=== PATIENT | female | born 1940 | race Caucasian/White ===

== ENCOUNTER 2017-02-16 14:47 | Emergency (ER) | payer MEDICARE, BC ==
[2017-02-16] MEDS ORDERED: Sodium Chloride 0.9% 1,000 ML IV ONE (15:10)
--- NOTE | 2017-02-16 15:15 | EDM.PDOC ---
ED HPI GENERAL MEDICAL PROBLEM - General Chief Complaint: Respiratory Problem Stated Complaint: cough Time Seen by Provider: 02/16/17 15:13 Source of Information: Reports: Patient History Limitations: Reports: No Limitations - History of Present Illness INITIAL COMMENTS - FREE TEXT/NARRATIVE: History of present illness: [76-year-old female comes in with complaints of cough and shortness of breath. Patient acute she has a history of pneumonia and she is an active smoker.] Review of systems: As per history of present illness and below otherwise all systems reviewed and negative. Past medical history: As per history of present illness and as reviewed below otherwise noncontributory. Surgical history: As per history of present illness and as reviewed below otherwise noncontributory. Social history: No reported history of drug or alcohol abuse. Family history: As per history of present illness and as reviewed below otherwise noncontributory. Physical exam: HEENT: Atraumatic, normocephalic, pupils reactive, negative for conjunctival pallor or scleral icterus, mucous membranes moist, throat clear, neck supple, nontender, trachea midline. Lungs: Clear to auscultation, breath sounds diminished throughout, chest nontender. Heart: S1S2, regular, negative for clicks, rubs, or JVD. Abdomen: Soft, nondistended, nontender. Negative for masses or hepatosplenomegaly. Negative for costovertebral tenderness. Pelvis: Stable nontender. Genitourinary: Deferred. Rectal: Deferred. Extremities: Atraumatic, negative for cords or calf pain. Neurovascular unremarkable. Neuro: Awake, alert, oriented. Cranial nerves II through XII unremarkable. Cerebellum unremarkable. Motor and sensory unremarkable throughout. Exam nonfocal. Diagnostics: [CBC, CMP, chest x-ray] Therapeutics: [IV fluid] Impression: [#1 URI, #2 cough, #3 shortness of breath] Plan: [Antibiotics, inhaler, steroids] Definitive disposition and diagnosis as appropriate pending reevaluation and review of above. Left Upper Back Pain Score (Numeric/FACES): 8 - Related Data Allergies Allergy/AdvReac Type Severity Reaction Status Date / Time Penicillins Allergy Anaphylactic Verified 02/16/17 15:11 Shock phenylbutazone Allergy Other Verified 02/16/17 15:11 [From Butazolidin] Home Meds: Home Meds Albuterol Sulfate [Proair Hfa] 2 puff IH Q6HR #1 hfa.aer.ad 02/16/17 [Rx] Amoxicillin [IMW: Amoxicillin] 500 mg PO .THREE TIMES DAILY #30 cap 02/16/17 [Rx ] Inhaler, Assist Devices [Space Chamber Plus] 1 each ASDIRECTED #1 spacer 02/24 [Rx] methylPREDNISolone [Medrol] 4 mg PO DAILY #21 tab.ds.pk 02/16/17 [Rx] ED ROS GENERAL - Review of Systems Review Of Systems: See Below (See history of present illness) ED EXAM, GENERAL - Physical Exam Exam: See Below (See history of present illness) Course - Vital Signs Last Recorded V/S: Last Vital Signs Temp 36.6 C 02/16/17 15:05 Pulse 88 02/16/17 15:05 Resp 20 02/16/17 15:05 BP 128/58 L 02/16/17 15:05 Pulse Ox 95 02/16/17 15:05 - Orders/Labs/Meds Orders: Active Orders 24 hr Category Date Time Status Chest 2V [CR] Stat Exams 02/16/17 15:10 Ordered Labs: Laboratory Tests 02/16/17 02/16/17 Range/Units 15:21 15:21 WBC 10.52 (4.0-11.0) K/uL RBC 4.60 (4.30-5.90) M/uL Hgb 14.5 (12.0-16.0) g/dL Hct 41.8 (36.0-46.0) % MCV 90.9 (80.0-98.0) fL MCH 31.5 (27.0-32.0) pg MCHC 34.7 (31.0-37.0) g/dL RDW Std Deviation 42.0 (28.0-62.0) fl RDW Coeff of Nam 13 (11.0-15.0) % Plt Count 207 (150-400) K/uL MPV 10.00 (7.40-12.00) fL Neut % (Auto) 73.3 (48.0-80.0) % Lymph % (Auto) 15.5 L (16.0-40.0) % [place] % (Auto) 8.3 (0.0-15.0) % Eos % (Auto) 2.6 (0.0-7.0) % Baso % (Auto) 0.3 (0.0-1.5) % Neut # (Auto) 7.7 H (1.4-5.7) K/uL Lymph # (Auto) 1.6 (0.6-2.4) K/uL [place] # (Auto) 0.9 H (0.0-0.8) K/uL Eos # (Auto) 0.3 (0.0-0.7) K/uL Baso # (Auto) 0.0 (0.0-0.1) K/uL Nucleated RBC % 0.0 /100WBC Nucleated RBCs # 0 K/uL Sodium 139 (136-146) mmol/L Potassium 3.5 (3.5-5.1) mmol/L Chloride 104 (98-110) mmol/L Carbon Dioxide 25 (21-31) mmol/L BUN 4 L (6.0-23.0) mg/dL Creatinine 0.7 (0.6-1.5) mg/dL Est Cr Clr Drug Dosing 63.45 mL/min Estimated GFR (MDRD) > 60.0 ml/min Glucose 109 (60-110) mg/dL Calcium 9.5 (8.8-10.8) mg/dL Total Bilirubin 0.7 (0.1-1.5) mg/dL AST 14 (5-40) IU/L ALT 9 (8-54) IU/L Alkaline Phosphatase 88 (40-150) Total Protein 7.1 (6.0-8.0) g/dL Albumin 4.1 (3.4-4.8) g/dL Globulin 3.0 (2.0-3.5) g/dL Albumin/Globulin Ratio 1.4 (1.3-2.8) Meds: Medications Discontinued Medications Generic Name Dose Route Start Last Admin Trade Name Freq PRN Reason Stop Dose Admin Sodium Chloride 1,000 mls @ 999 mls/hr 02/16/17 15:10 02/16/17 15:52 Normal Saline IV 02/16/17 16:10 999 mls/hr STAT ONE Administration Departure - Departure Time of Disposition: 16:39 Disposition: Home, Self-Care 01 Condition: Good Clinical Impression: URI (upper respiratory infection), Cough - Discharge Information Prescriptions: Albuterol Sulfate [Proair Hfa] 2 puff IH Q6HR #1 hfa.aer.ad Amoxicillin [IMW: Amoxicillin] 500 mg PO .THREE TIMES DAILY #30 cap Inhaler, Assist Devices [Space Chamber Plus] 1 each MC ASDIRECTED #1 spacer methylPREDNISolone [Medrol] 4 mg PO DAILY #21 tab.ds.pk Instructions: Smoking Cessation, Tips for Success, [id number], Chronic Obstructive Pulmonary Disease Exacerbation, [id number] Referrals: PCP,None [Primary Care Provider] - Forms: ED Department Discharge Additional Instructions: The following information is given to patients seen in the emergency department who are being discharged to home. This information is to outline your options for follow-up care. We provide all patients seen in our emergency department with a follow-up referral. The need for follow-up, as well as the timing and circumstances, are variable depending upon the specifics of your emergency department visit. If you don't have a primary care physician on staff, we will provide you with a referral. We always advise you to contact your personal physician following an emergency department visit to inform them of the circumstance of the visit and for follow-up with them and/or the need for any referrals to a consulting specialist. The emergency department will also refer you to a specialist when appropriate. This referral assures that you have the opportunity for follow-up care with a specialist. All of these measure are taken in an effort to provide you with optimal care, which includes your follow-up. Under all circumstances we always encourage you to contact your private physician who remains a resource for coordinating your care. When calling for follow-up care, please make the office aware that this follow-up is from your recent emergency room visit. If for any reason you are refused follow-up, please contact the [facility] Emergency Department at and asked to speak to the emergency department charge nurse. Take medication as directed Follow-up with PCP in 1-2 days Return to ED as needed as discussed - My Orders Last 24 Hours: My Active Orders 02/16/17 15:10 Chest 2V [CR] Stat - Assessment/Plan Last 24 Hours: My Active Orders 02/16/17 15:10 Chest 2V [CR] Stat
[2017-02-16 15:49] LABS: CHLORIDE,CL 104 mmol/L (98-110); SODIUM,NA 139 mmol/L (136-146)
[2017-02-16 17:05] VITALS: BP 118/56
--- NOTE | 2017-02-18 14:54 | CR ---
EXAM DATE: 02/16/17 PATIENT'S AGE: 76 Patient: FRIDA SHEETS Facility: [place], [place] Site . Site : [id number] Study: XRay Chest [id number] 4:08:22 PM Ordering Physician: Doctor Olea Final Report: HISTORY: Cough. Findings: Two views of the chest or provided. There is pleural-based increased soft tissue density seen at in the lower left hemithorax. In addition there is apparent pleural thickening/scarring and calcification at the left apex with lesser involvement of the right apex. No focal airspace consolidation is noted but there appear to be several small nodules present in the upper portions of both lungs as well as probably the right lower lung. No pneumothorax is seen. Cardiac silhouette size is within normal limits. Impression: 1. Likely chronic pleural scarring or thickening involving both lung apices and the left lower hemithorax. 2. Apparent small bilateral pulmonary nodules which appear relatively dense and could represent calcified granulomata. Comparison with any older outside studies would be helpful for further evaluation. If none exist, consider CT scan of the chest for further evaluation and confirmation. No focal airspace consolidation is noted. Dictated by Charles Lynn MD @ Feb 16 2017 4:25PM (Electronic Signature) Report Signed by Proxy. THAI
== END 2017-02-16 17:19 | disposition home or self-care (01) ==
LOC: MW.ED 14:47
DX: J06.9 Acute upper respiratory infection, unspecified (principal); Z88.0 Allergy status to penicillin; Z88.8 Allergy status to other drugs, medicaments and biological substances; Z79.899 Other long term (current) drug therapy
CPT/HCPCS: 36415; 71020; 80053; 85025; 96360; 99284; J7040; 99282

== ENCOUNTER 2017-09-27 14:43 | Observation (INO) | payer MEDICARE, BC ==
[2017-09-27] MEDS ORDERED: Aspirin 81 MG Tab.Chew PO ONE (14:53)
[2017-09-27] MEDS ORDERED: Nitroglycerin 0.4 MG Tab.SL SL PRN (14:53)
[2017-09-27] MEDS ORDERED: Pantoprazole 40 MG Vial IVPUSH ONE (14:57)
[2017-09-27] MEDS ORDERED: Sodium Chloride 0.9% 1,000 ML IV SCH (15:00)
[2017-09-27 15:33] LABS: CHLORIDE,CL 105 mmol/L (98-107); SODIUM,NA 141 mmol/L (136-145)
--- NOTE | 2017-09-27 15:35 | CR ---
EXAMINATION: Portable chest radiograph. HISTORY: Shortness of breath. Comparison: 02/16/2017. FINDINGS: The trachea is midline. The cardiomediastinal silhouette is within normal limits. No pulmonary infilt rates, effusions or pneumothorax. Bilateral apical scarring and postsurgical changes within the left apex. Mild hyperinflation and chronic interstitial prominence. Osseous structures appear unremarkable. IMPRESSION: No acute cardiopulmonary process.
--- NOTE | 2017-09-27 15:57 | EDM.PDOC ---
ED HPI GENERAL MEDICAL PROBLEM - General Chief Complaint: Chest Pain Stated Complaint: CHEST PAIN Time Seen by Provider: 09/27/17 15:55 Source of Information: Reports: Patient - History of Present Illness INITIAL COMMENTS - FREE TEXT/NARRATIVE: HISTORY AND PHYSICAL: History of present illness: [Patient presents with chest pain acutely she rates 10 out of 10 lasting for 45 minutes no radiation arm neck or jaw she did associate some shortness of breath however symptoms have resolved by time of arrival currently no fever nausea vomiting diarrhea constipation chest pain shortness breath headache dizziness palpitation no bowel or urine symptoms ] Review of systems: As per history of present illness and below otherwise all systems reviewed and negative. Past medical history: As per history of present illness and as reviewed below otherwise noncontributory. Surgical history: As per history of present illness and as reviewed below otherwise noncontributory. Social history: No reported history of drug or alcohol abuse. Family history: As per history of present illness and as reviewed below otherwise noncontributory. Physical exam: HEENT: Atraumatic, normocephalic, pupils reactive, negative for conjunctival pallor or scleral icterus, mucous membranes moist, throat clear, neck supple, nontender, trachea midline. Lungs: Clear to auscultation, breath sounds equal bilaterally, chest nontender. Heart: S1S2, regular, negative for clicks, rubs, or JVD. Abdomen: Soft, nondistended, nontender. Negative for masses or hepatosplenomegaly. Negative for costovertebral tenderness. Pelvis: Stable nontender. Genitourinary: Deferred. Rectal: Deferred. Extremities: Atraumatic, negative for cords or calf pain. Neurovascular unremarkable. Neuro: Awake, alert, oriented. Cranial nerves II through XII unremarkable. Cerebellum unremarkable. Motor and sensory unremarkable throughout. Exam nonfocal. Diagnostics: [EDC CMP cardiac enzymes ] Therapeutics: [Aspirin 324 mg chewable Proton X 80 mg IV ] Impression: [ atypical chest pain ] Definitive disposition and diagnosis as appropriate pending reevaluation and review of above. left chest Pain Score (Numeric/FACES): 10 - Related Data Allergies Allergy/AdvReac Type Severity Reaction Status Date / Time Penicillins Allergy Anaphylactic Verified 09/27/17 15:34 Shock phenylbutazone Allergy Other Verified 09/27/17 15:34 [From Butazolidin] Home Meds: Home Meds Albuterol Sulfate [Proair Hfa] 2 puff IH Q6HR #1 hfa.aer.ad 02/16/17 [Rx] Inhaler, Assist Devices [Space Chamber Plus] 1 each ASDIRECTED #1 spacer 02/24 [Rx] Albuterol [Ventolin HFA] 1 puff INH Q6HR 09/27/17 [History] Past Medical History Cardiovascular History: Reports: Other (See Below) Other Cardiovascular History: Long QT Syndrome Other OB/BYN History: Vaginal hysterectomy, still has ovaries Musculoskeletal History: Reports: Osteoarthritis - Infectious Disease History Infectious Disease History: Reports: Chicken Pox, Measles, Mumps, Shingles - Past Surgical History HEENT Surgical History: Reports: Cataract Surgery, Other (See Below) Other HEENT Surgeries/Procedures: lymph nodes from neck, cyst remocval face Respiratory Surgical History: Reports: Other (See Below) Other Respiratory Surgeries/Procedures: Chest tube when , lung surgery GI Surgical History: Reports: Appendectomy Female Surgical History: Reports: Breast Biopsy, Other (See Below) Other Female Surgeries/Procedures: Bladder surgery for growth Social & Family History - Family History Family Medical History: Noncontributory - Tobacco Use Smoking Status *Q: Former Smoker Years of Tobacco use: 50 Packs/Tins Daily: 0.5 Used Tobacco, but Quit: Yes Month/Year Tobacco Last Used: 07/2017 - Caffeine Use Caffeine Use: Reports: None - Recreational Drug Use Recreational Drug Use: No ED ROS GENERAL - Review of Systems Review Of Systems: ROS reveals no pertinent complaints other than HPI. ED EXAM, GI/ABD - Physical Exam Exam: See Below Course - Vital Signs Last Recorded V/S: Last Vital Signs Temp 98.4 F 09/27/17 15:14 Pulse 67 09/27/17 15:53 Resp 18 09/27/17 15:53 BP 126/77 09/27/17 15:53 Pulse Ox 92 L 09/27/17 15:53 - Orders/Labs/Meds Orders: Active Orders 24 hr Category Date Time Status EKG 12 Lead [EKG Documentation Completion] [RC] STAT Care 09/27/17 14:55 Active UA W/MICROSCOPIC [URIN] Stat Lab 09/27/17 14:54 Ordered Sodium Chloride 0.9% [Normal Saline] 1,000 ml Med 09/27/17 15:00 Active IV STAT Medication Orders Sodium Chloride (Normal Saline) 1,000 mls @ 125 mls/hr IV STAT GUS Last Admin: 09/27/17 15:02 Dose: 125 mls/hr Labs: Laboratory Tests 09/27/17 09/27/17 Range/Units 14:50 14:50 WBC 7.78 (4.0-11.0) K/uL RBC 4.94 (4.30-5.90) M/uL Hgb 15.4 (12.0-16.0) g/dL Hct 44.5 (36.0-46.0) % MCV 90.1 (80.0-98.0) fL MCH 31.2 (27.0-32.0) pg MCHC 34.6 (31.0-37.0) g/dL RDW Std Deviation 42.5 (28.0-62.0) fl RDW Coeff of Nam 13 (11.0-15.0) % Plt Count 212 (150-400) K/uL MPV 10.20 (7.40-12.00) fL Neut % (Auto) 59.6 (48.0-80.0) % Lymph % (Auto) 23.9 (16.0-40.0) % [place] % (Auto) 6.4 (0.0-15.0) % Eos % (Auto) 9.3 H (0.0-7.0) % Baso % (Auto) 0.8 (0.0-1.5) % Neut # (Auto) 4.6 (1.4-5.7) K/uL Lymph # (Auto) 1.9 (0.6-2.4) K/uL [place] # (Auto) 0.5 (0.0-0.8) K/uL Eos # (Auto) 0.7 (0.0-0.7) K/uL Baso # (Auto) 0.1 (0.0-0.1) K/uL Nucleated RBC % 0.0 /100WBC Nucleated RBCs # 0 K/uL Sodium 141 (136-145) mmol/L Potassium 3.9 (3.5-5.1) mmol/L Chloride 105 (98-107) mmol/L Carbon Dioxide 29.9 (21.0-32.0) mmol/L BUN 7 (7.0-18.0) mg/dL Creatinine 0.7 (0.6-1.0) mg/dL Est Cr Clr Drug Dosing TNP Estimated GFR (MDRD) > 60.0 ml/min Glucose 119 H (74-106) mg/dL Calcium 9.3 (8.5-10.1) mg/dL Total Bilirubin 0.6 (0.2-1.0) mg/dL AST 18 (15-37) IU/L ALT 17 (14-63) IU/L Alkaline Phosphatase 65 (46-116) U/L Creatine Kinase 60 (26-308) U/L CK-MB (CK-2) 2.5 (0-3.6) ng/mL Troponin I < 0.050 (0.000-0.056) ng/mL Total Protein 7.1 (6.4-8.2) g/dL Albumin 3.9 (3.4-5.0) g/dL Globulin 3.2 (2.0-3.5) g/dL Albumin/Globulin Ratio 1.2 L (1.3-2.8) Lipase 75 (73-393) U/L Meds: Medications Generic Name Dose Route Start Last Admin Trade Name Freq PRN Reason Stop Dose Admin Sodium Chloride 1,000 mls @ 125 mls/hr 09/27/17 15:00 09/27/17 15:02 Normal Saline IV 125 mls/hr STAT GUS Administration Discontinued Medications Generic Name Dose Route Start Last Admin Trade Name Freq PRN Reason Stop Dose Admin Aspirin 324 mg 09/27/17 14:53 09/27/17 15:02 Aspirin PO 09/27/17 14:54 324 mg ONETIME ONE Administration Nitroglycerin 0.4 mg 09/27/17 14:53 Nitrostat SL Q5M PRN Chest Pain Pantoprazole Sodium 80 mg 09/27/17 14:57 09/27/17 15:11 Protonix Iv IVPUSH 09/27/17 14:58 80 mg .BOLUS ONE Administration Departure - Departure Time of Disposition: 15:56 Disposition: Refer to Observation Condition: Fair Clinical Impression: Atypical chest pain - Discharge Information - My Orders Last 24 Hours: My Active Orders 09/27/17 14:54 UA W/MICROSCOPIC [URIN] Stat 09/27/17 14:55 EKG 12 Lead [EKG Documentation Completion] [RC] STAT 09/27/17 15:00 Sodium Chloride 0.9% [Normal Saline] 1,000 ml IV STAT - Assessment/Plan Last 24 Hours: My Active Orders 09/27/17 14:54 UA W/MICROSCOPIC [URIN] Stat 09/27/17 14:55 EKG 12 Lead [EKG Documentation Completion] [RC] STAT 09/27/17 15:00 Sodium Chloride 0.9% [Normal Saline] 1,000 ml IV STAT
[2017-09-27] MEDS ORDERED: Acetaminophen 325 MG Tab PO PRN (17:40)
[2017-09-27] MEDS ORDERED: Enoxaparin 40 MG/0.4 ML Syringe SUBCUT SCH (17:45)
--- NOTE | 2017-09-27 17:49 | PCM.HP ---
H&P History of Present Illness - General Date of Service: 09/27/17 Admit Problem/Dx: Admission Diagnosis/Problem Admission Diagnosis/Problem chest pain Source of Information: Patient History Limitations: Reports: No Limitations - History of Present Illness Initial Comments - Free Text/Narative: Patient 76 y old female presented to hospital due to chest pain that was localized in the middle of the chest and was severe , non irradiating and lasted for about 2 h . No change with position or with breathing . Patient has long history of smoking pain resolved when she arrived in ER. She also c/o cough productive of green phlegm and wheezing , sob. Onset of Symptoms: Reports: Today Duration of Symptoms: Reports: Hour(s): left chest Pain Score (Numeric/FACES): 10 - Related Data Allergies/Adverse Reactions: Allergies Allergy/AdvReac Type Severity Reaction Status Date / Time Penicillins Allergy Anaphylactic Verified 09/27/17 15:34 Shock phenylbutazone Allergy Other Verified 09/27/17 15:34 [From Butazolidin] Home Medications: Home Meds Albuterol Sulfate [Proair Hfa] 2 puff IH Q6HR #1 hfa.aer.ad 02/16/17 [Rx] Inhaler, Assist Devices [Space Chamber Plus] 1 each MC ASDIRECTED #1 spacer 02/24 [Rx] Albuterol [Ventolin HFA] 1 puff INH Q6HR 09/27/17 [History] Acetaminophen [Tylenol] 650 mg PO Q4H PRN tablet 09/28/17 [Rx] Albuterol/Ipratropium [DuoNeb 3.0-0.5 MG/3 ML] 3 ml NEB Q4HRRT PRN neb [Rx] Enoxaparin [Lovenox] 60 mg SUBCUT Q12H syringe 09/28/17 [Rx] Fluticasone/Salmeterol [Advair 250-50] 0 puff INH BID diskus 09/28/17 [Rx] atorvaSTATin [Lipitor] 80 mg PO BEDTIME tablet 09/28/17 [Rx] methylPREDNISolone Sod Succ [Solu-MEDROL] 60 mg IVPUSH Q6H sdv 09/28/17 [Rx] Past Medical History Cardiovascular History: Reports: Other (See Below) Other Cardiovascular History: Long QT Syndrome Respiratory History: Reports: COPD Other OB/BYN History: Vaginal hysterectomy, still has ovaries Musculoskeletal History: Reports: Osteoarthritis - Infectious Disease History Infectious Disease History: Reports: Chicken Pox, Measles, Mumps, Shingles - Past Surgical History HEENT Surgical History: Reports: Cataract Surgery, Other (See Below) Other HEENT Surgeries/Procedures: lymph nodes from neck, cyst remocval face Respiratory Surgical History: Reports: Other (See Below) Other Respiratory Surgeries/Procedures: Chest tube, lung surgery to remove ' blebs' (1971) GI Surgical History: Reports: Appendectomy Female Surgical History: Reports: Breast Biopsy, Other (See Below) Other Female Surgeries/Procedures: Bladder surgery for growth Social & Family History - Family History Family Medical History: Noncontributory - Tobacco Use Smoking Status *Q: Former Smoker Years of Tobacco use: 40 Packs/Tins Daily: 0.5 Used Tobacco, but Quit: Yes Month/Year Tobacco Last Used: 2-3 months ago - Caffeine Use Caffeine Use: Reports: Coffee, Soda - Recreational Drug Use Recreational Drug Use: No H&P Review of Systems - Review of Systems: Review Of Systems: See Below General: Reports: No Symptoms HEENT: Reports: No Symptoms Pulmonary: Reports: Shortness of Breath, Wheezing, Cough, Sputum Cardiovascular: Reports: Chest Pain Gastrointestinal: Reports: No Symptoms Genitourinary: Reports: No Symptoms Musculoskeletal: Reports: No Symptoms Skin: Reports: No Symptoms Psychiatric: Reports: No Symptoms Neurological: Reports: No Symptoms Hematologic/Lymphatic: Reports: No Symptoms Immunologic: Reports: No Symptoms Exam - Exam Exam: See Below - Vital Signs Vital Signs: Last Vital Signs Temp 97.1 F 09/27/17 16:38 Pulse 78 09/27/17 16:38 Resp 22 H 09/27/17 16:38 BP 140/67 09/27/17 16:38 Pulse Ox 89 L 09/27/17 16:38 Weight: 129 lb 12.8 oz - Exam Quality Assessment: No: Supplemental Oxygen General: Alert, Oriented HEENT: Conjunctiva Clear Neck: Supple, Trachea Midline Lungs: Decreased Breath Sounds, Wheezing Cardiovascular: Regular Rate, Regular Rhythm, Normal S1, Normal S2 GI/Abdominal Exam: Normal Bowel Sounds, Soft, Non-Tender, No Organomegaly, No Distention Back Exam: Normal Inspection Extremities: Normal Inspection Skin: Warm, Dry Neurological: Cranial Nerves Intact Neuro Extensive - Mental Status: Alert, Oriented x3 Neuro Extensive - Motor, Sensory, Reflexes: CN II-XII Intact Psychiatric: Alert, Normal Affect - Patient Data Lab Results Last 24 hrs: Laboratory Results - last 24 hr 09/27/17 09/27/17 09/27/17 Range/Units 14:50 14:50 16:59 WBC 7.78 (4.0-11.0) K/uL RBC 4.94 (4.30-5.90) M/uL Hgb 15.4 (12.0-16.0) g/dL Hct 44.5 (36.0-46.0) % MCV 90.1 (80.0-98.0) fL MCH 31.2 (27.0-32.0) pg MCHC 34.6 (31.0-37.0) g/dL RDW Std Deviation 42.5 (28.0-62.0) fl RDW Coeff of Nam 13 (11.0-15.0) % Plt Count 212 (150-400) K/uL MPV 10.20 (7.40-12.00) fL Neut % (Auto) 59.6 (48.0-80.0) % Lymph % (Auto) 23.9 (16.0-40.0) % [place] % (Auto) 6.4 (0.0-15.0) % Eos % (Auto) 9.3 H (0.0-7.0) % Baso % (Auto) 0.8 (0.0-1.5) % Neut # (Auto) 4.6 (1.4-5.7) K/uL Lymph # (Auto) 1.9 (0.6-2.4) K/uL [place] # (Auto) 0.5 (0.0-0.8) K/uL Eos # (Auto) 0.7 (0.0-0.7) K/uL Baso # (Auto) 0.1 (0.0-0.1) K/uL Nucleated RBC % 0.0 /100WBC Nucleated RBCs # 0 K/uL Sodium 141 (136-145) mmol/L Potassium 3.9 (3.5-5.1) mmol/L Chloride 105 (98-107) mmol/L Carbon Dioxide 29.9 (21.0-32.0) mmol/L BUN 7 (7.0-18.0) mg/dL Creatinine 0.7 (0.6-1.0) mg/dL Est Cr Clr Drug Dosing TNP Estimated GFR (MDRD) > 60.0 ml/min Glucose 119 H (74-106) mg/dL Calcium 9.3 (8.5-10.1) mg/dL Total Bilirubin 0.6 (0.2-1.0) mg/dL AST 18 (15-37) IU/L ALT 17 (14-63) IU/L Alkaline Phosphatase 65 (46-116) U/L Creatine Kinase 60 (26-308) U/L CK-MB (CK-2) 2.5 (0-3.6) ng/mL Troponin I < 0.050 (0.000-0.056) ng/mL Total Protein 7.1 (6.4-8.2) g/dL Albumin 3.9 (3.4-5.0) g/dL Globulin 3.2 (2.0-3.5) g/dL Albumin/Globulin Ratio 1.2 L (1.3-2.8) Lipase 75 (73-393) U/L Urine Color YELLOW Urine Appearance CLEAR Urine pH 7.0 (5.0-8.0) Ur Specific [place] 1.015 (1.001-1.035) Urine Protein NEGATIVE (NEGATIVE) mg/dL Urine Glucose (UA) NEGATIVE (NEGATIVE) mg/dL Urine Ketones TRACE H (NEGATIVE) mg/dL Urine Occult Blood SMALL H (NEGATIVE) Urine Nitrite NEGATIVE (NEGATIVE) Urine Bilirubin NEGATIVE (NEGATIVE) Urine Urobilinogen 0.2 (<2.0) EU/dL Ur Leukocyte Esterase NEGATIVE (NEGATIVE) Urine RBC 1-2 (0-2/HPF) Urine WBC 0-1 (0-5/HPF) Ur Epithelial Cells RARE (NONE-FEW) Urine Bacteria RARE (NEGATIVE) Result Diagrams: 09/28/17 07:13 09/28/17 07:13 EKG INTERPRETATION EKG Date: 09/27/17 Rhythm: NSR P-Wave: Present QRS: RBBB ST-T: Normal QT: Normal - Problem List (1) Chest pain, rule out acute myocardial infarction SNOMED Code(s): 46502980 ICD Code: R07.9 - CHEST PAIN, UNSPECIFIED Status: Acute Current Visit: Yes (2) COPD exacerbation SNOMED Code(s): 769979725 ICD Code: J44.1 - CHRONIC OBSTRUCTIVE PULMONARY DISEASE W (ACUTE) EXACERBATION Status: Acute Current Visit: Yes Problem List Initiated/Reviewed/Updated: Yes Orders Last 24hrs: Active Orders 24 hr Category Date Time Status Admission Status [Patient Status] [ADT] Stat ADT 09/27/17 15:57 Active Oxygen Therapy [RC] PRN Care 09/27/17 17:41 Active Pulse Oximetry [RC] PRN Care 09/27/17 17:44 Active Telemetry Monitoring [Cardiac Monitoring] [RC] . Care 09/27/17 17:46 Active DIRECTED VTE/DVT Education [RC] PER UNIT ROUTINE Care 09/27/17 17:41 Active Vital Signs [RC] Q4H Care 09/27/17 17:41 Active Heart Healthy Diet [DIET] Diet 09/27/17 Dinner Active CBC WITH AUTO DIFF [HEME] AM Lab 09/28/17 05:11 Ordered CBC WITH AUTO DIFF [HEME] AM Lab 09/29/17 05:11 Ordered CBC WITH AUTO DIFF [HEME] AM Lab 09/30/17 05:11 Ordered COMPREHENSIVE METABOLIC PN,CMP [CHEM] AM Lab 09/28/17 05:11 Ordered COMPREHENSIVE METABOLIC PN,CMP [CHEM] AM Lab 09/29/17 05:11 Ordered COMPREHENSIVE METABOLIC PN,CMP [CHEM] AM Lab 09/30/17 05:11 Ordered GLYCOSYLATED HEMOGLOBIN,HGBA1C [CHEM] Routine Lab 09/28/17 05:10 Ordered LIPID PANEL [CHEM] Routine Lab 09/28/17 05:10 Ordered UA W/MICROSCOPIC [URIN] Stat Lab 09/27/17 16:59 Ordered Acetaminophen [Tylenol] Med 09/27/17 17:40 Ordered 650 mg PO Q4H PRN Albuterol [Ventolin HFA] Med 09/27/17 18:00 Ordered DOSE gm INH Q6HR Enoxaparin [Lovenox] Med 09/27/17 17:45 Ordered 40 mg SUBCUT Q24H Sodium Chloride 0.9% [Normal Saline] 1,000 ml Med 09/27/17 15:00 Active IV STAT Sequential Compression Device [OM.PC] Per Unit Routine Oth 09/27/17 17:44 Ordered Resuscitation Status Routine Resus Stat 09/27/17 17:40 Ordered Medication Orders Acetaminophen (Tylenol) 650 mg PO Q4H PRN PRN Reason: Pain (Mild 1-3)/fever Albuterol (Ventolin Hfa) gm INH Q6HR GUS Enoxaparin Sodium (Lovenox) 40 mg SUBCUT Q24H GUS Sodium Chloride (Normal Saline) 1,000 mls @ 125 mls/hr IV STAT GUS Last Admin: 09/27/17 15:02 Dose: 125 mls/hr Assessment/Plan Comment:: Assessment and plan chest pain r/o acs - will admit patient to telemetry , fill follow up cardiac enzymes , three sets , aspirin 325 mg po daily , lipid profile , hemoglobin A1c 2)Copd exacerbation : levaquin 750 mg po daily , solumedrol 60 mg iv q 6 h , duoneb nebulizer treatment , advair 250 /50 , 2 puffs q 12h , robitussin 10 cc po tid 3)dvt prof : giovanna sq
[2017-09-27] MEDS ORDERED: Levofloxacin/Dextrose 5%-Water 750 MG in Premix Bag 1 BAG IV SCH (18:00)
[2017-09-27] MEDS: Albuterol 8 GM Inhaler INH SCH (18:35)
[2017-09-27] MEDS: Albuterol/Ipratropium 3.0-0.5 MG/3 ML Neb Soln NEB PRN ×2 (18:37→23:21)
[2017-09-27] MEDS: methylPREDNISolone Sodium Succinate 40 MG/1 ML SDV IVPUSH SCH ×2 (18:38→23:15)
[2017-09-27] MEDS: Fluticasone/Salmeterol 250-50 MCG Inhalation Powder 14/Diskus INH SCH ×2 (18:51→21:12)
[2017-09-27] MEDS: Lactated Ringers 1,000 ML IV SCH (23:16)
[2017-09-28] MEDS: Albuterol 8 GM Inhaler INH SCH ×2 (00:02→06:01)
[2017-09-28] MEDS ORDERED: atorvaSTATin 40 MG Tab PO SCH (03:10)
[2017-09-28] MEDS ORDERED: Nitroglycerin 2% Oint 1 GM UD Packet TOP ONE (03:11)
[2017-09-28] MEDS ORDERED: Enoxaparin 60 MG/0.6 ML Syringe SUBCUT SCH (03:15)
[2017-09-28] MEDS: Lactated Ringers 1,000 ML IV SCH (05:40)
[2017-09-28] MEDS: methylPREDNISolone Sodium Succinate 40 MG/1 ML SDV IVPUSH SCH (05:40)
[2017-09-28 07:39] LABS: CHLORIDE,CL 106 mmol/L (98-107); SODIUM,NA 139 mmol/L (136-145)
[2017-09-28] MEDS: Albuterol/Ipratropium 3.0-0.5 MG/3 ML Neb Soln NEB PRN (08:17)
[2017-09-28] MEDS: Fluticasone/Salmeterol 250-50 MCG Inhalation Powder 14/Diskus INH SCH (08:29)
[2017-09-28] MEDS ORDERED: Aspirin 325 MG Tab.EC PO SCH (10:30)
[2017-09-28] MEDS ORDERED: guaiFENesin 100 MG/5 ML Soln 10 ML UD Cup PO PRN (10:30)
--- NOTE | 2017-09-28 10:35 | PCM.DCSUM1 ---
Discharge Summary - Hospital Course Free Text/Narrative:: Patient 76 y old female presented to hospital with chest pain for 2 h , not pleuritic , not positional. She was given aspirin 325 mg po daily and troponins were trended and the third set was positive. Patient was started on full dose anticoagulation and was given atorvastatin 80 mg po daily and nitropaste. The fourth set of cardiac enzymes were negative. Patient did not have CP before prior to coming to hospital and also did not have chest pain afterwards. She was assessed as having NSTEMI and was transferred to [facility] , accepting physician , Dr. Adams. Also at admission she was found to have copd exac and was treated with levaquin iv , solumedrol inv and nebulizer treatment. - Discharge Data Discharge Date: 09/28/17 Discharge Disposition: DC/Tfer to Acute Hospital 02 Condition: Good - Discharge Diagnosis/Problem(s) (1) Chest pain, rule out acute myocardial infarction SNOMED Code(s): 28807252 ICD Code: R07.9 - CHEST PAIN, UNSPECIFIED Status: Acute (2) COPD exacerbation SNOMED Code(s): 435528027 ICD Code: J44.1 - CHRONIC OBSTRUCTIVE PULMONARY DISEASE W (ACUTE) EXACERBATION Status: Acute - Patient Instructions Diet: Heart Healthy Diet Activity: As Tolerated Driving: Do Not Drive Showering/Bathing: October Shower Notify Provider of: Increased Pain - Discharge Plan Home Medications: Home Meds Albuterol Sulfate [Proair Hfa] 2 puff IH Q6HR #1 hfa.aer.ad 02/16/17 [Rx] Inhaler, Assist Devices [Space Chamber Plus] 1 each ASDIRECTED #1 spacer 02/24 [Rx] Albuterol [Ventolin HFA] 1 puff INH Q6HR 09/27/17 [History] Acetaminophen [Tylenol] 650 mg PO Q4H PRN tablet 09/28/17 [Rx] Albuterol/Ipratropium [DuoNeb 3.0-0.5 MG/3 ML] 3 ml NEB Q4HRRT PRN neb [Rx] Enoxaparin [Lovenox] 60 mg SUBCUT Q12H syringe 09/28/17 [Rx] Fluticasone/Salmeterol [Advair 250-50] 0 puff INH BID diskus 09/28/17 [Rx] atorvaSTATin [Lipitor] 80 mg PO BEDTIME tablet 09/28/17 [Rx] methylPREDNISolone Sod Succ [Solu-MEDROL] 60 mg IVPUSH Q6H sdv 09/28/17 [Rx] Referrals: Jennie Luu MD [Physician] - Tamanna Sanchez NP [Ordering Only Provider] - - General Info Date of Service: 09/28/17 - Review of Systems General: Reports: No Symptoms HEENT: Reports: No Symptoms Pulmonary: Reports: Cough Cardiovascular: Reports: No Symptoms Gastrointestinal: Reports: No Symptoms Genitourinary: Reports: No Symptoms Musculoskeletal: Reports: No Symptoms Skin: Reports: No Symptoms Neurological: Reports: No Symptoms Psychiatric: Reports: No Symptoms - Patient Data Vitals - Most Recent: Last Vital Signs Temp 98.5 F 09/28/17 07:38 Pulse 80 09/28/17 07:38 Resp 18 09/28/17 07:38 BP 124/73 09/28/17 07:38 Pulse Ox 90 L 09/28/17 07:38 Weight - Most Recent: 129 lb 12.8 oz I&O - Last 24 hours: Intake & Output 09/27/17 09/28/17 09/28/17 22:59 06:59 14:59 Intake Total 150 2528 Output Total 1750 Balance 150 778 Lab Results - Last 24 hrs: Laboratory Results - last 24 hr 09/27/17 09/27/17 09/27/17 Range/Units 14:50 14:50 16:59 WBC 7.78 (4.0-11.0) K/uL RBC 4.94 (4.30-5.90) M/uL Hgb 15.4 (12.0-16.0) g/dL Hct 44.5 (36.0-46.0) % MCV 90.1 (80.0-98.0) fL MCH 31.2 (27.0-32.0) pg MCHC 34.6 (31.0-37.0) g/dL RDW Std Deviation 42.5 (28.0-62.0) fl RDW Coeff of Nam 13 (11.0-15.0) % Plt Count 212 (150-400) K/uL MPV 10.20 (7.40-12.00) fL Neut % (Auto) 59.6 (48.0-80.0) % Lymph % (Auto) 23.9 (16.0-40.0) % [place] % (Auto) 6.4 (0.0-15.0) % Eos % (Auto) 9.3 H (0.0-7.0) % Baso % (Auto) 0.8 (0.0-1.5) % Neut # (Auto) 4.6 (1.4-5.7) K/uL Lymph # (Auto) 1.9 (0.6-2.4) K/uL [place] # (Auto) 0.5 (0.0-0.8) K/uL Eos # (Auto) 0.7 (0.0-0.7) K/uL Baso # (Auto) 0.1 (0.0-0.1) K/uL Nucleated RBC % 0.0 /100WBC Nucleated RBCs # 0 K/uL Sodium 141 (136-145) mmol/L Potassium 3.9 (3.5-5.1) mmol/L Chloride 105 (98-107) mmol/L Carbon Dioxide 29.9 (21.0-32.0) mmol/L BUN 7 (7.0-18.0) mg/dL Creatinine 0.7 (0.6-1.0) mg/dL Est Cr Clr Drug Dosing TNP Estimated GFR (MDRD) > 60.0 ml/min Glucose 119 H (74-106) mg/dL Hemoglobin A1c (4.5-6.2) % Calcium 9.3 (8.5-10.1) mg/dL Total Bilirubin 0.6 (0.2-1.0) mg/dL AST 18 (15-37) IU/L ALT 17 (14-63) IU/L Alkaline Phosphatase 65 (46-116) U/L Creatine Kinase 60 (26-308) U/L CK-MB (CK-2) 2.5 (0-3.6) ng/mL Troponin I < 0.050 (0.000-0.056) ng/mL Total Protein 7.1 (6.4-8.2) g/dL Albumin 3.9 (3.4-5.0) g/dL Globulin 3.2 (2.0-3.5) g/dL Albumin/Globulin Ratio 1.2 L (1.3-2.8) Triglycerides (0-200) mg/dL Cholesterol (50-200) mg/dL LDL Cholesterol, Calc (60-180) mg/dL VLDL Cholesterol (5-55) mg/dL HDL Cholesterol (40-60) mg/dL Cholesterol/HDL Ratio (3.3-6.0) Lipase 75 (73-393) U/L Urine Color YELLOW Urine Appearance CLEAR Urine pH 7.0 (5.0-8.0) Ur Specific [place] 1.015 (1.001-1.035) Urine Protein NEGATIVE (NEGATIVE) mg/dL Urine Glucose (UA) NEGATIVE (NEGATIVE) mg/dL Urine Ketones TRACE H (NEGATIVE) mg/dL Urine Occult Blood SMALL H (NEGATIVE) Urine Nitrite NEGATIVE (NEGATIVE) Urine Bilirubin NEGATIVE (NEGATIVE) Urine Urobilinogen 0.2 (<2.0) EU/dL Ur Leukocyte Esterase NEGATIVE (NEGATIVE) Urine RBC 1-2 (0-2/HPF) Urine WBC 0-1 (0-5/HPF) Ur Epithelial Cells RARE (NONE-FEW) Urine Bacteria RARE (NEGATIVE) 09/27/17 09/28/17 09/28/17 Range/Units 19:16 01:09 07:13 WBC 5.38 (4.0-11.0) K/uL RBC 4.57 (4.30-5.90) M/uL Hgb 14.1 (12.0-16.0) g/dL Hct 40.9 (36.0-46.0) % MCV 89.5 (80.0-98.0) fL MCH 30.9 (27.0-32.0) pg MCHC 34.5 (31.0-37.0) g/dL RDW Std Deviation 41.4 (28.0-62.0) fl RDW Coeff of Nam 13 (11.0-15.0) % Plt Count 183 (150-400) K/uL MPV 10.10 (7.40-12.00) fL Neut % (Auto) 89.9 H (48.0-80.0) % Lymph % (Auto) 9.9 L (16.0-40.0) % [place] % (Auto) 0.2 (0.0-15.0) % Eos % (Auto) 0.0 (0.0-7.0) % Baso % (Auto) 0.0 (0.0-1.5) % Neut # (Auto) 4.8 (1.4-5.7) K/uL Lymph # (Auto) 0.5 L (0.6-2.4) K/uL [place] # (Auto) 0.0 (0.0-0.8) K/uL Eos # (Auto) 0.0 (0.0-0.7) K/uL Baso # (Auto) 0.0 (0.0-0.1) K/uL Nucleated RBC % 0.0 /100WBC Nucleated RBCs # 0 K/uL Sodium (136-145) mmol/L Potassium (3.5-5.1) mmol/L Chloride (98-107) mmol/L Carbon Dioxide (21.0-32.0) mmol/L BUN (7.0-18.0) mg/dL Creatinine (0.6-1.0) mg/dL Est Cr Clr Drug Dosing Estimated GFR (MDRD) ml/min Glucose (74-106) mg/dL Hemoglobin A1c (4.5-6.2) % Calcium (8.5-10.1) mg/dL Total Bilirubin (0.2-1.0) mg/dL AST (15-37) IU/L ALT (14-63) IU/L Alkaline Phosphatase (46-116) U/L Creatine Kinase (26-308) U/L CK-MB (CK-2) (0-3.6) ng/mL Troponin I < 0.050 0.071 H* (0.000-0.056) ng/mL Total Protein (6.4-8.2) g/dL Albumin (3.4-5.0) g/dL Globulin (2.0-3.5) g/dL Albumin/Globulin Ratio (1.3-2.8) Triglycerides (0-200) mg/dL Cholesterol (50-200) mg/dL LDL Cholesterol, Calc (60-180) mg/dL VLDL Cholesterol (5-55) mg/dL HDL Cholesterol (40-60) mg/dL Cholesterol/HDL Ratio (3.3-6.0) Lipase (73-393) U/L Urine Color Urine Appearance Urine pH (5.0-8.0) Ur Specific [place] (1.001-1.035) Urine Protein (NEGATIVE) mg/dL Urine Glucose (UA) (NEGATIVE) mg/dL Urine Ketones (NEGATIVE) mg/dL Urine Occult Blood (NEGATIVE) Urine Nitrite (NEGATIVE) Urine Bilirubin (NEGATIVE) Urine Urobilinogen (<2.0) EU/dL Ur Leukocyte Esterase (NEGATIVE) Urine RBC (0-2/HPF) Urine WBC (0-5/HPF) Ur Epithelial Cells (NONE-FEW) Urine Bacteria (NEGATIVE) 09/28/17 09/28/17 09/28/17 Range/Units 07:13 07:13 07:13 WBC (4.0-11.0) K/uL RBC (4.30-5.90) M/uL Hgb (12.0-16.0) g/dL Hct (36.0-46.0) % MCV (80.0-98.0) fL MCH (27.0-32.0) pg MCHC (31.0-37.0) g/dL RDW Std Deviation (28.0-62.0) fl RDW Coeff of [place] (11.0-15.0) % Plt Count (150-400) K/uL MPV (7.40-12.00) fL Neut % (Auto) (48.0-80.0) % Lymph % (Auto) (16.0-40.0) % [place] % (Auto) (0.0-15.0) % Eos % (Auto) (0.0-7.0) % Baso % (Auto) (0.0-1.5) % Neut # (Auto) (1.4-5.7) K/uL Lymph # (Auto) (0.6-2.4) K/uL [place] # (Auto) (0.0-0.8) K/uL Eos # (Auto) (0.0-0.7) K/uL Baso # (Auto) (0.0-0.1) K/uL Nucleated RBC % /100WBC Nucleated RBCs # K/uL Sodium 139 (136-145) mmol/L Potassium 4.1 (3.5-5.1) mmol/L Chloride 106 (98-107) mmol/L Carbon Dioxide 25.5 (21.0-32.0) mmol/L BUN 7 (7.0-18.0) mg/dL Creatinine 0.7 (0.6-1.0) mg/dL Est Cr Clr Drug Dosing 63.34 Estimated GFR (MDRD) > 60.0 ml/min Glucose 144 H (74-106) mg/dL Hemoglobin A1c 5.8 (4.5-6.2) % Calcium 9.2 (8.5-10.1) mg/dL Total Bilirubin 0.4 (0.2-1.0) mg/dL AST 16 (15-37) IU/L ALT 15 (14-63) IU/L Alkaline Phosphatase 57 (46-116) U/L Creatine Kinase (26-308) U/L CK-MB (CK-2) (0-3.6) ng/mL Troponin I < 0.050 (0.000-0.056) ng/mL Total Protein 6.3 L (6.4-8.2) g/dL Albumin 3.3 L (3.4-5.0) g/dL Globulin 3.0 (2.0-3.5) g/dL Albumin/Globulin Ratio 1.1 L (1.3-2.8) Triglycerides 55 (0-200) mg/dL Cholesterol 167 (50-200) mg/dL LDL Cholesterol, Calc 84 (60-180) mg/dL VLDL Cholesterol 11 (5-55) mg/dL HDL Cholesterol 72 H (40-60) mg/dL Cholesterol/HDL Ratio 2.3 L (3.3-6.0) Lipase (73-393) U/L Urine Color Urine Appearance Urine pH (5.0-8.0) Ur Specific [place] (1.001-1.035) Urine Protein (NEGATIVE) mg/dL Urine Glucose (UA) (NEGATIVE) mg/dL Urine Ketones (NEGATIVE) mg/dL Urine Occult Blood (NEGATIVE) Urine Nitrite (NEGATIVE) Urine Bilirubin (NEGATIVE) Urine Urobilinogen (<2.0) EU/dL Ur Leukocyte Esterase (NEGATIVE) Urine RBC (0-2/HPF) Urine WBC (0-5/HPF) Ur Epithelial Cells (NONE-FEW) Urine Bacteria (NEGATIVE) Med Orders - Current: Current Medications Acetaminophen (Tylenol) 650 mg PO Q4H PRN PRN Reason: Pain (Mild 1-3)/fever Albuterol (Ventolin Hfa) 0 gm INH Q6HR [facility] Last Admin: 09/28/17 06:01 Dose: 2 canister Albuterol/Ipratropium (Duoneb 3.0-0.5 Mg/3 Ml) 3 ml NEB Q4HRRT PRN PRN Reason: Wheezing Last Admin: 09/28/17 08:17 Dose: 3 ml Aspirin (Ecotrin) 325 mg PO DAILY [facility] Atorvastatin Calcium (Lipitor) 80 mg PO BEDTIME [facility] Last Admin: 09/28/17 03:59 Dose: 80 mg Enoxaparin Sodium (Lovenox) 60 mg SUBCUT Q12H [facility] Last Admin: 09/28/17 03:58 Dose: 60 mg Guaifenesin (Robitussin) 200 mg PO Q6H PRN PRN Reason: Cough Levofloxacin/Dextrose 750 mg/ (Premix) 150 mls @ 100 mls/hr IV Q24H [facility] Last Admin: 09/27/17 18:38 Dose: 100 mls/hr Ceftriaxone Sodium 1,000 mg/ (Sodium Chloride) 50 mls @ 200 mls/hr IV Q24H [facility] Methylprednisolone Sodium Succinate (Solu-Medrol) 60 mg IVPUSH Q6H [facility] Last Admin: 09/28/17 05:40 Dose: 60 mg Fluticasone/Salmeterol (Advair Diskus 250-50) 0 puff INH BID [facility] Last Admin: 09/28/17 08:29 Dose: 1 puff Discontinued Medications Aspirin (Aspirin) 324 mg PO ONETIME ONE Stop: 09/27/17 14:54 Last Admin: 09/27/17 15:02 Dose: 324 mg Enoxaparin Sodium (Lovenox) 40 mg SUBCUT Q24H [facility] Last Admin: 09/27/17 18:08 Dose: 40 mg Sodium Chloride (Normal Saline) 1,000 mls @ 125 mls/hr IV STAT [facility] Last Admin: 09/27/17 15:02 Dose: 125 mls/hr Lactated Ringer's (Ringers, Lactated) 1,000 mls @ 150 mls/hr IV ASDIRECTED [facility] Last Admin: 09/28/17 05:40 Dose: 150 mls/hr Nitroglycerin (Nitrostat) 0.4 mg SL Q5M PRN PRN Reason: Chest Pain Nitroglycerin (Nitro-Bid 2%) 1 gm TOP ONETIME ONE Stop: 09/28/17 03:12 Last Admin: 09/28/17 03:59 Dose: 1 gm Pantoprazole Sodium (Protonix Iv) 80 mg IVPUSH .BOLUS ONE Stop: 09/27/17 14:58 Last Admin: 09/27/17 15:11 Dose: 80 mg - Exam General: Reports: Alert, Oriented HEENT: Reports: Pupils Equal Neck: Reports: Supple, Trachea Midline Lungs: Reports: Decreased Breath Sounds Cardiovascular: Reports: Regular Rate, Regular Rhythm, No Murmurs GI/Abdominal Exam: Normal Bowel Sounds, Soft, Non-Tender, No Organomegaly, No Distention, No Abnormal Bruit Back Exam: Reports: Normal Inspection Extremities: Normal Inspection Skin: Reports: Warm, Dry, Intact
[2017-09-28] MEDS ORDERED: cefTRIAXone 1,000 MG in Sodium Chloride 0.9% 50 ML IV SCH (10:45)
[2017-09-28 11:54] VITALS: BP 148/67
== END 2017-09-28 11:30 ==
LOC: MW.ED 14:43 → MW.MS 15:57
PROVIDERS: ADMIT Internal Medicine; ATTEND Internal Medicine
DX: R07.9 Chest pain, unspecified (principal); J44.1 Chronic obstructive pulmonary disease with (acute) exacerbation; M19.90 Unspecified osteoarthritis, unspecified site; Z79.899 Other long term (current) drug therapy; Z87.891 Personal history of nicotine dependence; Z88.0 Allergy status to penicillin; Z88.8 Allergy status to other drugs, medicaments and biological substances; Z90.710 Acquired absence of both cervix and uterus
CPT/HCPCS: 36415; 71045; 80053; 80061; 81001; 82550; 82553; 83036; 83690; 84484; 85025; 93005; 94640; 94664; 96361; 96374; 99285; A9270; C9113; J0696; J1650; J1956; J2920; J7040; J7050; J7120; 96365; 96366; 96372; 96375; 96376; G0378

== ENCOUNTER 2017-10-20 22:14 | Observation (INO) | payer MEDICARE, BC ==
[2017-10-20] MEDS ORDERED: Albuterol/Ipratropium 3.0-0.5 MG/3 ML Neb Soln NEB ONE (22:26)
[2017-10-20] MEDS ORDERED: Sodium Chloride 0.9% 2.5 ML Syringe FLUSH PRN (22:27)
[2017-10-20] MEDS ORDERED: methylPREDNISolone Sodium Succinate 125 MG/2 ML SDV IVPUSH ONE (22:27)
[2017-10-20] MEDS ORDERED: Sodium Chloride 0.9% 10 ML Syringe FLUSH PRN (22:27)
--- NOTE | 2017-10-20 22:30 | EDM.PDOC ---
ED HPI GENERAL MEDICAL PROBLEM - General Chief Complaint: Respiratory Problem Stated Complaint: SHORTNESS OF BREATH Time Seen by Provider: 10/20/17 22:20 - History of Present Illness INITIAL COMMENTS - FREE TEXT/NARRATIVE: HISTORY AND PHYSICAL: History of present illness: The patient is a 76-year-old female with a history of COPD and a non-STEMI FL who follows at [facility] with the nurse practitioner and also sees Dr. Vidales for cardiology and in fact saw him a few weeks ago and had a negative chemical stress test and presents with a one to one and a half week progressive increase in shortness of breath cough more productive of some phlegm without fevers or chills. The patient has a history of tobacco use in the past but currently does not smoke and is not oxygen dependent at home. She uses nebulizer treatments and took her last treatment about 3-1/2 hours ago. She said that she is becoming progressively more short of breath and has a history of pneumonias. She's been eating and drinking normally and has no peripheral swelling. She says she has chest tightness but it is bilateral and is more associated with the breathing. She says that she has had the cough since she started the nebulizer treatments and she does not feel that necessarily different but it seems more loose and it is associated with the shortness of breath. Review of systems: As per history of present illness and below otherwise all systems reviewed and negative. Past medical history: As per history of present illness and as reviewed below otherwise noncontributory. Surgical history: As per history of present illness and as reviewed below otherwise noncontributory. Social history: No reported history of drug or alcohol abuse. Family history: As per history of present illness and as reviewed below otherwise noncontributory. Physical exam: General: Well-developed thin female who is nontoxic and slightly breathless on my evaluation at rest. Has a harsh cough. The patient has an O2 sat on room air on arrival of 85% HEENT: Atraumatic, normocephalic, pupils reactive, negative for conjunctival pallor or scleral icterus, mucous membranes moist, throat clear, neck supple, nontender, trachea midline. Lungs: Wheezing and rhonchi throughout all lung huggins and some mild increased work of breathing without stridor, breath sounds equal bilaterally, chest nontender. Heart: S1S2, regular, negative for clicks, rubs, or JVD. Abdomen: Soft, nondistended, nontender. Negative for masses or hepatosplenomegaly. Negative for costovertebral tenderness. Pelvis: Stable nontender. Genitourinary: Deferred. Rectal: Deferred. Extremities: Atraumatic, negative for cords or calf pain. Neurovascular unremarkable. No pedal edema Neuro: Awake, alert, oriented. Cranial nerves II through XII unremarkable. Cerebellum unremarkable. Motor and sensory unremarkable throughout. Exam nonfocal. Diagnostics: EKG CBC CMP BNP INR troponin chest x-ray lactic acid blood cultures Therapeutics: The O2 monitor DuoNeb Solu-Medrol EKG from today was compared to one performed on September 27 of this year and there are no significant changes seen 2340: Case was discussed with Dr. Busch who agrees with observation admission. Patient is also aware and agrees Impression: Dyspnea COPD exacerbation Definitive disposition and diagnosis as appropriate pending reevaluation and review of above. - Related Data Allergies Allergy/AdvReac Type Severity Reaction Status Date / Time Penicillins Allergy Anaphylactic Verified 10/20/17 22:26 Shock phenylbutazone Allergy Other Verified 10/20/17 22:26 [From Butazolidin] Home Meds: Home Meds Albuterol [Ventolin HFA] 1 puff INH Q6HR 09/27/17 [History] Albuterol/Ipratropium [DuoNeb 3.0-0.5 MG/3 ML] 3 ml NEB Q4HRRT PRN neb [Rx] Aspirin 1 tab PO DAILY 10/20/17 [History] Past Medical History Cardiovascular History: Reports: Other (See Below) Other Cardiovascular History: Long QT Syndrome Respiratory History: Reports: COPD Other OB/BYN History: Vaginal hysterectomy, still has ovaries Musculoskeletal History: Reports: Osteoarthritis - Infectious Disease History Infectious Disease History: Reports: Chicken Pox, Measles, Mumps, Shingles - Past Surgical History HEENT Surgical History: Reports: Cataract Surgery, Other (See Below) Other HEENT Surgeries/Procedures: lymph nodes from neck, cyst remocval face Respiratory Surgical History: Reports: Other (See Below) Other Respiratory Surgeries/Procedures: Chest tube, lung surgery to remove ' blebs' (1971) GI Surgical History: Reports: Appendectomy Female Surgical History: Reports: Breast Biopsy, Other (See Below) Other Female Surgeries/Procedures: Bladder surgery for growth Social & Family History - Family History Family Medical History: Noncontributory - Caffeine Use Caffeine Use: Reports: Coffee, Soda ED ROS GENERAL - Review of Systems Review Of Systems: ROS reveals no pertinent complaints other than HPI. ED EXAM, GENERAL - Physical Exam Exam: See Below (see Dictation) Course - Vital Signs Last Recorded V/S: Last Vital Signs Temp 36.4 C 10/20/17 22:14 Pulse 78 10/20/17 22:14 Resp 24 H 10/20/17 22:14 BP 150/74 H 10/20/17 22:14 Pulse Ox 85 L 10/20/17 22:14 - Orders/Labs/Meds Orders: Active Orders 24 hr Category Date Time Status Patient Status [ADT] Stat ADT 10/20/17 23:57 Ordered Cardiac Monitoring [RC] . DIRECTED Care 10/20/17 22:26 Active EKG Documentation Completion [RC] STAT Care 10/20/17 22:26 Active Oxygen Therapy, ED [RC] ASDIRECTED Care 10/20/17 22:26 Active Pulse Oximetry [RC] ASDIRECTED Care 10/20/17 22:26 Active RT Aerosol Therapy [RC] ASDIRECTED Care 10/20/17 22:27 Active Chest 1V Frontal [CR] Stat Exams 10/20/17 22:26 Taken CULTURE BLOOD [BC] Stat Lab 10/20/17 22:36 Results CULTURE BLOOD [BC] Stat Lab 10/20/17 22:50 Results Sodium Chloride 0.9% [Saline Flush] Med 10/20/17 22:27 Active 10 ml FLUSH ASDIRECTED PRN Sodium Chloride 0.9% [Saline Flush] Med 10/20/17 22:27 Active 2.5 ml FLUSH ASDIRECTED PRN Blood Culture x2 Reflex Set [OM.PC] Stat Oth 10/20/17 22:26 Ordered Saline Lock Insert [OM.PC] Stat Oth 10/20/17 22:26 Ordered Medication Orders Sodium Chloride (Saline Flush) 10 ml FLUSH ASDIRECTED PRN PRN Reason: Keep Vein Open Last Admin: 10/20/17 22:43 Dose: 10 ml Sodium Chloride (Saline Flush) 2.5 ml FLUSH ASDIRECTED PRN PRN Reason: Keep Vein Open Last Admin: 10/20/17 22:42 Dose: 2.5 ml Labs: Laboratory Tests 10/20/17 10/20/17 10/20/17 Range/Units 22:36 22:36 22:36 WBC 9.25 (4.0-11.0) K/uL RBC 4.80 (4.30-5.90) M/uL Hgb 14.9 (12.0-16.0) g/dL Hct 43.3 (36.0-46.0) % MCV 90.2 (80.0-98.0) fL MCH 31.0 (27.0-32.0) pg MCHC 34.4 (31.0-37.0) g/dL RDW Std Deviation 43.4 (28.0-62.0) fl RDW Coeff of Nam 13 (11.0-15.0) % Plt Count 197 (150-400) K/uL MPV 10.30 (7.40-12.00) fL Neut % (Auto) 60.3 (48.0-80.0) % Lymph % (Auto) 21.1 (16.0-40.0) % [place] % (Auto) 7.8 (0.0-15.0) % Eos % (Auto) 10.2 H (0.0-7.0) % Baso % (Auto) 0.6 (0.0-1.5) % Neut # (Auto) 5.6 (1.4-5.7) K/uL Lymph # (Auto) 2.0 (0.6-2.4) K/uL [place] # (Auto) 0.7 (0.0-0.8) K/uL Eos # (Auto) 0.9 H (0.0-0.7) K/uL Baso # (Auto) 0.1 (0.0-0.1) K/uL Nucleated RBC % 0.0 /100WBC Nucleated RBCs # 0 K/uL INR 0.98 Lactate 1.1 (0.20-2.00) mmol/L Sodium (136-145) mmol/L Potassium (3.5-5.1) mmol/L Chloride (98-107) mmol/L Carbon Dioxide (21.0-32.0) mmol/L BUN (7.0-18.0) mg/dL Creatinine (0.6-1.0) mg/dL Est Cr Clr Drug Dosing mL/min Estimated GFR (MDRD) ml/min Glucose (74-106) mg/dL Calcium (8.5-10.1) mg/dL Total Bilirubin (0.2-1.0) mg/dL AST (15-37) IU/L ALT (14-63) IU/L Alkaline Phosphatase (46-116) U/L Troponin I (0.000-0.056) ng/mL B-Natriuretic Peptide (<100) PG/ML Total Protein (6.4-8.2) g/dL Albumin (3.4-5.0) g/dL Globulin (2.0-3.5) g/dL Albumin/Globulin Ratio (1.3-2.8) 10/20/17 10/20/17 Range/Units 22:36 22:36 WBC (4.0-11.0) K/uL RBC (4.30-5.90) M/uL Hgb (12.0-16.0) g/dL Hct (36.0-46.0) % MCV (80.0-98.0) fL MCH (27.0-32.0) pg MCHC (31.0-37.0) g/dL RDW Std Deviation (28.0-62.0) fl RDW Coeff of Nam (11.0-15.0) % Plt Count (150-400) K/uL MPV (7.40-12.00) fL Neut % (Auto) (48.0-80.0) % Lymph % (Auto) (16.0-40.0) % [place] % (Auto) (0.0-15.0) % Eos % (Auto) (0.0-7.0) % Baso % (Auto) (0.0-1.5) % Neut # (Auto) (1.4-5.7) K/uL Lymph # (Auto) (0.6-2.4) K/uL [place] # (Auto) (0.0-0.8) K/uL Eos # (Auto) (0.0-0.7) K/uL Baso # (Auto) (0.0-0.1) K/uL Nucleated RBC % /100WBC Nucleated RBCs # K/uL INR Lactate (0.20-2.00) mmol/L Sodium 142 (136-145) mmol/L Potassium 3.6 (3.5-5.1) mmol/L Chloride 105 (98-107) mmol/L Carbon Dioxide 30.0 (21.0-32.0) mmol/L BUN 9 (7.0-18.0) mg/dL Creatinine 0.9 (0.6-1.0) mg/dL Est Cr Clr Drug Dosing 49.35 mL/min Estimated GFR (MDRD) > 60.0 ml/min Glucose 121 H (74-106) mg/dL Calcium 9.4 (8.5-10.1) mg/dL Total Bilirubin 0.3 (0.2-1.0) mg/dL AST 13 L (15-37) IU/L ALT 15 (14-63) IU/L Alkaline Phosphatase 65 (46-116) U/L Troponin I < 0.050 (0.000-0.056) ng/mL B-Natriuretic Peptide 40 (<100) PG/ML Total Protein 6.7 (6.4-8.2) g/dL Albumin 3.8 (3.4-5.0) g/dL Globulin 2.9 (2.0-3.5) g/dL Albumin/Globulin Ratio 1.3 (1.3-2.8) Meds: Medications Generic Name Dose Route Start Last Admin Trade Name Daphne PRN Reason Stop Dose Admin Sodium Chloride 10 ml 10/20/17 22:27 10/20/17 22:43 Saline Flush FLUSH 10 ml ASDIRECTED PRN Administration Keep Vein Open Sodium Chloride 2.5 ml 10/20/17 22:27 10/20/17 22:42 Saline Flush FLUSH 2.5 ml ASDIRECTED PRN Administration Keep Vein Open Discontinued Medications Generic Name Dose Route Start Last Admin Trade Name Freq PRN Reason Stop Dose Admin Albuterol/Ipratropium 3 ml 10/20/17 22:26 10/20/17 22:32 Duoneb 3.0-0.5 Mg/3 Ml NEB 10/20/17 22:27 3 ml ONETIME ONE Administration Methylprednisolone Sodium Succinate 125 mg 10/20/17 22:27 10/20/17 22:41 Solu-Medrol IVPUSH 10/20/17 22:28 125 mg ONETIME ONE Administration Departure - Departure Time of Disposition: 23:59 Disposition: Refer to Observation Condition: Good Clinical Impression: COPD with exacerbation, Hypoxia - Discharge Information Referrals: PCP,None [Primary Care Provider] - Forms: ED Department Discharge - My Orders Last 24 Hours: My Active Orders 10/20/17 22:26 Cardiac Monitoring [RC] . DIRECTED EKG Documentation Completion [RC] STAT Oxygen Therapy, ED [RC] ASDIRECTED Pulse Oximetry [RC] ASDIRECTED Chest 1V Frontal [CR] Stat Blood Culture x2 Reflex Set [OM.PC] Stat Saline Lock Insert [OM.PC] Stat 10/20/17 22:27 RT Aerosol Therapy [RC] ASDIRECTED Sodium Chloride 0.9% [Saline Flush] 10 ml FLUSH ASDIRECTED PRN Sodium Chloride 0.9% [Saline Flush] 2.5 ml FLUSH ASDIRECTED PRN 10/20/17 22:36 CULTURE BLOOD [BC] Stat 10/20/17 22:50 CULTURE BLOOD [BC] Stat 10/20/17 23:57 Patient Status [ADT] Stat - Assessment/Plan Last 24 Hours: My Active Orders 10/20/17 22:26 Cardiac Monitoring [RC] . DIRECTED EKG Documentation Completion [RC] STAT Oxygen Therapy, ED [RC] ASDIRECTED Pulse Oximetry [RC] ASDIRECTED Chest 1V Frontal [CR] Stat Blood Culture x2 Reflex Set [OM.PC] Stat Saline Lock Insert [OM.PC] Stat 10/20/17 22:27 RT Aerosol Therapy [RC] ASDIRECTED Sodium Chloride 0.9% [Saline Flush] 10 ml FLUSH ASDIRECTED PRN Sodium Chloride 0.9% [Saline Flush] 2.5 ml FLUSH ASDIRECTED PRN 10/20/17 22:36 CULTURE BLOOD [BC] Stat 10/20/17 22:50 CULTURE BLOOD [BC] Stat 10/20/17 23:57 Patient Status [ADT] Stat
[2017-10-20 23:28] LABS: CHLORIDE,CL 105 mmol/L (98-107); SODIUM,NA 142 mmol/L (136-145)
[2017-10-21] MEDS ORDERED: methylPREDNISolone Sodium Succinate 125 MG/2 ML SDV IVPUSH SCH (02:00)
[2017-10-21] MEDS: methylPREDNISolone Sodium Succinate 125 MG/2 ML SDV IVPUSH SCH ×3 (05:57→17:02)
[2017-10-21 06:38] LABS: CHLORIDE,CL 106 mmol/L (98-107); SODIUM,NA 140 mmol/L (136-145)
[2017-10-21] MEDS: Albuterol/Ipratropium 3.0-0.5 MG/3 ML Neb Soln NEB SCH ×3 (07:54→17:41)
[2017-10-21] MEDS: Aspirin 81 MG Tab.Chew PO SCH (08:00)
--- NOTE | 2017-10-21 08:01 | PCM.HP ---
H&P History of Present Illness - General Date of Service: 10/21/17 Admit Problem/Dx: Admission Diagnosis/Problem Admission Diagnosis/Problem COPD, Mild chronic obstructive pulmonary disease Source of Information: Patient History Limitations: Reports: No Limitations - History of Present Illness Initial Comments - Free Text/Narative: This 76 year old female with pmh of COPD, Hx QT prolongation syndrome and was recently worked up for elevated troponin presented to the ED with concerns of worsening shortness of breath over the last week to week and a half. She reports she always has a cough and green to white phlegm, but this has increased slightly. Increased wheezing noted at home as well. She denies fevers or chills at home. No recent URI symptoms. No abdominal pain, black of bloody BMs or urinary symptoms. The dyspnea is worse with ambulation, but she started getting more short of breath at rest and Duonebs at home would only work for a short period of time. No chest pain. She had chemical stress test in [place] after being transferred from our hospital to [place] for suspected NSTEMI, chemical stress was negative. She reports stopping smoking 3 months ago. No alcohol or recreational drug use. In the ED labwork WNL. She was noted to be hypoxic on RA at 85%. CXR negative for acute cardiopilmonary process. She was given Solumedrol, albuterol nebulizer and ASA. She was admitted observation for COPD excaerbation. PCP, Gretchen Sanchez, [employer] - Related Data Allergies/Adverse Reactions: Allergies Allergy/AdvReac Type Severity Reaction Status Date / Time Penicillins Allergy Anaphylactic Verified 10/20/17 22:26 Shock phenylbutazone Allergy Other Verified 10/20/17 22:26 [From Butazolidin] Home Medications: Home Meds Albuterol [Ventolin HFA] 1 puff INH Q6HR 09/27/17 [History] Albuterol/Ipratropium [DuoNeb 3.0-0.5 MG/3 ML] 3 ml NEB Q4HRRT PRN neb [Rx] Aspirin 1 tab PO DAILY 10/20/17 [History] Past Medical History HEENT History: Reports: Cataract Cardiovascular History: Reports: Other (See Below). Denies: Blood Clots/VTE/DVT , CAD, High Cholesterol, Hypertension Other Cardiovascular History: Long QT Syndrome Respiratory History: Reports: COPD Gastrointestinal History: Reports: None Other OB/BYN History: Vaginal hysterectomy, still has ovaries Musculoskeletal History: Reports: Osteoarthritis Neurological History: Reports: None. 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 - Infectious Disease History Infectious Disease History: Reports: Chicken Pox, Measles, Mumps, Shingles - Past Surgical History HEENT Surgical History: Reports: Cataract Surgery, Other (See Below) Other HEENT Surgeries/Procedures: lymph nodes from neck, cyst removal face Respiratory Surgical History: Reports: Other (See Below) Other Respiratory Surgeries/Procedures: Chest tube, lung surgery to remove ' blebs' (1971) GI Surgical History: Reports: Appendectomy Female Surgical History: Reports: Breast Biopsy, Other (See Below) Other Female Surgeries/Procedures: Bladder surgery for growth Social & Family History - Family History Family Medical History: Noncontributory HEENT: Reports: None Cardiac: Reports: Hypertension, Other (See Below) Other Cardiac Family History: long QT syndrome Respiratory: Reports: COPD Other Respiratory Family Hisory: brother OBGYN: Reports: Endocrine/Metabolic: Reports: Diabetes, Type I Other Endocrine/Metabolic Family History: Grandmother Oncologic: Reports: Skin Other Oncologic Family History: brother - Tobacco Use Smoking Status *Q: Former Smoker Used Tobacco, but Quit: Yes Month/Year Tobacco Last Used: 3 Second Hand Smoke Exposure: No - Caffeine Use Caffeine Use: Reports: Coffee - Alcohol Use Alcohol Use History: No - Recreational Drug Use Recreational Drug Use: No - Living Situation & Occupation Living situation: Reports: Occupation: Employed H&P Review of Systems - Review of Systems: Review Of Systems: See Below General: Reports: No Symptoms. Denies: Fever, Chills, Malaise, Weakness HEENT: Reports: No Symptoms. Denies: Headaches, Sinus Congestion, Sore Throat, Vertigo Pulmonary: Reports: Shortness of Breath, Wheezing, Cough, Sputum (clear to green ) Cardiovascular: Reports: No Symptoms. Denies: Chest Pain, Palpitations, Edema, Lightheadedness Gastrointestinal: Reports: No Symptoms. Denies: Abdominal Pain, Black Stool, Bloody Stool, Decreased Appetite, Nausea, Vomiting Genitourinary: Reports: No Symptoms. Denies: Dysuria, Frequency, Burning, Pain Musculoskeletal: Reports: No Symptoms Skin: Reports: No Symptoms Psychiatric: Reports: No Symptoms Neurological: Reports: No Symptoms Hematologic/Lymphatic: Reports: No Symptoms Immunologic: Reports: No Symptoms Exam - Exam Exam: See Below - Vital Signs Vital Signs: Last Vital Signs Temp 97.3 F 10/21/17 04:00 Pulse 80 10/21/17 04:00 Resp 20 10/21/17 04:00 BP 146/84 H 10/21/17 04:00 Pulse Ox 94 L 10/21/17 04:00 Weight: 56.699 kg - Exam General: Alert, Oriented, Cooperative HEENT: Conjunctiva Clear, Hearing Intact, Mucosa Moist & [place], Nares Patent, Normal Nasal Septum, Posterior Pharynx Clear Neck: Supple, Trachea Midline, 2 Lungs: Normal Respiratory Effort, Decreased Breath Sounds (bibasilar), Wheezing Cardiovascular: Regular Rate, Regular Rhythm, Normal S1, Normal S2 GI/Abdominal Exam: Normal Bowel Sounds, Soft, Non-Tender, No Organomegaly Back Exam: Normal Inspection, Full Range of Motion, NT Extremities: Normal Inspection, Normal Range of Motion, Non-Tender, No Pedal Edema, Normal Capillary Refill Neurological: Cranial Nerves Intact Neuro Extensive - Mental Status: Alert, Oriented x3, Normal Mood/Affect, Normal Cognition Psychiatric: Alert, Normal Affect, Normal Mood - Patient Data Lab Results Last 24 hrs: Laboratory Results - last 24 hr 10/20/17 10/20/17 10/20/17 Range/Units 22:36 22:36 22:36 WBC 9.25 (4.0-11.0) K/uL RBC 4.80 (4.30-5.90) M/uL Hgb 14.9 (12.0-16.0) g/dL Hct 43.3 (36.0-46.0) % MCV 90.2 (80.0-98.0) fL MCH 31.0 (27.0-32.0) pg MCHC 34.4 (31.0-37.0) g/dL RDW Std Deviation 43.4 (28.0-62.0) fl RDW Coeff of Nam 13 (11.0-15.0) % Plt Count 197 (150-400) K/uL MPV 10.30 (7.40-12.00) fL Neut % (Auto) 60.3 (48.0-80.0) % Lymph % (Auto) 21.1 (16.0-40.0) % [place] % (Auto) 7.8 (0.0-15.0) % Eos % (Auto) 10.2 H (0.0-7.0) % Baso % (Auto) 0.6 (0.0-1.5) % Neut # (Auto) 5.6 (1.4-5.7) K/uL Lymph # (Auto) 2.0 (0.6-2.4) K/uL [place] # (Auto) 0.7 (0.0-0.8) K/uL Eos # (Auto) 0.9 H (0.0-0.7) K/uL Baso # (Auto) 0.1 (0.0-0.1) K/uL Nucleated RBC % 0.0 /100WBC Nucleated RBCs # 0 K/uL INR 0.98 Lactate 1.1 (0.20-2.00) mmol/L Sodium (136-145) mmol/L Potassium (3.5-5.1) mmol/L Chloride (98-107) mmol/L Carbon Dioxide (21.0-32.0) mmol/L BUN (7.0-18.0) mg/dL Creatinine (0.6-1.0) mg/dL Est Cr Clr Drug Dosing mL/min Estimated GFR (MDRD) ml/min Glucose (74-106) mg/dL Calcium (8.5-10.1) mg/dL Total Bilirubin (0.2-1.0) mg/dL AST (15-37) IU/L ALT (14-63) IU/L Alkaline Phosphatase (46-116) U/L Troponin I (0.000-0.056) ng/mL B-Natriuretic Peptide (<100) PG/ML Total Protein (6.4-8.2) g/dL Albumin (3.4-5.0) g/dL Globulin (2.0-3.5) g/dL Albumin/Globulin Ratio (1.3-2.8) 10/20/17 10/20/17 10/21/17 Range/Units 22:36 22:36 05:30 WBC 6.67 (4.0-11.0) K/uL RBC 4.70 (4.30-5.90) M/uL Hgb 14.8 (12.0-16.0) g/dL Hct 42.4 (36.0-46.0) % MCV 90.2 (80.0-98.0) fL MCH 31.5 (27.0-32.0) pg MCHC 34.9 (31.0-37.0) g/dL RDW Std Deviation 42.7 (28.0-62.0) fl RDW Coeff of Nam 13 (11.0-15.0) % Plt Count 179 (150-400) K/uL MPV 10.50 (7.40-12.00) fL Neut % (Auto) 94.3 H (48.0-80.0) % Lymph % (Auto) 5.2 L (16.0-40.0) % [place] % (Auto) 0.3 (0.0-15.0) % Eos % (Auto) 0.1 (0.0-7.0) % Baso % (Auto) 0.1 (0.0-1.5) % Neut # (Auto) 6.3 H (1.4-5.7) K/uL Lymph # (Auto) 0.4 L (0.6-2.4) K/uL [place] # (Auto) 0.0 (0.0-0.8) K/uL Eos # (Auto) 0.0 (0.0-0.7) K/uL Baso # (Auto) 0.0 (0.0-0.1) K/uL Nucleated RBC % 0.0 /100WBC Nucleated RBCs # 0 K/uL INR Lactate (0.20-2.00) mmol/L Sodium 142 (136-145) mmol/L Potassium 3.6 (3.5-5.1) mmol/L Chloride 105 (98-107) mmol/L Carbon Dioxide 30.0 (21.0-32.0) mmol/L BUN 9 (7.0-18.0) mg/dL Creatinine 0.9 (0.6-1.0) mg/dL Est Cr Clr Drug Dosing 49.35 mL/min Estimated GFR (MDRD) > 60.0 ml/min Glucose 121 H (74-106) mg/dL Calcium 9.4 (8.5-10.1) mg/dL Total Bilirubin 0.3 (0.2-1.0) mg/dL AST 13 L (15-37) IU/L ALT 15 (14-63) IU/L Alkaline Phosphatase 65 (46-116) U/L Troponin I < 0.050 (0.000-0.056) ng/mL B-Natriuretic Peptide 40 (<100) PG/ML Total Protein 6.7 (6.4-8.2) g/dL Albumin 3.8 (3.4-5.0) g/dL Globulin 2.9 (2.0-3.5) g/dL Albumin/Globulin Ratio 1.3 (1.3-2.8) / Range/Units 05:30 WBC (4.0-11.0) K/uL RBC (4.30-5.90) M/uL Hgb (12.0-16.0) g/dL Hct (36.0-46.0) % MCV (80.0-98.0) fL MCH (27.0-32.0) pg MCHC (31.0-37.0) g/dL RDW Std Deviation (28.0-62.0) fl RDW Coeff of Nam (11.0-15.0) % Plt Count (150-400) K/uL MPV (7.40-12.00) fL Neut % (Auto) (48.0-80.0) % Lymph % (Auto) (16.0-40.0) % [place] % (Auto) (0.0-15.0) % Eos % (Auto) (0.0-7.0) % Baso % (Auto) (0.0-1.5) % Neut # (Auto) (1.4-5.7) K/uL Lymph # (Auto) (0.6-2.4) K/uL [place] # (Auto) (0.0-0.8) K/uL Eos # (Auto) (0.0-0.7) K/uL Baso # (Auto) (0.0-0.1) K/uL Nucleated RBC % /100WBC Nucleated RBCs # K/uL INR Lactate (0.20-2.00) mmol/L Sodium 140 (136-145) mmol/L Potassium 4.1 (3.5-5.1) mmol/L Chloride 106 (98-107) mmol/L Carbon Dioxide 27.3 (21.0-32.0) mmol/L BUN 9 (7.0-18.0) mg/dL Creatinine 0.7 (0.6-1.0) mg/dL Est Cr Clr Drug Dosing 63.11 mL/min Estimated GFR (MDRD) > 60.0 ml/min Glucose 151 H (74-106) mg/dL Calcium 8.9 (8.5-10.1) mg/dL Total Bilirubin (0.2-1.0) mg/dL AST (15-37) IU/L ALT (14-63) IU/L Alkaline Phosphatase (46-116) U/L Troponin I (0.000-0.056) ng/mL B-Natriuretic Peptide (<100) PG/ML Total Protein (6.4-8.2) g/dL Albumin (3.4-5.0) g/dL Globulin (2.0-3.5) g/dL Albumin/Globulin Ratio (1.3-2.8) Result Diagrams: 10/21/17 05:30 10/21/17 05:30 Dashawn Results Last 24 hrs: Microbiology 10/20/17 22:50 Anaerobic Blood Culture - Final Blood - Venous - Lab Draw 10/20/17 22:36 Anaerobic Blood Culture - Final Blood - Venous EKG INTERPRETATION Rhythm: NSR P-Wave: Present QRS: RBBB ST-T: Normal QT: Normal Comparison: No Change *Q Meaningful Use (ADM) - VTE Risk Assess *Q Each Risk Factor Represents 1 Point: Abnormal Pulmonary Function (COPD) Total Score 1 Point Risk Factors: 1 Each Risk Factor Represents 2 Points: Age 60 - 74 Years Total Score 2 Point Risk Factors: 2 Each Risk Factor Represents 3 Points: None Total Score 3 Point Risk Factors: 0 Each Risk Factor Represents 5 Points: None Total Score 5 Point Risk Factors: 0 Venous Thromboembolism Risk Factor Score *Q: 3 - Problem List (1) COPD with exacerbation SNOMED Code(s): 174022698 ICD Code: J44.1 - CHRONIC OBSTRUCTIVE PULMONARY DISEASE W (ACUTE) EXACERBATION Status: Acute Current Visit: Yes (2) Hypoxia SNOMED Code(s): 130262957 ICD Code: R09.02 - HYPOXEMIA Status: Acute Current Visit: Yes Problem List Initiated/Reviewed/Updated: Yes Orders Last 24hrs: Active Orders 24 hr Category Date Time Status Patient Status [ADT] Stat ADT 10/20/17 23:57 Active Cardiac Monitoring [RC] . DIRECTED Care 10/20/17 22:26 Active Pulse Oximetry [RC] ASDIRECTED Care 10/20/17 22:26 Active RT Aerosol Therapy [RC] ASDIRECTED Care 10/20/17 22:27 Active Regular Diet [DIET] Diet 10/21/17 Breakfast Active Chest 1V Frontal [CR] Stat Exams 10/20/17 22:26 Taken CULTURE BLOOD [BC] Stat Lab 10/20/17 22:36 Results CULTURE BLOOD [BC] Stat Lab 10/20/17 22:50 Results Albuterol/Ipratropium [DuoNeb 3.0-0.5 MG/3 ML] Med 10/21/17 06:00 Active 3 ml NEB Q6HRRT Aspirin Med 10/21/17 09:00 Active 81 mg PO DAILY Sodium Chloride 0.9% [Saline Flush] Med 10/20/17 22:27 Active 10 ml FLUSH ASDIRECTED PRN Sodium Chloride 0.9% [Saline Flush] Med 10/20/17 22:27 Active 2.5 ml FLUSH ASDIRECTED PRN methylPREDNISolone Sod Succ [Solu-MEDROL] Med 10/21/17 05:00 Active 125 mg IVPUSH Q6H Blood Culture x2 Reflex Set [OM.PC] Stat Oth 10/20/17 22:26 Ordered Saline Lock Insert [OM.PC] Stat Oth 10/20/17 22:26 Ordered Medication Orders Albuterol/Ipratropium (Duoneb 3.0-0.5 Mg/3 Ml) 3 ml NEB Q6HRRT [facility] Last Admin: 10/21/17 07:54 Dose: 3 ml Aspirin (Aspirin) 81 mg PO DAILY [facility] Last Admin: 10/21/17 08:00 Dose: 81 mg Methylprednisolone Sodium Succinate (Solu-Medrol) 125 mg IVPUSH Q6H [facility] Last Admin: 10/21/17 05:57 Dose: 125 mg Sodium Chloride (Saline Flush) 10 ml FLUSH ASDIRECTED PRN PRN Reason: Keep Vein Open Last Admin: 10/20/17 22:43 Dose: 10 ml Sodium Chloride (Saline Flush) 2.5 ml FLUSH ASDIRECTED PRN PRN Reason: Keep Vein Open Last Admin: 10/20/17 22:42 Dose: 2.5 ml Assessment/Plan Comment:: This 76 year old female admitted with COPD exacerbation 1. COPD exacerbation: Continues to require oxygen. Continue Solumderol 125 mg Q6 hr IV now now. Duonebs scheduled and Albuterol neb PRN. Will need to have outpatient evaluation of PFTs and follow up with pulmonology. Will start Flovent for now. Would need close monitoring with long acting bronchodilator with QTc prolongation syndrome. VTE prophylaxis: VTE prophylaxis Dispo: 1-2 days
[2017-10-21] MEDS: Albuterol 8 GM Inhaler INH SCH (18:40)
[2017-10-22] MEDS: Albuterol/Ipratropium 3.0-0.5 MG/3 ML Neb Soln NEB SCH ×3 (00:43→12:11)
[2017-10-22] MEDS: Albuterol 8 GM Inhaler INH SCH ×3 (00:44→11:08)
[2017-10-22] MEDS: methylPREDNISolone Sodium Succinate 125 MG/2 ML SDV IVPUSH SCH ×2 (00:44→08:46)
[2017-10-22 08:41] VITALS: BP 127/64
[2017-10-22] MEDS: Aspirin 81 MG Tab.Chew PO SCH (08:46)
[2017-10-22] MEDS ORDERED: Fluticasone Propionate 220 MCG/Puff 12 GM Inhaler INH SCH (09:00)
--- NOTE | 2017-10-22 09:51 | PCM.DCSUM1 ---
Discharge Summary - Hospital Course Brief History: This 76 year old female with pmh of COPD, Hx QT prolongation syndrome and was recently worked up for elevated troponin presented to the ED with concerns of worsening shortness of breath over the last week to week and a half. She reports she always has a cough and green to white phlegm, but this has increased slightly. Increased wheezing noted at home as well. She denies fevers or chills at home. No recent URI symptoms. No abdominal pain, black of bloody BMs or urinary symptoms. The dyspnea is worse with ambulation, but she started getting more short of breath at rest and Duonebs at home would only work for a short period of time. No chest pain. She had chemical stress test in [place] after being transferred from our hospital to [place] for suspected NSTEMI, chemical stress was negative. She reports stopping smoking 3 months ago. No alcohol or recreational drug use. In the ED labwork WNL. She was noted to be hypoxic on RA at 85%. CXR negative for acute cardiopilmonary process. She was given Solumedrol, albuterol nebulizer and ASA. She was admitted observation for COPD excaerbation. PCP, Tamanna Sanchez NP - Discharge Data Discharge Date: 10/22/17 Discharge Disposition: Home, Self-Care 01 Condition: Good - Discharge Diagnosis/Problem(s) (1) COPD with exacerbation SNOMED Code(s): 846447223 ICD Code: J44.1 - CHRONIC OBSTRUCTIVE PULMONARY DISEASE W (ACUTE) EXACERBATION Status: Acute Current Visit: Yes (2) Hypoxia SNOMED Code(s): 941559303 ICD Code: R09.02 - HYPOXEMIA Status: Acute Current Visit: Yes - Patient Instructions Diet: Regular Diet as Tolerated Activity: As Tolerated, No Strenuous Activities, Rest and Relax Today Showering/Bathing: May Shower Notify Provider of: Fever, Increased Pain, Swelling and Redness, Drainage, Nausea and/or Vomiting - Discharge Plan Prescriptions/Med Rec: Fluticasone Propionate [Flovent HFA 220 MCG] 1 gm INH BID #1 inhaler predniSONE [Prednisone] 10 - 40 mg PO DAILY #30 tablet Home Medications: Home Meds Albuterol [Ventolin HFA] 1 puff INH Q6HR 09/27/17 [History] Albuterol/Ipratropium [DuoNeb 3.0-0.5 MG/3 ML] 3 ml NEB Q4HRRT PRN neb [Rx] Aspirin 1 tab PO DAILY 10/20/17 [History] Fluticasone Propionate [Flovent HFA 220 MCG] 1 gm INH BID #1 inhaler 10/22/17 [ Rx] predniSONE [Prednisone] 10 - 40 mg PO DAILY #30 tablet 10/22/17 [Rx] Patient Handouts: Chronic Obstructive Pulmonary Disease Exacerbation, Easy-to- Read, Chronic Obstructive Pulmonary Disease, [id number] Referrals: Tamanna Sanchez NP [Ordering Only Provider] - 10/29/17 9:45 am Clayton Michaels MD [Consulting Physician] - - Discharge Summary/Plan Comment DC Time >30 min.: No Discharge Summary/Plan Comment: Discharge Diagnoses: COPD exacerbation Hx Congential QT syndrome Veronika was admitted with dyspnea and hypoxia. She was treated for COPD exacerbation with Solumedrol and Duonebs. She improved after 1 day of stay. Today she is feeling much better. She was challenged on RA at rest and activity , which she remained above 90% and no significant dyspnea. She is eager to be discharged home. She reports a history of COPD, but denies ever having a PFT. I would recommend PFT as outpatient when this current exacerbation has subsided. I will also set up her up to be evaluated by Pulmonology as an outpatient. There are risks of starting maintenance inhalers on her due to history of QT syndrome which runs in her family and has caused sudden in relatives. I started Flovent 220 mcg here in the hospital and would recommend further evaluation and close monitoring in long acting bronchodilator is to be started. I will continue with Prednisone taper. She will have follow up with PCP, Tamanna Sanchez and with Pulmonology when possible. She is to return to the ED or clinic if concerns should arise. - General Info Date of Service: 10/22/17 Admission Dx/Problem (Free Text: Admission Diagnosis/Problem Admission Diagnosis/Problem COPD, Mild chronic obstructive pulmonary disease Subjective Update: Feeling much better today. Tolerating RA well with no significant dyspnea. No chest pain or palpitations. No other concerns today. Eager to go home. Functional Status: Reports: Pain Controlled, Tolerating Diet, Ambulating, Urinating - Review of Systems General: Reports: No Symptoms. Denies: Fever, Weakness, Fatigue, Malaise HEENT: Reports: No Symptoms Pulmonary: Reports: Cough, Sputum (white). Denies: Shortness of Breath Cardiovascular: Reports: No Symptoms. Denies: Chest Pain Gastrointestinal: Reports: No Symptoms. Denies: Abdominal Pain, Nausea, Vomiting Genitourinary: Reports: No Symptoms. Denies: Dysuria, Frequency, Burning Neurological: Reports: No Symptoms Psychiatric: Reports: No Symptoms - Patient Data Vitals - Most Recent: Last Vital Signs Temp 97.8 F 10/22/17 08:39 Pulse 95 10/22/17 08:39 Resp 16 10/22/17 08:39 BP 127/64 10/22/17 08:39 Pulse Ox 91 L 10/22/17 08:39 Weight - Most Recent: 56.699 kg I&O - Last 24 hours: Intake & Output 10/21/17 10/22/17 10/22/17 22:59 06:59 14:59 Intake Total 400 400 Output Total 450 450 Balance -50 -50 Lab Results - Last 24 hrs: Laboratory Results - last 24 hr 10/22/17 10/22/17 Range/Units 04:55 04:55 WBC 12.04 H (4.0-11.0) K/uL RBC 4.48 (4.30-5.90) M/uL Hgb 13.6 (12.0-16.0) g/dL Hct 40.9 (36.0-46.0) % MCV 91.3 (80.0-98.0) fL MCH 30.4 (27.0-32.0) pg MCHC 33.3 (31.0-37.0) g/dL RDW Std Deviation 43.7 (28.0-62.0) fl RDW Coeff of Nam 13 (11.0-15.0) % Plt Count 211 (150-400) K/uL MPV 10.40 (7.40-12.00) fL Neut % (Auto) 93.2 H (48.0-80.0) % Lymph % (Auto) 5.1 L (16.0-40.0) % [place] % (Auto) 1.7 (0.0-15.0) % Eos % (Auto) 0.0 (0.0-7.0) % Baso % (Auto) 0.0 (0.0-1.5) % Neut # (Auto) 11.2 H (1.4-5.7) K/uL Lymph # (Auto) 0.6 (0.6-2.4) K/uL [place] # (Auto) 0.2 (0.0-0.8) K/uL Eos # (Auto) 0.0 (0.0-0.7) K/uL Baso # (Auto) 0.0 (0.0-0.1) K/uL Nucleated RBC % 0.0 /100WBC Nucleated RBCs # 0 K/uL Sodium 141 (136-145) mmol/L Potassium 4.3 (3.5-5.1) mmol/L Chloride 104 (98-107) mmol/L Carbon Dioxide 30.0 (21.0-32.0) mmol/L BUN 10 (7.0-18.0) mg/dL Creatinine 1.0 (0.6-1.0) mg/dL Est Cr Clr Drug Dosing 44.18 mL/min Estimated GFR (MDRD) 54.2 ml/min Glucose 189 H (74-106) mg/dL Calcium 9.2 (8.5-10.1) mg/dL VICKI Results - Last 24 hrs: Microbiology 10/20/17 22:36 Aerobic Blood Culture - Preliminary Blood - Venous NO GROWTH AFTER 1 DAY Anaerobic Blood Culture - Final 10/20/17 22:50 Aerobic Blood Culture - Preliminary Blood - Venous - Lab Draw NO GROWTH AFTER 1 DAY Anaerobic Blood Culture - Final Med Orders - Current: Current Medications Albuterol (Ventolin Hfa) 0 gm INH Q6H [facility] Last Admin: 10/22/17 07:46 Dose: 2 inhalation Albuterol/Ipratropium (Duoneb 3.0-0.5 Mg/3 Ml) 3 ml NEB Q6HRRT [facility] Last Admin: 10/22/17 06:27 Dose: 3 ml Aspirin (Aspirin) 81 mg PO DAILY [facility] Last Admin: 10/22/17 08:46 Dose: 81 mg Fluticasone Propionate (Flovent Hfa 220 Mcg) 0 gm INH BID [facility] Last Admin: 10/22/17 08:14 Dose: 1 puff Methylprednisolone Sodium Succinate (Solu-Medrol) 125 mg IVPUSH Q8H [facility] Last Admin: 10/22/17 08:46 Dose: 125 mg Sodium Chloride (Saline Flush) 10 ml FLUSH ASDIRECTED PRN PRN Reason: Keep Vein Open Last Admin: 10/20/17 22:43 Dose: 10 ml Sodium Chloride (Saline Flush) 2.5 ml FLUSH ASDIRECTED PRN PRN Reason: Keep Vein Open Last Admin: 10/20/17 22:42 Dose: 2.5 ml Discontinued Medications Albuterol/Ipratropium (Duoneb 3.0-0.5 Mg/3 Ml) 3 ml NEB ONETIME ONE Stop: 10/20/17 22:27 Last Admin: 10/20/17 22:32 Dose: 3 ml Methylprednisolone Sodium Succinate (Solu-Medrol) 125 mg IVPUSH ONETIME ONE Stop: 10/20/17 22:28 Last Admin: 10/20/17 22:41 Dose: 125 mg Methylprednisolone Sodium Succinate (Solu-Medrol) 125 mg IVPUSH Q6H [facility] Methylprednisolone Sodium Succinate (Solu-Medrol) 125 mg IVPUSH Q6H [facility] Last Admin: 10/21/17 17:02 Dose: 125 mg - Exam Quality Assessment: Denies: Supplemental Oxygen General: Reports: Alert, Oriented, Cooperative, No Acute Distress Lungs: Reports: Clear to Auscultation, Normal Respiratory Effort. Denies: Wheezing Cardiovascular: Reports: Regular Rate, Regular Rhythm GI/Abdominal Exam: Normal Bowel Sounds, Soft, Non-Tender, No Organomegaly, No Distention, No Abnormal Bruit, No Mass, Pelvis Stable Skin: Reports: Warm, Dry, Intact Neurological: Reports: No New Focal Deficit Psy/Mental Status: Reports: Alert, Normal Affect, Normal Mood
--- NOTE | 2017-10-22 12:49 | CR ---
EXAM DATE: 10/20/17 PATIENT'S AGE: 76 Patient: FRIDA SHEETS Facility: [place], [place] Site . Site : 1940 Study: XRay Chest [id number] 11:30:44 PM Ordering Physician: Kourtney Jimenez Final Report: INDICATION: pain/sob TECHNIQUE: Chest 1 view COMPARISON: None FINDINGS: Cardiovascular and mediastinum: Heart size and vasculature are normal in caliber and appearance. Mediastinum is within normal limits. Lungs and pleural space: Scarring with pleural reactive change along the left lower lobe. Postsurgical changes along the left lung apex. Scattered calcified granulomata. No sign of pleural effusion. No pneumothorax. Bones and soft tissues: Degenerative changes. Nonspecific benign-appearing sclerotic bone lesion along the base of the right glenoid. IMPRESSION: No acute cardiopulmonary disease Dictated by Florentin Ku MD @ 10/20/2017 11:33:50 PM Dictated by: Florentin Ku MD @ 10/20/2017 23:33:57 (Electronic Signature) Report Signed by Proxy. [facility]
== END 2017-10-22 11:15 | disposition home or self-care (01) ==
LOC: MW.ED 22:14 → MW.MS 23:57
PROVIDERS: ADMIT Internal Medicine; ATTEND Internal Medicine
DX: J44.1 Chronic obstructive pulmonary disease with (acute) exacerbation (principal); R09.02 Hypoxemia; M19.90 Unspecified osteoarthritis, unspecified site; Z87.891 Personal history of nicotine dependence; Z79.82 Long term (current) use of aspirin; Z79.51 Long term (current) use of inhaled steroids; Z88.0 Allergy status to penicillin; Z88.8 Allergy status to other drugs, medicaments and biological substances; Z90.710 Acquired absence of both cervix and uterus; Z85.828 Personal history of other malignant neoplasm of skin; Z90.49 Acquired absence of other specified parts of digestive tract
CPT/HCPCS: 36415; 71045; 71045-26; 80048; 80053; 83605; 83880; 84484; 85025; 85610; 87040; 93005; 94640; 96374; 96376; 99284; 99285-25; A9270-GY; G0378; J2930

== ENCOUNTER 2017-11-22 18:11 | Observation (INO) | payer MEDICARE, BC ==
[2017-11-22] MEDS ORDERED: Albuterol/Ipratropium 3.0-0.5 MG/3 ML Neb Soln NEB ONE (18:20)
--- NOTE | 2017-11-22 18:52 | EDM.PDOC ---
ED HPI GENERAL MEDICAL PROBLEM - General Chief Complaint: Respiratory Problem Stated Complaint: SOB Time Seen by Provider: 11/22/17 18:17 Source of Information: Reports: Patient History Limitations: Reports: No Limitations - History of Present Illness INITIAL COMMENTS - FREE TEXT/NARRATIVE: HISTORY AND PHYSICAL: History of present illness: Patient is a 76-year-old female who presents to the emergency room with complaints of dyspnea, which started today. She has a history of COPD and does use inhalers and rescue with DuoNeb as needed. She denies any fever, chills, chest pain, cough. Denies any abdominal pain, nausea, vomiting, diarrhea or constipation. Review of systems: As per history of present illness and below otherwise all systems reviewed and negative. Past medical history: As per history of present illness and as reviewed below otherwise noncontributory. Surgical history: As per history of present illness and as reviewed below otherwise noncontributory. Social history: No reported history of drug or alcohol abuse. Family history: As per history of present illness and as reviewed below otherwise noncontributory. Physical exam: General: Well developed and well-nourished 76-year-old female. Alert and oriented. Nontoxic appearing and in no acute distress. HEENT: Atraumatic, normocephalic, pupils equal and reactive bilaterally, negative for conjunctival pallor or scleral icterus, mucous membranes moist, throat clear, neck supple, nontender, trachea midline. No drooling or trismus noted. No meningeal signs Lungs: Clear to auscultation, breath sounds equal bilaterally, chest nontender. Heart: S1S2, regular rate and rhythm without overt murmur Abdomen: Soft, nondistended, nontender. Negative for masses or hepatosplenomegaly. Negative for costovertebral tenderness. Pelvis: Stable nontender. Genitourinary: Deferred. Rectal: Deferred. Skin: Pale, intact, warm, dry. No lesions or rashes noted. Extremities: Atraumatic, moves all extremities per self, +1 pitting edema to bilateral ankles. She is negative for cords or calf pain. Neurovascular unremarkable. Neuro: Awake, alert, oriented. Cranial nerves II through XII unremarkable. Cerebellum unremarkable. Motor and sensory unremarkable throughout. Exam nonfocal. Notes: Oxygen saturation upon arrival is 85% on room air, she normally does not use home O2. Applying 2 L per nasal cannula does increase her O2 to 98%. Does state she feels improved since having a duo neb. Labs are unremarkable; chest x-ray shows no evidence of pneumonia or infiltrate. Patient did get up to use the bathroom and stated she felt increased shortness of breath with ambulation. Her oxygen was removed and she does sat 90-92% on room air. Sats decrease to 88% when ambulating or talking. She states she would like to be admitted for evaluation/monitoring. 1930: Dr Busch was consulted on this case. He is agreeable to keeping this patient with telemetry. Diagnostics: CBC, CMP, Troponin, Ekg, CXR, BNP Therapeutics: Duo Neb, Solumedrol Impression: Hypoxia History of CHF Plan: Observation with telemetry Definitive disposition and diagnosis as appropriate pending reevaluation and review of above. Generalized Pain Score (Numeric/FACES): 0 - Related Data Allergies Allergy/AdvReac Type Severity Reaction Status Date / Time Penicillins Allergy Anaphylactic Verified 10/20/17 22:26 Shock phenylbutazone Allergy Other Verified 10/20/17 22:26 [From Butazolidin] Home Meds: Home Meds Albuterol [Ventolin HFA] 1 puff INH Q6HR 09/27/17 [History] Albuterol/Ipratropium [DuoNeb 3.0-0.5 MG/3 ML] 3 ml NEB Q4HRRT PRN neb [Rx] Aspirin 1 tab PO DAILY 10/20/17 [History] Fluticasone Propionate [Flovent HFA 220 MCG] 1 gm INH BID #1 inhaler 10/22/17 [ Rx] predniSONE [Prednisone] 10 - 40 mg PO DAILY #30 tablet 10/22/17 [Rx] Past Medical History - Past Health History Medical/Surgical History: Denies Medical/Surgical History HEENT History: Reports: Cataract Cardiovascular History: Reports: Other (See Below) Other Cardiovascular History: Long QT Syndrome Respiratory History: Reports: COPD Gastrointestinal History: Reports: None Other OB/BYN History: Vaginal hysterectomy, still has ovaries Musculoskeletal History: Reports: Osteoarthritis Neurological History: Reports: None Oncologic (Cancer) History: Reports: Basal Cell Carcinoma Dermatologic History: Reports: Other (See Below) Other Dermatologic History: basal cell ca removed from face and scalp. - Infectious Disease History Infectious Disease History: Reports: Chicken Pox, Measles, Mumps, Shingles - Past Surgical History HEENT Surgical History: Reports: Cataract Surgery, Other (See Below) Other HEENT Surgeries/Procedures: lymph nodes from neck, cyst removal face Respiratory Surgical History: Reports: Other (See Below) Other Respiratory Surgeries/Procedures: Chest tube, lung surgery to remove ' blebs' (1971) GI Surgical History: Reports: Appendectomy Female Surgical History: Reports: Breast Biopsy, Other (See Below) Other Female Surgeries/Procedures: Bladder surgery for growth Social & Family History - Family History Family Medical History: Noncontributory HEENT: Reports: None Cardiac: Reports: Hypertension, Other (See Below) Other Cardiac Family History: long QT syndrome Respiratory: Reports: COPD Other Respiratory Family Hisory: brother OBGYN: Reports: Endocrine/Metabolic: Reports: Diabetes, Type I Other Endocrine/Metabolic Family History: Grandmother Oncologic: Reports: Skin Other Oncologic Family History: brother - Tobacco Use Smoking Status *Q: Former Smoker Used Tobacco, but Quit: Yes Month/Year Tobacco Last Used: 06/27 - Caffeine Use Caffeine Use: Reports: Coffee - Living Situation & Occupation Living situation: Reports: Occupation: Employed ED ROS GENERAL - Review of Systems Review Of Systems: ROS reveals no pertinent complaints other than HPI. ED EXAM, GENERAL - Physical Exam Exam: See Below (See dictation) Course - Vital Signs Last Recorded V/S: Last Vital Signs Temp Pulse 73 11/22/17 19:15 Resp 18 11/22/17 19:15 BP 145/84 H 11/22/17 19:15 Pulse Ox 95 11/22/17 19:15 - Orders/Labs/Meds Orders: Active Orders 24 hr Category Date Time Status EKG Documentation Completion [RC] STAT Care 11/22/17 18:21 Active RT Aerosol Therapy [RC] ASDIRECTED Care 11/22/17 18:20 Active Chest 2V [CR] Stat Exams 11/22/17 18:20 Taken Labs: Laboratory Tests 11/22/17 11/22/17 11/22/17 Range/Units 18:30 18:30 18:30 WBC 6.71 (4.0-11.0) K/uL RBC 4.77 (4.30-5.90) M/uL Hgb 14.7 (12.0-16.0) g/dL Hct 43.1 (36.0-46.0) % MCV 90.4 (80.0-98.0) fL MCH 30.8 (27.0-32.0) pg MCHC 34.1 (31.0-37.0) g/dL RDW Std Deviation 43.9 (28.0-62.0) fl RDW Coeff of Nam 13 (11.0-15.0) % Plt Count 256 (150-400) K/uL MPV 9.70 (7.40-12.00) fL Neut % (Auto) 55.2 (48.0-80.0) % Lymph % (Auto) 25.9 (16.0-40.0) % [place] % (Auto) 6.3 (0.0-15.0) % Eos % (Auto) 11.9 H (0.0-7.0) % Baso % (Auto) 0.7 (0.0-1.5) % Neut # (Auto) 3.7 (1.4-5.7) K/uL Lymph # (Auto) 1.7 (0.6-2.4) K/uL [place] # (Auto) 0.4 (0.0-0.8) K/uL Eos # (Auto) 0.8 H (0.0-0.7) K/uL Baso # (Auto) 0.1 (0.0-0.1) K/uL Nucleated RBC % 0.0 /100WBC Nucleated RBCs # 0 K/uL Sodium 140 (136-145) mmol/L Potassium 3.7 (3.5-5.1) mmol/L Chloride 103 (98-107) mmol/L Carbon Dioxide 27.7 (21.0-32.0) mmol/L BUN 8 (7.0-18.0) mg/dL Creatinine 0.9 (0.6-1.0) mg/dL Est Cr Clr Drug Dosing 49.35 mL/min Estimated GFR (MDRD) > 60.0 ml/min Glucose 106 (74-106) mg/dL Calcium 9.6 (8.5-10.1) mg/dL Total Bilirubin 0.3 (0.2-1.0) mg/dL AST 16 (15-37) IU/L ALT 20 (14-63) IU/L Alkaline Phosphatase 89 (46-116) U/L Troponin I < 0.050 (0.000-0.056) ng/mL B-Natriuretic Peptide 143 H (<100) PG/ML Total Protein 7.4 (6.4-8.2) g/dL Albumin 4.0 (3.4-5.0) g/dL Globulin 3.4 (2.0-3.5) g/dL Albumin/Globulin Ratio 1.2 L (1.3-2.8) Meds: Medications Discontinued Medications Generic Name Dose Route Start Last Admin Trade Name Freq PRN Reason Stop Dose Admin Albuterol/Ipratropium 3 ml 11/22/17 18:20 11/22/17 18:29 Duoneb 3.0-0.5 Mg/3 Ml NEB 11/22/17 18:21 3 ml ONETIME ONE Administration Methylprednisolone Sodium Succinate 125 mg 11/22/17 19:19 Solu-Medrol IVPUSH 11/22/17 19:20 ONETIME ONE Departure - Departure Time of Disposition: 19:38 Disposition: Refer to Observation Clinical Impression: Hypoxia, History of CHF (congestive heart failure) - Discharge Information Referrals: PCP,Unknown [Primary Care Provider] - Forms: ED Department Discharge - My Orders Last 24 Hours: My Active Orders 11/22/17 18:20 RT Aerosol Therapy [RC] ASDIRECTED Chest 2V [CR] Stat 11/22/17 18:21 EKG Documentation Completion [RC] STAT - Assessment/Plan Last 24 Hours: My Active Orders 11/22/17 18:20 RT Aerosol Therapy [RC] ASDIRECTED Chest 2V [CR] Stat 11/22/17 18:21 EKG Documentation Completion [RC] STAT
[2017-11-22 19:02] LABS: CHLORIDE,CL 103 mmol/L (98-107); SODIUM,NA 140 mmol/L (136-145)
[2017-11-22] MEDS ORDERED: methylPREDNISolone Sodium Succinate 125 MG/2 ML SDV IVPUSH ONE (19:19)
--- NOTE | 2017-11-22 23:22 | PCM.HP ---
H&P History of Present Illness - General Date of Service: 11/22/17 Admit Problem/Dx: Admission Diagnosis/Problem Admission Diagnosis/Problem Hypoxia - History of Present Illness Initial Comments - Free Text/Narative: 76 yo female with pmh of COPD who presents with one day history of shortness of breath and chest tightness. She denies any fevers, productive cough, or chest pain. Patient was admitted last month for COPD exacebation. She states she has been taking inhalers as prescribed. Generalized Pain Score (Numeric/FACES): 0 - Related Data Allergies/Adverse Reactions: Allergies Allergy/AdvReac Type Severity Reaction Status Date / Time Penicillins Allergy Anaphylactic Verified 10/20/17 22:26 Shock phenylbutazone Allergy Other Verified 10/20/17 22:26 [From Butazolidin] Home Medications: Home Meds Albuterol [Ventolin HFA] 1 puff INH Q6HR 09/27/17 [History] Albuterol/Ipratropium [DuoNeb 3.0-0.5 MG/3 ML] 3 ml NEB Q4HRRT PRN neb [Rx] Aspirin 1 tab PO DAILY 10/20/17 [History] Fluticasone Propionate [Flovent HFA 220 MCG] 1 gm INH BID #1 inhaler 10/22/17 [ Rx] predniSONE [Prednisone] 10 - 40 mg PO DAILY #30 tablet 10/22/17 [Rx] Past Medical History - Past Health History Medical/Surgical History: Denies Medical/Surgical History HEENT History: Reports: Cataract Cardiovascular History: Reports: Other (See Below) Other Cardiovascular History: Long QT Syndrome Respiratory History: Reports: COPD Gastrointestinal History: Reports: None Other OB/BYN History: Vaginal hysterectomy, still has ovaries Musculoskeletal History: Reports: Osteoarthritis Neurological History: Reports: None Oncologic (Cancer) History: Reports: Basal Cell Carcinoma Dermatologic History: Reports: Other (See Below) Other Dermatologic History: basal cell ca removed from face and scalp. - Infectious Disease History Infectious Disease History: Reports: Chicken Pox, Measles, Mumps, Shingles - Past Surgical History HEENT Surgical History: Reports: Cataract Surgery, Other (See Below) Other HEENT Surgeries/Procedures: lymph nodes from neck, cyst removal face Respiratory Surgical History: Reports: Other (See Below) Other Respiratory Surgeries/Procedures: Chest tube, lung surgery to remove ' blebs' (1971) GI Surgical History: Reports: Appendectomy Female Surgical History: Reports: Breast Biopsy, Other (See Below) Other Female Surgeries/Procedures: Bladder surgery for growth Social & Family History - Family History Family Medical History: Noncontributory HEENT: Reports: None Cardiac: Reports: Hypertension, Other (See Below) Other Cardiac Family History: long QT syndrome Respiratory: Reports: COPD Other Respiratory Family Hisory: brother OBGYN: Reports: Endocrine/Metabolic: Reports: Diabetes, Type I Other Endocrine/Metabolic Family History: Grandmother Oncologic: Reports: Skin Other Oncologic Family History: brother - Tobacco Use Smoking Status *Q: Former Smoker Years of Tobacco use: 40 Used Tobacco, but Quit: Yes Month/Year Tobacco Last Used: 07/2017 Second Hand Smoke Exposure: No - Caffeine Use Caffeine Use: Reports: Coffee, Soda - Recreational Drug Use Recreational Drug Use: No - Living Situation & Occupation Living situation: Reports: Occupation: Employed H&P Review of Systems - Review of Systems: Review Of Systems: ROS reveals no pertinent complaints other than HPI. Exam - Exam Exam: See Below - Vital Signs Vital Signs: Last Vital Signs Temp Pulse 72 11/22/17 20:02 Resp 18 11/22/17 20:02 BP 133/74 11/22/17 20:02 Pulse Ox 97 11/22/17 20:02 Weight: 57.017 kg - Exam General: Alert, Oriented HEENT: Mucosa Moist & [place] Lungs: Normal Respiratory Effort, Decreased Breath Sounds Cardiovascular: Regular Rate, Regular Rhythm GI/Abdominal Exam: Soft, Non-Tender Extremities: Non-Tender, No Pedal Edema Skin: Warm, Dry, Intact Neurological: No: Focal Deficit - Patient Data Lab Results Last 24 hrs: Laboratory Results - last 24 hr 11/22/17 11/22/17 11/22/17 Range/Units 18:30 18:30 18:30 WBC 6.71 (4.0-11.0) K/uL RBC 4.77 (4.30-5.90) M/uL Hgb 14.7 (12.0-16.0) g/dL Hct 43.1 (36.0-46.0) % MCV 90.4 (80.0-98.0) fL MCH 30.8 (27.0-32.0) pg MCHC 34.1 (31.0-37.0) g/dL RDW Std Deviation 43.9 (28.0-62.0) fl RDW Coeff of Nam 13 (11.0-15.0) % Plt Count 256 (150-400) K/uL MPV 9.70 (7.40-12.00) fL Neut % (Auto) 55.2 (48.0-80.0) % Lymph % (Auto) 25.9 (16.0-40.0) % [place] % (Auto) 6.3 (0.0-15.0) % Eos % (Auto) 11.9 H (0.0-7.0) % Baso % (Auto) 0.7 (0.0-1.5) % Neut # (Auto) 3.7 (1.4-5.7) K/uL Lymph # (Auto) 1.7 (0.6-2.4) K/uL [place] # (Auto) 0.4 (0.0-0.8) K/uL Eos # (Auto) 0.8 H (0.0-0.7) K/uL Baso # (Auto) 0.1 (0.0-0.1) K/uL Nucleated RBC % 0.0 /100WBC Nucleated RBCs # 0 K/uL Sodium 140 (136-145) mmol/L Potassium 3.7 (3.5-5.1) mmol/L Chloride 103 (98-107) mmol/L Carbon Dioxide 27.7 (21.0-32.0) mmol/L BUN 8 (7.0-18.0) mg/dL Creatinine 0.9 (0.6-1.0) mg/dL Est Cr Clr Drug Dosing 49.35 mL/min Estimated GFR (MDRD) > 60.0 ml/min Glucose 106 (74-106) mg/dL Calcium 9.6 (8.5-10.1) mg/dL Total Bilirubin 0.3 (0.2-1.0) mg/dL AST 16 (15-37) IU/L ALT 20 (14-63) IU/L Alkaline Phosphatase 89 (46-116) U/L Troponin I < 0.050 (0.000-0.056) ng/mL B-Natriuretic Peptide 143 H (<100) PG/ML Total Protein 7.4 (6.4-8.2) g/dL Albumin 4.0 (3.4-5.0) g/dL Globulin 3.4 (2.0-3.5) g/dL Albumin/Globulin Ratio 1.2 L (1.3-2.8) Result Diagrams: 11/23/17 05:24 11/23/17 05:24 Problem List Initiated/Reviewed/Updated: Yes Orders Last 24hrs: Active Orders 24 hr Category Date Time Status Admission Status [Patient Status] [ADT] Routine ADT 11/22/17 20:33 Active Patient Status [ADT] Stat ADT 11/22/17 19:38 Active Cardiac Monitoring [RC] . DIRECTED Care 11/22/17 19:38 Active Cardiac Monitoring [RC] . DIRECTED Care 11/22/17 20:33 Active EKG Documentation Completion [RC] STAT Care 11/22/17 18:21 Active Oxygen Therapy Adult [Oxygen Therapy, ED] [RC] Care 11/22/17 19:38 Active ASDIRECTED Oxygen Therapy [RC] PRN Care 11/22/17 23:19 Ordered RT Aerosol Therapy [RC] ASDIRECTED Care 11/22/17 18:20 Active RT Aerosol Therapy [RC] ASDIRECTED Care 11/22/17 22:57 Active Up ad Mara [RC] ASDIRECTED Care 11/22/17 23:19 Ordered VTE/DVT Education [RC] PER UNIT ROUTINE Care 11/22/17 23:19 Ordered Vital Signs [RC] Q4H Care 11/22/17 23:19 Ordered Regular Diet [DIET] Diet 11/23/17 Breakfast Active Chest 2V [CR] Stat Exams 11/22/17 18:20 Taken BMP [BASIC METABOLIC PANEL,BMP] [CHEM] Routine Lab 11/23/17 05:00 Ordered CBC WITH AUTO DIFF [HEME] Routine Lab 11/23/17 05:00 Ordered Albuterol/Ipratropium [DuoNeb 3.0-0.5 MG/3 ML] Med 11/23/17 02:00 Active 3 ml NEB Q4HRRT Heparin Sodium Med 11/22/17 23:30 Ordered 5,000 units SUBCUT Q8H methylPREDNISolone Sod Succ [Solu-MEDROL] Med 11/23/17 03:30 Active 125 mg IVPUSH Q6H Sequential Compression Device [OM.PC] Per Unit Routine Oth 11/22/17 23:19 Ordered Resuscitation Status Routine Resus Stat 11/22/17 23:19 Ordered Medication Orders Albuterol/Ipratropium (Duoneb 3.0-0.5 Mg/3 Ml) 3 ml NEB Q4HRRT GUS Methylprednisolone Sodium Succinate (Solu-Medrol) 125 mg IVPUSH Q6H GUS Assessment/Plan Comment:: 76 yo female admitted for COPD exacerbation. Treating with solumedrol and duonebs.
[2017-11-23] MEDS: Heparin Sodium 5,000 Units/ML Vial SUBCUT SCH ×3 (00:50→14:58)
[2017-11-23] MEDS: methylPREDNISolone Sodium Succinate 125 MG/2 ML SDV IVPUSH SCH ×3 (02:38→20:51)
[2017-11-23] MEDS: Albuterol/Ipratropium 3.0-0.5 MG/3 ML Neb Soln NEB SCH ×6 (02:38→21:36)
[2017-11-23 05:53] LABS: CHLORIDE,CL 104 mmol/L (98-107); SODIUM,NA 142 mmol/L (136-145)
--- NOTE | 2017-11-23 14:07 | PCM.PN ---
- General Info Date of Service: 11/23/17 - Review of Systems Systems Review Comment:: feeling better, reports some chest tightness, - Patient Data Vitals - Most Recent: Last Vital Signs Temp 36.3 C 11/23/17 12:00 Pulse 83 11/23/17 12:00 Resp 14 11/23/17 12:00 BP 120/60 11/23/17 12:00 Pulse Ox 93 L 11/23/17 12:00 Weight - Most Recent: 57.017 kg I&O - Last 24 Hours: Intake & Output 11/22/17 11/23/17 11/23/17 22:59 06:59 14:59 Intake Total 250 Balance 250 Lab Results Last 24 Hours: Laboratory Results - last 24 hr 11/22/17 11/22/17 11/22/17 Range/Units 18:30 18:30 18:30 WBC 6.71 (4.0-11.0) K/uL RBC 4.77 (4.30-5.90) M/uL Hgb 14.7 (12.0-16.0) g/dL Hct 43.1 (36.0-46.0) % MCV 90.4 (80.0-98.0) fL MCH 30.8 (27.0-32.0) pg MCHC 34.1 (31.0-37.0) g/dL RDW Std Deviation 43.9 (28.0-62.0) fl RDW Coeff of Nam 13 (11.0-15.0) % Plt Count 256 (150-400) K/uL MPV 9.70 (7.40-12.00) fL Neut % (Auto) 55.2 (48.0-80.0) % Lymph % (Auto) 25.9 (16.0-40.0) % [place] % (Auto) 6.3 (0.0-15.0) % Eos % (Auto) 11.9 H (0.0-7.0) % Baso % (Auto) 0.7 (0.0-1.5) % Neut # (Auto) 3.7 (1.4-5.7) K/uL Lymph # (Auto) 1.7 (0.6-2.4) K/uL [place] # (Auto) 0.4 (0.0-0.8) K/uL Eos # (Auto) 0.8 H (0.0-0.7) K/uL Baso # (Auto) 0.1 (0.0-0.1) K/uL Nucleated RBC % 0.0 /100WBC Nucleated RBCs # 0 K/uL Sodium 140 (136-145) mmol/L Potassium 3.7 (3.5-5.1) mmol/L Chloride 103 (98-107) mmol/L Carbon Dioxide 27.7 (21.0-32.0) mmol/L BUN 8 (7.0-18.0) mg/dL Creatinine 0.9 (0.6-1.0) mg/dL Est Cr Clr Drug Dosing 49.35 mL/min Estimated GFR (MDRD) > 60.0 ml/min Glucose 106 (74-106) mg/dL Calcium 9.6 (8.5-10.1) mg/dL Total Bilirubin 0.3 (0.2-1.0) mg/dL AST 16 (15-37) IU/L ALT 20 (14-63) IU/L Alkaline Phosphatase 89 (46-116) U/L Troponin I < 0.050 (0.000-0.056) ng/mL B-Natriuretic Peptide 143 H (<100) PG/ML Total Protein 7.4 (6.4-8.2) g/dL Albumin 4.0 (3.4-5.0) g/dL Globulin 3.4 (2.0-3.5) g/dL Albumin/Globulin Ratio 1.2 L (1.3-2.8) 11/23/17 11/23/17 Range/Units 05:24 05:24 WBC 4.99 (4.0-11.0) K/uL RBC 4.68 (4.30-5.90) M/uL Hgb 14.2 (12.0-16.0) g/dL Hct 42.0 (36.0-46.0) % MCV 89.7 (80.0-98.0) fL MCH 30.3 (27.0-32.0) pg MCHC 33.8 (31.0-37.0) g/dL RDW Std Deviation 43.2 (28.0-62.0) fl RDW Coeff of Nam 13 (11.0-15.0) % Plt Count 263 (150-400) K/uL MPV 9.80 (7.40-12.00) fL Neut % (Auto) 87.6 H (48.0-80.0) % Lymph % (Auto) 10.8 L (16.0-40.0) % [place] % (Auto) 0.6 (0.0-15.0) % Eos % (Auto) 0.6 (0.0-7.0) % Baso % (Auto) 0.4 (0.0-1.5) % Neut # (Auto) 4.4 (1.4-5.7) K/uL Lymph # (Auto) 0.5 L (0.6-2.4) K/uL [place] # (Auto) 0.0 (0.0-0.8) K/uL Eos # (Auto) 0.0 (0.0-0.7) K/uL Baso # (Auto) 0.0 (0.0-0.1) K/uL Nucleated RBC % 0.0 /100WBC Nucleated RBCs # 0 K/uL Sodium 142 (136-145) mmol/L Potassium 4.2 (3.5-5.1) mmol/L Chloride 104 (98-107) mmol/L Carbon Dioxide 31.1 (21.0-32.0) mmol/L BUN 10 (7.0-18.0) mg/dL Creatinine 0.9 (0.6-1.0) mg/dL Est Cr Clr Drug Dosing 49.35 mL/min Estimated GFR (MDRD) > 60.0 ml/min Glucose 174 H (74-106) mg/dL Calcium 9.3 (8.5-10.1) mg/dL Total Bilirubin (0.2-1.0) mg/dL AST (15-37) IU/L ALT (14-63) IU/L Alkaline Phosphatase (46-116) U/L Troponin I (0.000-0.056) ng/mL B-Natriuretic Peptide (<100) PG/ML Total Protein (6.4-8.2) g/dL Albumin (3.4-5.0) g/dL Globulin (2.0-3.5) g/dL Albumin/Globulin Ratio (1.3-2.8) Med Orders - Current: Current Medications Albuterol/Ipratropium (Duoneb 3.0-0.5 Mg/3 Ml) 3 ml NEB Q4HRRT [facility] Last Admin: 11/23/17 11:30 Dose: 3 ml Heparin Sodium (Porcine) (Heparin Sodium) 5,000 units SUBCUT Q8H [facility] Last Admin: 11/23/17 08:36 Dose: 5,000 units Methylprednisolone Sodium Succinate (Solu-Medrol) 125 mg IVPUSH Q6H [facility] Last Admin: 11/23/17 08:36 Dose: 125 mg Discontinued Medications Albuterol/Ipratropium (Duoneb 3.0-0.5 Mg/3 Ml) 3 ml NEB ONETIME ONE Stop: 11/22/17 18:21 Last Admin: 11/22/17 18:29 Dose: 3 ml Methylprednisolone Sodium Succinate (Solu-Medrol) 125 mg IVPUSH ONETIME ONE Stop: 11/22/17 19:20 Last Admin: 11/22/17 20:52 Dose: 125 mg - Exam General: Alert, Oriented Neck: Supple Lungs: Normal Respiratory Effort, Decreased Breath Sounds Cardiovascular: Regular Rate, Regular Rhythm Extremities: Non-Tender, No Pedal Edema Skin: Warm, Dry, Intact Neurological: No New Focal Deficit - Problem List Review Problem List Initiated/Reviewed/Updated: Yes - My Orders Last 24 Hours: My Active Orders 11/22/17 21:18 Telemetry Monitoring [Cardiac Monitoring] [RC] . DIRECTED 11/22/17 22:57 RT Aerosol Therapy [RC] ASDIRECTED 11/22/17 23:19 Oxygen Therapy [RC] PRN Up ad Mara [RC] ASDIRECTED VTE/DVT Education [RC] PER UNIT ROUTINE Vital Signs [RC] Q4H Sequential Compression Device [OM.PC] Per Unit Routine Resuscitation Status Routine 11/22/17 23:30 Heparin Sodium 5,000 units SUBCUT Q8H 11/23/17 02:00 Albuterol/Ipratropium [DuoNeb 3.0-0.5 MG/3 ML] 3 ml NEB Q4HRRT 11/23/17 03:30 methylPREDNISolone Sod Succ [Solu-MEDROL] 125 mg IVPUSH Q6H 11/23/17 Breakfast Regular Diet [DIET] - Plan Plan:: 76 yo female admitted for COPD exacerbation. continue solumedrol, and duonebs, Patient does not feel ready for discharge today but anticipate discharge home tomorrow.
[2017-11-24] MEDS: Heparin Sodium 5,000 Units/ML Vial SUBCUT SCH ×2 (00:18→08:00)
[2017-11-24] MEDS: Albuterol/Ipratropium 3.0-0.5 MG/3 ML Neb Soln NEB SCH ×3 (02:11→10:05)
--- NOTE | 2017-11-24 09:39 | PCM.DCSUM1 ---
Discharge Summary - Discharge Data Discharge Date: 11/24/17 Discharge Disposition: Home, Self-Care 01 Condition: Stable - Patient Summary/Data Hospital Course: 76 yo female wiht pmh of COPD who was admitted for COPD exacerbation. She was treated with dounebs and solumedrol with improvement in her wheezing and shortness of breath. Today patient is agreeable to discharge. She was discharged on four more days of prednisone 40mg daily and albuterol inhaler. - Patient Instructions Diet: Usual Diet as Tolerated - Discharge Plan Prescriptions/Med Rec: Albuterol [Ventolin HFA] 1 puff INH Q6HR PRN #1 inhaler PRN Reason: wheezing predniSONE [Prednisone] 40 mg PO DAILY #8 tablet Home Medications: Home Meds Albuterol/Ipratropium [DuoNeb 3.0-0.5 MG/3 ML] 3 ml NEB Q4HRRT PRN neb [Rx] Aspirin 1 tab PO DAILY 10/20/17 [History] Fluticasone Propionate [Flovent HFA 220 MCG] 1 gm INH BID #1 inhaler 10/22/17 [ Rx] Albuterol [Ventolin HFA] 1 puff INH Q6HR PRN #1 inhaler 11/24/17 [Rx] predniSONE [Prednisone] 40 mg PO DAILY #8 tablet 11/24/17 [Rx] Forms: ED Department Discharge Referrals: PCP,Unknown [Primary Care Provider] - - Patient Data Vitals - Most Recent: Last Vital Signs Temp 36.4 C 11/24/17 04:00 Pulse 66 11/24/17 04:00 Resp 18 11/24/17 04:00 BP 116/52 L 11/24/17 04:00 Pulse Ox 93 L 11/24/17 04:00 Weight - Most Recent: 57.017 kg I&O - Last 24 hours: Intake & Output 11/23/17 11/24/17 11/24/17 22:59 06:59 14:59 Intake Total 750 320 Output Total 900 450 Balance -150 -130 Lab Results - Last 24 hrs: Laboratory Results - last 24 hr 11/24/17 11/24/17 Range/Units 05:55 05:55 WBC 13.82 H (4.0-11.0) K/uL RBC 4.37 (4.30-5.90) M/uL Hgb 13.1 (12.0-16.0) g/dL Hct 39.6 (36.0-46.0) % MCV 90.6 (80.0-98.0) fL MCH 30.0 (27.0-32.0) pg MCHC 33.1 (31.0-37.0) g/dL RDW Std Deviation 44.7 (28.0-62.0) fl RDW Coeff of Nam 14 (11.0-15.0) % Plt Count 269 (150-400) K/uL MPV 9.90 (7.40-12.00) fL Neut % (Auto) 92.3 H (48.0-80.0) % Lymph % (Auto) 5.9 L (16.0-40.0) % [place] % (Auto) 1.7 (0.0-15.0) % Eos % (Auto) 0.0 (0.0-7.0) % Baso % (Auto) 0.1 (0.0-1.5) % Neut # (Auto) 12.8 H (1.4-5.7) K/uL Lymph # (Auto) 0.8 (0.6-2.4) K/uL [place] # (Auto) 0.2 (0.0-0.8) K/uL Eos # (Auto) 0.0 (0.0-0.7) K/uL Baso # (Auto) 0.0 (0.0-0.1) K/uL Nucleated RBC % 0.0 /100WBC Nucleated RBCs # 0 K/uL Sodium 140 (136-145) mmol/L Potassium 4.4 (3.5-5.1) mmol/L Chloride 103 (98-107) mmol/L Carbon Dioxide 27.6 (21.0-32.0) mmol/L BUN 14 (7.0-18.0) mg/dL Creatinine 1.1 H (0.6-1.0) mg/dL Est Cr Clr Drug Dosing 40.38 mL/min Estimated GFR (MDRD) 48.6 ml/min Glucose 176 H (74-106) mg/dL Calcium 9.4 (8.5-10.1) mg/dL Med Orders - Current: Current Medications Albuterol/Ipratropium (Duoneb 3.0-0.5 Mg/3 Ml) 3 ml NEB Q4HRRT [facility] Last Admin: 11/24/17 07:31 Dose: 3 ml Heparin Sodium (Porcine) (Heparin Sodium) 5,000 units SUBCUT Q8H [facility] Last Admin: 11/24/17 08:00 Dose: 5,000 units Methylprednisolone Sodium Succinate (Solu-Medrol) 125 mg IVPUSH Q12HR [facility] Last Admin: 11/23/17 20:51 Dose: 125 mg Discontinued Medications Albuterol/Ipratropium (Duoneb 3.0-0.5 Mg/3 Ml) 3 ml NEB ONETIME ONE Stop: 11/22/17 18:21 Last Admin: 11/22/17 18:29 Dose: 3 ml Methylprednisolone Sodium Succinate (Solu-Medrol) 125 mg IVPUSH ONETIME ONE Stop: 11/22/17 19:20 Last Admin: 11/22/17 20:52 Dose: 125 mg Methylprednisolone Sodium Succinate (Solu-Medrol) 125 mg IVPUSH Q6H [facility] Last Admin: 11/23/17 08:36 Dose: 125 mg
[2017-11-24] MEDS: methylPREDNISolone Sodium Succinate 125 MG/2 ML SDV IVPUSH SCH (11:02)
[2017-11-24 13:07] VITALS: BP 127/66
--- NOTE | 2017-11-25 10:12 | CR ---
EXAM DATE: 11/22/17 PATIENT'S AGE: 76 Patient: FRIDA SHEETS Facility: [place], [place] Site . Site : 1940 Study: XRay Chest [id number]/15/2018 7:00:26 PM Ordering Physician: Doctor Olea Final Report: INDICATION: dyspnea TECHNIQUE: Chest 2 views COMPARISON: October 20, 2017 FINDINGS: Cardiovascular and mediastinum: Stable cardiac silhouette. Mediastinum is within normal limits. Lungs and pleural spaces: Stable pleural reactive change along the left lung base. Stable postsurgical changes along the left lung apex. Stable scattered calcified granulomata. No sign of pleural effusion. No pneumothorax. Bones: Degenerative changes with kyphotic deformity. Stable nonspecific sclerotic bone lesion along the base of the right glenoid. IMPRESSION: No acute cardiopulmonary disease. Dictated by Florentin Ku MD @ 11/22/2017 7:09:45 PM Dictated by: Florentin Ku MD @ 11/22/2017 19:09:54 (Electronic Signature) Report Signed by Proxy. [facility]
== END 2017-11-24 12:16 | disposition home or self-care (01) ==
LOC: MW.ED 18:11 → MW.MS 19:42
PROVIDERS: ADMIT Internal Medicine; ATTEND Internal Medicine
DX: J44.1 Chronic obstructive pulmonary disease with (acute) exacerbation (principal); M19.90 Unspecified osteoarthritis, unspecified site; I45.81 Long QT syndrome; Z87.891 Personal history of nicotine dependence; Z79.82 Long term (current) use of aspirin; Z88.0 Allergy status to penicillin; Z88.8 Allergy status to other drugs, medicaments and biological substances
CPT/HCPCS: 36415; 71046; 80048; 80053; 83880; 84484; 85025; 93005; 94640; 96374; 99285; J1644; J2930; 99283

== ENCOUNTER 2017-12-08 02:29 | Emergency (ER) | payer MEDICARE, BC ==
[2017-12-08] MEDS ORDERED: Sodium Chloride 0.9% 10 ML Syringe FLUSH PRN (02:35)
[2017-12-08] MEDS ORDERED: Sodium Chloride 0.9% 2.5 ML Syringe FLUSH PRN (02:35)
--- NOTE | 2017-12-08 02:45 | EDM.PDOC ---
ED HPI GENERAL MEDICAL PROBLEM - General Chief Complaint: Respiratory Problem Stated Complaint: DIFFICULTY BREATHING Time Seen by Provider: 12/08/17 02:30 - History of Present Illness INITIAL COMMENTS - FREE TEXT/NARRATIVE: HISTORY AND PHYSICAL: History of present illness: The patient is a 77-year-old female with a history of COPD who has had 2 recent admissions here, October 20 to October 22 and more recently November 22 to November 24 for COPD exacerbation. Each time she presented with O2 sats of 85% and improved with nebulizer treatment and steroids. With this last admission she was discharged home with prednisone which she should've finished on November 28. She follows at [facility] with one of the nurse practitioners and also sees Dr. Vidales at [facility] in [place] for cardiac issues. The patient also had an admission here in September for chest pain and shortness of breath and after the admission it was determined that she had a non-STEMI and was transferred to [facility] and [place]. She had a negative chemical stress test and was cleared by Dr. Vidales. The patient tonight comes to the ED via EMS with complaints of shortness of breath and COPD exacerbation. According to the patient she followed up in the clinic with the nurse practitioner and has a scheduled appointment with a area intelligence technician in [place] at [facility] on Saturday. She has a nebulizer machine that she uses up to 4 times a day and she says that she's quit smoking just 6 months ago. She says that this morning when she got up she gave herself an extra treatment and she was at her baseline and then took a day trip and was outdoors all day and is not sure if the weather triggered this. When she returned home and later in the evening she felt like she was getting more short of breath and gave herself morning labs but was concerned and called EMS. They documented her O2 sat at 93% on room air which is similar to what we got. The patient says that after the nebulizer treatment per EMS she is feeling better she has a cough occasionally productive of some clear mucus. She has no chest pain no abdominal pain no fever chills nausea vomiting or diarrhea. Review of systems: As per history of present illness and below otherwise all systems reviewed and negative. Past medical history: As per history of present illness and as reviewed below otherwise noncontributory. Surgical history: As per history of present illness and as reviewed below otherwise noncontributory. Social history: No reported history of drug or alcohol abuse. Family history: As per history of present illness and as reviewed below otherwise noncontributory. Physical exam: General: Well-developed well-nourished female who is nontoxic and not breathless with conversation at rest in the ED. Her O2 sat on room air on arrival was 93%. Vital signs are noted by me HEENT: Atraumatic, normocephalic, negative for conjunctival pallor or scleral icterus, mucous membranes moist, throat clear, neck supple, nontender, trachea midline. Lungs: Clear to auscultation with some scattered coarse breath sounds but no wheezing or stridor and slightly diminished breath sounds at the bases,, breath sounds equal bilaterally, chest nontender. Heart: S1S2, regular rate and rhythm no overt murmur Abdomen: Soft, nondistended, nontender. Negative for masses or hepatosplenomegaly. Slightly hypoactive bowel sounds Pelvis: Deferred Genitourinary: Deferred. Rectal: Deferred. Extremities: Atraumatic, negative for cords or calf pain. Neurovascular unremarkable. No pedal edema or noticed leg asymmetry Neuro: Awake, alert, oriented. Cranial nerves II through XII unremarkable. Cerebellum unremarkable. Motor and sensory unremarkable throughout. Exam nonfocal. Skin: Normal turgor no diaphoresis Diagnostics: EKG chest x-ray CBC CMP EKG today was compared to one performed on November 22 and they are similar and there are no acute changes today Therapeutics: IV O2 monitor, she received 1 DuoNeb in route along with Solu-Medrol 125 IV push per EMS. Patient received 1 DuoNeb prior to departure 0310: Patient continues to not have any wheezing and states she's feeling significantly improved and when she called the paramedics. Her respiratory rate is 16 and her O2 sat is 96-97% on 2 L. The patient would like to decline a duo neb at this time. I'm currently awaiting her lab test results and once those are seen I will remove the oxygen have the patient get up and move around and reevaluate her disposition. 0345: Patient is continuing to feel good and we have taken her off the oxygen that neuropathy and walked around and her O2 sat is 90% with a respiratory rate of 18 and she feels completely resolved and wants to go home. I have offered her an admission but she agrees that she feels much improved and would like to try to go home and see the area intelligence technician as scheduled on Saturday in [place]. I will give her DuoNeb nebulizer vials to try and her machine instead of her albuterol that she has. I will also give her 3 days of prednisone until she sees the area intelligence technician. I will also ask her to avoid extremes of heat humidity and environmental exposures Impression: COPD exacerbation with history of same, rule out environmental trigger Definitive disposition and diagnosis as appropriate pending reevaluation and review of above. - Related Data Allergies Allergy/AdvReac Type Severity Reaction Status Date / Time adhesive tape Allergy Blisters Verified 12/08/17 02:41 Penicillins Allergy Anaphylactic Verified 10/20/17 22:26 Shock phenylbutazone Allergy Other Verified 10/20/17 22:26 [From Butazolidin] Home Meds: Home Meds Albuterol/Ipratropium [DuoNeb 3.0-0.5 MG/3 ML] 3 ml NEB Q4HRRT PRN neb [Rx] Aspirin 1 tab PO DAILY 10/20/17 [History] Fluticasone Propionate [Flovent HFA 220 MCG] 1 gm INH BID #1 inhaler 10/22/17 [ Rx] Albuterol [Ventolin HFA] 1 puff INH Q6HR PRN #1 inhaler 11/24/17 [Rx] predniSONE [Prednisone] 40 mg PO DAILY #8 tablet 11/24/17 [Rx] Past Medical History - Past Health History Medical/Surgical History: Denies Medical/Surgical History HEENT History: Reports: Cataract Cardiovascular History: Reports: Other (See Below) Other Cardiovascular History: Long QT Syndrome Respiratory History: Reports: COPD Gastrointestinal History: Reports: None 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 - Infectious Disease History Infectious Disease History: Reports: Chicken Pox, Measles, Mumps, Shingles - Past Surgical History HEENT Surgical History: Reports: Cataract Surgery, Other (See Below) Other HEENT Surgeries/Procedures: lymph nodes from neck, cyst removal face Respiratory Surgical History: Reports: Other (See Below) Other Respiratory Surgeries/Procedures: Chest tube, lung surgery to remove ' blebs' (1971) GI Surgical History: Reports: Appendectomy Female Surgical History: Reports: Breast Biopsy, Other (See Below) Other Female Surgeries/Procedures: Bladder surgery for growth Social & Family History - Family History Family Medical History: Noncontributory HEENT: Reports: None Cardiac: Reports: Hypertension, Other (See Below) Other Cardiac Family History: long QT syndrome Respiratory: Reports: COPD Other Respiratory Family Hisory: brother OBGYN: Reports: Endocrine/Metabolic: Reports: Diabetes, Type I Other Endocrine/Metabolic Family History: Grandmother Oncologic: Reports: Skin Other Oncologic Family History: brother - Caffeine Use Caffeine Use: Reports: Coffee, Soda - Living Situation & Occupation Living situation: Reports: Occupation: Employed ED ROS GENERAL - Review of Systems Review Of Systems: ROS reveals no pertinent complaints other than HPI. ED EXAM, GENERAL - Physical Exam Exam: See Below (See dictation) Course - Vital Signs Last Recorded V/S: Last Vital Signs Temp 36.7 C 12/08/17 02:33 Pulse 70 12/08/17 03:42 Resp 12 12/08/17 03:42 BP 132/70 12/08/17 03:42 Pulse Ox 96 12/08/17 03:42 - Orders/Labs/Meds Orders: Active Orders 24 hr Category Date Time Status Cardiac Monitoring [RC] . DIRECTED Care 12/08/17 02:35 Active EKG Documentation Completion [RC] STAT Care 12/08/17 02:35 Active Oxygen Therapy, ED [RC] ASDIRECTED Care 12/08/17 02:35 Active Pulse Oximetry [RC] ASDIRECTED Care 12/08/17 02:35 Active Chest 1V Frontal [CR] Stat Exams 12/08/17 02:46 Taken Sodium Chloride 0.9% [Saline Flush] Med 12/08/17 02:35 Active 10 ml FLUSH ASDIRECTED PRN Sodium Chloride 0.9% [Saline Flush] Med 12/08/17 02:35 Active 2.5 ml FLUSH ASDIRECTED PRN Saline Lock Insert [OM.PC] Stat Oth 12/08/17 02:35 Ordered Medication Orders Sodium Chloride (Saline Flush) 10 ml FLUSH ASDIRECTED PRN PRN Reason: Keep Vein Open Sodium Chloride (Saline Flush) 2.5 ml FLUSH ASDIRECTED PRN PRN Reason: Keep Vein Open Labs: Laboratory Tests 12/08/17 12/08/17 Range/Units 03:08 03:08 WBC 10.64 (4.0-11.0) K/uL RBC 4.64 (4.30-5.90) M/uL Hgb 14.0 (12.0-16.0) g/dL Hct 42.5 (36.0-46.0) % MCV 91.6 (80.0-98.0) fL MCH 30.2 (27.0-32.0) pg MCHC 32.9 (31.0-37.0) g/dL RDW Std Deviation 45.5 (28.0-62.0) fl RDW Coeff of Nam 14 (11.0-15.0) % Plt Count 147 L (150-400) K/uL MPV 9.90 (7.40-12.00) fL Add Manual Diff YES Neutrophils % (Manual) 65 (48.0-80.0) % Band Neutrophils % 2 % Lymphocytes % (Manual) 25 (16.0-40.0) % Monocytes % (Manual) 4 (0.0-15.0) % Eosinophils % (Manual) 4 (0.0-7.0) % Nucleated RBC % 0.0 /100WBC Absolute Seg Neuts 6.9 H (1.4-5.7) Band Neutrophils # 0.2 Lymphocytes # (Manual) 2.7 H (0.6-2.4) Monocytes # (Manual) 0.4 (0.0-0.8) Eosinophils # (Manual) 0.4 (0.0-0.7) Nucleated RBCs # 0 K/uL Sodium 142 (136-145) mmol/L Potassium 4.6 (3.5-5.1) mmol/L Chloride 104 (98-107) mmol/L Carbon Dioxide 30.4 (21.0-32.0) mmol/L BUN 10 (7.0-18.0) mg/dL Creatinine 1.0 (0.6-1.0) mg/dL Est Cr Clr Drug Dosing 43.74 mL/min Estimated GFR (MDRD) 54.1 ml/min Glucose 113 H (74-106) mg/dL Calcium 8.5 (8.5-10.1) mg/dL Total Bilirubin 0.3 (0.2-1.0) mg/dL AST 11 L (15-37) IU/L ALT 19 (14-63) IU/L Alkaline Phosphatase 79 (46-116) U/L Total Protein 6.2 L (6.4-8.2) g/dL Albumin 3.4 (3.4-5.0) g/dL Globulin 2.8 (2.0-3.5) g/dL Albumin/Globulin Ratio 1.2 L (1.3-2.8) Meds: Medications Generic Name Dose Route Start Last Admin Trade Name Freq PRN Reason Stop Dose Admin Sodium Chloride 10 ml 12/08/17 02:35 Saline Flush FLUSH ASDIRECTED PRN Keep Vein Open Sodium Chloride 2.5 ml 12/08/17 02:35 Saline Flush FLUSH ASDIRECTED PRN Keep Vein Open Departure - Departure Time of Disposition: 03:54 Disposition: Home, Self-Care 01 Condition: Good Clinical Impression: COPD with exacerbation - Discharge Information Referrals: PCP,None [Primary Care Provider] - Forms: ED Department Discharge Additional Instructions: The following information is given to patients seen in the emergency department who are being discharged to home. This information is to outline your options for follow-up care. We provide all patients seen in our emergency department with a follow-up referral. The need for follow-up, as well as the timing and circumstances, are variable depending upon the specifics of your emergency department visit. If you don't have a primary care physician on staff, we will provide you with a referral. We always advise you to contact your personal physician following an emergency department visit to inform them of the circumstance of the visit and for follow-up with them and/or the need for any referrals to a consulting specialist. The emergency department will also refer you to a specialist when appropriate. This referral assures that you have the opportunity for followup care with a specialist. All of these measure are taken in an effort to provide you with optimal care, which includes your followup. Under all circumstances we always encourage you to contact your private physician who remains a resource for coordinating your care. When calling for followup care, please make the office aware that this follow-up is from your recent emergency room visit. If for any reason you are refused follow-up, please contact the [facility] emergency department at and ask to speak to the emergency department charge nurse. [address] [place] [address] Please continue your home medications and try the new duoneb nebulizer instead of your albuterol 4 times a day. Please take the prednisone as prescribed starting later today. Push hydration and try to avoid being outdoors. Please keep your appointment on Saturday with the area intelligence technician in [place] and return to ER as needed as discussed - My Orders Last 24 Hours: My Active Orders 12/08/17 02:35 Cardiac Monitoring [RC] . DIRECTED EKG Documentation Completion [RC] STAT Oxygen Therapy, ED [RC] ASDIRECTED Pulse Oximetry [RC] ASDIRECTED Sodium Chloride 0.9% [Saline Flush] 10 ml FLUSH ASDIRECTED PRN Sodium Chloride 0.9% [Saline Flush] 2.5 ml FLUSH ASDIRECTED PRN Saline Lock Insert [OM.PC] Stat 12/08/17 02:46 Chest 1V Frontal [CR] Stat - Assessment/Plan Last 24 Hours: My Active Orders 12/08/17 02:35 Cardiac Monitoring [RC] . DIRECTED EKG Documentation Completion [RC] STAT Oxygen Therapy, ED [RC] ASDIRECTED Pulse Oximetry [RC] ASDIRECTED Sodium Chloride 0.9% [Saline Flush] 10 ml FLUSH ASDIRECTED PRN Sodium Chloride 0.9% [Saline Flush] 2.5 ml FLUSH ASDIRECTED PRN Saline Lock Insert [OM.PC] Stat 12/08/17 02:46 Chest 1V Frontal [CR] Stat
[2017-12-08] MEDS ORDERED: Albuterol/Ipratropium 3.0-0.5 MG/3 ML Neb Soln NEB ONE (03:56)
[2017-12-08 04:41] VITALS: BP 133/66
--- NOTE | 2017-12-09 18:29 | CR ---
EXAM DATE: 12/08/17 PATIENT'S AGE: 77 Patient: FRIDA SHEETS Facility: [place], [place] Site . Site : 1940 Study: XRay Chest [id number]/1/2018 3:09:47 AM Ordering Physician: Kourtney Jimenez Final Report: INDICATION: Shortness of Breath TECHNIQUE: Chest 1 view. COMPARISON: 11/22/17 FINDINGS: Cardiovascular and mediastinum: Heart size and vasculature are normal in caliber and appearance. Mediastinum is within normal limits. Lungs and pleural space: Lungs are clear. No sign of infiltrate or mass. No sign of pleural effusion. No pneumothorax. Bones and soft tissues: No significant findings. IMPRESSION: Unremarkable chest. Dictated by: Oj Rodriguez MD @ 12/08/2017 03:14:57 (Electronic Signature) Report Signed by Proxy. THAI
== END 2017-12-08 04:31 | disposition home or self-care (01) ==
LOC: MW.ED 02:29
DX: J44.1 Chronic obstructive pulmonary disease with (acute) exacerbation (principal); Z88.0 Allergy status to penicillin; Z88.8 Allergy status to other drugs, medicaments and biological substances; Z91.048 Other nonmedicinal substance allergy status; Z79.82 Long term (current) use of aspirin; Z79.899 Other long term (current) drug therapy
CPT/HCPCS: 36415; 71045; 71045-26; 80053; 85025; 93005; 99284-25

== ENCOUNTER 2017-12-13 00:02 | Emergency (ER) | payer MEDICARE, BC ==
[2017-12-13] MEDS ORDERED: Sodium Chloride 0.9% 2.5 ML Syringe FLUSH PRN (00:06)
[2017-12-13] MEDS ORDERED: Sodium Chloride 0.9% 1,000 ML IV ONE (00:06)
[2017-12-13] MEDS ORDERED: Sodium Chloride 0.9% 10 ML Syringe FLUSH PRN (00:06)
[2017-12-13] MEDS ORDERED: Albuterol/Ipratropium 3.0-0.5 MG/3 ML Neb Soln ONE (00:07)
[2017-12-13] MEDS ORDERED: Albuterol/Ipratropium 3.0-0.5 MG/3 ML Neb Soln NEB ONE (00:08)
[2017-12-13] MEDS ORDERED: methylPREDNISolone Sodium Succinate 125 MG/2 ML SDV IVPUSH ONE (00:08)
[2017-12-13 01:23] LABS: CHLORIDE,CL 103 mmol/L (98-107); SODIUM,NA 140 mmol/L (136-145)
--- NOTE | 2017-12-13 02:05 | EDM.PDOC ---
ED HPI GENERAL MEDICAL PROBLEM - General Chief Complaint: Respiratory Problem Stated Complaint: SHORT OF BREATH Time Seen by Provider: 12/13/17 00:08 Source of Information: Reports: Patient History Limitations: Reports: No Limitations - History of Present Illness INITIAL COMMENTS - FREE TEXT/NARRATIVE: HISTORY AND PHYSICAL: History of present illness: 77-year-old female presenting to emergency department with chief complaint of shortness of breath 1 day with past medical history of COPD. Patient has a long history of COPD and has had recent hospitalizations for this including one from October 20 through October 22 and another in November from November 22 to November 24 for exacerbations. She was also seen in emergency department here on December [address] Oconnell. Patient states that she follows with the [facility] and sees a nurse practitioner Gretchen Adan. She also sees Dr. Vidales in [place] for cardiac issues. Patient tonight states that she began to have some shortness of breath so called EMS for further evaluation. She was given recently Spiriva but states she did not take it today because she did not know if it was okay to take with her DuoNeb's that she uses. She currently denies any chest pain, palpitations, nausea, diaphoresis or other associated symptoms with her shortness of breath. Patient states that she recently finished her prednisone approximately 5 days ago from her last steroid burst. She also reports that she has been trying to take her nebulized duo nebs 4 times a day but was out of town and was unable to take them. On initial exam patient has generalized wheezing in all lung huggins. She was satting 88% on room air. We did give her 1 DuoNeb as well as 125 mg Solu-Medrol which significantly improved her respiratory status. EKG was unchanged from previous with a rate of [address] changes from previous. CBC, CMP, d-dimer, INR, chest x-ray, troponin were all unremarkable. Talked at length with the patient that she can use her Spiriva with her duo nebs. She should also follow-up with her primary care provider on Saturday or Saturday. She did wish to go home and I thought that this may be appropriate even though I did suggest that she could also be observed overnight. I did discharge her with 40 mg of prednisone by mouth daily 4 days. We did take her off oxygen and she was satting her normal 93% which she normally does at home. Review of systems: As per history of present illness and below otherwise all systems reviewed and negative. Past medical history: As per history of present illness and as reviewed below otherwise noncontributory. Surgical history: As per history of present illness and as reviewed below otherwise noncontributory. Social history: No reported history of drug or alcohol abuse. Family history: As per history of present illness and as reviewed below otherwise noncontributory. Physical exam: HEENT: Atraumatic, normocephalic, pupils reactive, negative for conjunctival pallor or scleral icterus, mucous membranes moist, throat clear, neck supple, nontender, trachea midline. Lungs:See above generallized wheezing throughout, chest nontender. Heart: S1S2, regular, negative for clicks, rubs, or JVD. Abdomen: Soft, nondistended, nontender. Negative for masses or hepatosplenomegaly. Negative for costovertebral tenderness. Pelvis: Stable nontender. Genitourinary: Deferred. Rectal: Deferred. Extremities: Atraumatic, negative for cords or calf pain. Neurovascular unremarkable. Neuro: Awake, alert, oriented. Cranial nerves II through XII unremarkable. Cerebellum unremarkable. Motor and sensory unremarkable throughout. Exam nonfocal. Diagnostics: CBC, CMP, troponin, INR, chest x-ray, EKG Therapeutics: DuoNeb 1, Solu-Medrol 125 mg IV 1 Impression: Acute COPD exacerbation Plan: Please see above H&P. Patient was discharged with a prescription for prednisone 40 mg by mouth daily 4 days. She was also instructed to follow-up with primary care provider on Saturday or Saturday which he stated she would. She was told to return to emergency department if any new or worsening symptoms. She was also instructed to use her Spiriva as instructed and that she could use it with her duo nebs which I suggested she take at least 4 times a day. Definitive disposition and diagnosis as appropriate pending reevaluation and review of above. 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 Treatments - Related Data Allergies Allergy/AdvReac Type Severity Reaction Status Date / Time adhesive tape Allergy Blisters Verified 12/13/17 00:20 Penicillins Allergy Anaphylactic Verified 12/13/17 00:20 Shock phenylbutazone Allergy Other Verified 12/13/17 00:20 [From Butazolidin] Home Meds: Home Meds Albuterol/Ipratropium [DuoNeb 3.0-0.5 MG/3 ML] 3 ml NEB Q4HRRT PRN neb [Rx] Aspirin 1 tab PO DAILY 10/20/17 [History] Fluticasone Propionate [Flovent HFA 220 MCG] 1 gm INH BID #1 inhaler 10/22/17 [ Rx] Albuterol [Ventolin HFA] 1 puff INH Q6HR PRN #1 inhaler 11/24/17 [Rx] predniSONE [Prednisone] 40 mg PO DAILY #8 tablet 11/24/17 [Rx] Past Medical History - Past Health History Medical/Surgical History: Denies Medical/Surgical History HEENT History: Reports: Cataract Cardiovascular History: Reports: Other (See Below) Other Cardiovascular History: Long QT Syndrome Respiratory History: Reports: Asthma, COPD Other Respiratory History: not on oxygen at home Gastrointestinal History: Reports: None Genitourinary History: Reports: None Other [employer]ER History: Vaginal hysterectomy, still has ovaries Musculoskeletal History: Reports: Osteoarthritis Neurological History: Reports: None Oncologic (Cancer) History: Reports: Basal Cell Carcinoma Dermatologic History: Reports: Other (See Below) Other Dermatologic History: basal cell ca removed from face and scalp. - Infectious Disease History Infectious Disease History: Reports: Chicken Pox, Measles, Mumps, Shingles - Past Surgical History HEENT Surgical History: Reports: Cataract Surgery, Other (See Below) Other HEENT Surgeries/Procedures: lymph nodes from neck, cyst removal face Respiratory Surgical History: Reports: Other (See Below) Other Respiratory Surgeries/Procedures: Chest tube, lung surgery to remove ' blebs' (1971) GI Surgical History: Reports: Appendectomy Female Surgical History: Reports: Breast Biopsy, Other (See Below) Other Female Surgeries/Procedures: Bladder surgery for growth Social & Family History - Family History Family Medical History: Noncontributory HEENT: Reports: None Cardiac: Reports: Hypertension, Other (See Below) Other Cardiac Family History: long QT syndrome Respiratory: Reports: COPD Other Respiratory Family Hisory: brother OBGYN: Reports: Endocrine/Metabolic: Reports: Diabetes, Type I Other Endocrine/Metabolic Family History: Grandmother Oncologic: Reports: Skin Other Oncologic Family History: brother - Tobacco Use Smoking Status *Q: Never Smoker - Caffeine Use Caffeine Use: Reports: Coffee, Soda - Recreational Drug Use Recreational Drug Use: No - Living Situation & Occupation Living situation: Reports: Occupation: Employed ED ROS GENERAL - Review of Systems Review Of Systems: ROS reveals no pertinent complaints other than HPI. ED EXAM, GENERAL - Physical Exam Exam: See Below Course - Vital Signs Last Recorded V/S: Last Vital Signs Temp 98.3 F 12/13/17 00:02 Pulse 86 12/13/17 01:00 Resp 19 12/13/17 01:00 BP 138/66 12/13/17 01:00 Pulse Ox 96 12/13/17 01:00 - Orders/Labs/Meds Orders: Active Orders 24 hr Category Date Time Status Cardiac Monitoring [RC] . DIRECTED Care 12/13/17 00:06 Active EKG Documentation Completion [RC] STAT Care 12/13/17 00:06 Active Oxygen Therapy [RC] ASDIRECTED Care 12/13/17 00:06 Active Pulse Oximetry [RC] ASDIRECTED Care 12/13/17 00:06 Active RT Aerosol Therapy [RC] ASDIRECTED Care 12/13/17 00:08 Active Chest 1V Frontal [CR] Stat Exams 12/13/17 00:06 Taken UA W/MICROSCOPIC [URIN] Stat Lab 12/13/17 00:07 Ordered Sodium Chloride 0.9% [Saline Flush] Med 12/13/17 00:06 Active 10 ml FLUSH ASDIRECTED PRN Sodium Chloride 0.9% [Saline Flush] Med 12/13/17 00:06 Active 2.5 ml FLUSH ASDIRECTED PRN Saline Lock Insert [OM.PC] Stat Oth 12/13/17 00:06 Ordered Medication Orders Sodium Chloride (Saline Flush) 10 ml FLUSH ASDIRECTED PRN PRN Reason: Keep Vein Open Sodium Chloride (Saline Flush) 2.5 ml FLUSH ASDIRECTED PRN PRN Reason: Keep Vein Open Labs: Laboratory Tests 12/13/17 12/13/17 12/13/17 Range/Units 00:18 00:18 00:18 WBC 10.38 (4.0-11.0) K/uL RBC 4.94 (4.30-5.90) M/uL Hgb 15.2 (12.0-16.0) g/dL Hct 45.0 (36.0-46.0) % MCV 91.1 (80.0-98.0) fL MCH 30.8 (27.0-32.0) pg MCHC 33.8 (31.0-37.0) g/dL RDW Std Deviation 45.2 (28.0-62.0) fl RDW Coeff of Nam 14 (11.0-15.0) % Plt Count 167 (150-400) K/uL MPV 10.40 (7.40-12.00) fL Neut % (Auto) 55.8 (48.0-80.0) % Lymph % (Auto) 22.6 (16.0-40.0) % [place] % (Auto) 7.5 (0.0-15.0) % Eos % (Auto) 13.7 H (0.0-7.0) % Baso % (Auto) 0.4 (0.0-1.5) % Neut # (Auto) 5.8 H (1.4-5.7) K/uL Lymph # (Auto) 2.4 (0.6-2.4) K/uL [place] # (Auto) 0.8 (0.0-0.8) K/uL Eos # (Auto) 1.4 H (0.0-0.7) K/uL Baso # (Auto) 0.0 (0.0-0.1) K/uL Nucleated RBC % 0.0 /100WBC Nucleated RBCs # 0 K/uL INR 0.93 Sodium 140 (136-145) mmol/L Potassium 4.1 (3.5-5.1) mmol/L Chloride 103 (98-107) mmol/L Carbon Dioxide 27.3 (21.0-32.0) mmol/L BUN 9 (7.0-18.0) mg/dL Creatinine 0.9 (0.6-1.0) mg/dL Est Cr Clr Drug Dosing TNP Estimated GFR (MDRD) > 60.0 ml/min Glucose 108 H (74-106) mg/dL Calcium 9.3 (8.5-10.1) mg/dL Total Bilirubin 0.4 (0.2-1.0) mg/dL AST 11 L (15-37) IU/L ALT 20 (14-63) IU/L Alkaline Phosphatase 71 (46-116) U/L Troponin I < 0.050 (0.000-0.056) ng/mL Total Protein 6.8 (6.4-8.2) g/dL Albumin 3.8 (3.4-5.0) g/dL Globulin 3.0 (2.0-3.5) g/dL Albumin/Globulin Ratio 1.3 (1.3-2.8) Meds: Medications Generic Name Dose Route Start Last Admin Trade Name Freq PRN Reason Stop Dose Admin Sodium Chloride 10 ml 12/13/17 00:06 Saline Flush FLUSH ASDIRECTED PRN Keep Vein Open Sodium Chloride 2.5 ml 12/13/17 00:06 Saline Flush FLUSH ASDIRECTED PRN Keep Vein Open Discontinued Medications Generic Name Dose Route Start Last Admin Trade Name Freq PRN Reason Stop Dose Admin Albuterol/Ipratropium Confirm 12/13/17 00:07 12/13/17 00:16 Duoneb 3.0-0.5 Mg/3 Ml Administered 12/13/17 00:08 Not Given Dose 3 ml .ROUTE .STK-MED ONE Albuterol/Ipratropium 3 ml 12/13/17 00:08 12/13/17 00:15 Duoneb 3.0-0.5 Mg/3 Ml NEB 12/13/17 00:09 3 ml ONETIME ONE Administration Sodium Chloride 1,000 mls @ 999 mls/hr 12/13/17 00:06 12/13/17 00:16 Normal Saline IV 12/13/17 01:06 999 mls/hr .Bolus ONE Administration Methylprednisolone Sodium Succinate 125 mg 12/13/17 00:08 12/13/17 00:17 Solu-Medrol IVPUSH 12/13/17 00:09 125 mg ONETIME ONE Administration Departure - Departure Time of Disposition: 02:17 Disposition: Home, Self-Care 01 Condition: Good Clinical Impression: COPD exacerbation - Discharge Information Referrals: PCP,None [Primary Care Provider] - Forms: ED Department Discharge Additional Instructions: My general discharge The following information is given to patients seen in the emergency department who are being discharged to home. This information is to outline your options for follow-up care. We provide all patients seen in our emergency department with a follow-up referral. The need for follow-up, as well as the timing and circumstances, are variable depending upon the specifics of your emergency department visit. If you don't have a primary care physician on staff, we will provide you with a referral. We always advise you to contact your personal physician following an emergency department visit to inform them of the circumstance of the visit and for follow-up with them and/or the need for any referrals to a consulting specialist. The emergency department will also refer you to a specialist when appropriate. This referral assures that you have the opportunity for follow-up care with a specialist. All of these measure are taken in an effort to provide you with optimal care, which includes your follow-up. Under all circumstances we always encourage you to contact your private physician who remains a resource for coordinating your care. When calling for follow-up care, please make the office aware that this follow-up is from your recent emergency room visit. If for any reason you are refused follow-up, please contact the [facility] Department at and asked to speak to the emergency department charge nurse. [address] [address] Take prescribed medications as indicated Follow-up with your primary care provider as we discussed. You may use duo nebs which I suggest you use 4 times a day with the Spiriva. Return emergency department if any new or worsening symptoms. - My Orders Last 24 Hours: My Active Orders 12/13/17 00:06 Cardiac Monitoring [RC] . DIRECTED EKG Documentation Completion [RC] STAT Oxygen Therapy [RC] ASDIRECTED Pulse Oximetry [RC] ASDIRECTED Chest 1V Frontal [CR] Stat Sodium Chloride 0.9% [Saline Flush] 10 ml FLUSH ASDIRECTED PRN Sodium Chloride 0.9% [Saline Flush] 2.5 ml FLUSH ASDIRECTED PRN Saline Lock Insert [OM.PC] Stat 12/13/17 00:07 UA W/MICROSCOPIC [URIN] Stat 12/13/17 00:08 RT Aerosol Therapy [RC] ASDIRECTED - Assessment/Plan Last 24 Hours: My Active Orders 12/13/17 00:06 Cardiac Monitoring [RC] . DIRECTED EKG Documentation Completion [RC] STAT Oxygen Therapy [RC] ASDIRECTED Pulse Oximetry [RC] ASDIRECTED Chest 1V Frontal [CR] Stat Sodium Chloride 0.9% [Saline Flush] 10 ml FLUSH ASDIRECTED PRN Sodium Chloride 0.9% [Saline Flush] 2.5 ml FLUSH ASDIRECTED PRN Saline Lock Insert [OM.PC] Stat 12/13/17 00:07 UA W/MICROSCOPIC [URIN] Stat 12/13/17 00:08 RT Aerosol Therapy [RC] ASDIRECTED
[2017-12-13 02:49] VITALS: BP 141/76
--- NOTE | 2017-12-13 16:12 | CR ---
EXAM DATE: 12/13/17 PATIENT'S AGE: 77 Patient: FRIDA SHEETS Facility: [place], [place] Site . Site : [id number] Study: XRay Chest [id number]/[id number] 1:07:12 AM Ordering Physician: Doctor Olea Final Report: INDICATION: Shortness of breath TECHNIQUE: Chest radiograph 1 view COMPARISON: 12/08/2017 FINDINGS: Mediastinum: The heart silhouette is normal in size and morphology. The mediastinum is normal in appearance. Lungs: Small scattered granulomas in the right lung and left apex are noted without change. Stable pleural scarring seen in the apices bilaterally. No pneumothorax is identified. Bones and soft tissue: Unremarkable for age. IMPRESSION: 1. No acute cardiopulmonary disease is seen. Dictated by Evan Todd MD @ 12/13/2017 1:09:28 AM Dictated by: Evan Todd MD @ 12/13/2017 01:09:31 (Electronic Signature) Report Signed by Proxy. THAI
== END 2017-12-13 02:40 | disposition home or self-care (01) ==
LOC: MW.ED 00:02
DX: J44.1 Chronic obstructive pulmonary disease with (acute) exacerbation (principal); M19.90 Unspecified osteoarthritis, unspecified site; Z79.899 Other long term (current) drug therapy; Z79.82 Long term (current) use of aspirin; Z91.09 Other allergy status, other than to drugs and biological substances; Z88.0 Allergy status to penicillin; Z88.8 Allergy status to other drugs, medicaments and biological substances
CPT/HCPCS: 36415; 71045; 80053; 84484; 85025; 85610; 93005; 94640; 96361; 96374; 99285; J2930; J7040

== ENCOUNTER 2018-01-24 20:29 | Observation (INO) | payer MEDICARE, BC ==
[2018-01-24] MEDS ORDERED: Sodium Chloride 0.9% 2.5 ML Syringe FLUSH PRN (20:53)
[2018-01-24] MEDS ORDERED: methylPREDNISolone Sodium Succinate 125 MG/2 ML SDV IVPUSH ONE (20:53)
[2018-01-24] MEDS ORDERED: Albuterol/Ipratropium 3.0-0.5 MG/3 ML Neb Soln NEB ONE (20:53)
[2018-01-24] MEDS ORDERED: Sodium Chloride 0.9% 10 ML Syringe FLUSH PRN (20:53)
[2018-01-24] MEDS ORDERED: Sodium Chloride 0.9% 1,000 ML IV ONE (20:55)
--- NOTE | 2018-01-24 20:57 | EDM.PDOC ---
ED HPI GENERAL MEDICAL PROBLEM - General Chief Complaint: Respiratory Problem Stated Complaint: PT HAS DIFFICULTY BREATHING Time Seen by Provider: 01/24/18 20:56 Source of Information: Reports: Patient History Limitations: Reports: No Limitations - History of Present Illness INITIAL COMMENTS - FREE TEXT/NARRATIVE: HISTORY AND PHYSICAL: []77-year-old female presenting with shortness of breath History of Present Illness: []Patient has history of COPD and was treated one week ago for this had denied need for admission that was offered Patient for the last 3 days has worsened with coughing and shortness of breath Review of Systems: As per history of present illness and below otherwise all systems reviewed and negative. Past medical history: As per history of present illness and as reviewed below otherwise noncontributory. Surgical history: As per history of present illness and as reviewed below otherwise noncontributory. Social history: No reported history of drug or alcohol abuse. Family history: As per history of present illness and as reviewed below otherwise noncontributory. Physical exam: Alert female who is speaking in short bursts of 2-3 words. Clear exudate with coughing. HEENT: Atraumatic, normocehpalic, pupils reactive, negative for conjunctival pallor or scleral icterus, mucous membranes moist, throat clear, neck supple, nontender, trachea midline. Lungs: Clear to auscultation, breath sounds equal bilaterally, chest non tender. Heart: S1S2, regular, negative for clicks, rubs, or JVD. Abdomen: Soft, nondistended, nontender. Negative for masses or hepatossplenmegaly. Negative for costovertebral tenderness. Pelvis: Stable nontender. Genitourinary: Deferred. Rectal: Deferred Extremities: Atraumatic, negative for cords or calf pain. no peripheral edema. pulses easily palpable. left 4th toe with eccymosis from injury 3 days ago. full rom no pain. Neurovascular unremarkable. Neuro: Awake, alert, oriented. Cranial nerves II through XII unremarkable. Cerebellum unremarkable. Motor and sensory unremarkable throughout. Exam nonfocal. discussed with Dr. Partida. Diagnostics: []cbc, cmp,bnp, ua, urine culture Therapeutics: []1liter NS solumedrol Impression: []copd exacerbation Plan: []refer to observation Definitive disposition and diagnosis as appropriate pending reevaluation and review of above. Onset: Today, Gradual Duration: Day(s): Location: Reports: Chest Quality: Reports: Ache Severity: Moderate Improves with: Reports: None Worsens with: Reports: None Associated Symptoms: Reports: cough w sputum - Related Data Allergies Allergy/AdvReac Type Severity Reaction Status Date / Time adhesive tape Allergy Blisters Verified 01/14/18 04:29 Penicillins Allergy Anaphylactic Verified 01/14/18 04:29 Shock phenylbutazone Allergy Cannot Verified 01/24/18 20:36 [From Butazolidin] Remember Home Meds: Home Meds Albuterol/Ipratropium [DuoNeb 3.0-0.5 MG/3 ML] 3 ml NEB Q4HRRT PRN neb [Rx] Aspirin 81 mg PO DAILY 10/20/17 [History] Albuterol [Ventolin HFA] 1 puff INH Q6HR PRN #1 inhaler 11/24/17 [Rx] Budesonide/Formoterol Fumarate [Symbicort 160-4.5 Mcg Inhaler] 2 puff INH DAILY 01/24/18 [History] Past Medical History - Past Health History Medical/Surgical History: Denies Medical/Surgical History HEENT History: Reports: Cataract, Other (See Below) Other HEENT History: wears glasses Cardiovascular History: Reports: Other (See Below) Other Cardiovascular History: pt states "i had a slight heart attack few months ago" Respiratory History: Reports: Asthma, COPD Other Respiratory History: not on oxygen at home Gastrointestinal History: Reports: None Genitourinary History: Reports: None 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 - Infectious Disease History Infectious Disease History: Reports: Chicken Pox, Measles, Mumps, Shingles - Past Surgical History HEENT Surgical History: Reports: Cataract Surgery, Other (See Below) Other HEENT Surgeries/Procedures: lymph nodes from neck, cyst removal face Cardiovascular Surgical History: Reports: None Respiratory Surgical History: Reports: Other (See Below) Other Respiratory Surgeries/Procedures: Chest tube, lung surgery to remove ' blebs' (1971) GI Surgical History: Reports: Appendectomy Female Surgical History: Reports: Breast Biopsy, Other (See Below) Other Female Surgeries/Procedures: Bladder surgery for growth Social & Family History - Family History Family Medical History: Noncontributory HEENT: Reports: None Cardiac: Reports: Hypertension, Other (See Below) Other Cardiac Family History: long QT syndrome Respiratory: Reports: COPD Other Respiratory Family Hisory: brother OBGYN: Reports: Endocrine/Metabolic: Reports: Diabetes, Type I Other Endocrine/Metabolic Family History: Grandmother Oncologic: Reports: Skin Other Oncologic Family History: brother - Tobacco Use Smoking Status *Q: Former Smoker Used Tobacco, but Quit: Yes Month/Year Tobacco Last Used: "few months ago" - Caffeine Use Caffeine Use: Reports: Coffee, Soda - Recreational Drug Use Recreational Drug Use: No - Living Situation & Occupation Living situation: Reports: Occupation: Employed ED ROS GENERAL - Review of Systems Review Of Systems: ROS reveals no pertinent complaints other than HPI. ED EXAM, GENERAL - Physical Exam Exam: See Below (see dictation) Course - Vital Signs Last Recorded V/S: Last Vital Signs Temp 36.6 C 01/24/18 20:32 Pulse 88 01/24/18 20:32 Resp 25 H 01/24/18 20:32 BP 142/67 H 01/24/18 20:32 Pulse Ox 93 L 01/24/18 20:32 - Orders/Labs/Meds Orders: Active Orders 24 hr Category Date Time Status EKG Documentation Completion [RC] STAT Care 01/24/18 20:55 Active RT Aerosol Therapy [RC] ASDIRECTED Care 01/24/18 20:54 Active Chest 2V [CR] Stat Exams 01/24/18 21:16 Ordered Sodium Chloride 0.9% [Normal Saline] 1,000 ml Med 01/24/18 20:55 Active IV STAT Sodium Chloride 0.9% [Saline Flush] Med 01/24/18 20:53 Active 10 ml FLUSH ASDIRECTED PRN Sodium Chloride 0.9% [Saline Flush] Med 01/24/18 20:53 Active 2.5 ml FLUSH ASDIRECTED PRN Saline Lock Insert [OM.PC] Stat Oth 01/24/18 20:53 Ordered Medication Orders Sodium Chloride (Normal Saline) 1,000 mls @ 125 mls/hr IV STAT ONE Stop: 01/25/18 04:54 Last Admin: 01/24/18 21:13 Dose: 125 mls/hr Sodium Chloride (Saline Flush) 10 ml FLUSH ASDIRECTED PRN PRN Reason: Keep Vein Open Sodium Chloride (Saline Flush) 2.5 ml FLUSH ASDIRECTED PRN PRN Reason: Keep Vein Open Labs: Laboratory Tests 01/24/18 01/24/18 01/24/18 Range/Units 21:10 21:10 21:10 WBC 8.80 (4.0-11.0) K/uL RBC 4.74 (4.30-5.90) M/uL Hgb 14.6 (12.0-16.0) g/dL Hct 42.9 (36.0-46.0) % MCV 90.5 (80.0-98.0) fL MCH 30.8 (27.0-32.0) pg MCHC 34.0 (31.0-37.0) g/dL RDW Std Deviation 45.1 (28.0-62.0) fl RDW Coeff of Nam 14 (11.0-15.0) % Plt Count 220 (150-400) K/uL MPV 9.70 (7.40-12.00) fL Neut % (Auto) 52.5 (48.0-80.0) % Lymph % (Auto) 24.8 (16.0-40.0) % [place] % (Auto) 8.5 (0.0-15.0) % Eos % (Auto) 13.3 H (0.0-7.0) % Baso % (Auto) 0.9 (0.0-1.5) % Neut # (Auto) 4.6 (1.4-5.7) K/uL Lymph # (Auto) 2.2 (0.6-2.4) K/uL [place] # (Auto) 0.8 (0.0-0.8) K/uL Eos # (Auto) 1.2 H (0.0-0.7) K/uL Baso # (Auto) 0.1 (0.0-0.1) K/uL Nucleated RBC % 0.0 /100WBC Nucleated RBCs # 0 K/uL Sodium 140 (136-145) mmol/L Potassium 3.8 (3.5-5.1) mmol/L Chloride 105 (98-107) mmol/L Carbon Dioxide 30.2 (21.0-32.0) mmol/L BUN 8 (7.0-18.0) mg/dL Creatinine 0.8 (0.6-1.0) mg/dL Est Cr Clr Drug Dosing 54.67 mL/min Estimated GFR (MDRD) > 60.0 ml/min Glucose 95 (74-106) mg/dL Calcium 9.0 (8.5-10.1) mg/dL Total Bilirubin 0.4 (0.2-1.0) mg/dL AST 15 (15-37) IU/L ALT 20 (14-63) IU/L Alkaline Phosphatase 59 (46-116) U/L Troponin I < 0.050 (0.000-0.056) ng/mL B-Natriuretic Peptide 22 (<100) PG/ML Total Protein 6.3 L (6.4-8.2) g/dL Albumin 3.5 (3.4-5.0) g/dL Globulin 2.8 (2.0-3.5) g/dL Albumin/Globulin Ratio 1.2 L (1.3-2.8) Meds: Medications Generic Name Dose Route Start Last Admin Trade Name Freq PRN Reason Stop Dose Admin Sodium Chloride 1,000 mls @ 125 mls/hr 01/24/18 20:55 01/24/18 21:13 Normal Saline IV 01/25/18 04:54 125 mls/hr STAT ONE Administration Sodium Chloride 10 ml 01/24/18 20:53 Saline Flush FLUSH ASDIRECTED PRN Keep Vein Open Sodium Chloride 2.5 ml 01/24/18 20:53 Saline Flush FLUSH ASDIRECTED PRN Keep Vein Open Discontinued Medications Generic Name Dose Route Start Last Admin Trade Name Freq PRN Reason Stop Dose Admin Albuterol/Ipratropium 3 ml 01/24/18 20:53 01/24/18 21:06 Duoneb 3.0-0.5 Mg/3 Ml NEB 01/24/18 20:54 3 ml ONETIME ONE Administration Methylprednisolone Sodium Succinate 125 mg 01/24/18 20:53 01/24/18 21:14 Solu-Medrol IVPUSH 01/24/18 20:54 125 mg ONETIME ONE Administration Departure - Departure Time of Disposition: 21:52 Disposition: Refer to Observation Condition: Good Clinical Impression: COPD exacerbation - Discharge Information *PRESCRIPTION DRUG MONITORING PROGRAM REVIEWED*: Not Applicable *COPY OF PRESCRIPTION DRUG MONITORING REPORT IN PATIENT REDDY: Not Applicable Referrals: PCP,None [Primary Care Provider] - Forms: ED Department Discharge - My Orders Last 24 Hours: My Active Orders 01/24/18 20:53 Sodium Chloride 0.9% [Saline Flush] 10 ml FLUSH ASDIRECTED PRN Sodium Chloride 0.9% [Saline Flush] 2.5 ml FLUSH ASDIRECTED PRN Saline Lock Insert [OM.PC] Stat 01/24/18 20:54 RT Aerosol Therapy [RC] ASDIRECTED 01/24/18 20:55 EKG Documentation Completion [RC] STAT Sodium Chloride 0.9% [Normal Saline] 1,000 ml IV STAT 01/24/18 21:16 Chest 2V [CR] Stat - Assessment/Plan Last 24 Hours: My Active Orders 01/24/18 20:53 Sodium Chloride 0.9% [Saline Flush] 10 ml FLUSH ASDIRECTED PRN Sodium Chloride 0.9% [Saline Flush] 2.5 ml FLUSH ASDIRECTED PRN Saline Lock Insert [OM.PC] Stat 01/24/18 20:54 RT Aerosol Therapy [RC] ASDIRECTED 01/24/18 20:55 EKG Documentation Completion [RC] STAT Sodium Chloride 0.9% [Normal Saline] 1,000 ml IV STAT 01/24/18 21:16 Chest 2V [CR] Stat
[2018-01-24 21:37] LABS: CHLORIDE,CL 105 mmol/L (98-107); SODIUM,NA 140 mmol/L (136-145)
[2018-01-25] MEDS ORDERED: Levofloxacin 500 MG Tab PO ONE (02:30)
[2018-01-25] MEDS: methylPREDNISolone Sodium Succinate 40 MG/1 ML SDV IVPUSH SCH ×2 (04:58→12:11)
[2018-01-25] MEDS: Albuterol/Ipratropium 3.0-0.5 MG/3 ML Neb Soln NEB PRN ×2 (05:06→12:11)
[2018-01-25 06:42] LABS: CHLORIDE,CL 105 mmol/L (98-107); SODIUM,NA 138 mmol/L (136-145)
[2018-01-25] MEDS ORDERED: Levofloxacin 500 MG Tab PO SCH ×2 (09:00→21:00)
[2018-01-25] MEDS ORDERED: Fluticasone/Salmeterol 250-50 MCG Inhalation Powder 14/Diskus INH SCH (12:00)
--- NOTE | 2018-01-25 13:01 | PCM.HP ---
H&P History of Present Illness - General Admit Problem/Dx: Admission Diagnosis/Problem Admission Diagnosis/Problem COPD, Moderate chronic obstructive pulmonary disease - Related Data Allergies/Adverse Reactions: Allergies Allergy/AdvReac Type Severity Reaction Status Date / Time adhesive tape Allergy Blisters Verified 01/14/18 04:29 Penicillins Allergy Anaphylactic Verified 01/14/18 04:29 Shock phenylbutazone Allergy Cannot Verified 01/24/18 20:36 [From Butazolidin] Remember Home Medications: Home Meds Albuterol/Ipratropium [DuoNeb 3.0-0.5 MG/3 ML] 3 ml NEB Q4HRRT PRN neb [Rx] Aspirin 81 mg PO DAILY 10/20/17 [History] Albuterol [Ventolin HFA] 1 puff INH Q6HR PRN #1 inhaler 11/24/17 [Rx] Budesonide/Formoterol Fumarate [Symbicort 160-4.5 Mcg Inhaler] 2 puff INH DAILY 01/24/18 [History] Past Medical History - Past Health History Medical/Surgical History: Denies Medical/Surgical History HEENT History: Reports: Cataract, Other (See Below) Other HEENT History: wears glasses Cardiovascular History: Reports: Other (See Below) Other Cardiovascular History: pt states "i had a slight heart attack in August or September" Respiratory History: Reports: Asthma, COPD Other Respiratory History: not on oxygen at home Gastrointestinal History: Reports: None Genitourinary History: Reports: None HEALTHCARE PROF History: Reports: , Other (See Below) Other OB/BYN History: Vaginal hysterectomy, still has ovaries Musculoskeletal History: Reports: Osteoarthritis Neurological History: Reports: None Oncologic (Cancer) History: Reports: Basal Cell Carcinoma Dermatologic History: Reports: Other (See Below) Other Dermatologic History: basal cell ca removed from face and scalp. - Infectious Disease History Infectious Disease History: Reports: Chicken Pox, Measles, Mumps, Shingles - Past Surgical History HEENT Surgical History: Reports: Cataract Surgery, Other (See Below) Other HEENT Surgeries/Procedures: lymph nodes from neck, cyst removal face Cardiovascular Surgical History: Reports: None Respiratory Surgical History: Reports: Other (See Below) Other Respiratory Surgeries/Procedures: Chest tube, lung surgery to remove ' blebs' (1971) GI Surgical History: Reports: Appendectomy Female Surgical History: Reports: Breast Biopsy, Section, Other ( See Below) Other Female Surgeries/Procedures: Bladder surgery for growth Musculoskeletal Surgical History: Reports: Carpal Tunnel Social & Family History - Family History Family Medical History: Noncontributory HEENT: Reports: None Cardiac: Reports: Hypertension, Other (See Below) Other Cardiac Family History: long QT syndrome Respiratory: Reports: COPD Other Respiratory Family Hisory: brother OBGYN: Reports: Endocrine/Metabolic: Reports: Diabetes, Type I Other Endocrine/Metabolic Family History: Grandmother Oncologic: Reports: Skin Other Oncologic Family History: brother - Tobacco Use Smoking Status *Q: Former Smoker Years of Tobacco use: 50 Used Tobacco, but Quit: Yes Month/Year Tobacco Last Used: 07/2017 Second Hand Smoke Exposure: No - Caffeine Use Caffeine Use: Reports: Coffee, Soda, Tea - Recreational Drug Use Recreational Drug Use: No - Living Situation & Occupation Living situation: Reports: Occupation: Employed Exam - Vital Signs Vital Signs: Last Vital Signs Temp 97.1 F 01/25/18 08:00 Pulse 66 01/25/18 08:00 Resp 17 01/25/18 08:00 BP 105/56 L 01/25/18 08:00 Pulse Ox 94 L 01/25/18 08:00 Weight: 128 lb 11.999 oz - Patient Data Lab Results Last 24 hrs: Laboratory Results - last 24 hr 01/24/18 01/24/18 01/24/18 Range/Units 21:10 21:10 21:10 WBC 8.80 (4.0-11.0) K/uL RBC 4.74 (4.30-5.90) M/uL Hgb 14.6 (12.0-16.0) g/dL Hct 42.9 (36.0-46.0) % MCV 90.5 (80.0-98.0) fL MCH 30.8 (27.0-32.0) pg MCHC 34.0 (31.0-37.0) g/dL RDW Std Deviation 45.1 (28.0-62.0) fl RDW Coeff of Nam 14 (11.0-15.0) % Plt Count 220 (150-400) K/uL MPV 9.70 (7.40-12.00) fL Neut % (Auto) 52.5 (48.0-80.0) % Lymph % (Auto) 24.8 (16.0-40.0) % [place] % (Auto) 8.5 (0.0-15.0) % Eos % (Auto) 13.3 H (0.0-7.0) % Baso % (Auto) 0.9 (0.0-1.5) % Neut # (Auto) 4.6 (1.4-5.7) K/uL Lymph # (Auto) 2.2 (0.6-2.4) K/uL [place] # (Auto) 0.8 (0.0-0.8) K/uL Eos # (Auto) 1.2 H (0.0-0.7) K/uL Baso # (Auto) 0.1 (0.0-0.1) K/uL Nucleated RBC % 0.0 /100WBC Nucleated RBCs # 0 K/uL Sodium 140 (136-145) mmol/L Potassium 3.8 (3.5-5.1) mmol/L Chloride 105 (98-107) mmol/L Carbon Dioxide 30.2 (21.0-32.0) mmol/L BUN 8 (7.0-18.0) mg/dL Creatinine 0.8 (0.6-1.0) mg/dL Est Cr Clr Drug Dosing 54.67 mL/min Estimated GFR (MDRD) > 60.0 ml/min Glucose 95 (74-106) mg/dL Calcium 9.0 (8.5-10.1) mg/dL Total Bilirubin 0.4 (0.2-1.0) mg/dL AST 15 (15-37) IU/L ALT 20 (14-63) IU/L Alkaline Phosphatase 59 (46-116) U/L Troponin I < 0.050 (0.000-0.056) ng/mL B-Natriuretic Peptide 22 (<100) PG/ML Total Protein 6.3 L (6.4-8.2) g/dL Albumin 3.5 (3.4-5.0) g/dL Globulin 2.8 (2.0-3.5) g/dL Albumin/Globulin Ratio 1.2 L (1.3-2.8) 01/25/18 01/25/18 Range/Units 06:08 06:08 WBC 7.23 (4.0-11.0) K/uL RBC 4.55 (4.30-5.90) M/uL Hgb 13.9 (12.0-16.0) g/dL Hct 41.1 (36.0-46.0) % MCV 90.3 (80.0-98.0) fL MCH 30.5 (27.0-32.0) pg MCHC 33.8 (31.0-37.0) g/dL RDW Std Deviation 44.1 (28.0-62.0) fl RDW Coeff of Nam 13 (11.0-15.0) % Plt Count 189 (150-400) K/uL MPV 10.00 (7.40-12.00) fL Neut % (Auto) 92.6 H (48.0-80.0) % Lymph % (Auto) 6.9 L (16.0-40.0) % [place] % (Auto) 0.3 (0.0-15.0) % Eos % (Auto) 0.1 (0.0-7.0) % Baso % (Auto) 0.1 (0.0-1.5) % Neut # (Auto) 6.7 H (1.4-5.7) K/uL Lymph # (Auto) 0.5 L (0.6-2.4) K/uL [place] # (Auto) 0.0 (0.0-0.8) K/uL Eos # (Auto) 0.0 (0.0-0.7) K/uL Baso # (Auto) 0.0 (0.0-0.1) K/uL Nucleated RBC % 0.0 /100WBC Nucleated RBCs # 0 K/uL Sodium 138 (136-145) mmol/L Potassium 4.2 (3.5-5.1) mmol/L Chloride 105 (98-107) mmol/L Carbon Dioxide 26.2 (21.0-32.0) mmol/L BUN 9 (7.0-18.0) mg/dL Creatinine 0.9 (0.6-1.0) mg/dL Est Cr Clr Drug Dosing 48.60 mL/min Estimated GFR (MDRD) > 60.0 ml/min Glucose 174 H (74-106) mg/dL Calcium 8.8 (8.5-10.1) mg/dL Total Bilirubin (0.2-1.0) mg/dL AST (15-37) IU/L ALT (14-63) IU/L Alkaline Phosphatase (46-116) U/L Troponin I (0.000-0.056) ng/mL B-Natriuretic Peptide (<100) PG/ML Total Protein (6.4-8.2) g/dL Albumin (3.4-5.0) g/dL Globulin (2.0-3.5) g/dL Albumin/Globulin Ratio (1.3-2.8) Result Diagrams: 01/25/18 06:08 01/25/18 06:08 Orders Last 24hrs: Active Orders 24 hr Category Date Time Status Patient Status [ADT] Stat ADT 01/24/18 22:22 Active EKG Documentation Completion [RC] STAT Care 01/24/18 20:55 Active RT Aerosol Therapy [RC] ASDIRECTED Care 01/24/18 20:54 Active RT Aerosol Therapy [RC] ASDIRECTED Care 01/25/18 02:11 Active RT Post Treatment Assessment [RC] Click to Edit Care 01/25/18 11:49 Active RT Pre-Treatment Assessment [RC] Click to Edit Care 01/25/18 11:49 Active Vital Signs [RC] Q4H Care 01/25/18 04:00 Active Heart Healthy Diet [DIET] Diet 01/25/18 Breakfast Active Chest 2V [CR] Stat Exams 01/24/18 21:16 Taken BMP [BASIC METABOLIC PANEL,BMP] [CHEM] DAILY Lab 01/26/18 05:00 Ordered BMP [BASIC METABOLIC PANEL,BMP] [CHEM] DAILY Lab 01/27/18 05:00 Ordered BMP [BASIC METABOLIC PANEL,BMP] [CHEM] DAILY Lab 01/28/18 05:00 Ordered BMP [BASIC METABOLIC PANEL,BMP] [CHEM] DAILY Lab 01/29/18 05:00 Ordered CBC WITH AUTO DIFF [HEME] DAILY Lab 01/26/18 05:00 Ordered CBC WITH AUTO DIFF [HEME] DAILY Lab 01/27/18 05:00 Ordered CBC WITH AUTO DIFF [HEME] DAILY Lab 01/28/18 05:00 Ordered CBC WITH AUTO DIFF [HEME] DAILY Lab 01/29/18 05:00 Ordered Albuterol/Ipratropium [DuoNeb 3.0-0.5 MG/3 ML] Med 01/25/18 02:08 Active 3 ml NEB Q4HRRT PRN Fluticasone/Salmeterol [Advair Diskus 250-50] Med 01/25/18 12:00 Active 1 puff INH BID Sodium Chloride 0.9% [Saline Flush] Med 01/24/18 20:53 Active 10 ml FLUSH ASDIRECTED PRN Sodium Chloride 0.9% [Saline Flush] Med 01/24/18 20:53 Active 2.5 ml FLUSH ASDIRECTED PRN levoFLOXacin [Levaquin] Med 01/25/18 09:00 Active 750 mg PO DAILY methylPREDNISolone Sod Succ [Solu-MEDROL] Med 01/25/18 05:00 Active 40 mg IVPUSH Q8H Saline Lock Insert [OM.PC] Stat Oth 01/24/18 20:53 Ordered Medication Orders Albuterol/Ipratropium (Duoneb 3.0-0.5 Mg/3 Ml) 3 ml NEB Q4HRRT PRN PRN Reason: Shortness of Breath Last Admin: 01/25/18 12:11 Dose: 3 ml Admin: 01/25/18 05:06 Dose: 3 ml Levofloxacin (Levaquin) 750 mg PO DAILY GUS Last Admin: 01/25/18 08:20 Dose: 750 mg Methylprednisolone Sodium Succinate (Solu-Medrol) 40 mg IVPUSH Q8H GUS Last Admin: 01/25/18 12:11 Dose: 40 mg Admin: 01/25/18 04:58 Dose: 40 mg Fluticasone/Salmeterol (Advair Diskus 250-50) 1 puff INH BID GUS Sodium Chloride (Saline Flush) 10 ml FLUSH ASDIRECTED PRN PRN Reason: Keep Vein Open Sodium Chloride (Saline Flush) 2.5 ml FLUSH ASDIRECTED PRN PRN Reason: Keep Vein Open
[2018-01-25] MEDS ORDERED: Aspirin 81 MG Tab.Chew PO SCH (13:15)
[2018-01-25] MEDS ORDERED: SYMBICORT 160/4.5 INH SCH (13:15)
[2018-01-25 13:55] VITALS: BP 99/52
--- NOTE | 2018-01-25 22:29 | PCM.SN ---
- Free Text/Narrative Note: [id number]
--- NOTE | 2018-01-26 00:41 | HP ---
DATE OF : 1940 PRIMARY CARE PHYSICIAN: None PCP HISTORY OF PRESENT ILLNESS: The patient is a 77-year-old female, who presented to the emergency room last night because she could not breathe, she was wheezing, and she also states she has a cough productive of yellow and green phlegm and denies fever. Her symptoms started 3 days ago and are getting worse. The patient has a history of COPD and asthma. Currently, she is not smoking. She states that since July, she was admitted in the hospital about 6 times for COPD exacerbation. She saw her school aide in [place], this month and he prescribed for her Symbicort and changed her albuterol nebulizer treatment to DuoNeb nebulizer treatment. PAST MEDICAL HISTORY: 1. She has a history of cataract, wears glasses. 2. She reports asthma. 3. COPD. 4. History of long QT familial. 5. Osteoarthritis. 6. History of basal cell carcinoma. PAST SURGICAL HISTORY: 1. Cataract surgery. 2. Lymph nodes from neck, cyst removed. 3. Chest tube. 4. Lung surgery to remove a bleb. 5. Appendicectomy. 6. Breast biopsy. 7. section. 8. Bladder surgery for bladder repair and a growth removal from bladder. 9. She also has carpal tunnel syndrome. 10.Vaginal hysterectomy, still has ovaries. SOCIAL HISTORY: The patient used to smoke. She quit smoking a few months ago. She used to smoke for 40 years, less than 1 pack per day. No alcohol use. No drug use. Works part-time at [employer]. FAMILY HISTORY: She has a family history of long QT syndrome. Family history of COPD and diabetes. Her mom had breast cancer and hypertension. Her father had back problems and lung surgery. ALLERGIES: The patient is allergic to adhesive tape, to penicillin, and phenylbutazone. REVIEW OF SYSTEMS: A 12-point review of systems is negative except as in history of present illness. PHYSICAL EXAMINATION: VITAL SIGNS: At admission; temperature was 97.9, pulse 88, and blood pressure 142/67, respiratory rate 25, and oxygen saturation by pulse oximetry 93%. HEENT: Her head is atraumatic, normocephalic. Pupils are equally reactive to light. NECK: Supple. No lymphadenopathy. No thyromegaly. LUNGS: Decreased air entry. Minimal wheezing. HEART: S1, S2. Regular rhythm and rate. No murmur. ABDOMEN: Soft, nontender. Positive bowel sounds. EXTREMITIES: No edema. NEUROLOGIC: The patient is alert and oriented x3. There are no gross focal neurological deficits. LABORATORY DATA: At admission; WBC is 8.8, hemoglobin 14.6, hematocrit 42.9, and platelet count 220. Sodium is 140, potassium 3.8, chloride 105, CO2 of 30.2, BUN 8, creatinine 0.8, creatinine clearance is 54.67, glucose 95, calcium is 9, total bilirubin 0.4, AST 15, ALT 20, alkaline phosphatase 59. Troponin less than 0.05. Total protein 6.3, albumin 3.5, globulin 2.8. IMAGING: EKG shows sinus rate, no long QT. No ischemic changes on the EKG. Chest x-ray was done in the emergency room and was negative for pneumonia or acute disease. ASSESSMENT AND PLAN: Chronic obstructive pulmonary disease exacerbation and chronic bronchitis. We will admit the patient to Medical/Surgery floor, and we will continue the patient with DuoNeb nebulizer treatments q.6 hours. We will give the patient Levaquin 750 mg p.o. and Solu-Medrol 40 mg IV q.8 hours. We will continue the patient with Symbicort 160/4.5 two inhalers daily. For coronary artery disease, the patient will be continued with aspirin 81 mg p.o. daily. The patient was admitted to observation. DISCHARGE SUMMARY: The patient admitted during the night. She improved in the morning and she wanted to go home and the patient was discharged to home with Augmentin 875/125 mg p.o. b.i.d. for 10 days and prednisone 40 mg p.o. daily for another 4 days. The patient to continue at home Symbicort 160/4.5 one puff inhaled b.i.d. as she was prescribed from her school aide and to continue DuoNeb nebulizer treatment and to follow up with her school aide. KENNETH / MODL /[id number] MTDD
--- NOTE | 2018-01-27 10:25 | CR ---
EXAM DATE: 01/25/18 PATIENT'S AGE: 77 Patient: FRIDA SHEETS Facility: [place], [place] Site . Site : 1940 Study: XRay Chest [id number]/[id number] 10:07:50 PM Ordering Physician: Doctor Olea Final Report: INDICATION: Dyspnea. COMPARISON: 01/14/2018. FINDINGS/IMPRESSION: Unchanged postoperative changes and mild pleural scarring at the left lung apex. Stable mild pleural and/ or parenchymal scarring at the left base. No acute pulmonary infiltrates or other acute intrathoracic findings. Normal heart size. Included bones appear normal for age. Dictated by Cedrick Plaza MD @ 01/24/2018 10:15:34 PM Dictated by: Cedrick Plaza MD @ 01/24/2018 22:16:08 (Electronic Signature) Report Signed by Proxy. THAI
== END 2018-01-25 16:06 | disposition home or self-care (01) ==
LOC: MW.ED 20:29 → MW.MS 01-25 00:59
PROVIDERS: ADMIT Internal Medicine; ATTEND Internal Medicine
DX: J44.1 Chronic obstructive pulmonary disease with (acute) exacerbation (principal); Z87.891 Personal history of nicotine dependence; Z79.51 Long term (current) use of inhaled steroids; Z88.0 Allergy status to penicillin; Z88.6 Allergy status to analgesic agent; Z91.048 Other nonmedicinal substance allergy status
CPT/HCPCS: 36415; 71046; 80048; 80053; 83880; 84484; 85025; 93005; 94640; 96361; 96374; 99285; A9270; J2920; J2930; J7040; 96376; G0378; J7620-GY

== ENCOUNTER 2018-02-02 15:01 | Emergency (ER) | payer MEDICARE, BC ==
[2018-02-02] MEDS ORDERED: Albuterol/Ipratropium 3.0-0.5 MG/3 ML Neb Soln NEB ONE ×2 (15:05→16:09)
[2018-02-02] MEDS ORDERED: methylPREDNISolone Sodium Succinate 125 MG/2 ML SDV IVPUSH ONE (15:10)
[2018-02-02] MEDS ORDERED: Sodium Chloride 0.9% 10 ML Syringe FLUSH PRN (15:10)
[2018-02-02] MEDS ORDERED: Sodium Chloride 0.9% 2.5 ML Syringe FLUSH PRN (15:10)
--- NOTE | 2018-02-02 15:17 | EDM.PDOC ---
<Clif Lynn - Last Filed: 02/02/18 16:53> ED HPI GENERAL MEDICAL PROBLEM - General Chief Complaint: Respiratory Problem Stated Complaint: CAN'T BREATH Time Seen by Provider: 02/02/18 15:15 Source of Information: Reports: Patient History Limitations: Reports: No Limitations - History of Present Illness INITIAL COMMENTS - FREE TEXT/NARRATIVE: HISTORY AND PHYSICAL: History of present illness: Patient is a 77-year-old female presenting to the ED with complaint of shortness of breath since this morning. Patient has past medical history of COPD. She states oxygen saturation this morning was in the high 70s, she has been using nebulizer at home without relief of symptoms. She denies any chest pain or pressure, palpitations, nausea, vomiting, diarrhea, diaphoresis, fevers , or chills. She reports coughing up phlegm but this is her baseline. She is not on home O2 and states she is trying to get this approved. Patient currently satting 90% on room air. Patient has been seen on multiple occasions in the ED for same complaint. Most recently on 01/24, patient was admitted for COPD exacerbation and discharged on . Patient has had 6 admissions for COPD exacerbation since July. 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 Review of systems: As per history of present illness and below otherwise all systems reviewed and negative. Past medical history: As per history of present illness and as reviewed below otherwise noncontributory. Surgical history: As per history of present illness and as reviewed below otherwise noncontributory. Social history: No reported history of drug or alcohol abuse. Family history: As per history of present illness and as reviewed below otherwise noncontributory. Physical exam: General: Patient sitting comfortably in no acute distress and nontoxic appearing HEENT: Atraumatic, normocephalic, pupils reactive, negative for conjunctival pallor or scleral icterus, mucous membranes moist, throat clear, neck supple, nontender, trachea midline. No meningeal signs. Lungs: Breath sounds are diminished with wheezing throughout all lung huggins, breath sounds equal bilaterally, chest nontender. Heart: S1S2, regular, negative for clicks, rubs, or overt murmur. Abdomen: Soft, nondistended, nontender. Negative for masses or hepatosplenomegaly. Negative for costovertebral tenderness. Pelvis: Stable nontender. Genitourinary: Deferred. Rectal: Deferred. Extremities: Atraumatic, negative for cords or calf pain. Neurovascular unremarkable. Neuro: Awake, alert, oriented. Cranial nerves II through XII unremarkable. Cerebellum unremarkable. Motor and sensory unremarkable throughout. Exam nonfocal. Notes: 1545 - patient reports some improvement with DuoNeb and solumedrol. Breath sounds are less diminished but still wheezing throughout. Satting 99% on 2L nasal canula. Labs and chest x-ray unremarkable. Patient is at 95% on room air. Diagnostics: EKG is unchanged from 01/24. Therapeutics: DuoNeb Solumedrol 125mg IV 2L O2 Nasal [place] Prescriptions: Prednisone 40mg Impression: Acute COPD exacerbation Plan: 1. Take prednisone as directed and continue using nebulizer at home as needed. 2. 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 3. Return to ED as needed as discussed Definitive disposition and diagnosis as appropriate pending reevaluation and review of above. - Related Data Allergies Allergy/AdvReac Type Severity Reaction Status Date / Time adhesive tape Allergy Blisters Verified 01/14/18 04:29 Penicillins Allergy Anaphylactic Verified 01/14/18 04:29 Shock phenylbutazone Allergy Cannot Verified 01/24/18 20:36 [From Butazolidin] Remember Home Meds: Home Meds Albuterol/Ipratropium [DuoNeb 3.0-0.5 MG/3 ML] 3 ml NEB Q4HRRT PRN neb [Rx] Aspirin 81 mg PO DAILY 10/20/17 [History] Albuterol [Ventolin HFA] 1 puff INH Q6HR PRN #1 inhaler 11/24/17 [Rx] Budesonide/Formoterol Fumarate [Symbicort 160-4.5 Mcg Inhaler] 2 puff INH DAILY 01/24/18 [History] predniSONE [Prednisone] 40 mg PO DAILY 4 Days #8 tablet 02/02/18 [Rx] Past Medical History - Past Health History Medical/Surgical History: Denies Medical/Surgical History HEENT History: Reports: Cataract Other HEENT History: wears glasses Cardiovascular History: Reports: Other (See Below) Other Cardiovascular History: pt states "i had a slight heart attack in August or Sandra". pt states long QT Respiratory History: Reports: Asthma, COPD Other Respiratory History: not on oxygen at home Gastrointestinal History: Reports: None Genitourinary History: Reports: None TECHNOLOGY INTERN History: Reports: , Other (See Below) Other TECHNOLOGY INTERN History: Vaginal hysterectomy, still has ovaries Musculoskeletal History: Reports: Osteoarthritis Neurological History: Reports: None Psychiatric History: Reports: None Oncologic (Cancer) History: Reports: Basal Cell Carcinoma Dermatologic History: Reports: Other (See Below) Other Dermatologic History: basal cell ca removed from face and scalp. - Infectious Disease History Infectious Disease History: Reports: Chicken Pox, Measles, Mumps, Shingles - Past Surgical History Cardiovascular Surgical History: Reports: None GI Surgical History: Reports: Appendectomy Female Surgical History: Reports: Breast Biopsy, Section, Other ( See Below) Other Female Surgeries/Procedures: Bladder surgery for growth Musculoskeletal Surgical History: Reports: Carpal Tunnel Dermatological Surgical History: Reports: Other (See Below) Social & Family History - Family History Family Medical History: Noncontributory HEENT: Reports: None Cardiac: Reports: Hypertension, Other (See Below) Other Cardiac Family History: long QT syndrome Respiratory: Reports: COPD Other Respiratory Family Hisory: brother OBGYN: Reports: Endocrine/Metabolic: Reports: Diabetes, Type I Other Endocrine/Metabolic Family History: Grandmother Oncologic: Reports: Skin Other Oncologic Family History: brother - Tobacco Use Smoking Status *Q: Never Smoker - Caffeine Use Caffeine Use: Reports: Coffee, Soda, Tea - Recreational Drug Use Recreational Drug Use: No - Living Situation & Occupation Living situation: Reports: Occupation: Employed ED ROS GENERAL - Review of Systems Review Of Systems: ROS reveals no pertinent complaints other than HPI. ED EXAM, GENERAL - Physical Exam Exam: See Below (see dictation) Course - Vital Signs Last Recorded V/S: Last Vital Signs Temp 36.1 C 02/02/18 15:05 Pulse 95 02/02/18 15:05 Resp 22 H 02/02/18 15:05 BP 161/91 H 02/02/18 15:05 Pulse Ox 90 L 02/02/18 15:05 - Orders/Labs/Meds Orders: Active Orders 24 hr Category Date Time Status EKG 12 Lead [EKG Documentation Completion] [RC] STAT Care 02/02/18 15:24 Active RT Aerosol Therapy [RC] ASDIRECTED Care 02/02/18 15:05 Active RT Aerosol Therapy [RC] ASDIRECTED Care 02/02/18 16:09 Active Chest 1V Frontal [CR] Stat Exams 02/02/18 15:06 Taken Sodium Chloride 0.9% [Saline Flush] Med 02/02/18 15:10 Active 10 ml FLUSH ASDIRECTED PRN Sodium Chloride 0.9% [Saline Flush] Med 02/02/18 15:10 Active 2.5 ml FLUSH ASDIRECTED PRN Saline Lock Insert [OM.PC] Stat Oth 02/02/18 15:10 Ordered Medication Orders Sodium Chloride (Saline Flush) 10 ml FLUSH ASDIRECTED PRN PRN Reason: Keep Vein Open Sodium Chloride (Saline Flush) 2.5 ml FLUSH ASDIRECTED PRN PRN Reason: Keep Vein Open Labs: Laboratory Tests 02/02/18 02/02/18 Range/Units 15:20 15:20 WBC 7.25 (4.0-11.0) K/uL RBC 4.67 (4.30-5.90) M/uL Hgb 14.3 (12.0-16.0) g/dL Hct 41.9 (36.0-46.0) % MCV 89.7 (80.0-98.0) fL MCH 30.6 (27.0-32.0) pg MCHC 34.1 (31.0-37.0) g/dL RDW Std Deviation 44.2 (28.0-62.0) fl RDW Coeff of Nam 14 (11.0-15.0) % Plt Count 179 (150-400) K/uL MPV 10.20 (7.40-12.00) fL Neut % (Auto) 54.0 (48.0-80.0) % Lymph % (Auto) 18.9 (16.0-40.0) % [place] % (Auto) 11.7 (0.0-15.0) % Eos % (Auto) 15.0 H (0.0-7.0) % Baso % (Auto) 0.4 (0.0-1.5) % Neut # (Auto) 3.9 (1.4-5.7) K/uL Lymph # (Auto) 1.4 (0.6-2.4) K/uL [place] # (Auto) 0.9 H (0.0-0.8) K/uL Eos # (Auto) 1.1 H (0.0-0.7) K/uL Baso # (Auto) 0.0 (0.0-0.1) K/uL Nucleated RBC % 0.0 /100WBC Nucleated RBCs # 0 K/uL Sodium 140 (136-145) mmol/L Potassium 3.4 L (3.5-5.1) mmol/L Chloride 104 (98-107) mmol/L Carbon Dioxide 29.3 (21.0-32.0) mmol/L BUN 5 L (7.0-18.0) mg/dL Creatinine 0.7 (0.6-1.0) mg/dL Est Cr Clr Drug Dosing 62.48 mL/min Estimated GFR (MDRD) > 60.0 ml/min Glucose 90 (74-106) mg/dL Calcium 9.1 (8.5-10.1) mg/dL Total Bilirubin 0.4 (0.2-1.0) mg/dL AST 11 L (15-37) IU/L ALT 16 (14-63) IU/L Alkaline Phosphatase 58 (46-116) U/L Total Protein 6.4 (6.4-8.2) g/dL Albumin 3.5 (3.4-5.0) g/dL Globulin 2.9 (2.0-3.5) g/dL Albumin/Globulin Ratio 1.2 L (1.3-2.8) Meds: Medications Generic Name Dose Route Start Last Admin Trade Name Freq PRN Reason Stop Dose Admin Sodium Chloride 10 ml 02/02/18 15:10 Saline Flush FLUSH ASDIRECTED PRN Keep Vein Open Sodium Chloride 2.5 ml 02/02/18 15:10 Saline Flush FLUSH ASDIRECTED PRN Keep Vein Open Discontinued Medications Generic Name Dose Route Start Last Admin Trade Name Freq PRN Reason Stop Dose Admin Albuterol/Ipratropium 3 ml 02/02/18 15:05 02/02/18 15:19 Duoneb 3.0-0.5 Mg/3 Ml NEB 02/02/18 15:06 3 ml ONETIME ONE Administration Albuterol/Ipratropium 3 ml 02/02/18 16:09 02/02/18 16:15 Duoneb 3.0-0.5 Mg/3 Ml NEB 02/02/18 16:10 3 ml ONETIME ONE Administration Sodium Chloride 1,000 mls @ 999 mls/hr 02/02/18 15:46 02/02/18 16:10 Normal Saline IV 02/02/18 16:46 999 mls/hr STAT ONE Administration Methylprednisolone Sodium Succinate 125 mg 02/02/18 15:10 02/02/18 15:26 Solu-Medrol IVPUSH 02/02/18 15:11 125 mg ONETIME ONE Administration Departure - Departure Time of Disposition: 16:56 Disposition: Home, Self-Care 01 Condition: Good Clinical Impression: COPD exacerbation Clinical Impression: (Ruled Out): Acute exacerbation of COPD with asthma - Discharge Information Prescriptions: predniSONE [Prednisone] 40 mg PO DAILY 4 Days #8 tablet Referrals: PCP,None [Primary Care Provider] - Forms: ED Department Discharge Additional Instructions: The following information is given to patients seen in the emergency department who are being discharged to home. This information is to outline your options for follow-up care. We provide all patients seen in our emergency department with a follow-up referral. The need for follow-up, as well as the timing and circumstances, are variable depending upon the specifics of your emergency department visit. If you don't have a primary care physician on staff, we will provide you with a referral. We always advise you to contact your personal physician following an emergency department visit to inform them of the circumstance of the visit and for follow-up with them and/or the need for any referrals to a consulting specialist. The emergency department will also refer you to a specialist when appropriate. This referral assures that you have the opportunity for follow-up care with a specialist. All of these measure are taken in an effort to provide you with optimal care, which includes your follow-up. Under all circumstances we always encourage you to contact your private physician who remains a resource for coordinating your care. When calling for follow-up care, please make the office aware that this follow-up is from your recent emergency room visit. If for any reason you are refused follow-up, please contact the [facility] Emergency Department at and asked to speak to the emergency department charge nurse. [facility] [address] [place] [address] 1. Take prednisone as directed and continue using nebulizer at home as needed. 2. 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 3. Return to ED as needed as discussed <Barbara Oconnell - Last Filed: 02/02/18 17:09> ED HPI GENERAL MEDICAL PROBLEM - History of Present Illness INITIAL COMMENTS - FREE TEXT/NARRATIVE: This is Dr. Oconnell dictating an addendum note as I have been involved with the care of this patient and I'm quite familiar with this patient from prior visits. Patient arrived her O2 sat was 90% and she did have exam as above. She received duo nebs and Solu-Medrol here. Her oxygen quickly went up to 98% 2 L and overall with minimal intervention the patient looks much improved. I've discussed with her TESTING results and as I do have a prior relationship with this patient and have examined her before feel that she is much improved and in fact better than her usual ER visits. She is not breathless and speaking clearly and easily and we have removed her from oxygen and her O2 sats are ranging from 93-95%. The patient never really clears her lung huggins on my prior examination and respiratory therapy agrees that for her baseline she sounds very good at this point. As the patient responds to steroids very well and has the past and has been given some the patient and I both feel comfortable with her being discharged home. I strongly advised her to contact her provider at [facility] first thing in the morning and schedule a follow- up and also to have a dialogue with her chicken hatchery helper about her multiple ER visits and possible adjustment or changing of medications and/or baseline low- dose prednisone on a more consistent basis. Patient states understanding and will make these phone calls tomorrow and is aware of reasons to return to the ED.
[2018-02-02 15:43] LABS: CHLORIDE,CL 104 mmol/L (98-107); SODIUM,NA 140 mmol/L (136-145)
[2018-02-02] MEDS ORDERED: Sodium Chloride 0.9% 1,000 ML IV ONE (15:46)
[2018-02-02 17:49] VITALS: BP 117/61
--- NOTE | 2018-02-03 14:52 | CR ---
EXAM DATE: 02/02/18 PATIENT'S AGE: 77 Patient: FRIDA SHEETS Facility: [place], [place] Site . Site : [id number] Study: XRay Chest [id number]/26/2018 3:32:25 PM Ordering Physician: Doctor Olea Final Report: INDICATION: pain/sob HISTORY: Pain and shortness of breath. COMPARISON: 01/24/2018. 01/14/2018. 12/13/2017. TECHNIQUE: Chest, 1 view portable upright. FINDINGS: Pleural thickening at the lung apices, stable from previous. Pleural thickening at the left lateral costophrenic sulcus, with mild volume loss, and blunting of the left lateral costophrenic sulcus, unchanged. rapid outsole stitcher leads overlie the patient. There is no acute airspace disease. There is no pneumothorax. The central airway is normal. The osseous structures are intact. IMPRESSION: No acute airspace disease or significant change. Dictated by Blake Mackenzie MD @ 02/02/2018 3:53:01 PM Dictated by: Blake Mackenzie MD @ 02/02/2018 15:53:09 (Electronic Signature) Report Signed by Proxy. THAI
== END 2018-02-02 17:26 | disposition home or self-care (01) ==
LOC: MW.ED 15:01
DX: J44.1 Chronic obstructive pulmonary disease with (acute) exacerbation (principal); Z88.0 Allergy status to penicillin; Z88.8 Allergy status to other drugs, medicaments and biological substances; Z79.899 Other long term (current) drug therapy
CPT/HCPCS: 36415; 71045; 80053; 85025; 93005; 94640; 96361; 96374; 99285; J2930; J7040; J7620-GY

== ENCOUNTER 2018-02-26 07:52 | Inpatient (IN) | payer MEDICARE, BC ==
[2018-02-26] MEDS ORDERED: methylPREDNISolone Sodium Succinate 125 MG/2 ML SDV IVPUSH ONE ×2 (07:55→09:28)
--- NOTE | 2018-02-26 07:56 | EDM.PDOC ---
ED HPI GENERAL MEDICAL PROBLEM - General Chief Complaint: Respiratory Problem Stated Complaint: AMBULANCE Time Seen by Provider: 02/26/18 07:56 Source of Information: Reports: Patient - History of Present Illness INITIAL COMMENTS - FREE TEXT/NARRATIVE: HISTORY AND PHYSICAL: History of present illness: [Patient presents via EMS Patient was COPD with weekly exacerbations over the last month, notable to have a small new effusion over the last month on chest x-ray, ] Has failed outpatient management including oral steroids and nebs at home she is not home oxygen dependent She has been up since 2 AM taking nebulizer treatments at home 3-4 on her own she did receive one in the ambulance and I did provide another neb and Solu- Medrol with repeat dosing Review of systems: As per history of present illness and below otherwise all systems reviewed and negative. Past medical history: As per history of present illness and as reviewed below otherwise noncontributory. Surgical history: As per history of present illness and as reviewed below otherwise noncontributory. Social history: No reported history of drug or alcohol abuse. Family history: As per history of present illness and as reviewed below otherwise noncontributory. Physical exam: HEENT: Atraumatic, normocephalic, pupils reactive, negative for conjunctival pallor or scleral icterus, mucous membranes moist, throat clear, neck supple, nontender, trachea midline. Lungs: Expiratory wheeze throughout diminished left base, breath sounds equal bilaterally, chest nontender. Heart: S1S2, regular, negative for clicks, rubs, or JVD. Abdomen: Soft, nondistended, nontender. Negative for masses or hepatosplenomegaly. Negative for costovertebral tenderness. Pelvis: Stable nontender. Genitourinary: Deferred. Rectal: Deferred. Extremities: Atraumatic, negative for cords or calf pain. Neurovascular unremarkable. Neuro: Awake, alert, oriented. Cranial nerves II through XII unremarkable. Cerebellum unremarkable. Motor and sensory unremarkable throughout. Exam nonfocal. Diagnostics: [CBC CMP troponin d-dimer Nita 1 view EKGst] Therapeutics: [Summary Medrol 125 mg IV 2 DuoNeb ] Impression: [ COPD exacerbation Left pleural effusion ] Definitive disposition and diagnosis as appropriate pending reevaluation and review of above. - Related Data Allergies Allergy/AdvReac Type Severity Reaction Status Date / Time adhesive tape Allergy Blisters Verified 02/26/18 07:54 Penicillins Allergy Anaphylactic Verified 02/26/18 07:54 Shock phenylbutazone Allergy Cannot Verified 02/26/18 07:54 [From Butazolidin] Remember Home Meds: Home Meds Albuterol/Ipratropium [DuoNeb 3.0-0.5 MG/3 ML] 3 ml NEB Q4HRRT PRN neb [Rx] Aspirin 81 mg PO DAILY 10/20/17 [History] Albuterol [Ventolin HFA] 1 puff INH Q6HR PRN #1 inhaler 11/24/17 [Rx] Budesonide/Formoterol Fumarate [Symbicort 160-4.5 Mcg Inhaler] 2 puff INH DAILY 01/24/18 [History] Past Medical History - Past Health History Medical/Surgical History: Denies Medical/Surgical History HEENT History: Reports: Cataract Other HEENT History: wears glasses Cardiovascular History: Reports: Other (See Below) Other Cardiovascular History: pt states "i had a slight heart attack in August or September". pt states long QT Respiratory History: Reports: Asthma, COPD Other Respiratory History: not on oxygen at home Gastrointestinal History: Reports: None Genitourinary History: Reports: None LOG FEEDER History: Reports: , Other (See Below) Other LOG FEEDER History: Vaginal hysterectomy, still has ovaries Musculoskeletal History: Reports: Osteoarthritis Neurological History: Reports: None Psychiatric History: Reports: None Oncologic (Cancer) History: Reports: Basal Cell Carcinoma Dermatologic History: Reports: Other (See Below) Other Dermatologic History: basal cell ca removed from face and scalp. - Infectious Disease History Infectious Disease History: Reports: Chicken Pox, Measles, Mumps, Shingles - Past Surgical History Cardiovascular Surgical History: Reports: None GI Surgical History: Reports: Appendectomy Female Surgical History: Reports: Breast Biopsy, Section, Other ( See Below) Other Female Surgeries/Procedures: Bladder surgery for growth Musculoskeletal Surgical History: Reports: Carpal Tunnel Dermatological Surgical History: Reports: Other (See Below) Social & Family History - Family History Family Medical History: Noncontributory HEENT: Reports: None Cardiac: Reports: Hypertension, Other (See Below) Other Cardiac Family History: long QT syndrome Respiratory: Reports: COPD Other Respiratory Family Hisory: brother OBGYN: Reports: Endocrine/Metabolic: Reports: Diabetes, Type I Other Endocrine/Metabolic Family History: Grandmother Oncologic: Reports: Skin Other Oncologic Family History: brother - Caffeine Use Caffeine Use: Reports: Coffee, Soda, Tea - Living Situation & Occupation Living situation: Reports: Occupation: Employed ED ROS GENERAL - Review of Systems Review Of Systems: See Below ED EXAM, GENERAL - Physical Exam Exam: See Below Course - Vital Signs Last Recorded V/S: Last Vital Signs Temp 98.1 F 02/26/18 07:56 Pulse 76 02/26/18 09:09 Resp 18 02/26/18 09:09 BP 127/90 02/26/18 09:09 Pulse Ox 94 L 02/26/18 09:09 - Orders/Labs/Meds Labs: Laboratory Tests 02/26/18 02/26/18 02/26/18 Range/Units 08:00 08:00 08:00 WBC 6.48 (4.0-11.0) K/uL RBC 4.69 (4.30-5.90) M/uL Hgb 14.6 (12.0-16.0) g/dL Hct 43.1 (36.0-46.0) % MCV 91.9 (80.0-98.0) fL MCH 31.1 (27.0-32.0) pg MCHC 33.9 (31.0-37.0) g/dL RDW Std Deviation 46.2 (28.0-62.0) fl RDW Coeff of Nam 14 (11.0-15.0) % Plt Count 170 (150-400) K/uL MPV 9.80 (7.40-12.00) fL Neut % (Auto) 61.0 (48.0-80.0) % Lymph % (Auto) 20.8 (16.0-40.0) % [place] % (Auto) 5.9 (0.0-15.0) % Eos % (Auto) 11.7 H (0.0-7.0) % Baso % (Auto) 0.6 (0.0-1.5) % Neut # (Auto) 4.0 (1.4-5.7) K/uL Lymph # (Auto) 1.4 (0.6-2.4) K/uL [place] # (Auto) 0.4 (0.0-0.8) K/uL Eos # (Auto) 0.8 H (0.0-0.7) K/uL Baso # (Auto) 0.0 (0.0-0.1) K/uL Nucleated RBC % 0.0 /100WBC Nucleated RBCs # 0 K/uL INR 0.95 D-Dimer, Quantitative (0.0-0.52) mg/LFEU Sodium 140 (136-145) mmol/L Potassium 3.7 (3.5-5.1) mmol/L Chloride 105 (98-107) mmol/L Carbon Dioxide 26.7 (21.0-32.0) mmol/L BUN 5 L (7.0-18.0) mg/dL Creatinine 0.9 (0.6-1.0) mg/dL Est Cr Clr Drug Dosing 48.60 mL/min Estimated GFR (MDRD) > 60.0 ml/min Glucose 90 (74-106) mg/dL Calcium 9.3 (8.5-10.1) mg/dL Total Bilirubin 0.3 (0.2-1.0) mg/dL AST 12 L (15-37) IU/L ALT 21 (14-63) IU/L Alkaline Phosphatase 66 (46-116) U/L Troponin I < 0.050 (0.000-0.056) ng/mL B-Natriuretic Peptide (<100) PG/ML Total Protein 6.7 (6.4-8.2) g/dL Albumin 3.7 (3.4-5.0) g/dL Globulin 3.0 (2.0-3.5) g/dL Albumin/Globulin Ratio 1.2 L (1.3-2.8) Urine Color Urine Appearance Urine pH (5.0-8.0) Ur Specific [place] (1.001-1.035) Urine Protein (NEGATIVE) mg/dL Urine Glucose (UA) (NEGATIVE) mg/dL Urine Ketones (NEGATIVE) mg/dL Urine Occult Blood (NEGATIVE) Urine Nitrite (NEGATIVE) Urine Bilirubin (NEGATIVE) Urine Urobilinogen (<2.0) EU/dL Ur Leukocyte Esterase (NEGATIVE) Urine RBC (0-2/HPF) Urine WBC (0-5/HPF) Ur Epithelial Cells (NONE-FEW) Urine Bacteria (NEGATIVE) Urine Mucus (NONE-MOD) 02/26/18 02/26/1802/26/18 Range/Units 08:00 08:00 09:41 WBC (4.0-11.0) K/uL RBC (4.30-5.90) M/uL Hgb (12.0-16.0) g/dL Hct (36.0-46.0) % MCV (80.0-98.0) fL MCH (27.0-32.0) pg MCHC (31.0-37.0) g/dL RDW Std Deviation (28.0-62.0) fl RDW Coeff of Nam (11.0-15.0) % Plt Count (150-400) K/uL MPV (7.40-12.00) fL Neut % (Auto) (48.0-80.0) % Lymph % (Auto) (16.0-40.0) % [place] % (Auto) (0.0-15.0) % Eos % (Auto) (0.0-7.0) % Baso % (Auto) (0.0-1.5) % Neut # (Auto) (1.4-5.7) K/uL Lymph # (Auto) (0.6-2.4) K/uL [place] # (Auto) (0.0-0.8) K/uL Eos # (Auto) (0.0-0.7) K/uL Baso # (Auto) (0.0-0.1) K/uL Nucleated RBC % /100WBC Nucleated RBCs # K/uL INR D-Dimer, Quantitative 0.41 (0.0-0.52) mg/LFEU Sodium (136-145) mmol/L Potassium (3.5-5.1) mmol/L Chloride (98-107) mmol/L Carbon Dioxide (21.0-32.0) mmol/L BUN (7.0-18.0) mg/dL Creatinine (0.6-1.0) mg/dL Est Cr Clr Drug Dosing mL/min Estimated GFR (MDRD) ml/min Glucose (74-106) mg/dL Calcium (8.5-10.1) mg/dL Total Bilirubin (0.2-1.0) mg/dL AST (15-37) IU/L ALT (14-63) IU/L Alkaline Phosphatase (46-116) U/L Troponin I (0.000-0.056) ng/mL B-Natriuretic Peptide 54 (<100) PG/ML Total Protein (6.4-8.2) g/dL Albumin (3.4-5.0) g/dL Globulin (2.0-3.5) g/dL Albumin/Globulin Ratio (1.3-2.8) Urine Color YELLOW Urine Appearance CLEAR Urine pH 6.0 (5.0-8.0) Ur Specific [place] 1.010 (1.001-1.035) Urine Protein NEGATIVE (NEGATIVE) mg/dL Urine Glucose (UA) NEGATIVE (NEGATIVE) mg/dL Urine Ketones NEGATIVE (NEGATIVE) mg/dL Urine Occult Blood SMALL H (NEGATIVE) Urine Nitrite NEGATIVE (NEGATIVE) Urine Bilirubin NEGATIVE (NEGATIVE) Urine Urobilinogen 0.2 (<2.0) EU/dL Ur Leukocyte Esterase NEGATIVE (NEGATIVE) Urine RBC 0-2 (0-2/HPF) Urine WBC 0-1 (0-5/HPF) Ur Epithelial Cells FEW (NONE-FEW) Urine Bacteria FEW (NEGATIVE) Urine Mucus LIGHT (NONE-MOD) Meds: Medications Discontinued Medications Generic Name Dose Route Start Last Admin Trade Name Freq PRN Reason Stop Dose Admin Methylprednisolone Sodium Succinate 125 mg 02/26/18 07:55 02/26/18 08:03 Solu-Medrol IVPUSH 02/26/18 07:56 125 mg ONETIME ONE Administration Methylprednisolone Sodium Succinate 125 mg 02/26/18 09:28 02/26/18 09:37 Solu-Medrol IVPUSH 02/26/18 09:29 125 mg ONETIME ONE Administration Departure - Departure Time of Disposition: 10:13 Disposition: Admitted As Inpatient 68 Condition: Fair Clinical Impression: COPD exacerbation, Pleural effusion - Discharge Information Forms: ED Department Discharge
[2018-02-26 08:30] LABS: CHLORIDE,CL 105 mmol/L (98-107); SODIUM,NA 140 mmol/L (136-145)
--- NOTE | 2018-02-26 08:32 | CR ---
EXAMINATION: Portable chest radiograph. HISTORY: Shortness of breath. FINDINGS: The trachea is midline. The cardiomediastinal silhouette is within normal limits. No pulmonary infilt rates, effusions or pneumothorax. Chronic interstitial prominence and hyperinflation, unchanged. Osseous structures appear unremarkable. IMPRESSION: No acute cardiopulmonary process.
--- NOTE | 2018-02-26 13:37 | PCM.HP ---
H&P History of Present Illness - General Date of Service: 02/26/18 Admit Problem/Dx: Admission Diagnosis/Problem Admission Diagnosis/Problem Hypoxia - History of Present Illness Initial Comments - Free Text/Narative: She presented to the ED today with difficulty breathing and productive cough. ER staff reported that she was in respiratory distress. Her oxygen saturation at home before on room air was 80%. Home oxygen has been recommended in the past but has not yet been accomplished. She attends pulmonary rehab and rehab staff reported to me that at times her oxygen saturation on room air decreases to 74% with walking. She quit smoking last year. she is already feeling improved compared to a few hours ago. - Related Data Allergies/Adverse Reactions: Allergies Allergy/AdvReac Type Severity Reaction Status Date / Time adhesive tape Allergy Blisters Verified 02/26/18 10:58 Penicillins Allergy Anaphylactic Verified 02/26/18 10:58 Shock phenylbutazone Allergy Cannot Verified 02/26/18 10:58 [From Butazolidin] Remember Home Medications: Home Meds Albuterol/Ipratropium [DuoNeb 3.0-0.5 MG/3 ML] 3 ml NEB Q4HRRT PRN neb [Rx] Aspirin 81 mg PO DAILY 10/20/17 [History] Albuterol [Ventolin HFA] 1 puff INH Q6HR PRN #1 inhaler 11/24/17 [Rx] Budesonide/Formoterol Fumarate [Symbicort 160-4.5 Mcg Inhaler] 2 puff INH DAILY 01/24/18 [History] Past Medical History - Past Health History Medical/Surgical History: Denies Medical/Surgical History HEENT History: Reports: Cataract Other HEENT History: wears glasses Cardiovascular History: Reports: Other (See Below). Denies: CAD, [place] Other Cardiovascular History: pt states long QT syndrome Respiratory History: Reports: Asthma, COPD Other Respiratory History: not on oxygen at home Gastrointestinal History: Reports: None. Denies: Cirrhosis Genitourinary History: Reports: None. Denies: Chronic Renal Insuffiency [employer] History: Reports: , Other (See Below) Other OB/BYN History: Vaginal hysterectomy, still has ovaries Musculoskeletal History: Reports: Osteoarthritis Neurological History: Reports: None Psychiatric History: Reports: None Endocrine/Metabolic History: Denies: Diabetes, Type I, Diabetes, Type II Immunologic History: Denies: AIDS, HIV Oncologic (Cancer) History: Reports: Basal Cell Carcinoma Dermatologic History: Reports: Other (See Below) Other Dermatologic History: basal cell ca removed from face and scalp. - Infectious Disease History Infectious Disease History: Reports: Chicken Pox, Measles, Mumps, Shingles - Past Surgical History Cardiovascular Surgical History: Reports: None GI Surgical History: Reports: Appendectomy Female Surgical History: Reports: Breast Biopsy, Section, Hysterectomy, Other (See Below) Other Female Surgeries/Procedures: Bladder surgery for growth Musculoskeletal Surgical History: Reports: Carpal Tunnel Dermatological Surgical History: Reports: Other (See Below) Social & Family History - Family History Family Medical History: Noncontributory HEENT: Reports: None Cardiac: Reports: Hypertension, Other (See Below) Other Cardiac Family History: long QT syndrome Respiratory: Reports: COPD Other Respiratory Family Hisory: brother OBGYN: Reports: Endocrine/Metabolic: Reports: Diabetes, Type I Other Endocrine/Metabolic Family History: Grandmother Oncologic: Reports: Skin Other Oncologic Family History: brother - Tobacco Use Smoking Status *Q: Former Smoker Used Tobacco, but Quit: Yes Month/Year Tobacco Last Used: 07/2017 Second Hand Smoke Exposure: No - Caffeine Use Caffeine Use: Reports: Coffee, Soda - Recreational Drug Use Recreational Drug Use: No - Living Situation & Occupation Living situation: Reports: Occupation: Employed H&P Review of Systems - Review of Systems: Review Of Systems: See Below General: Denies: Fever, Chills Pulmonary: Reports: Shortness of Breath, Wheezing, Cough, Sputum. Denies: Hemoptysis Cardiovascular: Denies: Chest Pain Gastrointestinal: Denies: Abdominal Pain, Black Stool, Bloody Stool, Constipation, Diarrhea, Difficulty Swallowing, Distension, Hematemesis, Hematochezia, Melena, Vomiting Genitourinary: Denies: Dysuria, Frequency, Hematuria Skin: Denies: Cyanosis, Jaundice Psychiatric: Denies: Confusion, Agitation Exam - Exam Exam: See Below - Vital Signs Vital Signs: Last Vital Signs Temp 98.6 F 02/26/18 10:50 Pulse 72 02/26/18 10:50 Resp 18 02/26/18 10:50 BP 129/56 L 02/26/18 10:50 Pulse Ox 97 02/26/18 10:50 Weight: 58.196 kg - Exam General: Alert, Oriented, Cooperative HEENT: Conjunctiva Clear, EOMI Neck: Supple, Trachea Midline Lungs: Clear to Auscultation, Normal Respiratory Effort Cardiovascular: Regular Rate, Regular Rhythm GI/Abdominal Exam: Soft, Non-Tender (Female) Exam: Deferred Rectal (Female) Exam: Deferred Extremities: No Pedal Edema Neurological: Normal Speech, Normal Tone Neuro Extensive - Mental Status: Normal Mood/Affect Neuro Extensive - Motor, Sensory, Reflexes: No: Facial palsy (L), Facial Palsy ( R) - Patient Data Lab Results Last 24 hrs: Laboratory Results - last 24 hr 02/26/18 02/26/18 02/26/18 Range/Units 08:00 08:00 08:00 WBC 6.48 (4.0-11.0) K/uL RBC 4.69 (4.30-5.90) M/uL Hgb 14.6 (12.0-16.0) g/dL Hct 43.1 (36.0-46.0) % MCV 91.9 (80.0-98.0) fL MCH 31.1 (27.0-32.0) pg MCHC 33.9 (31.0-37.0) g/dL RDW Std Deviation 46.2 (28.0-62.0) fl RDW Coeff of Nam 14 (11.0-15.0) % Plt Count 170 (150-400) K/uL MPV 9.80 (7.40-12.00) fL Neut % (Auto) 61.0 (48.0-80.0) % Lymph % (Auto) 20.8 (16.0-40.0) % Morris % (Auto) 5.9 (0.0-15.0) % Eos % (Auto) 11.7 H (0.0-7.0) % Baso % (Auto) 0.6 (0.0-1.5) % Neut # (Auto) 4.0 (1.4-5.7) K/uL Lymph # (Auto) 1.4 (0.6-2.4) K/uL Morris # (Auto) 0.4 (0.0-0.8) K/uL Eos # (Auto) 0.8 H (0.0-0.7) K/uL Baso # (Auto) 0.0 (0.0-0.1) K/uL Nucleated RBC % 0.0 /100WBC Nucleated RBCs # 0 K/uL INR 0.95 D-Dimer, Quantitative (0.0-0.52) mg/LFEU Sodium 140 (136-145) mmol/L Potassium 3.7 (3.5-5.1) mmol/L Chloride 105 (98-107) mmol/L Carbon Dioxide 26.7 (21.0-32.0) mmol/L BUN 5 L (7.0-18.0) mg/dL Creatinine 0.9 (0.6-1.0) mg/dL Est Cr Clr Drug Dosing 48.60 mL/min Estimated GFR (MDRD) > 60.0 ml/min Glucose 90 (74-106) mg/dL Calcium 9.3 (8.5-10.1) mg/dL Total Bilirubin 0.3 (0.2-1.0) mg/dL AST 12 L (15-37) IU/L ALT 21 (14-63) IU/L Alkaline Phosphatase 66 (46-116) U/L Troponin I < 0.050 (0.000-0.056) ng/mL B-Natriuretic Peptide (<100) PG/ML Total Protein 6.7 (6.4-8.2) g/dL Albumin 3.7 (3.4-5.0) g/dL Globulin 3.0 (2.0-3.5) g/dL Albumin/Globulin Ratio 1.2 L (1.3-2.8) Urine Color Urine Appearance Urine pH (5.0-8.0) Ur Specific [place] (1.001-1.035) Urine Protein (NEGATIVE) mg/dL Urine Glucose (UA) (NEGATIVE) mg/dL Urine Ketones (NEGATIVE) mg/dL Urine Occult Blood (NEGATIVE) Urine Nitrite (NEGATIVE) Urine Bilirubin (NEGATIVE) Urine Urobilinogen (<2.0) EU/dL Ur Leukocyte Esterase (NEGATIVE) Urine RBC (0-2/HPF) Urine WBC (0-5/HPF) Ur Epithelial Cells (NONE-FEW) Urine Bacteria (NEGATIVE) Urine Mucus (NONE-MOD) 02/26/18 02/26/18 02/26/18 Range/Units 08:00 08:00 09:41 WBC (4.0-11.0) K/uL RBC (4.30-5.90) M/uL Hgb (12.0-16.0) g/dL Hct (36.0-46.0) % MCV (80.0-98.0) fL MCH (27.0-32.0) pg MCHC (31.0-37.0) g/dL RDW Std Deviation (28.0-62.0) fl RDW Coeff of Nam (11.0-15.0) % Plt Count (150-400) K/uL MPV (7.40-12.00) fL Neut % (Auto) (48.0-80.0) % Lymph % (Auto) (16.0-40.0) % Morris % (Auto) (0.0-15.0) % Eos % (Auto) (0.0-7.0) % Baso % (Auto) (0.0-1.5) % Neut # (Auto) (1.4-5.7) K/uL Lymph # (Auto) (0.6-2.4) K/uL Morris # (Auto) (0.0-0.8) K/uL Eos # (Auto) (0.0-0.7) K/uL Baso # (Auto) (0.0-0.1) K/uL Nucleated RBC % /100WBC Nucleated RBCs # K/uL INR D-Dimer, Quantitative 0.41 (0.0-0.52) mg/LFEU Sodium (136-145) mmol/L Potassium (3.5-5.1) mmol/L Chloride (98-107) mmol/L Carbon Dioxide (21.0-32.0) mmol/L BUN (7.0-18.0) mg/dL Creatinine (0.6-1.0) mg/dL Est Cr Clr Drug Dosing mL/min Estimated GFR (MDRD) ml/min Glucose (74-106) mg/dL Calcium (8.5-10.1) mg/dL Total Bilirubin (0.2-1.0) mg/dL AST (15-37) IU/L ALT (14-63) IU/L Alkaline Phosphatase (46-116) U/L Troponin I (0.000-0.056) ng/mL B-Natriuretic Peptide 54 (<100) PG/ML Total Protein (6.4-8.2) g/dL Albumin (3.4-5.0) g/dL Globulin (2.0-3.5) g/dL Albumin/Globulin Ratio (1.3-2.8) Urine Color YELLOW Urine Appearance CLEAR Urine pH 6.0 (5.0-8.0) Ur Specific [place] 1.010 (1.001-1.035) Urine Protein NEGATIVE (NEGATIVE) mg/dL Urine Glucose (UA) NEGATIVE (NEGATIVE) mg/dL Urine Ketones NEGATIVE (NEGATIVE) mg/dL Urine Occult Blood SMALL H (NEGATIVE) Urine Nitrite NEGATIVE (NEGATIVE) Urine Bilirubin NEGATIVE (NEGATIVE) Urine Urobilinogen 0.2 (<2.0) EU/dL Ur Leukocyte Esterase NEGATIVE (NEGATIVE) Urine RBC 0-2 (0-2/HPF) Urine WBC 0-1 (0-5/HPF) Ur Epithelial Cells FEW (NONE-FEW) Urine Bacteria FEW (NEGATIVE) Urine Mucus LIGHT (NONE-MOD) Result Diagrams: 02/26/18 08:00 02/26/18 08:00 - Problem List (1) COPD exacerbation SNOMED Code(s): 305948852 ICD Code: J44.1 - CHRONIC OBSTRUCTIVE PULMONARY DISEASE W (ACUTE) EXACERBATION Status: Acute Current Visit: Yes Problem List Initiated/Reviewed/Updated: Yes Orders Last 24hrs: Active Orders 24 hr Category Date Time Status Admission Status [Patient Status] [ADT] Stat ADT 02/26/18 10:14 Active Assessment/Plan Comment:: 02/26/2018 She has a history of prolonged QT interval will avoid medications that may prolong the QT interval. Plan to arrange home oxygen. steroids sputum culture breathing treatments doxycycline
[2018-02-26] MEDS ORDERED: Temazepam 15 MG Cap PO PRN (13:38)
[2018-02-26] MEDS ORDERED: Albuterol/Ipratropium 3.0-0.5 MG/3 ML Neb Soln NEB SCH (13:45)
[2018-02-26] MEDS: Doxycycline 100 MG Cap PO SCH ×2 (14:59→21:15)
[2018-02-26] MEDS: Albuterol/Ipratropium 3.0-0.5 MG/3 ML Neb Soln NEB SCH ×3 (15:20→23:04)
[2018-02-26] MEDS: methylPREDNISolone Sodium Succinate 125 MG/2 ML SDV IVPUSH SCH (20:36)
[2018-02-27] MEDS: methylPREDNISolone Sodium Succinate 125 MG/2 ML SDV IVPUSH SCH ×3 (03:32→20:57)
[2018-02-27] MEDS: Albuterol/Ipratropium 3.0-0.5 MG/3 ML Neb Soln NEB SCH ×3 (06:05→18:32)
[2018-02-27] MEDS: Aspirin 81 MG Tab.Chew PO SCH (09:07)
[2018-02-27] MEDS: Doxycycline 100 MG Cap PO SCH ×2 (09:08→20:57)
--- NOTE | 2018-02-27 13:09 | PCM.PN ---
- General Info Date of Service: 02/27/18 - Review of Systems Psychiatric: Denies: Confusion (she is feeling improved. I am advised that her home oxygen will be arranged for her tomorrow.) - Patient Data Vitals - Most Recent: Last Vital Signs Temp 97.4 F 02/27/18 11:32 Pulse 93 02/27/18 11:32 Resp 18 02/27/18 11:32 BP 134/73 02/27/18 11:32 Pulse Ox 93 L 02/27/18 11:32 Weight - Most Recent: 58.196 kg I&O - Last 24 Hours: Intake & Output 02/26/18 02/27/18 02/27/18 22:59 06:59 14:59 Intake Total 0 750 120 Output Total 200 950 Balance -200 -200 120 Dashawn Results Last 24 Hours: Microbiology 02/26/18 15:00 Gram Stain - Preliminary Sputum - Expectorated Med Orders - Current: Current Medications Albuterol/Ipratropium (Duoneb 3.0-0.5 Mg/3 Ml) 3 ml NEB QID [facility] Last Admin: 02/27/18 11:04 Dose: 3 ml Aspirin (Aspirin) 81 mg PO DAILY [facility] Last Admin: 02/27/18 09:07 Dose: 81 mg Doxycycline Hyclate (Vibramycin) 100 mg PO BID [facility] Last Admin: 02/27/18 09:08 Dose: 100 mg Methylprednisolone Sodium Succinate (Solu-Medrol) 125 mg IVPUSH Q8H [facility] Last Admin: 02/27/18 11:47 Dose: 125 mg Symbicort 80/4.5 0 each INH DAILY [facility] Temazepam (Restoril) 15 mg PO BEDTIME PRN PRN Reason: Sleep Discontinued Medications Albuterol/Ipratropium (Duoneb 3.0-0.5 Mg/3 Ml) 3 ml NEB Q6H [facility] Last Admin: 02/26/18 14:20 Dose: Not Given Methylprednisolone Sodium Succinate (Solu-Medrol) 125 mg IVPUSH ONETIME ONE Stop: 02/26/18 07:56 Last Admin: 02/26/18 08:03 Dose: 125 mg Methylprednisolone Sodium Succinate (Solu-Medrol) 125 mg IVPUSH ONETIME ONE Stop: 02/26/18 09:29 Last Admin: 02/26/18 09:37 Dose: 125 mg - Exam General: Alert, Oriented, Cooperative Lungs: Normal Respiratory Effort, Other (slight diffuse coarsening of breath sounds) Neurological: Normal Gait, Normal Speech - Problem List & Annotations (1) COPD exacerbation SNOMED Code(s): 802569780 Code(s): J44.1 - CHRONIC OBSTRUCTIVE PULMONARY DISEASE W (ACUTE) EXACERBATION Status: Acute Current Visit: Yes - Problem List Review Problem List Initiated/Reviewed/Updated: Yes - My Orders Last 24 Hours: My Active Orders 02/26/18 13:38 Oxygen Therapy [RC] PRN VTE/DVT Education [RC] PER UNIT ROUTINE Vital Signs [RC] Q4H Temazepam [Restoril] 15 mg PO BEDTIME PRN Resuscitation Status Routine 02/26/18 13:41 Oxygen Therapy, ED [RC] ASDIRECTED 02/26/18 13:42 Discontinue Telemetry Monitoring [Cardiac Monitoring Discontinue] [RC] Click to Edit 02/26/18 14:00 Albuterol/Ipratropium [DuoNeb 3.0-0.5 MG/3 ML] 3 ml NEB QID Doxycycline [Vibramycin] 100 mg PO BID 02/26/18 15:00 CULTURE SPUTUM + SMEAR [RM] Urgent 02/26/18 18:00 RT Aerosol Therapy [RC] Q6HRRT 02/26/18 20:00 methylPREDNISolone Sod Succ [Solu-MEDROL] 125 mg IVPUSH Q8H 02/26/18 Dinner Regular Diet [DIET] 02/27/18 09:00 Aspirin 81 mg PO DAILY Patient's Own Medication [Ptom] 0 each INH DAILY - Plan Plan:: 02/26/2018 She has a history of prolonged QT interval will avoid medications that may prolong the QT interval. Plan to arrange home oxygen. steroids sputum culture breathing treatments doxycycline Mason Orozco MD 02/27/2018 sputum gr stain shows gr positive cocci in pairs and chains. will change to levaquin anticipated discharge tomorrow. Mason Orozco MD
[2018-02-27] MEDS: SYMBICORT 80/4.5 INH SCH (19:21)
[2018-02-28] MEDS: Albuterol/Ipratropium 3.0-0.5 MG/3 ML Neb Soln NEB SCH ×3 (00:35→13:17)
[2018-02-28] MEDS: methylPREDNISolone Sodium Succinate 125 MG/2 ML SDV IVPUSH SCH ×2 (03:50→11:33)
[2018-02-28] MEDS: Doxycycline 100 MG Cap PO SCH (09:18)
[2018-02-28] MEDS: Aspirin 81 MG Tab.Chew PO SCH (09:18)
[2018-02-28] MEDS: SYMBICORT 80/4.5 INH SCH (09:21)
[2018-02-28 12:05] VITALS: BP 135/65
--- NOTE | 2018-02-28 14:30 | PCM.DCSUM1 ---
Discharge Summary - Hospital Course Brief History: she was admitted with exacerbation of copd Diagnosis: Stroke: No - Discharge Data Discharge Date: 02/28/18 Discharge Disposition: Home, Self-Care 01 Condition: Fair - Discharge Diagnosis/Problem(s) (1) COPD exacerbation SNOMED Code(s): 577710108 ICD Code: J44.1 - CHRONIC OBSTRUCTIVE PULMONARY DISEASE W (ACUTE) EXACERBATION Status: Acute Current Visit: Yes - Patient Summary/Data Hospital Course: She was wheezing initially. She was given doxycycline po sputum culture grew normal lesli she was treated with duonebs and intravenous solumedrol. She is not discharged home on prednisone She is much improved at discharge. Her lungs are clear to auscultation at discharge She has normal oxygenation on room air at discharge but home oxygen has already been arranged as an outpatient based on an outpatient sleep study result. Impression copd exacerbation discharge home doxycycline 100 mg bid x five days follow up with pcp - Discharge Plan Prescriptions/Med Rec: Doxycycline [Vibramycin] 100 mg PO BID #10 cap Home Medications: Home Meds Albuterol/Ipratropium [DuoNeb 3.0-0.5 MG/3 ML] 3 ml NEB Q4HRRT PRN neb [Rx] Aspirin 81 mg PO DAILY 10/20/17 [History] Albuterol [Ventolin HFA] 1 puff INH Q6HR PRN #1 inhaler 11/24/17 [Rx] Budesonide/Formoterol Fumarate [Symbicort 80-4.5 Mcg Inhaler] 2 inh IH DAILY [History] Doxycycline [Vibramycin] 100 mg PO BID #10 cap 02/28/18 [Rx] Patient Handouts: Chronic Obstructive Pulmonary Disease Exacerbation, Pleural Effusion Referrals: Tamanna Sanchez NP [Ordering Only Provider] - 03/06/18 9:15 am - Patient Data Vitals - Most Recent: Last Vital Signs Temp 97.6 F 02/28/18 12:00 Pulse 78 02/28/18 12:00 Resp 18 02/28/18 12:00 BP 135/65 02/28/18 12:00 Pulse Ox 96 02/28/18 12:00 Weight - Most Recent: 58.196 kg I&O - Last 24 hours: Intake & Output 02/27/18 02/28/18 02/28/18 22:59 06:59 14:59 Intake Total 320 250 Output Total 100 1700 Balance 220 -1450 VICKI Results - Last 24 hrs: Microbiology 02/26/18 15:00 Gram Stain - Preliminary Sputum - Expectorated Sputum Culture - Final Normal Respiratory Lesli Med Orders - Current: Current Medications Albuterol/Ipratropium (Duoneb 3.0-0.5 Mg/3 Ml) 3 ml NEB QID [facility] Last Admin: 02/28/18 13:17 Dose: 3 ml Aspirin (Aspirin) 81 mg PO DAILY [facility] Last Admin: 02/28/18 09:18 Dose: 81 mg Doxycycline Hyclate (Vibramycin) 100 mg PO BID [facility] Last Admin: 02/28/18 09:18 Dose: 100 mg Methylprednisolone Sodium Succinate (Solu-Medrol) 125 mg IVPUSH Q8H [facility] Last Admin: 02/28/18 11:33 Dose: 125 mg Symbicort 80/4.5 0 each INH DAILY [facility] Last Admin: 02/28/18 09:21 Dose: Not Given Temazepam (Restoril) 15 mg PO BEDTIME PRN PRN Reason: Sleep Discontinued Medications Albuterol/Ipratropium (Duoneb 3.0-0.5 Mg/3 Ml) 3 ml NEB Q6H [facility] Last Admin: 02/26/18 14:20 Dose: Not Given Methylprednisolone Sodium Succinate (Solu-Medrol) 125 mg IVPUSH ONETIME ONE Stop: 02/26/18 07:56 Last Admin: 02/26/18 08:03 Dose: 125 mg Methylprednisolone Sodium Succinate (Solu-Medrol) 125 mg IVPUSH ONETIME ONE Stop: 02/26/18 09:29 Last Admin: 02/26/18 09:37 Dose: 125 mg
== END 2018-02-28 15:07 | disposition home or self-care (01) | DRG 192 ==
LOC: MW.ED 07:52 → MW.MS 10:14 → MW.ED 10:28
PROVIDERS: ADMIT Family Medicine; ATTEND Family Medicine
DX: J44.1 Chronic obstructive pulmonary disease with (acute) exacerbation (principal); J90 Pleural effusion, not elsewhere classified; M19.90 Unspecified osteoarthritis, unspecified site; Z88.0 Allergy status to penicillin; Z87.891 Personal history of nicotine dependence; Z88.8 Allergy status to other drugs, medicaments and biological substances; Z79.899 Other long term (current) drug therapy; Z79.82 Long term (current) use of aspirin; Z85.828 Personal history of other malignant neoplasm of skin
CPT/HCPCS: 36415; 71045; 80053; 81001; 83880; 84484; 85025; 85379; 85610; 96374; 96376; 99285; J2930 ×2; 87070; 87205; 94640; 99284; A9270-GY; J7620-GY

== ENCOUNTER 2018-06-30 05:59 | Inpatient (IN) | payer MEDICARE, BC ==
[2018-06-30] MEDS ORDERED: Albuterol/Ipratropium 3.0-0.5 MG/3 ML Neb Soln NEB ONE (06:08)
[2018-06-30] MEDS ORDERED: Aspirin 81 MG Tab.Chew PO ONE (06:08)
[2018-06-30] MEDS ORDERED: methylPREDNISolone Sodium Succinate 125 MG/2 ML SDV IVPUSH ONE (06:08)
--- NOTE | 2018-06-30 06:08 | EDM.PDOC ---
ED HPI GENERAL MEDICAL PROBLEM - General Chief Complaint: Respiratory Problem Stated Complaint: TROUBLE BREATHING Time Seen by Provider: 06/30/18 06:08 Source of Information: Reports: Patient - History of Present Illness INITIAL COMMENTS - FREE TEXT/NARRATIVE: HISTORY AND PHYSICAL: History of present illness: [Patient presents via EMS EMS was contacted for shortness of breath and wheeze, she has a history of COPD she has been short of breath since 9 PM last night she did take a neb at that time at home she is unable to sleep due to shortness of breath eventually calling for EMS they provided [id number] albuterol as well as 125 mg of Solu- Medrol with some improvement Patient does have labored breathing at current no audible wheeze denies fever nausea vomiting chills sweats no chest pain shortness breath headache dizziness or palpitation no bowel or urine symptoms ] Review of systems: As per history of present illness and below otherwise all systems reviewed and negative. Past medical history: As per history of present illness and as reviewed below otherwise noncontributory. Surgical history: As per history of present illness and as reviewed below otherwise noncontributory. Social history: No reported history of drug or alcohol abuse. Family history: As per history of present illness and as reviewed below otherwise noncontributory. Physical exam: HEENT: Atraumatic, normocephalic, pupils reactive, negative for conjunctival pallor or scleral icterus, mucous membranes moist, throat clear, neck supple, nontender, trachea midline. Lungs: Clear to auscultation, breath sounds equal bilaterally, chest nontender. Heart: S1S2, regular, negative for clicks, rubs, or JVD. Abdomen: Soft, nondistended, nontender. Negative for masses or hepatosplenomegaly. Negative for costovertebral tenderness. Pelvis: Stable nontender. Genitourinary: Deferred. Rectal: Deferred. Extremities: Atraumatic, negative for cords or calf pain. Neurovascular unremarkable. Neuro: Awake, alert, oriented. Cranial nerves II through XII unremarkable. Cerebellum unremarkable. Motor and sensory unremarkable throughout. Exam nonfocal. Diagnostics: [CBC CMP UA troponin E PK INR EKG Chest 1 view ] Therapeutics: [] EMS provided [id number] albuterol nebulizer treatments as well as 125 mg of Solu-Medrol She is provided aspirin 324 mg chewable DuoNeb Solu-Medrol 125 mg IV normal saline Lovenox 60 mg IM Impression: [ hypoxia COPD exacerbation chronic history of baseline] Definitive disposition and diagnosis as appropriate pending reevaluation and review of above. denies pain Pain Score (Numeric/FACES): 0 left side rib area Pain Score (Numeric/FACES): 2 - Related Data Allergies Allergy/AdvReac Type Severity Reaction Status Date / Time adhesive tape Allergy Blisters Verified 06/30/18 06:07 Penicillins Allergy Anaphylactic Verified 06/30/18 06:07 Shock phenylbutazone Allergy Cannot Verified 06/30/18 06:07 [From Butazolidin] Remember Home Meds: Home Meds Albuterol/Ipratropium [DuoNeb 3.0-0.5 MG/3 ML] 3 ml NEB Q4HRRT PRN neb MDD 4-6 times a day 09/28/17 [Rx] Budesonide/Formoterol Fumarate [Symbicort 80-4.5 Mcg Inhaler] 2 inh IH DAILY [History] Albuterol [Ventolin HFA] 1 puff PO Q6HR 04/16/18 [History] Aspirin 81 mg PO DAILY #30 tab.chew 04/18/18 [Rx] guaiFENesin [Mucinex] 600 mg PO BID PRN 06/30/18 [History] Past Medical History - Past Health History Medical/Surgical History: Denies Medical/Surgical History HEENT History: Reports: Cataract Other HEENT History: wears glasses Cardiovascular History: Reports: Other (See Below) Other Cardiovascular History: pt states long QT syndrome Respiratory History: Reports: Asthma, COPD Other Respiratory History: not on oxygen at home Gastrointestinal History: Reports: None Genitourinary History: Reports: None, Other (See Below) Other Genitourinary History: growth removed from bladder 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 - Infectious Disease History Infectious Disease History: Reports: Chicken Pox, Measles, Mumps, Shingles - Past Surgical History Other Respiratory Surgeries/Procedures: Chest tube, lung surgery to remove ' blebs' (1971) Social & Family History - Family History Family Medical History: Noncontributory HEENT: Reports: None Cardiac: Reports: Hypertension, Other (See Below) Other Cardiac Family History: long QT syndrome Respiratory: Reports: COPD Other Respiratory Family Hisory: brother OBGYN: Reports: Endocrine/Metabolic: Reports: Diabetes, Type I Other Endocrine/Metabolic Family History: Grandmother Oncologic: Reports: Skin Other Oncologic Family History: brother - Caffeine Use Caffeine Use: Reports: Coffee - Living Situation & Occupation Living situation: Reports: Occupation: Employed ED ROS GENERAL - Review of Systems Review Of Systems: See Below ED EXAM, GENERAL - Physical Exam Exam: See Below Course - Vital Signs Last Recorded V/S: Last Vital Signs Temp 98.8 F 06/30/18 06:00 Pulse 94 06/30/18 06:42 Resp 28 H 06/30/18 06:00 BP 136/69 06/30/18 06:42 Pulse Ox 93 L 06/30/18 06:42 - Orders/Labs/Meds Orders: Active Orders 24 hr Category Date Time Status EKG Documentation Completion [RC] STAT Care 06/30/18 06:08 Active RT Aerosol Therapy [RC] ASDIRECTED Care 06/30/18 06:09 Active UA W/MICROSCOPIC [URIN] Stat Lab 06/30/18 06:30 Results Sodium Chloride 0.9% [Normal Saline] 1,000 ml Med 06/30/18 06:15 Active IV STAT Medication Orders Sodium Chloride (Normal Saline) 1,000 mls @ 125 mls/hr IV STAT GUS Last Admin: 06/30/18 06:22 Dose: 125 mls/hr Labs: Laboratory Tests 06/30/18 06/30/18 06/30/18 Range/Units 06:20 06:20 06:20 WBC 7.41 (4.0-11.0) K/uL RBC 4.69 (4.30-5.90) M/uL Hgb 14.6 (12.0-16.0) g/dL Hct 42.6 (36.0-46.0) % MCV 90.8 (80.0-98.0) fL MCH 31.1 (27.0-32.0) pg MCHC 34.3 (31.0-37.0) g/dL RDW Std Deviation 42.4 (28.0-62.0) fl RDW Coeff of Nam 13 (11.0-15.0) % Plt Count 178 (150-400) K/uL MPV 9.90 (7.40-12.00) fL Neut % (Auto) 54.3 (48.0-80.0) % Lymph % (Auto) 21.5 (16.0-40.0) % [place] % (Auto) 7.7 (0.0-15.0) % Eos % (Auto) 15.8 H (0.0-7.0) % Baso % (Auto) 0.7 (0.0-1.5) % Neut # (Auto) 4.0 (1.4-5.7) K/uL Lymph # (Auto) 1.6 (0.6-2.4) K/uL [place] # (Auto) 0.6 (0.0-0.8) K/uL Eos # (Auto) 1.2 H (0.0-0.7) K/uL Baso # (Auto) 0.1 (0.0-0.1) K/uL Nucleated RBC % 0.0 /100WBC Nucleated RBCs # 0 K/uL INR 0.97 Sodium 143 (136-145) mmol/L Potassium 3.2 L (3.5-5.1) mmol/L Chloride 106 (98-107) mmol/L Carbon Dioxide 29.0 (21.0-32.0) mmol/L BUN 8 (7.0-18.0) mg/dL Creatinine 0.8 (0.6-1.0) mg/dL Est Cr Clr Drug Dosing 54.67 mL/min Estimated GFR (MDRD) > 60.0 ml/min Glucose 113 H (74-106) mg/dL Calcium 9.6 (8.5-10.1) mg/dL Total Bilirubin 0.4 (0.2-1.0) mg/dL AST 13 L (15-37) IU/L ALT 20 (14-63) IU/L Alkaline Phosphatase 80 (46-116) U/L Creatine Kinase 65 (26-308) U/L Troponin I < 0.050 (0.000-0.056) ng/mL B-Natriuretic Peptide (<100) PG/ML Total Protein 6.7 (6.4-8.2) g/dL Albumin 3.7 (3.4-5.0) g/dL Globulin 3.0 (2.6-4.0) g/dL Albumin/Globulin Ratio 1.2 (0.9-1.6) Urine Color Urine Appearance Urine pH (5.0-8.0) Ur Specific [place] (1.001-1.035) Urine Protein (NEGATIVE) mg/dL Urine Glucose (UA) (NEGATIVE) mg/dL Urine Ketones (NEGATIVE) mg/dL Urine Occult Blood (NEGATIVE) Urine Nitrite (NEGATIVE) Urine Bilirubin (NEGATIVE) Urine Urobilinogen (<2.0) EU/dL Ur Leukocyte Esterase (NEGATIVE) 06/30/18 06/30/18 Range/Units 06:20 06:30 WBC (4.0-11.0) K/uL RBC (4.30-5.90) M/uL Hgb (12.0-16.0) g/dL Hct (36.0-46.0) % MCV (80.0-98.0) fL MCH (27.0-32.0) pg MCHC (31.0-37.0) g/dL RDW Std Deviation (28.0-62.0) fl RDW Coeff of Nam (11.0-15.0) % Plt Count (150-400) K/uL MPV (7.40-12.00) fL Neut % (Auto) (48.0-80.0) % Lymph % (Auto) (16.0-40.0) % [place] % (Auto) (0.0-15.0) % Eos % (Auto) (0.0-7.0) % Baso % (Auto) (0.0-1.5) % Neut # (Auto) (1.4-5.7) K/uL Lymph # (Auto) (0.6-2.4) K/uL [place] # (Auto) (0.0-0.8) K/uL Eos # (Auto) (0.0-0.7) K/uL Baso # (Auto) (0.0-0.1) K/uL Nucleated RBC % /100WBC Nucleated RBCs # K/uL INR Sodium (136-145) mmol/L Potassium (3.5-5.1) mmol/L Chloride (98-107) mmol/L Carbon Dioxide (21.0-32.0) mmol/L BUN (7.0-18.0) mg/dL Creatinine (0.6-1.0) mg/dL Est Cr Clr Drug Dosing mL/min Estimated GFR (MDRD) ml/min Glucose (74-106) mg/dL Calcium (8.5-10.1) mg/dL Total Bilirubin (0.2-1.0) mg/dL AST (15-37) IU/L ALT (14-63) IU/L Alkaline Phosphatase (46-116) U/L Creatine Kinase (26-308) U/L Troponin I (0.000-0.056) ng/mL B-Natriuretic Peptide 55 (<100) PG/ML Total Protein (6.4-8.2) g/dL Albumin (3.4-5.0) g/dL Globulin (2.6-4.0) g/dL Albumin/Globulin Ratio (0.9-1.6) Urine Color YELLOW Urine Appearance CLEAR Urine pH 6.0 (5.0-8.0) Ur Specific [place] 1.010 (1.001-1.035) Urine Protein NEGATIVE (NEGATIVE) mg/dL Urine Glucose (UA) NEGATIVE (NEGATIVE) mg/dL Urine Ketones NEGATIVE (NEGATIVE) mg/dL Urine Occult Blood MODERATE H (NEGATIVE) Urine Nitrite NEGATIVE (NEGATIVE) Urine Bilirubin NEGATIVE (NEGATIVE) Urine Urobilinogen 0.2 (<2.0) EU/dL Ur Leukocyte Esterase NEGATIVE (NEGATIVE) Meds: Medications Generic Name Dose Route Start Last Admin Trade Name Freq PRN Reason Stop Dose Admin Sodium Chloride 1,000 mls @ 125 mls/hr 06/30/18 06:15 06/30/18 06:22 Normal Saline IV 125 mls/hr STAT GUS Administration Discontinued Medications Generic Name Dose Route Start Last Admin Trade Name Freq PRN Reason Stop Dose Admin Albuterol/Ipratropium 3 ml 06/30/18 06:08 06/30/18 06:16 Duoneb 3.0-0.5 Mg/3 Ml NEB 06/30/18 06:09 3 ml ONETIME ONE Administration Albuterol/Ipratropium Confirm 06/30/18 06:11 06/30/18 06:18 Duoneb 3.0-0.5 Mg/3 Ml Administered 06/30/18 06:12 Not Given Dose 3 ml .ROUTE .STK-MED ONE Aspirin 324 mg 06/30/18 06:08 06/30/18 06:19 Aspirin PO 06/30/18 06:09 324 mg ONETIME ONE Administration Enoxaparin Sodium 60 mg 06/30/18 07:05 Lovenox SUBCUT 06/30/18 07:06 ONETIME ONE Methylprednisolone Sodium Succinate 125 mg 06/30/18 06:08 06/30/18 06:09 Solu-Medrol IVPUSH 06/30/18 06:09 125 mg ONETIME ONE Administration Methylprednisolone Sodium Succinate Confirm 06/30/18 06:10 06/30/18 06:18 Solu-Medrol Administered 06/30/18 06:11 Not Given Dose 125 mg .ROUTE .STK-MED ONE Departure - Departure Time of Disposition: 07:23 Disposition: Admitted As Inpatient 68 Condition: Fair Clinical Impression: COPD exacerbation, Hypoxia - Discharge Information Referrals: PCP,None [Primary Care Provider] - Forms: ED Department Discharge - My Orders Last 24 Hours: My Active Orders 06/30/18 06:08 EKG Documentation Completion [RC] STAT 06/30/18 06:09 RT Aerosol Therapy [RC] ASDIRECTED 06/30/18 06:15 Sodium Chloride 0.9% [Normal Saline] 1,000 ml IV STAT 06/30/18 06:30 UA W/MICROSCOPIC [URIN] Stat - Assessment/Plan Last 24 Hours: My Active Orders 06/30/18 06:08 EKG Documentation Completion [RC] STAT 06/30/18 06:09 RT Aerosol Therapy [RC] ASDIRECTED 06/30/18 06:15 Sodium Chloride 0.9% [Normal Saline] 1,000 ml IV STAT 06/30/18 06:30 UA W/MICROSCOPIC [URIN] Stat
[2018-06-30] MEDS ORDERED: methylPREDNISolone Sodium Succinate 125 MG/2 ML SDV ONE (06:10)
[2018-06-30] MEDS ORDERED: Albuterol/Ipratropium 3.0-0.5 MG/3 ML Neb Soln ONE (06:11)
[2018-06-30] MEDS ORDERED: Sodium Chloride 0.9% 1,000 ML IV SCH (06:15)
[2018-06-30 06:52] LABS: CHLORIDE,CL 106 mmol/L (98-107); SODIUM,NA 143 mmol/L (136-145)
[2018-06-30] MEDS ORDERED: Enoxaparin 60 MG/0.6 ML Syringe SUBCUT ONE (07:05)
--- NOTE | 2018-06-30 07:12 | CR ---
INDICATION: Chest pain and shortness of breath TECHNIQUE: Chest 1 views COMPARISON: June 10, 2018 FINDINGS: Cardiovascular and mediastinum: Heart size and vasculature are normal in caliber and appearance. Lungs and pleural spaces: Unchanged left basilar scarring or atelectasis. Remainder of the lungs and pleural spaces are clear. Bones and soft tissues: No significant findings. IMPRESSION: No acute findings and no significant changes from the prior exam. Dictated by Edmond Snyder MD @ Jun 30 2018 7:07AM Signed by Dr. Edmond Snyder @ Jun 30 2018 7:10AM
[2018-06-30] MEDS ORDERED: Enoxaparin 100 MG/1 ML Syringe SUBCUT SCH (09:00)
[2018-06-30] MEDS ORDERED: Potassium Chloride 20 MEQ Tab.ER PO ONE (10:45)
[2018-06-30] MEDS ORDERED: Enoxaparin 40 MG/0.4 ML Syringe SUBCUT SCH (11:00)
--- NOTE | 2018-06-30 11:07 | PCM.HP ---
H&P History of Present Illness - General Date of Service: 06/30/18 Admit Problem/Dx: Admission Diagnosis/Problem Admission Diagnosis/Problem Hypoxia Source of Information: Patient History Limitations: Reports: No Limitations - History of Present Illness Initial Comments - Free Text/Narative: 77F with a history of COPD, congenital long QT syndrome that presented to the ER with a chief complaint of difficulty breathing that began at 9pm 06/29/2018. Patient says that she tried to use her nebulizer at home twice, spaced out 4 hours but wasn't improving so she called an ambulance. ER work up reveals an unremarkable CXR and lab work. She was given IV solumedrol and duonebs. Patient this AM on history gathering says she is much more comfortable. She still has a mild productive cough for a clear sputum. She denies fever, chest pain, nausea or vomiting. denies pain Pain Score (Numeric/FACES): 0 left side rib area Pain Score (Numeric/FACES): 2 - Related Data Allergies/Adverse Reactions: Allergies Allergy/AdvReac Type Severity Reaction Status Date / Time adhesive tape Allergy Blisters Verified 06/30/18 06:07 Penicillins Allergy Anaphylactic Verified 06/30/18 06:07 Shock phenylbutazone Allergy Cannot Verified 06/30/18 06:07 [From Butazolidin] Remember Home Medications: Home Meds Albuterol/Ipratropium [DuoNeb 3.0-0.5 MG/3 ML] 3 ml NEB Q4HRRT PRN neb MDD 4-6 times a day 09/28/17 [Rx] Budesonide/Formoterol Fumarate [Symbicort 80-4.5 Mcg Inhaler] 2 inh IH DAILY [History] Albuterol [Ventolin HFA] 1 puff PO Q6HR 04/16/18 [History] Aspirin 81 mg PO DAILY #30 tab.chew 04/18/18 [Rx] guaiFENesin [Mucinex] 600 mg PO BID PRN 06/30/18 [History] Past Medical History - Past Health History Medical/Surgical History: Denies Medical/Surgical History HEENT History: Reports: Cataract Other HEENT History: wears glasses, upper and lower dentures Cardiovascular History: Reports: Other (See Below) Other Cardiovascular History: pt states long QT syndrome Respiratory History: Reports: Asthma, COPD Other Respiratory History: at home on o2 @2LPM using at night Gastrointestinal History: Reports: None Genitourinary History: Reports: None, Other (See Below) Other Genitourinary History: growth removed from bladder 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 - Infectious Disease History Infectious Disease History: Reports: Chicken Pox, Measles, Mumps, Shingles - Past Surgical History Head Surgeries/Procedures: Reports: None Other Respiratory Surgeries/Procedures: Chest tube, lung surgery to remove ' blebs' (1971) Social & Family History - Family History Family Medical History: Noncontributory HEENT: Reports: None Cardiac: Reports: Hypertension, Other (See Below) Other Cardiac Family History: long QT syndrome Respiratory: Reports: COPD Other Respiratory Family Hisory: brother OBGYN: Reports: Endocrine/Metabolic: Reports: Diabetes, Type I Other Endocrine/Metabolic Family History: Grandmother Oncologic: Reports: Skin Other Oncologic Family History: brother - Tobacco Use Smoking Status *Q: Former Smoker Used Tobacco, but Quit: Yes Month/Year Tobacco Last Used: 1 year ago Second Hand Smoke Exposure: Yes - Caffeine Use Caffeine Use: Reports: Coffee, Soda - Recreational Drug Use Recreational Drug Use: No - Living Situation & Occupation Living situation: Reports: Occupation: Employed H&P Review of Systems - Review of Systems: Review Of Systems: ROS reveals no pertinent complaints other than HPI. Exam - Exam Exam: See Below - Vital Signs Vital Signs: Last Vital Signs Temp 36.6 C 06/30/18 09:10 Pulse 79 06/30/18 09:10 Resp 18 06/30/18 09:10 BP 115/63 06/30/18 09:10 Pulse Ox 93 L 06/30/18 09:10 Weight: 58.786 kg - Exam General: Alert, Oriented, 4 HEENT: Conjunctiva Clear, EACs Clear, EOMI, Hearing Intact, Mucosa Moist & [place] , Nares Patent, Normal Nasal Septum, Posterior Pharynx Clear, Pupils Reactive, TMs Clear, PERRLA Neck: Supple, Trachea Midline, 2 Lungs: Normal Respiratory Effort, Other (bilateral wheezing on expiration) Cardiovascular: Regular Rate, Regular Rhythm GI/Abdominal Exam: Normal Bowel Sounds, Soft, Non-Tender, No Organomegaly, No Distention, No Abnormal Bruit, No Mass, Pelvis Stable Extremities: Normal Inspection, Normal Range of Motion, Non-Tender, No Pedal Edema, Normal Capillary Refill Peripheral Pulses: 2+: Dorsalis Pedis (L), Dorsalis Pedis (R) Skin: Warm, Dry, Intact Neuro Extensive - Mental Status: Alert, Oriented x3, Normal Mood/Affect, Normal Cognition Neuro Extensive - Motor, Sensory, Reflexes: CN II-XII Intact, Normal Gait, Normal Reflexes Psychiatric: Alert, Normal Affect, Normal Mood - Patient Data Lab Results Last 24 hrs: Laboratory Results - last 24 hr 06/30/18 06/30/18 06/30/18 Range/Units 06:20 06:20 06:20 WBC 7.41 (4.0-11.0) K/uL RBC 4.69 (4.30-5.90) M/uL Hgb 14.6 (12.0-16.0) g/dL Hct 42.6 (36.0-46.0) % MCV 90.8 (80.0-98.0) fL MCH 31.1 (27.0-32.0) pg MCHC 34.3 (31.0-37.0) g/dL RDW Std Deviation 42.4 (28.0-62.0) fl RDW Coeff of Nam 13 (11.0-15.0) % Plt Count 178 (150-400) K/uL MPV 9.90 (7.40-12.00) fL Neut % (Auto) 54.3 (48.0-80.0) % Lymph % (Auto) 21.5 (16.0-40.0) % [place] % (Auto) 7.7 (0.0-15.0) % Eos % (Auto) 15.8 H (0.0-7.0) % Baso % (Auto) 0.7 (0.0-1.5) % Neut # (Auto) 4.0 (1.4-5.7) K/uL Lymph # (Auto) 1.6 (0.6-2.4) K/uL [place] # (Auto) 0.6 (0.0-0.8) K/uL Eos # (Auto) 1.2 H (0.0-0.7) K/uL Baso # (Auto) 0.1 (0.0-0.1) K/uL Nucleated RBC % 0.0 /100WBC Nucleated RBCs # 0 K/uL INR 0.97 Sodium 143 (136-145) mmol/L Potassium 3.2 L (3.5-5.1) mmol/L Chloride 106 (98-107) mmol/L Carbon Dioxide 29.0 (21.0-32.0) mmol/L BUN 8 (7.0-18.0) mg/dL Creatinine 0.8 (0.6-1.0) mg/dL Est Cr Clr Drug Dosing 54.67 mL/min Estimated GFR (MDRD) > 60.0 ml/min Glucose 113 H (74-106) mg/dL Calcium 9.6 (8.5-10.1) mg/dL Total Bilirubin 0.4 (0.2-1.0) mg/dL AST 13 L (15-37) IU/L ALT 20 (14-63) IU/L Alkaline Phosphatase 80 (46-116) U/L Creatine Kinase 65 (26-308) U/L Troponin I < 0.050 (0.000-0.056) ng/mL B-Natriuretic Peptide (<100) PG/ML Total Protein 6.7 (6.4-8.2) g/dL Albumin 3.7 (3.4-5.0) g/dL Globulin 3.0 (2.6-4.0) g/dL Albumin/Globulin Ratio 1.2 (0.9-1.6) Urine Color Urine Appearance Urine pH (5.0-8.0) Ur Specific [place] (1.001-1.035) Urine Protein (NEGATIVE) mg/dL Urine Glucose (UA) (NEGATIVE) mg/dL Urine Ketones (NEGATIVE) mg/dL Urine Occult Blood (NEGATIVE) Urine Nitrite (NEGATIVE) Urine Bilirubin (NEGATIVE) Urine Urobilinogen (<2.0) EU/dL Ur Leukocyte Esterase (NEGATIVE) Urine RBC (0-2/HPF) Urine WBC (0-5/HPF) Ur Epithelial Cells (NONE-FEW) Urine Bacteria (NEGATIVE) 06/30/18 06/30/18 Range/Units 06:20 06:30 WBC (4.0-11.0) K/uL RBC (4.30-5.90) M/uL Hgb (12.0-16.0) g/dL Hct (36.0-46.0) % MCV (80.0-98.0) fL MCH (27.0-32.0) pg MCHC (31.0-37.0) g/dL RDW Std Deviation (28.0-62.0) fl RDW Coeff of Nam (11.0-15.0) % Plt Count (150-400) K/uL MPV (7.40-12.00) fL Neut % (Auto) (48.0-80.0) % Lymph % (Auto) (16.0-40.0) % [place] % (Auto) (0.0-15.0) % Eos % (Auto) (0.0-7.0) % Baso % (Auto) (0.0-1.5) % Neut # (Auto) (1.4-5.7) K/uL Lymph # (Auto) (0.6-2.4) K/uL [place] # (Auto) (0.0-0.8) K/uL Eos # (Auto) (0.0-0.7) K/uL Baso # (Auto) (0.0-0.1) K/uL Nucleated RBC % /100WBC Nucleated RBCs # K/uL INR Sodium (136-145) mmol/L Potassium (3.5-5.1) mmol/L Chloride (98-107) mmol/L Carbon Dioxide (21.0-32.0) mmol/L BUN (7.0-18.0) mg/dL Creatinine (0.6-1.0) mg/dL Est Cr Clr Drug Dosing mL/min Estimated GFR (MDRD) ml/min Glucose (74-106) mg/dL Calcium (8.5-10.1) mg/dL Total Bilirubin (0.2-1.0) mg/dL AST (15-37) IU/L ALT (14-63) IU/L Alkaline Phosphatase (46-116) U/L Creatine Kinase (26-308) U/L Troponin I (0.000-0.056) ng/mL B-Natriuretic Peptide 55 (<100) PG/ML Total Protein (6.4-8.2) g/dL Albumin (3.4-5.0) g/dL Globulin (2.6-4.0) g/dL Albumin/Globulin Ratio (0.9-1.6) Urine Color YELLOW Urine Appearance CLEAR Urine pH 6.0 (5.0-8.0) Ur Specific [place] 1.010 (1.001-1.035) Urine Protein NEGATIVE (NEGATIVE) mg/dL Urine Glucose (UA) NEGATIVE (NEGATIVE) mg/dL Urine Ketones NEGATIVE (NEGATIVE) mg/dL Urine Occult Blood MODERATE H (NEGATIVE) Urine Nitrite NEGATIVE (NEGATIVE) Urine Bilirubin NEGATIVE (NEGATIVE) Urine Urobilinogen 0.2 (<2.0) EU/dL Ur Leukocyte Esterase NEGATIVE (NEGATIVE) Urine RBC 1-4 (0-2/HPF) Urine WBC 0-2 (0-5/HPF) Ur Epithelial Cells RARE (NONE-FEW) Urine Bacteria RARE (NEGATIVE) Result Diagrams: 06/30/18 06:20 06/30/18 06:20 Problem List Initiated/Reviewed/Updated: Yes Orders Last 24hrs: Active Orders 24 hr Category Date Time Status Admission Status [Patient Status] [ADT] Stat ADT 06/30/18 07:23 Active Cardiac Monitoring [RC] CONTINUOUS Care 06/30/18 10:58 Ordered EKG Documentation Completion [RC] STAT Care 06/30/18 06:08 Active Oxygen Therapy [RC] PRN Care 06/30/18 10:57 Ordered RT Aerosol Therapy [RC] ASDIRECTED Care 06/30/18 06:09 Active Up ad [place] [RC] ASDIRECTED Care 06/30/18 10:57 Ordered VTE/DVT Education [RC] PER UNIT ROUTINE Care 06/30/18 10:57 Ordered Vital Signs [RC] Q4H Care 06/30/18 10:57 Ordered Regular Diet [DIET] Diet 06/30/18 Lunch Ordered CBC W/O DIFF,HEMOGRAM [HEME] AM Lab 07/01/18 05:11 Ordered COMPREHENSIVE METABOLIC PN,CMP [CHEM] AM Lab 07/01/18 05:11 Ordered Aspirin Med 07/01/18 09:00 Ordered 81 mg PO DAILY Enoxaparin [Lovenox] Med 06/30/18 11:00 Ordered 40 mg SUBCUT Q24H Sodium Chloride 0.9% [Normal Saline] 1,000 ml Med 06/30/18 06:15 Active IV STAT guaiFENesin [Mucinex] Med 06/30/18 10:56 Ordered 600 mg PO BID PRN methylPREDNISolone Sod Succ [Solu-MEDROL] Med 06/30/18 11:00 Ordered 60 mg IVPUSH Q6H Sequential Compression Device [OM.PC] Per Unit Routine Oth 06/30/18 10:58 Ordered Resuscitation Status Routine Resus Stat 06/30/18 10:57 Ordered Medication Orders Aspirin (Aspirin) 81 mg PO DAILY GUS Enoxaparin Sodium (Lovenox) 40 mg SUBCUT Q24H GUS Guaifenesin (Mucinex) 600 mg PO BID PRN PRN Reason: Cough Sodium Chloride (Normal Saline) 1,000 mls @ 75 mls/hr IV STAT GUS Last Admin: 06/30/18 06:22 Dose: 125 mls/hr Methylprednisolone Sodium Succinate (Solu-Medrol) 60 mg IVPUSH Q6H GUS Assessment/Plan Comment:: Assessment: #1. COPD exacerbation #2. Hypokalemia #3. Congenital long QT syndrome #4. Hx of COPD Plan: #1. Admit to the floor as inpatient. Cardiac telemetry. Vitals per floor. Lovenox for DVT prophylaxis #2. IV Solumedrol 60mg q6h #3. DuoNeb q4h PRN sob/wheezing #4. Continue aspirin, mucinex #5. Anticipate dc 1-2 days.
[2018-06-30] MEDS: guaiFENesin 600 MG Tab.ER PO PRN (11:30)
[2018-06-30] MEDS: methylPREDNISolone Sodium Succinate 40 MG/1 ML SDV IVPUSH SCH ×3 (11:30→22:42)
[2018-06-30] MEDS: Albuterol/Ipratropium 3.0-0.5 MG/3 ML Neb Soln NEB PRN ×3 (12:07→22:41)
[2018-06-30] MEDS: Sodium Chloride 0.9% 1,000 ML IV SCH (14:48)
[2018-07-01] MEDS: Sodium Chloride 0.9% 1,000 ML IV SCH ×2 (04:28→18:43)
[2018-07-01] MEDS: methylPREDNISolone Sodium Succinate 40 MG/1 ML SDV IVPUSH SCH ×4 (04:29→23:44)
[2018-07-01 05:52] LABS: CHLORIDE,CL 109 mmol/L (98-107); SODIUM,NA 142 mmol/L (136-145)
[2018-07-01] MEDS: Aspirin 81 MG Tab.Chew PO SCH (08:17)
[2018-07-01] MEDS: Albuterol/Ipratropium 3.0-0.5 MG/3 ML Neb Soln NEB PRN ×2 (08:17→15:31)
[2018-07-01] MEDS: guaiFENesin 600 MG Tab.ER PO PRN (08:17)
--- NOTE | 2018-07-01 10:44 | PCM.PN ---
- General Info Date of Service: 07/01/18 Subjective Update: Patient says she still feels short of breath and wheezing. She states that she feels better after getting a nebulizer treatment but feels short of breath when its close to time (4 hours) for her next treatment. She denies fever, chills, nausea or vomitng. - Review of Systems General: Reports: Other (see hpi) - Patient Data Vitals - Most Recent: Last Vital Signs Temp 36.0 C 07/01/18 04:00 Pulse 76 07/01/18 04:00 Resp 16 07/01/18 04:00 BP 129/58 L 07/01/18 04:00 Pulse Ox 96 07/01/18 04:00 Weight - Most Recent: 58.786 kg I&O - Last 24 Hours: Intake & Output 06/30/18 07/01/18 07/01/18 22:59 06:59 14:59 Intake Total 605 1025 Output Total 450 1200 Balance 155 -175 Lab Results Last 24 Hours: Laboratory Results - last 24 hr 07/01/18 07/01/18 Range/Units 05:15 05:15 WBC 10.39 (4.0-11.0) K/uL RBC 4.31 (4.30-5.90) M/uL Hgb 13.2 (12.0-16.0) g/dL Hct 39.1 (36.0-46.0) % MCV 90.7 (80.0-98.0) fL MCH 30.6 (27.0-32.0) pg MCHC 33.8 (31.0-37.0) g/dL RDW Std Deviation 42.3 (28.0-62.0) fl RDW Coeff of Nam 13 (11.0-15.0) % Plt Count 208 (150-400) K/uL MPV 9.80 (7.40-12.00) fL Nucleated RBC % 0.0 /100WBC Nucleated RBCs # 0 K/uL Sodium 142 (136-145) mmol/L Potassium 4.0 (3.5-5.1) mmol/L Chloride 109 H (98-107) mmol/L Carbon Dioxide 25.4 (21.0-32.0) mmol/L BUN 7 (7.0-18.0) mg/dL Creatinine 0.7 (0.6-1.0) mg/dL Est Cr Clr Drug Dosing 62.48 mL/min Estimated GFR (MDRD) > 60.0 ml/min Glucose 145 H (74-106) mg/dL Calcium 9.1 (8.5-10.1) mg/dL Total Bilirubin 0.3 (0.2-1.0) mg/dL AST 10 L (15-37) IU/L ALT 19 (14-63) IU/L Alkaline Phosphatase 65 (46-116) U/L Total Protein 5.8 L (6.4-8.2) g/dL Albumin 3.1 L (3.4-5.0) g/dL Globulin 2.7 (2.6-4.0) g/dL Albumin/Globulin Ratio 1.2 (0.9-1.6) Med Orders - Current: Current Medications Albuterol/Ipratropium (Duoneb 3.0-0.5 Mg/3 Ml) 3 ml NEB Q4HRRT PRN PRN Reason: Wheezing Last Admin: 07/01/18 08:17 Dose: 3 ml Aspirin (Aspirin) 81 mg PO DAILY [facility] Last Admin: 07/01/18 08:17 Dose: 81 mg Enoxaparin Sodium (Lovenox) 40 mg SUBCUT Q24H [facility] Guaifenesin (Mucinex) 600 mg PO BID PRN PRN Reason: Cough Last Admin: 07/01/18 08:17 Dose: 600 mg Sodium Chloride (Normal Saline) 1,000 mls @ 75 mls/hr IV ASDIRECTED [facility] Last Admin: 07/01/18 04:28 Dose: 75 mls/hr Methylprednisolone Sodium Succinate (Solu-Medrol) 60 mg IVPUSH Q6H [facility] Last Admin: 07/01/18 04:29 Dose: 60 mg Discontinued Medications Albuterol/Ipratropium (Duoneb 3.0-0.5 Mg/3 Ml) 3 ml NEB ONETIME ONE Stop: 06/30/18 06:09 Last Admin: 06/30/18 06:16 Dose: 3 ml Albuterol/Ipratropium (Duoneb 3.0-0.5 Mg/3 Ml) Confirm Administered Dose 3 ml .ROUTE .STK-MED ONE Stop: 06/30/18 06:12 Last Admin: 06/30/18 06:18 Dose: Not Given Aspirin (Aspirin) 324 mg PO ONETIME ONE Stop: 06/30/18 06:09 Last Admin: 06/30/18 06:19 Dose: 324 mg Enoxaparin Sodium (Lovenox) 60 mg SUBCUT ONETIME ONE Stop: 06/30/18 07:06 Last Admin: 06/30/18 07:53 Dose: Not Given Enoxaparin Sodium (Lovenox) 60 mg SUBCUT DAILY [facility] Last Admin: 06/30/18 07:44 Dose: 60 mg Enoxaparin Sodium (Lovenox) 40 mg SUBCUT Q24H [facility] Last Admin: 06/30/18 12:54 Dose: Not Given Sodium Chloride (Normal Saline) 1,000 mls @ 75 mls/hr IV STAT GUS Last Admin: 06/30/18 06:22 Dose: 125 mls/hr Methylprednisolone Sodium Succinate (Solu-Medrol) 125 mg IVPUSH ONETIME ONE Stop: 06/30/18 06:09 Last Admin: 06/30/18 06:09 Dose: 125 mg Methylprednisolone Sodium Succinate (Solu-Medrol) Confirm Administered Dose 125 mg .ROUTE .STK-MED ONE Stop: 06/30/18 06:11 Last Admin: 06/30/18 06:18 Dose: Not Given Potassium Chloride (Klor-Con M20) 40 meq PO ONETIME ONE Stop: 06/30/18 10:46 Last Admin: 06/30/18 11:29 Dose: 40 meq - Exam General: Alert, Oriented HEENT: Pupils Equal, Pupils Reactive, EOMI, Mucous Membr. Moist/[place] Neck: Supple Lungs: Other (bilateral wheezing on auscultation) Cardiovascular: Regular Rate, Regular Rhythm GI/Abdominal Exam: Normal Bowel Sounds, Soft, Non-Tender, No Organomegaly, No Distention, No Abnormal Bruit, No Mass, Pelvis Stable Back Exam: Normal Inspection, Full Range of Motion Extremities: Normal Inspection, Normal Range of Motion, Non-Tender, No Pedal Edema, Normal Capillary Refill Peripheral Pulses: 2+: Dorsalis Pedis (L), Dorsalis Pedis (R) Skin: Warm, Dry, Intact Neurological: No New Focal Deficit Psy/Mental Status: Alert, Normal Affect, Normal Mood - Problem List Review Problem List Initiated/Reviewed/Updated: Yes - My Orders Last 24 Hours: My Active Orders 06/30/18 10:56 guaiFENesin [Mucinex] 600 mg PO BID PRN 06/30/18 10:57 Oxygen Therapy [RC] PRN Up ad [place] [RC] ASDIRECTED VTE/DVT Education [RC] PER UNIT ROUTINE Vital Signs [RC] Q4H Resuscitation Status Routine 06/30/18 10:58 Cardiac Monitoring [RC] Q8H Sequential Compression Device [OM.PC] Per Unit Routine 06/30/18 11:00 methylPREDNISolone Sod Succ [Solu-MEDROL] 60 mg IVPUSH Q6H 06/30/18 11:45 Sodium Chloride 0.9% [Normal Saline] 1,000 ml IV ASDIRECTED 06/30/18 11:49 RT Aerosol Therapy [RC] ASDIRECTED Albuterol/Ipratropium [DuoNeb 3.0-0.5 MG/3 ML] 3 ml NEB Q4HRRT PRN 06/30/18 Lunch Regular Diet [DIET] 07/01/18 09:00 Aspirin 81 mg PO DAILY 07/01/18 11:00 Enoxaparin [Lovenox] 40 mg SUBCUT Q24H - Plan Plan:: Assessment: #1. COPD exacerbation #2. Hypokalemia #3. Congenital long QT syndrome #4. Hx of COPD Plan: #1. Continue IV solumedrol and duonebs. Patient was still wheezing this AM considerably, DC will depend on clinical improvement. She agrees to the plan.
[2018-07-01] MEDS: Enoxaparin 40 MG/0.4 ML Syringe SUBCUT SCH (11:52)
[2018-07-01] MEDS: Albuterol/Ipratropium 3.0-0.5 MG/3 ML Neb Soln NEB SCH ×2 (17:30→21:19)
[2018-07-02] MEDS: Albuterol/Ipratropium 3.0-0.5 MG/3 ML Neb Soln NEB SCH ×4 (01:40→13:50)
[2018-07-02] MEDS ORDERED: Acetaminophen 325 MG Tab PO PRN (02:01)
[2018-07-02] MEDS: methylPREDNISolone Sodium Succinate 40 MG/1 ML SDV IVPUSH SCH (05:10)
[2018-07-02] MEDS: Sodium Chloride 0.9% 1,000 ML IV SCH (07:22)
[2018-07-02] MEDS: Aspirin 81 MG Tab.Chew PO SCH (08:26)
--- NOTE | 2018-07-02 08:40 | PCM.PN ---
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 Troponin shows a very slight elevation at 0.074. The chest pain resolved quickly thereafter and she has been chest pain free since then. EKG does not show any ST changes. She tells me that this has happened in the past at home, and when she was admitted this past September. She has gone for a stress test, which she doesnt remember the results for. Otherwise, she feels she is breathing much better today. - Review of Systems General: Reports: Other (negative except for hpi) - Patient Data Vitals - Most Recent: Last Vital Signs Temp 36.2 C 07/02/18 07:20 Pulse 78 07/02/18 07:20 Resp 16 07/02/18 07:20 BP 118/56 L 07/02/18 07:20 Pulse Ox 96 07/02/18 07:20 Weight - Most Recent: 58.786 kg I&O - Last 24 Hours: Intake & Output 07/01/18 07/02/18 07/02/18 22:59 06:59 14:59 Intake Total 1210 1367 Output Total 1450 1150 Balance -240 217 Lab Results Last 24 Hours: Laboratory Results - last 24 hr 07/02/18 Range/Units 02:58 Troponin I 0.074 H* (0.000-0.056) ng/mL Med Orders - Current: Current Medications Acetaminophen (Tylenol) 650 mg PO Q6H PRN PRN Reason: Pain Last Admin: 07/02/18 02:22 Dose: 650 mg Albuterol/Ipratropium (Duoneb 3.0-0.5 Mg/3 Ml) 3 ml NEB Q4HRRT PRN PRN Reason: Wheezing Last Admin: 07/01/18 15:31 Dose: 3 ml Albuterol/Ipratropium (Duoneb 3.0-0.5 Mg/3 Ml) 3 ml NEB Q4HRRT [facility] Last Admin: 07/02/18 05:59 Dose: 3 ml Aspirin (Aspirin) 81 mg PO DAILY [facility] Last Admin: 07/02/18 08:26 Dose: 81 mg Enoxaparin Sodium (Lovenox) 40 mg SUBCUT Q24H [facility] Last Admin: 07/01/18 11:52 Dose: 40 mg Guaifenesin (Mucinex) 600 mg PO BID PRN PRN Reason: Cough Last Admin: 07/01/18 08:17 Dose: 600 mg Sodium Chloride (Normal Saline) 1,000 mls @ 75 mls/hr IV ASDIRECTED [facility] Last Admin: 07/02/18 07:22 Dose: 75 mls/hr Prednisone (Prednisone) 40 mg PO WITHBREAKFAST [facility] Discontinued Medications Albuterol/Ipratropium (Duoneb 3.0-0.5 Mg/3 Ml) 3 ml NEB ONETIME ONE Stop: 06/30/18 06:09 Last Admin: 06/30/18 06:16 Dose: 3 ml Albuterol/Ipratropium (Duoneb 3.0-0.5 Mg/3 Ml) Confirm Administered Dose 3 ml .ROUTE .STK-MED ONE Stop: 06/30/18 06:12 Last Admin: 06/30/18 06:18 Dose: Not Given Aspirin (Aspirin) 324 mg PO ONETIME ONE Stop: 06/30/18 06:09 Last Admin: 06/30/18 06:19 Dose: 324 mg Enoxaparin Sodium (Lovenox) 60 mg SUBCUT ONETIME ONE Stop: 06/30/18 07:06 Last Admin: 06/30/18 07:53 Dose: Not Given Enoxaparin Sodium (Lovenox) 60 mg SUBCUT DAILY [facility] Last Admin: 06/30/18 07:44 Dose: 60 mg Enoxaparin Sodium (Lovenox) 40 mg SUBCUT Q24H [facility] Last Admin: 06/30/18 12:54 Dose: Not Given Sodium Chloride (Normal Saline) 1,000 mls @ 75 mls/hr IV STAT [facility] Last Admin: 06/30/18 06:22 Dose: 125 mls/hr Methylprednisolone Sodium Succinate (Solu-Medrol) 125 mg IVPUSH ONETIME ONE Stop: 06/30/18 06:09 Last Admin: 06/30/18 06:09 Dose: 125 mg Methylprednisolone Sodium Succinate (Solu-Medrol) Confirm Administered Dose 125 mg .ROUTE .STK-MED ONE Stop: 06/30/18 06:11 Last Admin: 06/30/18 06:18 Dose: Not Given Methylprednisolone Sodium Succinate (Solu-Medrol) 60 mg IVPUSH Q6H [facility] Last Admin: 07/02/18 05:10 Dose: 60 mg Potassium Chloride (Klor-Con M20) 40 meq PO ONETIME ONE Stop: 06/30/18 10:46 Last Admin: 06/30/18 11:29 Dose: 40 meq - Exam General: Alert, Oriented HEENT: Pupils Equal, Pupils Reactive, EOMI, Mucous Membr. Moist/[place] Neck: Supple Lungs: Clear to Auscultation, Normal Respiratory Effort Cardiovascular: Regular Rate, Regular Rhythm GI/Abdominal Exam: Normal Bowel Sounds, Soft, Non-Tender, No Organomegaly, No Distention, No Abnormal Bruit, No Mass Back Exam: Normal Inspection, Full Range of Motion Extremities: Normal Inspection, Normal Range of Motion, Non-Tender, No Pedal Edema, Normal Capillary Refill Peripheral Pulses: 2+: Dorsalis Pedis (L), Dorsalis Pedis (R) Skin: Warm Neurological: No New Focal Deficit Psy/Mental Status: Alert, Normal Affect, Normal Mood - Problem List Review Problem List Initiated/Reviewed/Updated: Yes - My Orders Last 24 Hours: My Active Orders 07/01/18 09:00 Aspirin 81 mg PO DAILY 07/01/18 11:00 Enoxaparin [Lovenox] 40 mg SUBCUT Q24H 07/01/18 15:35 RT Aerosol Therapy [RC] ASDIRECTED 07/01/18 18:00 Albuterol/Ipratropium [DuoNeb 3.0-0.5 MG/3 ML] 3 ml NEB Q4HRRT 07/02/18 08:10 TROPONIN I [CHEM] Q6H 07/02/18 14:10 TROPONIN I [CHEM] Q6H 07/03/18 08:00 predniSONE 40 mg PO WITHBREAKFAST - Plan Plan:: Assessment: #1. COPD exacerbation - improved #2. Elevated troponin Plan: #1. Trend troponin - second set appears to be downtrending. Will discharge later today should the third set be negative. She tells me that she had a stress test done in [place] - will try to obtain those records. #2. Decrease to prednisone 40mg PO daily, start Protonix for GI prophylaxis #3. Will have her follow up with cardiology upon discharge. #4. Will schedule the patient for an echocardiogram as an outpatient.
[2018-07-02] MEDS ORDERED: Pantoprazole 40 MG Tab.CR PO SCH (09:00)
[2018-07-02] MEDS: Enoxaparin 40 MG/0.4 ML Syringe SUBCUT SCH (12:23)
[2018-07-02 15:44] VITALS: BP 138/67
--- NOTE | 2018-07-02 16:20 | PCM.DCSUM1 ---
Discharge Summary - Hospital Course Free Text/Narrative:: Admission date: 06/30/2018 Discharge date: 07/02/2018 Admission diagnosis: #1. COPD Exacerbation #2. Hypokalemia #3. History of congenital long QT Syndrome #4. History of COPD Discharge diagnosis: #1. COPD Exacerbation - resolved #2. Elevated Troponin - downtrending and chest pain free at the time of discharge Hospital course: 77F with a history of COPD that presented to the ER found to have an exacerbation not responding well to duonebs at home. Patient was admitted and treated w/ IV solumedrol, q4h duonebs. CXR was unremarkable. Patient had an episode of chest pain that was centrally located, nonradiating that resolved on its own in a few minutes. She had an unremarkable EKG, with troponin 0.074, that was downtrending. She did not have any further chest pain episodes. Chart review shows that she had a similar elevation in troponin in 2017. She was transferred to [place] [facility] for this where she was ultimately discharged home with a stress test scheduled. She is unaware of the results of the stress test. She is to f/u with Dr. Joie bertrand here. Stress results are to be sent over. She was discharged home on PO Prednisone 40mg x3 days and advised to f/u with PCP, Cardiology. She is to be scheduled for an outpatient echocardiogram. Diagnosis: Stroke: No - Discharge Data Discharge Date: 07/02/18 Discharge Disposition: Home, Self-Care 01 Condition: Good - Patient Instructions Diet: Heart Healthy Diet Activity: As Tolerated Showering/Bathing: October Shower Notify Provider of: Fever, Increased Pain, Swelling and Redness, Drainage, Nausea and/or Vomiting Other/Special Instructions: outpatient ECHO, order given. - Discharge Plan *PRESCRIPTION DRUG MONITORING PROGRAM REVIEWED*: Not Applicable *COPY OF PRESCRIPTION DRUG MONITORING REPORT IN PATIENT REDDY: Not Applicable Prescriptions/Med Rec: Omeprazole 20 mg PO DAILY #10 cap.sr predniSONE 40 mg PO WITHBREAKFAST #6 tab Home Medications: Home Meds Albuterol/Ipratropium [DuoNeb 3.0-0.5 MG/3 ML] 3 ml NEB Q4HRRT PRN neb MDD 4-6 times a day 09/28/17 [Rx] Budesonide/Formoterol Fumarate [Symbicort 80-4.5 Mcg Inhaler] 2 inh IH DAILY [History] Albuterol [Ventolin HFA] 1 puff PO Q6HR 04/16/18 [History] Aspirin 81 mg PO DAILY #30 tab.chew 04/18/18 [Rx] guaiFENesin [Mucinex] 600 mg PO BID PRN 06/30/18 [History] Omeprazole 20 mg PO DAILY #10 cap.sr 07/02/18 [Rx] predniSONE 40 mg PO WITHBREAKFAST #6 tab 07/02/18 [Rx] Oxygen Therapy Mode: Nasal Cannula (at night time only) Patient Handouts: Chronic Obstructive Pulmonary Disease Exacerbation, Easy-to- Read, Echocardiogram, Prednisone tablets, Omeprazole tablets (OTC) Referrals: [facility] [Outside] Jennie Luu MD [Physician] - 08/04/18 11:00 am Tamanna Sanchez NP [Ordering Only Provider] - 07/11/18 10:30 am (Arrive 15 minutes early with ID and insurance card.) - Discharge Summary/Plan Comment DC Time >30 min.: No - Patient Data Vitals - Most Recent: Last Vital Signs Temp 36.6 C 07/02/18 15:00 Pulse 83 07/02/18 15:00 Resp 16 07/02/18 15:00 BP 138/67 07/02/18 15:00 Pulse Ox 94 L 07/02/18 15:00 Weight - Most Recent: 58.786 kg I&O - Last 24 hours: Intake & Output 07/02/18 07/02/18 07/02/18 06:59 14:59 22:59 Intake Total 1367 Output Total 1150 Balance 217 Lab Results - Last 24 hrs: Laboratory Results - last 24 hr 07/02/18 07/02/18 07/02/18 Range/Units 02:58 08:10 14:22 Troponin I 0.074 H* 0.072 H* 0.051 (0.000-0.056) ng/mL Med Orders - Current: Current Medications Acetaminophen (Tylenol) 650 mg PO Q6H PRN PRN Reason: Pain Last Admin: 07/02/18 02:22 Dose: 650 mg Albuterol/Ipratropium (Duoneb 3.0-0.5 Mg/3 Ml) 3 ml NEB Q4HRRT PRN PRN Reason: Wheezing Last Admin: 07/01/18 15:31 Dose: 3 ml Albuterol/Ipratropium (Duoneb 3.0-0.5 Mg/3 Ml) 3 ml NEB Q4HRRT [facility] Last Admin: 07/02/18 13:50 Dose: 3 ml Aspirin (Aspirin) 81 mg PO DAILY [facility] Last Admin: 07/02/18 08:26 Dose: 81 mg Enoxaparin Sodium (Lovenox) 40 mg SUBCUT Q24H [facility] Last Admin: 07/02/18 12:23 Dose: 40 mg Guaifenesin (Mucinex) 600 mg PO BID PRN PRN Reason: Cough Last Admin: 07/01/18 08:17 Dose: 600 mg Sodium Chloride (Normal Saline) 1,000 mls @ 75 mls/hr IV ASDIRECTED [facility] Last Admin: 07/02/18 07:22 Dose: 75 mls/hr Pantoprazole Sodium (Protonix) 40 mg PO DAILY [facility] Last Admin: 07/02/18 09:36 Dose: 40 mg Prednisone (Prednisone) 40 mg PO WITHBREAKFAST [facility] Discontinued Medications Albuterol/Ipratropium (Duoneb 3.0-0.5 Mg/3 Ml) 3 ml NEB ONETIME ONE Stop: 06/30/18 06:09 Last Admin: 06/30/18 06:16 Dose: 3 ml Albuterol/Ipratropium (Duoneb 3.0-0.5 Mg/3 Ml) Confirm Administered Dose 3 ml .ROUTE .STK-MED ONE Stop: 06/30/18 06:12 Last Admin: 06/30/18 06:18 Dose: Not Given Aspirin (Aspirin) 324 mg PO ONETIME ONE Stop: 06/30/18 06:09 Last Admin: 06/30/18 06:19 Dose: 324 mg Enoxaparin Sodium (Lovenox) 60 mg SUBCUT ONETIME ONE Stop: 06/30/18 07:06 Last Admin: 06/30/18 07:53 Dose: Not Given Enoxaparin Sodium (Lovenox) 60 mg SUBCUT DAILY [facility] Last Admin: 06/30/18 07:44 Dose: 60 mg Enoxaparin Sodium (Lovenox) 40 mg SUBCUT Q24H [facility] Last Admin: 06/30/18 12:54 Dose: Not Given Sodium Chloride (Normal Saline) 1,000 mls @ 75 mls/hr IV STAT GUS Last Admin: 06/30/18 06:22 Dose: 125 mls/hr Methylprednisolone Sodium Succinate (Solu-Medrol) 125 mg IVPUSH ONETIME ONE Stop: 06/30/18 06:09 Last Admin: 06/30/18 06:09 Dose: 125 mg Methylprednisolone Sodium Succinate (Solu-Medrol) Confirm Administered Dose 125 mg .ROUTE .STK-MED ONE Stop: 06/30/18 06:11 Last Admin: 06/30/18 06:18 Dose: Not Given Methylprednisolone Sodium Succinate (Solu-Medrol) 60 mg IVPUSH Q6H [facility] Last Admin: 07/02/18 05:10 Dose: 60 mg Potassium Chloride (Klor-Con M20) 40 meq PO ONETIME ONE Stop: 06/30/18 10:46 Last Admin: 06/30/18 11:29 Dose: 40 meq
[2018-07-03] MEDS ORDERED: predniSONE 20 MG Tab PO SCH (08:00)
== END 2018-07-02 17:00 | disposition home or self-care (01) | DRG 192 ==
LOC: MW.ED 05:59 → MW.MS 07:23
PROVIDERS: ADMIT Internal Medicine; ATTEND Internal Medicine
DX: J44.1 Chronic obstructive pulmonary disease with (acute) exacerbation (principal); R09.02 Hypoxemia; E87.6 Hypokalemia; I45.81 Long QT syndrome; M19.90 Unspecified osteoarthritis, unspecified site; R74.8 Abnormal levels of other serum enzymes; Z88.0 Allergy status to penicillin; Z88.8 Allergy status to other drugs, medicaments and biological substances; Z79.899 Other long term (current) drug therapy; Z79.82 Long term (current) use of aspirin; R06.2 Wheezing; R06.02 Shortness of breath; Z90.710 Acquired absence of both cervix and uterus; Z85.828 Personal history of other malignant neoplasm of skin; Z99.81 Dependence on supplemental oxygen; Z87.891 Personal history of nicotine dependence
CPT/HCPCS: 36415; 71045; 71045-26; 80053; 81001; 82550; 83880; 84484; 85025; 85027; 85610; 93005; 94640; 94667; 96361; 96372; 96374; 99284; 99285-25; A9270-GY; J1650; J2920; J2930; J7040; J7620-GY

== ENCOUNTER 2018-07-21 06:50 | Emergency (ER) | payer MEDICARE, BC ==
--- NOTE | 2018-07-21 06:59 | EDM.PDOC ---
ED HPI GENERAL MEDICAL PROBLEM - General Stated Complaint: TROUBLE BREATHING Time Seen by Provider: 07/21/18 06:52 Source of Information: Reports: Patient History Limitations: Reports: No Limitations - History of Present Illness INITIAL COMMENTS - FREE TEXT/NARRATIVE: History of present illness: []Patient has a history of COPD and frequent hospitalizations but no intubations. She is currently using albuterol and Symbicort with normal oral steroids. Patient denies any new symptoms, fevers, chills, chest pain and states this is a usual flareup of COPD. Review of systems: As per history of present illness and below otherwise all systems reviewed and negative. Past medical history: As per history of present illness and as reviewed below otherwise noncontributory. Surgical history: As per history of present illness and as reviewed below otherwise noncontributory. Social history: No reported history of drug or alcohol abuse. Family history: As per history of present illness and as reviewed below otherwise noncontributory. Physical exam: General: Well developed, well nourished in NAD HEENT: Atraumatic, normocephalic, pupils reactive, negative for conjunctival pallor or scleral icterus, mucous membranes moist, throat clear, neck supple, nontender, trachea midline. Lungs: Inspiratory and Expiratory Wheezing bilaterally, chest nontender. No chest wall retractions no rhonchi Heart: S1S2, regular, negative for clicks, rubs, or JVD. Abdomen: NABS, Soft, nondistended, nontender. Negative for masses or hepatosplenomegaly. Negative for costovertebral tenderness. Pelvis: Stable nontender. Genitourinary: Deferred. Rectal: Deferred. Extremities: Atraumatic, negative for cords or calf pain. Neurovascular unremarkable. Neuro: Awake, alert, oriented. Cranial nerves II through XII unremarkable. Cerebellum unremarkable. Motor and sensory unremarkable throughout. Exam nonfocal. Skin:warm and dry Diagnostics: None Therapeutics: DuoNeb, prednisone ED Course: Improved Impression: COPD exacerbation Prescriptions: Prednisone Plan: Take steroids as directed, follow up with primary care turn his symptoms worsen or change. Definitive disposition and diagnosis as appropriate pending reevaluation and review of above. - Related Data Allergies Allergy/AdvReac Type Severity Reaction Status Date / Time adhesive tape Allergy Blisters Verified 07/21/18 06:55 Penicillins Allergy Anaphylactic Verified 07/21/18 06:55 Shock phenylbutazone Allergy Cannot Verified 07/21/18 06:55 [From Butazolidin] Remember Home Meds: Home Meds Albuterol/Ipratropium [DuoNeb 3.0-0.5 MG/3 ML] 3 ml NEB Q4HRRT PRN neb MDD 4-6 times a day 09/28/17 [Rx] Budesonide/Formoterol Fumarate [Symbicort 80-4.5 Mcg Inhaler] 2 inh IH DAILY [History] Albuterol [Ventolin HFA] 1 puff PO Q6HR 04/16/18 [History] Aspirin 81 mg PO DAILY #30 tab.chew 04/18/18 [Rx] guaiFENesin [Mucinex] 600 mg PO BID PRN 06/30/18 [History] Omeprazole 20 mg PO DAILY #10 cap.sr 07/02/18 [Rx] predniSONE 40 mg PO WITHBREAKFAST #6 tab 07/02/18 [Rx] predniSONE [Prednisone] 20 mg PO DAILY #5 tablet 07/21/18 [Rx] Past Medical History - Past Health History Medical/Surgical History: Denies Medical/Surgical History HEENT History: Reports: Cataract Other HEENT History: wears glasses, upper and lower dentures Cardiovascular History: Reports: Other (See Below) Other Cardiovascular History: pt states long QT syndrome Respiratory History: Reports: Asthma, COPD Other Respiratory History: at home on o2 @2LPM using at night Gastrointestinal History: Reports: None Genitourinary History: Reports: None, Other (See Below) Other Genitourinary History: growth removed from bladder 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 - Infectious Disease History Infectious Disease History: Reports: Chicken Pox, Measles, Mumps, Shingles - Past Surgical History Head Surgeries/Procedures: Reports: None Other Respiratory Surgeries/Procedures: Chest tube, lung surgery to remove ' blebs' (1971) Social & Family History - Family History Family Medical History: Noncontributory HEENT: Reports: None Cardiac: Reports: Hypertension, Other (See Below) Other Cardiac Family History: long QT syndrome Respiratory: Reports: COPD Other Respiratory Family Hisory: brother OBGYN: Reports: Endocrine/Metabolic: Reports: Diabetes, Type I Other Endocrine/Metabolic Family History: Grandmother Oncologic: Reports: Skin Other Oncologic Family History: brother - Caffeine Use Caffeine Use: Reports: Coffee, Soda - Living Situation & Occupation Living situation: Reports: Occupation: Employed ED ROS GENERAL - Review of Systems Review Of Systems: ROS reveals no pertinent complaints other than HPI. ED EXAM, GENERAL - Physical Exam Exam: See Below (See history of present illness) Course - Vital Signs Last Recorded V/S: Last Vital Signs Temp 97.5 F 07/21/18 06:57 Pulse 83 07/21/18 08:46 Resp 20 07/21/18 08:46 BP 122/68 07/21/18 08:46 Pulse Ox 93 L 07/21/18 08:48 - Orders/Labs/Meds Orders: Active Orders 24 hr Category Date Time Status RT Aerosol Therapy [RC] ASDIRECTED Care 07/21/18 07:04 Active RT Aerosol Therapy [RC] ASDIRECTED Care 07/21/18 07:49 Active RT Aerosol Therapy [RC] ASDIRECTED Care 07/21/18 07:59 Active Meds: Medications Discontinued Medications Generic Name Dose Route Start Last Admin Trade Name Jungq PRN Reason Stop Dose Admin Albuterol 10 mg 07/21/18 07:48 07/21/18 07:57 Proventil Neb Soln NEB 07/21/18 07:49 Not Given ONETIME ONE Albuterol Confirm 07/21/18 07:53 07/21/18 07:58 Proventil Neb Soln Administered 07/21/18 07:54 7.5 mg Dose Administration 7.5 mg .ROUTE .STK-MED ONE Albuterol 7.5 mg 07/21/18 07:59 07/21/18 08:55 Proventil Neb Soln NEB 07/21/18 08:00 7.5 mg ONETIME ONE Administration Albuterol/Ipratropium 3 ml 07/21/18 07:03 07/21/18 07:10 Duoneb 3.0-0.5 Mg/3 Ml NEB 07/21/18 07:04 3 ml ONETIME ONE Administration Albuterol/Ipratropium Confirm 07/21/18 07:52 07/21/18 07:58 Duoneb 3.0-0.5 Mg/3 Ml Administered 07/21/18 07:53 Not Given Dose 9 ml .ROUTE .STK-MED ONE Prednisone 60 mg 07/21/18 07:03 07/21/18 07:14 Prednisone PO 07/21/18 07:04 60 mg ONETIME ONE Administration Departure - Departure Time of Disposition: 09:37 Disposition: Home, Self-Care 01 Condition: Good Clinical Impression: COPD exacerbation - Discharge Information *PRESCRIPTION DRUG MONITORING PROGRAM REVIEWED*: No *COPY OF PRESCRIPTION DRUG MONITORING REPORT IN PATIENT REDDY: No Prescriptions: predniSONE [Prednisone] 20 mg PO DAILY #5 tablet Referrals: PCP,None [Primary Care Provider] - Additional Instructions: The following information is given to patients seen in the emergency department who are being discharged to home. This information is to outline your options for follow-up care. We provide all patients seen in our emergency department with a follow-up referral. The need for follow-up, as well as the timing and circumstances, are variable depending upon the specifics of your emergency department visit. If you don't have a primary care physician on staff, we will provide you with a referral. We always advise you to contact your personal physician following an emergency department visit to inform them of the circumstance of the visit and for follow-up with them and/or the need for any referrals to a consulting specialist. The emergency department will also refer you to a specialist when appropriate. This referral assures that you have the opportunity for follow-up care with a specialist. All of these measure are taken in an effort to provide you with optimal care, which includes your follow-up. Under all circumstances we always encourage you to contact your private physician who remains a resource for coordinating your care. When calling for follow-up care, please make the office aware that this follow-up is from your recent emergency room visit. If for any reason you are refused follow-up, please contact the [facility] Emergency Department at and asked to speak to the emergency department charge nurse. [facility] [address] [place] [id number] - My Orders Last 24 Hours: My Active Orders 07/21/18 07:04 RT Aerosol Therapy [RC] ASDIRECTED 07/21/18 07:49 RT Aerosol Therapy [RC] ASDIRECTED 07/21/18 07:59 RT Aerosol Therapy [RC] ASDIRECTED - Assessment/Plan Last 24 Hours: My Active Orders 07/21/18 07:04 RT Aerosol Therapy [RC] ASDIRECTED 07/21/18 07:49 RT Aerosol Therapy [RC] ASDIRECTED 07/21/18 07:59 RT Aerosol Therapy [RC] ASDIRECTED
[2018-07-21] MEDS ORDERED: Albuterol/Ipratropium 3.0-0.5 MG/3 ML Neb Soln NEB ONE (07:03)
[2018-07-21] MEDS ORDERED: predniSONE 20 MG Tab PO ONE (07:03)
[2018-07-21] MEDS ORDERED: Albuterol 0.5% 5 MG/ML Neb Soln 20 ML Bottle NEB ONE (07:48)
[2018-07-21] MEDS ORDERED: Albuterol/Ipratropium 3.0-0.5 MG/3 ML Neb Soln ONE (07:52)
[2018-07-21] MEDS ORDERED: Albuterol 0.083% 2.5 MG/3 ML Neb Soln ONE (07:53)
[2018-07-21] MEDS ORDERED: Albuterol 0.083% 2.5 MG/3 ML Neb Soln NEB ONE (07:59)
[2018-07-21 09:46] VITALS: BP 124/76
== END 2018-07-21 09:45 | disposition home or self-care (01) ==
LOC: MW.ED 06:50
DX: J44.1 Chronic obstructive pulmonary disease with (acute) exacerbation (principal); Z88.0 Allergy status to penicillin; Z91.09 Other allergy status, other than to drugs and biological substances; Z88.8 Allergy status to other drugs, medicaments and biological substances; Z79.82 Long term (current) use of aspirin; Z79.899 Other long term (current) drug therapy; Z85.828 Personal history of other malignant neoplasm of skin
CPT/HCPCS: 94640; 99285; A9270; 99283; J7620-GY

== ENCOUNTER 2018-08-07 04:32 | Observation (INO) | payer MEDICARE, BC ==
[2018-08-07] MEDS ORDERED: methylPREDNISolone Sodium Succinate 125 MG/2 ML SDV IVPUSH ONE (04:45)
[2018-08-07 05:24] LABS: CHLORIDE,CL 105 mmol/L (98-107); SODIUM,NA 140 mmol/L (136-145)
--- NOTE | 2018-08-07 05:28 | CR ---
INDICATION: Chest pain TECHNIQUE: Chest 1 views COMPARISON: Chest x-ray 06/30/2018 FINDINGS: Cardiovascular and mediastinum: Normal heart size with atherosclerotic calcification. Lungs and pleural spaces: Pleural parenchymal scarring along the left hemidiaphragm with bilateral apical capping with some calcification of the left pleura at the apex. Attenuation of the vasculature suggesting underlying emphysema. Stable small pulmonary nodules,. Bones and soft tissues: Possible loose body right glenohumeral joint. IMPRESSION: 1. No acute cardiopulmonary abnormality. 2. Pleural scarring with emphysema. 3. Old granulomatous disease. Dictated by Bernard Menjivar MD @ Aug 07 2018 5:24AM Signed by Dr. Bernard Menjivar @ Aug 07 2018 5:26AM
--- NOTE | 2018-08-07 05:50 | EDM.PDOC ---
ED HPI GENERAL MEDICAL PROBLEM - General Chief Complaint: Respiratory Problem Stated Complaint: SHORTNESS OF BREATH, COPD Time Seen by Provider: 08/07/18 05:47 - History of Present Illness INITIAL COMMENTS - FREE TEXT/NARRATIVE: HISTORY AND PHYSICAL: History of present illness: Patient 77-year-old white female with history of COPD who presents with a concern of wheezing and shortness of breath worse over the last several days particularly last 24 hours. She denies chest pain nausea vomiting fever chills or other complaints Review of systems: As per history of present illness and below otherwise all systems reviewed and negative. Past medical history: As per history of present illness and as reviewed below otherwise noncontributory. Surgical history: As per history of present illness and as reviewed below otherwise noncontributory. Social history: No reported history of drug or alcohol abuse. Family history: As per history of present illness and as reviewed below otherwise noncontributory. Physical exam: HEENT: Atraumatic, normocephalic, pupils reactive, negative for conjunctival pallor or scleral icterus, mucous membranes moist, throat clear, neck supple, nontender, trachea midline. Lungs: Diminished scattered end expiratory wheezing noted, breath sounds equal bilaterally, chest nontender. Heart: S1S2, regular, negative for clicks, rubs, or JVD. Abdomen: Soft, nondistended, nontender. Negative for masses or hepatosplenomegaly. Negative for costovertebral tenderness. Pelvis: Stable nontender. Genitourinary: Deferred. Rectal: Deferred. Extremities: Atraumatic, negative for cords or calf pain. Neurovascular unremarkable. Neuro: Awake, alert, oriented. Follows commands and moves all extremities limited grossly nonfocal exam Diagnostics: CBC CMP troponin PT/INR influenza screen BNP chest x-ray EKG Therapeutics: IV O2 monitor Solu-Medrol 125 mg IV patient received albuterol ipratropium nebulizer en route per paramedics Impression: #1 COPD with acute exacerbation Definitive disposition and diagnosis as appropriate pending reevaluation and review of above. - Related Data Allergies Allergy/AdvReac Type Severity Reaction Status Date / Time adhesive tape Allergy Blisters Verified 08/07/18 04:39 Penicillins Allergy Anaphylactic Verified 08/07/18 04:39 Shock phenylbutazone Allergy Cannot Verified 08/07/18 04:39 [From Butazolidin] Remember Home Meds: Home Meds Albuterol/Ipratropium [DuoNeb 3.0-0.5 MG/3 ML] 3 ml NEB Q4HRRT PRN neb MDD 4-6 times a day 09/28/17 [Rx] Budesonide/Formoterol Fumarate [Symbicort 80-4.5 Mcg Inhaler] 2 inh IH DAILY [History] Albuterol [Ventolin HFA] 1 puff PO Q6HR 04/16/18 [History] Aspirin 81 mg PO DAILY #30 tab.chew 04/18/18 [Rx] guaiFENesin [Mucinex] 600 mg PO BID PRN 06/30/18 [History] Omeprazole 20 mg PO DAILY #10 cap.sr 07/02/18 [Rx] predniSONE 40 mg PO WITHBREAKFAST #6 tab 07/02/18 [Rx] predniSONE [Prednisone] 20 mg PO DAILY #5 tablet 07/21/18 [Rx] Past Medical History - Past Health History Medical/Surgical History: Denies Medical/Surgical History HEENT History: Reports: Cataract Other HEENT History: wears glasses, upper and lower dentures Cardiovascular History: Reports: Other (See Below) Other Cardiovascular History: pt states long QT syndrome Respiratory History: Reports: Asthma, COPD Other Respiratory History: at home on o2 @2LPM using at night Gastrointestinal History: Reports: None Genitourinary History: Reports: None, Other (See Below) Other Genitourinary History: growth removed from bladder 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 - Infectious Disease History Infectious Disease History: Reports: Chicken Pox, Measles, Mumps, Shingles - Past Surgical History Head Surgeries/Procedures: Reports: None HEENT Surgical History: Reports: Tonsillectomy Respiratory Surgical History: Reports: None GI Surgical History: Reports: Appendectomy Musculoskeletal Surgical History: Reports: Carpal Tunnel Dermatological Surgical History: Reports: Other (See Below) Social & Family History - Family History Family Medical History: Noncontributory HEENT: Reports: None Cardiac: Reports: Hypertension, Other (See Below) Other Cardiac Family History: long QT syndrome Respiratory: Reports: COPD Other Respiratory Family Hisory: brother OBGYN: Reports: Endocrine/Metabolic: Reports: Diabetes, Type I Other Endocrine/Metabolic Family History: Grandmother Oncologic: Reports: Skin Other Oncologic Family History: brother - Tobacco Use Smoking Status *Q: Former Smoker Years of Tobacco use: 10 Used Tobacco, but Quit: Yes Month/Year Tobacco Last Used: 10 - Caffeine Use Caffeine Use: Reports: Coffee - Recreational Drug Use Recreational Drug Use: No - Living Situation & Occupation Living situation: Reports: Occupation: Employed ED ROS GENERAL - Review of Systems Review Of Systems: ROS reveals no pertinent complaints other than HPI. ED EXAM, GENERAL - Physical Exam Exam: See Below (See dictation) Course - Vital Signs Last Recorded V/S: Last Vital Signs Temp 36.6 C 08/07/18 04:39 Pulse 73 08/07/18 05:40 Resp 19 08/07/18 05:40 BP 130/74 08/07/18 05:40 Pulse Ox 95 08/07/18 05:40 - Orders/Labs/Meds Orders: Active Orders 24 hr Category Date Time Status Cardiac Monitoring [RC] . DIRECTED Care 08/07/18 04:45 Active EKG Documentation Completion [RC] STAT Care 08/07/18 04:45 Active B-TYPE NATRIURETIC PEPTIDE,BNP [CHEM] Stat Lab 08/07/18 05:48 Ordered BLOOD GAS ARTERIAL [BG] Stat Lab 08/07/18 04:45 Ordered INFLUENZA A+B AG SCREEN [RM] Stat Lab 08/07/18 05:48 Ordered Labs: Laboratory Tests 08/07/18 08/07/18 08/07/18 Range/Units 04:50 04:50 04:50 WBC 6.95 (4.0-11.0) K/uL RBC 4.51 (4.30-5.90) M/uL Hgb 14.1 (12.0-16.0) g/dL Hct 40.8 (36.0-46.0) % MCV 90.5 (80.0-98.0) fL MCH 31.3 (27.0-32.0) pg MCHC 34.6 (31.0-37.0) g/dL RDW Std Deviation 41.8 (28.0-62.0) fl RDW Coeff of Nam 13 (11.0-15.0) % Plt Count 167 (150-400) K/uL MPV 9.60 (7.40-12.00) fL Neut % (Auto) 51.3 (48.0-80.0) % Lymph % (Auto) 25.2 (16.0-40.0) % Liberty % (Auto) 8.2 (0.0-15.0) % Eos % (Auto) 14.4 H (0.0-7.0) % Baso % (Auto) 0.9 (0.0-1.5) % Neut # (Auto) 3.6 (1.4-5.7) K/uL Lymph # (Auto) 1.8 (0.6-2.4) K/uL Liberty # (Auto) 0.6 (0.0-0.8) K/uL Eos # (Auto) 1.0 H (0.0-0.7) K/uL Baso # (Auto) 0.1 (0.0-0.1) K/uL Nucleated RBC % 0.0 /100WBC Nucleated RBCs # 0 K/uL INR 0.96 Sodium 140 (136-145) mmol/L Potassium 3.6 (3.5-5.1) mmol/L Chloride 105 (98-107) mmol/L Carbon Dioxide 29.7 (21.0-32.0) mmol/L BUN 5 L (7.0-18.0) mg/dL Creatinine 0.9 (0.6-1.0) mg/dL Est Cr Clr Drug Dosing TNP Estimated GFR (MDRD) > 60.0 ml/min Glucose 106 (74-106) mg/dL Calcium 8.9 (8.5-10.1) mg/dL Troponin I < 0.050 (0.000-0.056) ng/mL Meds: Medications Discontinued Medications Generic Name Dose Route Start Last Admin Trade Name Freq PRN Reason Stop Dose Admin Methylprednisolone Sodium Succinate 125 mg 08/07/18 04:45 08/07/18 05:02 Solu-Medrol IVPUSH 08/07/18 04:46 125 mg ONETIME ONE Administration Departure - Departure Time of Disposition: 05:54 Disposition: Home, Self-Care 01 Condition: Good Clinical Impression: COPD exacerbation - Discharge Information Referrals: PCP,None [Primary Care Provider] - Forms: ED Department Discharge - My Orders Last 24 Hours: My Active Orders 08/07/18 04:45 Cardiac Monitoring [RC] . DIRECTED EKG Documentation Completion [RC] STAT BLOOD GAS ARTERIAL [BG] Stat 08/07/18 05:48 B-TYPE NATRIURETIC PEPTIDE,BNP [CHEM] Stat INFLUENZA A+B AG SCREEN [RM] Stat - Assessment/Plan Last 24 Hours: My Active Orders 08/07/18 04:45 Cardiac Monitoring [RC] . DIRECTED EKG Documentation Completion [RC] STAT BLOOD GAS ARTERIAL [BG] Stat 08/07/18 05:48 B-TYPE NATRIURETIC PEPTIDE,BNP [CHEM] Stat INFLUENZA A+B AG SCREEN [RM] Stat
[2018-08-07] MEDS ORDERED: Albuterol 0.083% 2.5 MG/3 ML Neb Soln NEB PRN (06:57)
--- NOTE | 2018-08-07 08:16 | PCM.HP ---
H&P History of Present Illness - General Date of Service: 08/07/18 Admit Problem/Dx: Admission Diagnosis/Problem Admission Diagnosis/Problem Chronic obstructive pulmonary disease Source of Information: Patient History Limitations: Reports: No Limitations - History of Present Illness Initial Comments - Free Text/Narative: This 77 year old female with pmh of COPD, oxygen dependence at night presented to the ED last night after awaking from sleep feeling very short of breath, wheezing and coughing. She reports she was doing well prior to that, maybe has felt some post nasal drip and sinus congestion. She denies fevers, headaches, or neck pain. No chest pain or nausea. No abdominal pain, diarrhea or constipation. She has been using her nebulizers and inhalers as prescribed. No obvious irritant exposures. In the ED labwork WNL. VS Stable. Influenza negative. CXR negative. She was given Duonebs and Solumedrol and admitted observation for COPD exacerbation. - Related Data Allergies/Adverse Reactions: Allergies Allergy/AdvReac Type Severity Reaction Status Date / Time adhesive tape Allergy Blisters Verified 08/07/18 04:39 Penicillins Allergy Anaphylactic Verified 08/07/18 04:39 Shock phenylbutazone Allergy Cannot Verified 08/07/18 04:39 [From Butazolidin] Remember Home Medications: Home Meds Albuterol/Ipratropium [DuoNeb 3.0-0.5 MG/3 ML] 3 ml NEB Q4HRRT PRN neb MDD 4-6 times a day 09/28/17 [Rx] Budesonide/Formoterol Fumarate [Symbicort 80-4.5 Mcg Inhaler] 2 inh IH DAILY [History] Albuterol [Ventolin HFA] 1 puff PO Q6HR 04/16/18 [History] Aspirin 81 mg PO DAILY #30 tab.chew 04/18/18 [Rx] guaiFENesin [Mucinex] 600 mg PO BID PRN 06/30/18 [History] Omeprazole 20 mg PO DAILY #10 cap.sr 07/02/18 [Rx] predniSONE 40 mg PO WITHBREAKFAST #6 tab 07/02/18 [Rx] predniSONE [Prednisone] 20 mg PO DAILY #5 tablet 07/21/18 [Rx] Past Medical History - Past Health History Medical/Surgical History: Denies Medical/Surgical History HEENT History: Reports: Cataract Other HEENT History: wears glasses, upper and lower dentures Cardiovascular History: Reports: Other (See Below) Other Cardiovascular History: pt states long QT syndrome Respiratory History: Reports: Asthma, COPD Other Respiratory History: at home on o2 @2LPM using at night Gastrointestinal History: Reports: None Genitourinary History: Reports: None, Other (See Below) Other Genitourinary History: growth removed from bladder TILE EDGER History: Reports: , 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 - Infectious Disease History Infectious Disease History: Reports: Chicken Pox, Measles, Mumps, Shingles - Past Surgical History Head Surgeries/Procedures: Reports: None HEENT Surgical History: Reports: Tonsillectomy Respiratory Surgical History: Reports: None GI Surgical History: Reports: Appendectomy Musculoskeletal Surgical History: Reports: Carpal Tunnel Dermatological Surgical History: Reports: Other (See Below) Social & Family History - Family History Family Medical History: Noncontributory HEENT: Reports: None Cardiac: Reports: Hypertension, Other (See Below) Other Cardiac Family History: long QT syndrome Respiratory: Reports: COPD Other Respiratory Family Hisory: brother OBGYN: Reports: Endocrine/Metabolic: Reports: Diabetes, Type I Other Endocrine/Metabolic Family History: Grandmother Oncologic: Reports: Skin Other Oncologic Family History: brother - Tobacco Use Smoking Status *Q: Former Smoker Years of Tobacco use: 40 Used Tobacco, but Quit: Yes Month/Year Tobacco Last Used: 2017 Second Hand Smoke Exposure: No - Caffeine Use Caffeine Use: Reports: Coffee, Soda - Recreational Drug Use Recreational Drug Use: No - Living Situation & Occupation Living situation: Reports: Occupation: Employed H&P Review of Systems - Review of Systems: Review Of Systems: See Below General: Denies: Fever, Chills, Malaise, Weakness HEENT: Reports: Post Nasal Drip, Sinus Congestion. Denies: Headaches, Hearing Changes Pulmonary: Reports: Shortness of Breath, Wheezing, Cough, Sputum (light yellow and white). Denies: Pleuritic Chest Pain, Hemoptysis Cardiovascular: Reports: No Symptoms. Denies: Chest Pain, Palpitations, Dyspnea on Exertion, Edema, Lightheadedness Gastrointestinal: Reports: No Symptoms. Denies: Abdominal Pain, Black Stool, Bloody Stool, Nausea, Vomiting Genitourinary: Reports: No Symptoms. Denies: Dysuria, Frequency, Burning Musculoskeletal: Reports: No Symptoms Skin: Reports: No Symptoms Psychiatric: Reports: No Symptoms. Denies: Confusion, Anxiety Neurological: Reports: No Symptoms. Denies: Confusion Hematologic/Lymphatic: Reports: No Symptoms Exam - Exam Exam: See Below - Vital Signs Vital Signs: Last Vital Signs Temp 97.8 F 08/07/18 07:20 Pulse 66 08/07/18 07:20 Resp 18 08/07/18 07:20 BP 136/77 08/07/18 07:20 Pulse Ox 97 08/07/18 07:20 - Exam Quality Assessment: Supplemental Oxygen, DVT Prophylaxis General: Alert, Oriented, Cooperative HEENT: Conjunctiva Clear, Mucosa Moist & [employer], Posterior Pharynx Clear Neck: Supple, Trachea Midline Lungs: Rhonchi, Wheezing, Other Cardiovascular: Regular Rate, Regular Rhythm, Normal S1, Normal S2 GI/Abdominal Exam: Normal Bowel Sounds, Soft, Non-Tender, No Organomegaly Extremities: Normal Inspection, Normal Range of Motion, Non-Tender Neuro Extensive - Mental Status: Alert, Oriented x3, Normal Mood/Affect Neuro Extensive - Motor, Sensory, Reflexes: CN II-XII Intact Psychiatric: Alert, Normal Affect, Normal Mood - Patient Data Lab Results Last 24 hrs: Laboratory Results - last 24 hr 08/07/18 08/07/18 08/07/18 Range/Units 04:50 04:50 04:50 WBC 6.95 (4.0-11.0) K/uL RBC 4.51 (4.30-5.90) M/uL Hgb 14.1 (12.0-16.0) g/dL Hct 40.8 (36.0-46.0) % MCV 90.5 (80.0-98.0) fL MCH 31.3 (27.0-32.0) pg MCHC 34.6 (31.0-37.0) g/dL RDW Std Deviation 41.8 (28.0-62.0) fl RDW Coeff of Nam 13 (11.0-15.0) % Plt Count 167 (150-400) K/uL MPV 9.60 (7.40-12.00) fL Neut % (Auto) 51.3 (48.0-80.0) % Lymph % (Auto) 25.2 (16.0-40.0) % [place] % (Auto) 8.2 (0.0-15.0) % Eos % (Auto) 14.4 H (0.0-7.0) % Baso % (Auto) 0.9 (0.0-1.5) % Neut # (Auto) 3.6 (1.4-5.7) K/uL Lymph # (Auto) 1.8 (0.6-2.4) K/uL [place] # (Auto) 0.6 (0.0-0.8) K/uL Eos # (Auto) 1.0 H (0.0-0.7) K/uL Baso # (Auto) 0.1 (0.0-0.1) K/uL Nucleated RBC % 0.0 /100WBC Nucleated RBCs # 0 K/uL INR 0.96 Sodium 140 (136-145) mmol/L Potassium 3.6 (3.5-5.1) mmol/L Chloride 105 (98-107) mmol/L Carbon Dioxide 29.7 (21.0-32.0) mmol/L BUN 5 L (7.0-18.0) mg/dL Creatinine 0.9 (0.6-1.0) mg/dL Est Cr Clr Drug Dosing TNP Estimated GFR (MDRD) > 60.0 ml/min Glucose 106 (74-106) mg/dL Calcium 8.9 (8.5-10.1) mg/dL Troponin I < 0.050 (0.000-0.056) ng/mL B-Natriuretic Peptide (<100) PG/ML 08/07/18 Range/Units 04:50 WBC (4.0-11.0) K/uL RBC (4.30-5.90) M/uL Hgb (12.0-16.0) g/dL Hct (36.0-46.0) % MCV (80.0-98.0) fL MCH (27.0-32.0) pg MCHC (31.0-37.0) g/dL RDW Std Deviation (28.0-62.0) fl RDW Coeff of Nam (11.0-15.0) % Plt Count (150-400) K/uL MPV (7.40-12.00) fL Neut % (Auto) (48.0-80.0) % Lymph % (Auto) (16.0-40.0) % [place] % (Auto) (0.0-15.0) % Eos % (Auto) (0.0-7.0) % Baso % (Auto) (0.0-1.5) % Neut # (Auto) (1.4-5.7) K/uL Lymph # (Auto) (0.6-2.4) K/uL [place] # (Auto) (0.0-0.8) K/uL Eos # (Auto) (0.0-0.7) K/uL Baso # (Auto) (0.0-0.1) K/uL Nucleated RBC % /100WBC Nucleated RBCs # K/uL INR Sodium (136-145) mmol/L Potassium (3.5-5.1) mmol/L Chloride (98-107) mmol/L Carbon Dioxide (21.0-32.0) mmol/L BUN (7.0-18.0) mg/dL Creatinine (0.6-1.0) mg/dL Est Cr Clr Drug Dosing Estimated GFR (MDRD) ml/min Glucose (74-106) mg/dL Calcium (8.5-10.1) mg/dL Troponin I (0.000-0.056) ng/mL B-Natriuretic Peptide 41 (<100) PG/ML Result Diagrams: 08/07/18 04:50 08/07/18 04:50 Dashawn Results Last 24 hrs: Microbiology 08/07/18 05:40 Influenza Type A Antigen Screen - Final Nasopharyngeal Swab NEGATIVE INFLUENZA A VIRUS AG Influenza Type B Antigen Screen - Final NEGATIVE INFLUENZA B VIRUS AG *Q Meaningful Use (ADM) - VTE Risk Assess *Q Each Risk Factor Represents 1 Point: Abnormal Pulmonary Function (COPD) Total Score 1 Point Risk Factors: 1 Each Risk Factor Represents 2 Points: None Total Score 2 Point Risk Factors: 0 Each Risk Factor Represents 3 Points: Age 75 Years or Greater Total Score 3 Point Risk Factors: 3 Each Risk Factor Represents 5 Points: None Total Score 5 Point Risk Factors: 0 Venous Thromboembolism Risk Factor Score *Q: 4 - Problem List (1) COPD exacerbation SNOMED Code(s): 950893631 ICD Code: J44.1 - CHRONIC OBSTRUCTIVE PULMONARY DISEASE W (ACUTE) EXACERBATION Status: Acute Current Visit: Yes (2) Oxygen dependent SNOMED Code(s): 342733565312 ICD Code: Z99.81 - DEPENDENCE ON SUPPLEMENTAL OXYGEN Status: Chronic Current Visit: No (3) Prolonged QT syndrome SNOMED Code(s): 8364294 ICD Code: I45.81 - LONG QT SYNDROME Status: Chronic Current Visit: No Problem List Initiated/Reviewed/Updated: Yes Orders Last 24hrs: Active Orders 24 hr Category Date Time Status Patient Status [ADT] Stat ADT 08/07/18 05:54 Active Cardiac Monitoring [RC] . DIRECTED Care 08/07/18 04:45 Active EKG Documentation Completion [RC] STAT Care 08/07/18 04:45 Active RT Aerosol Therapy [RC] ASDIRECTED Care 08/07/18 06:56 Active RT Post Treatment Assessment [RC] Click to Edit Care 08/07/18 06:56 Active RT Pre-Treatment Assessment [RC] Click to Edit Care 08/07/18 06:56 Active Telemetry Monitoring [Cardiac Monitoring] [RC] . Care 08/07/18 06:02 Active DIRECTED Up ad Mara [RC] ASDIRECTED Care 08/07/18 06:55 Active Regular Diet [DIET] Diet 08/07/18 Breakfast Active BLOOD GAS ARTERIAL [BG] Stat Lab 08/07/18 04:45 Ordered Albuterol [Proventil Neb Soln] Med 08/07/18 06:57 Active 2.5 mg NEB Q2H PRN Albuterol/Ipratropium [DuoNeb 3.0-0.5 MG/3 ML] Med 08/07/18 10:00 Active 3 ml NEB Q4HRRT Aspirin Med 08/07/18 09:00 Active 81 mg PO DAILY Patient's Own Medication [Ptom] Med 08/07/18 09:00 Active See Dose Instructions INH BID methylPREDNISolone Sod Succ [Solu-MEDROL] Med 08/07/18 13:00 Active 60 mg IV Q8H Medication Orders Albuterol (Proventil Neb Soln) 2.5 mg NEB Q2H PRN PRN Reason: Shortness of Breath Albuterol/Ipratropium (Duoneb 3.0-0.5 Mg/3 Ml) 3 ml NEB Q4HRRT [facility] Aspirin (Aspirin) 81 mg PO DAILY [facility] Methylprednisolone Sodium Succinate (Solu-Medrol) 60 mg IV Q8H [facility] Budesonide/Formoterol 160-4.5 Mcg/Puff 6 Gm Inhaler 0 each INH BID [facility] Assessment/Plan Comment:: This 77 year old female admitted with acute exacerbation of COPD 1. COPD exacerbation: Continue Solumedrol 60 mg TID. Duonebs as per home scheduled, Q4hrs. Oxygen PRN and 2 L NC at night time. Sinus congestion and post nasal drip, will start some Flonase. Doxycycline 100 mg BID. Encourage IS and ambulation VTE prophylaxis: Lovenox Dispo: 1-2 days pending improvement
[2018-08-07] MEDS ORDERED: guaiFENesin 600 MG Tab.ER PO PRN (09:11)
[2018-08-07] MEDS ORDERED: Acetaminophen 325 MG Tab PO PRN (09:15)
[2018-08-07] MEDS: Budesonide/Formoterol 160-4.5 MCG/Puff 6 GM Inhaler INH SCH ×2 (09:40→21:29)
[2018-08-07] MEDS: Albuterol/Ipratropium 3.0-0.5 MG/3 ML Neb Soln NEB SCH ×4 (09:40→21:07)
[2018-08-07] MEDS: Enoxaparin 40 MG/0.4 ML Syringe SUBCUT SCH (10:06)
[2018-08-07] MEDS: Aspirin 81 MG Tab.Chew PO SCH (10:06)
[2018-08-07] MEDS: Fluticasone Propionate Nasal Spray 16 GM Bottle NASBOTH SCH (10:07)
[2018-08-07] MEDS: Doxycycline 100 MG Cap PO SCH ×2 (10:11→21:28)
[2018-08-07] MEDS: methylPREDNISolone Sodium Succinate 125 MG/2 ML SDV IV SCH ×2 (13:44→21:28)
[2018-08-08] MEDS: Albuterol/Ipratropium 3.0-0.5 MG/3 ML Neb Soln NEB SCH ×6 (02:39→21:06)
[2018-08-08] MEDS: methylPREDNISolone Sodium Succinate 125 MG/2 ML SDV IV SCH (05:12)
[2018-08-08] MEDS: Omeprazole 20 MG Cap.CR PO SCH (06:37)
--- NOTE | 2018-08-08 09:04 | PCM.PN ---
- General Info Date of Service: 08/08/18 Admission Dx/Problem (Free Text): Admission Diagnosis/Problem Admission Diagnosis/Problem Chronic obstructive pulmonary disease Subjective Update: Feeling slightly improved today. Reports still feeling tight and having productive cough. No chest pain. Dyspnea improved. Functional Status: Reports: Pain Controlled, Tolerating Diet, Ambulating, Urinating - Review of Systems General: Reports: No Symptoms. Denies: Fever, Weakness, Fatigue, Malaise Pulmonary: Reports: Shortness of Breath, Cough, Sputum (clear to white), Wheezing (tight feeling). Denies: Hemoptysis Cardiovascular: Reports: No Symptoms. Denies: Chest Pain, Palpitations, Edema Gastrointestinal: Reports: No Symptoms. Denies: Abdominal Pain, Nausea, Vomiting Genitourinary: Reports: No Symptoms. Denies: Dysuria, Frequency, Burning Musculoskeletal: Reports: No Symptoms Skin: Reports: No Symptoms Neurological: Reports: No Symptoms Psychiatric: Reports: No Symptoms - Patient Data Vitals - Most Recent: Last Vital Signs Temp 98.7 F 08/08/18 07:00 Pulse 86 08/08/18 07:00 Resp 17 08/08/18 07:00 BP 140/78 08/08/18 07:00 Pulse Ox 96 08/08/18 07:00 Weight - Most Recent: 58.769 kg I&O - Last 24 Hours: Intake & Output 08/07/18 08/08/18 08/08/18 22:59 06:59 14:59 Intake Total 618 600 Output Total 500 850 Balance 118 -250 Dashawn Results Last 24 Hours: Microbiology 08/07/18 05:40 Influenza Type A Antigen Screen - Final Nasopharyngeal Swab NEGATIVE INFLUENZA A VIRUS AG Influenza Type B Antigen Screen - Final NEGATIVE INFLUENZA B VIRUS AG Med Orders - Current: Current Medications Acetaminophen (Tylenol) 650 mg PO Q4H PRN PRN Reason: Pain (mild 1-3) Albuterol (Proventil Neb Soln) 2.5 mg NEB Q2H PRN PRN Reason: Shortness of Breath Albuterol/Ipratropium (Duoneb 3.0-0.5 Mg/3 Ml) 3 ml NEB Q4HRRT [facility] Last Admin: 08/08/18 06:06 Dose: 3 ml Aspirin (Aspirin) 81 mg PO DAILY [facility] Last Admin: 08/07/18 10:06 Dose: 81 mg Doxycycline Hyclate (Vibramycin) 100 mg PO BID [facility] Last Admin: 08/07/18 21:28 Dose: 100 mg Enoxaparin Sodium (Lovenox) 40 mg SUBCUT Q24H [facility] Last Admin: 08/07/18 10:06 Dose: 40 mg Fluticasone Propionate (Flonase) 0 gm NASBOTH DAILY [facility] Last Admin: 08/07/18 10:07 Dose: Not Given Guaifenesin (Mucinex) 600 mg PO BID PRN PRN Reason: Cough Omeprazole (Omeprazole) 20 mg PO DAILY@0730 [facility] Last Admin: 08/08/18 06:37 Dose: 20 mg Budesonide/Formoterol 160-4.5 Mcg/Puff 6 Gm Inhaler 0 each INH BID [facility] Last Admin: 08/07/18 21:29 Dose: Not Given Prednisone (Prednisone) 60 mg PO WITHBREAKFAST [facility] Discontinued Medications Methylprednisolone Sodium Succinate (Solu-Medrol) 125 mg IVPUSH ONETIME ONE Stop: 08/07/18 04:46 Last Admin: 08/07/18 05:02 Dose: 125 mg Methylprednisolone Sodium Succinate (Solu-Medrol) 60 mg IV Q8H [facility] Last Admin: 08/08/18 05:12 Dose: 60 mg - Exam Quality Assessment: Supplemental Oxygen (intermittently and at noc), DVT Prophylaxis General: Alert, Oriented, Cooperative, No Acute Distress Neck: Supple Lungs: Normal Respiratory Effort, Rhonchi (throughout), Wheezing Cardiovascular: Regular Rate, Regular Rhythm GI/Abdominal Exam: Normal Bowel Sounds, Soft, Non-Tender, No Organomegaly Extremities: Normal Inspection, Normal Range of Motion, No Pedal Edema Neurological: No New Focal Deficit Psy/Mental Status: Alert, Normal Affect, Normal Mood - Problem List & Annotations (1) COPD exacerbation SNOMED Code(s): 171630375 Code(s): J44.1 - CHRONIC OBSTRUCTIVE PULMONARY DISEASE W (ACUTE) EXACERBATION Status: Acute Current Visit: Yes (2) Oxygen dependent SNOMED Code(s): 302434566701 Code(s): Z99.81 - DEPENDENCE ON SUPPLEMENTAL OXYGEN Status: Chronic Current Visit: No (3) Prolonged QT syndrome SNOMED Code(s): 3200988 Code(s): I45.81 - LONG QT SYNDROME Status: Chronic Current Visit: No - Problem List Review Problem List Initiated/Reviewed/Updated: Yes - My Orders Last 24 Hours: My Active Orders 08/07/18 09:11 guaiFENesin [Mucinex] 600 mg PO BID PRN 08/07/18 09:15 Oxygen Therapy [RC] PRN Up to Chair [RC] ASDIRECTED VTE/DVT Education [RC] PER UNIT ROUTINE Vital Signs [RC] Q4H Acetaminophen [Tylenol] 650 mg PO Q4H PRN Fluticasone Propionate [Flonase] See Dose Instructions NASBOTH DAILY Resuscitation Status Routine 08/07/18 09:17 Science Consultant Discontinue [Cardiac Monitoring Discontinue] [RC] Click to Edit 08/07/18 09:30 Enoxaparin [Lovenox] 40 mg SUBCUT Q24H 08/07/18 10:15 Doxycycline [Vibramycin] 100 mg PO BID 08/08/18 07:30 Omeprazole 20 mg PO DAILY@0730 08/09/18 08:00 predniSONE 60 mg PO WITHBREAKFAST - Plan Plan:: This 77 year old female admitted with acute exacerbation of COPD 1. COPD exacerbation: Improving. Discontinue Solumedrol 60 mg TID, Prednisone 60 mg daily starting today. Duonebs Q4hrs. Oxygen PRN and 2 L NC at night time. Doxycycline 100 mg BID. Encourage IS and ambulation. Will Give 3 doses of Mucomyst today for congestion. Flutter valve per RT. VTE prophylaxis: Lovenox Dispo: 1-2 days pending improvement For follow up with PCP, would consider possible ECHO due to night wakings with dyspnea and wheezing. May also consider sleep study to evaluate for sleep apnea component.
[2018-08-08] MEDS: Fluticasone Propionate Nasal Spray 16 GM Bottle NASBOTH SCH (09:14)
[2018-08-08] MEDS: Enoxaparin 40 MG/0.4 ML Syringe SUBCUT SCH (09:14)
[2018-08-08] MEDS: Aspirin 81 MG Tab.Chew PO SCH (09:15)
[2018-08-08] MEDS: Doxycycline 100 MG Cap PO SCH ×2 (09:15→20:54)
[2018-08-08] MEDS: Budesonide/Formoterol 160-4.5 MCG/Puff 6 GM Inhaler INH SCH ×2 (09:15→21:23)
[2018-08-08] MEDS: Acetylcysteine 20% 200 MG/ML 10 ML Nebulizer Soln SDV NEB SCH ×2 (10:29→17:55)
[2018-08-09] MEDS: Albuterol/Ipratropium 3.0-0.5 MG/3 ML Neb Soln NEB SCH ×3 (01:39→09:28)
[2018-08-09] MEDS: Omeprazole 20 MG Cap.CR PO SCH (06:32)
[2018-08-09] MEDS ORDERED: predniSONE 20 MG Tab PO SCH (08:00)
[2018-08-09] MEDS: Doxycycline 100 MG Cap PO SCH (08:12)
[2018-08-09] MEDS: Aspirin 81 MG Tab.Chew PO SCH (08:13)
[2018-08-09] MEDS: Fluticasone Propionate Nasal Spray 16 GM Bottle NASBOTH SCH (08:18)
--- NOTE | 2018-08-09 08:50 | PCM.DCSUM1 ---
Discharge Summary - Hospital Course Free Text/Narrative:: Admitted for COPD exacerbation. Diagnosis: Stroke: No - Discharge Data Discharge Date: 08/09/18 Discharge Disposition: Home, Self-Care 01 Condition: Fair - Patient Summary/Data Hospital Course: The patient is a 77-year-old lady who has a past medical history of COPD, oxygen dependence at night presented to the ED last night after awaking from sleep feeling very short of breath, wheezing and coughing. She reports she was doing well prior to that, maybe has felt some post nasal drip and sinus congestion. She denies fevers, headaches, or neck pain. No chest pain or nausea. No abdominal pain, diarrhea or constipation. She has been using her nebulizers and inhalers as prescribed. No obvious irritant exposures. The patient is said that her oxygenation levels have been normal during the day and she only uses oxygen at night. She has this available. The patient had been placed on doxycycline as treatment for her COPD exacerbation along with continuation of her steroids. The patient had continued to improve up to the point that she felt that she was okay to go home. The patient also had been continued on her doxycycline as Zithromax and is contraindicated with her secondary to prolonged QT syndrome. The patient has been recommended to continue with her diet as tolerated. She is also to have her activity as tolerated. The patient has been hemodynamically stable through the course of hospitalization and she has been discharged with the recommendations listed above. The patient is also to follow-up with her primary care physician. - Patient Instructions Diet: Heart Healthy Diet Activity: As Tolerated - Discharge Plan *PRESCRIPTION DRUG MONITORING PROGRAM REVIEWED*: No *COPY OF PRESCRIPTION DRUG MONITORING REPORT IN PATIENT REDDY: No Prescriptions/Med Rec: Doxycycline [Vibramycin] 100 mg PO BID #10 cap Home Medications: Home Meds Albuterol/Ipratropium [DuoNeb 3.0-0.5 MG/3 ML] 3 ml NEB Q4HRRT PRN neb MDD 4-6 times a day 09/28/17 [Rx] Budesonide/Formoterol Fumarate [Symbicort 80-4.5 Mcg Inhaler] 2 inh IH DAILY [History] Albuterol [Ventolin HFA] 1 puff PO Q6HR 04/16/18 [History] Aspirin 81 mg PO DAILY #30 tab.chew 04/18/18 [Rx] predniSONE 40 mg PO WITHBREAKFAST #6 tab 07/02/18 [Rx] predniSONE [Prednisone] 20 mg PO DAILY #5 tablet 07/21/18 [Rx] Doxycycline [Vibramycin] 100 mg PO BID #10 cap 08/09/18 [Rx] Oxygen Therapy Mode: Room Air Patient Handouts: Chronic Obstructive Pulmonary Disease Exacerbation, Easy-to- Read, Long QT Syndrome, Doxycycline tablets or capsules Referrals: Tamanna Sanchez NP [Ordering Only Provider] - 08/20/18 3:00 pm - Discharge Summary/Plan Comment DC Time >30 min.: Yes - General Info Date of Service: 08/09/18 Admission Dx/Problem (Free Text: Admission Diagnosis/Problem Admission Diagnosis/Problem Chronic obstructive pulmonary disease Subjective Update: Overall, doing much better today. The patient feels that she said her baseline. She feels like she can go home safely. Functional Status: Reports: Pain Controlled - Review of Systems General: Reports: No Symptoms HEENT: Reports: No Symptoms Pulmonary: Reports: No Symptoms Cardiovascular: Reports: No Symptoms Gastrointestinal: Reports: No Symptoms Genitourinary: Reports: No Symptoms Musculoskeletal: Reports: No Symptoms Skin: Reports: No Symptoms Neurological: Reports: No Symptoms Psychiatric: Reports: No Symptoms - Patient Data Vitals - Most Recent: Last Vital Signs Temp 36.8 C 08/09/18 04:00 Pulse 66 08/09/18 04:00 Resp 19 08/09/18 04:00 BP 115/55 L 08/09/18 04:00 Pulse Ox 98 08/09/18 04:00 Weight - Most Recent: 58.769 kg I&O - Last 24 hours: Intake & Output 08/08/18 08/09/18 08/09/18 22:59 06:59 14:59 Intake Total 1451 745 Output Total 1000 500 Balance 451 245 Med Orders - Current: Current Medications Acetaminophen (Tylenol) 650 mg PO Q4H PRN PRN Reason: Pain (mild 1-3) Albuterol (Proventil Neb Soln) 2.5 mg NEB Q2H PRN PRN Reason: Shortness of Breath Albuterol/Ipratropium (Duoneb 3.0-0.5 Mg/3 Ml) 3 ml NEB Q4HRRT [facility] Last Admin: 08/09/18 06:08 Dose: 3 ml Aspirin (Aspirin) 81 mg PO DAILY [facility] Last Admin: 08/09/18 08:13 Dose: 81 mg Doxycycline Hyclate (Vibramycin) 100 mg PO BID [facility] Last Admin: 08/09/18 08:12 Dose: 100 mg Enoxaparin Sodium (Lovenox) 40 mg SUBCUT Q24H [facility] Last Admin: 08/08/18 09:14 Dose: 40 mg Fluticasone Propionate (Flonase) 0 gm NASBOTH DAILY [facility] Last Admin: 08/09/18 08:18 Dose: 1 spray Guaifenesin (Mucinex) 600 mg PO BID PRN PRN Reason: Cough Last Admin: 08/08/18 15:27 Dose: 600 mg Omeprazole (Omeprazole) 20 mg PO DAILY@0730 [facility] Last Admin: 08/09/18 06:32 Dose: 20 mg Budesonide/Formoterol 160-4.5 Mcg/Puff 6 Gm Inhaler 0 each INH BID [facility] Last Admin: 08/08/18 21:23 Dose: Not Given Prednisone (Prednisone) 60 mg PO WITHBREAKFAST [facility] Last Admin: 08/09/18 08:12 Dose: 60 mg Discontinued Medications Acetylcysteine (Mucomyst 20%) 600 mg NEB 1000,1600,2200 [facility] Stop: 08/08/18 22:01 Last Admin: 08/08/18 17:55 Dose: 600 mg Methylprednisolone Sodium Succinate (Solu-Medrol) 125 mg IVPUSH ONETIME ONE Stop: 08/07/18 04:46 Last Admin: 08/07/18 05:02 Dose: 125 mg Methylprednisolone Sodium Succinate (Solu-Medrol) 60 mg IV Q8H [facility] Last Admin: 08/08/18 05:12 Dose: 60 mg - Exam Quality Assessment: Denies: Supplemental Oxygen General: Reports: Alert, Oriented, Cooperative, No Acute Distress HEENT: Reports: Pupils Equal, Pupils Reactive, EOMI, Mucous Membr. Moist/[place] Neck: Reports: Supple, Trachea Midline Lungs: Reports: Clear to Auscultation, Normal Respiratory Effort Cardiovascular: Reports: Regular Rate, Regular Rhythm GI/Abdominal Exam: Normal Bowel Sounds, Soft, Non-Tender (Female) Exam: Deferred Rectal (Female) Exam: Deferred Back Exam: Reports: Normal Inspection, Full Range of Motion Extremities: Normal Inspection, Normal Range of Motion, No Pedal Edema Skin: Reports: Warm, Dry, Intact Neurological: Reports: No New Focal Deficit Psy/Mental Status: Reports: Alert, Normal Affect, Normal Mood
[2018-08-09] MEDS: Enoxaparin 40 MG/0.4 ML Syringe SUBCUT SCH (09:11)
[2018-08-09 10:14] VITALS: BP 114/58
== END 2018-08-09 10:30 | disposition home or self-care (01) ==
LOC: MW.ED 04:32 → MW.MS 05:54
PROVIDERS: ADMIT Internal Medicine; ATTEND Internal Medicine
DX: J44.1 Chronic obstructive pulmonary disease with (acute) exacerbation (principal); I45.81 Long QT syndrome; M19.90 Unspecified osteoarthritis, unspecified site; Z99.81 Dependence on supplemental oxygen; Z79.82 Long term (current) use of aspirin; Z79.899 Other long term (current) drug therapy; Z88.0 Allergy status to penicillin; Z91.048 Other nonmedicinal substance allergy status; Z88.8 Allergy status to other drugs, medicaments and biological substances; Z87.891 Personal history of nicotine dependence
CPT/HCPCS: 36415; 71045; 80048; 83880; 84484; 85025; 85610; 87804; 93005; 94640; 96374; 99285; A9270; J1650; J2930; 96372; 96376; 99283; G0378; J7620-GY

== ENCOUNTER 2018-09-03 01:50 | Observation (INO) | payer MEDICARE, BC ==
[2018-09-03] MEDS ORDERED: Sodium Chloride 0.9% 10 ML Syringe FLUSH PRN (02:02)
[2018-09-03] MEDS ORDERED: methylPREDNISolone Sodium Succinate 125 MG/2 ML SDV IVPUSH ONE (02:07)
--- NOTE | 2018-09-03 02:11 | EDM.PDOC ---
ED HPI GENERAL MEDICAL PROBLEM - General Chief Complaint: Respiratory Problem Stated Complaint: SHORTNESS OF BREATH Time Seen by Provider: 09/03/18 04:59 - History of Present Illness INITIAL COMMENTS - FREE TEXT/NARRATIVE: HISTORY AND PHYSICAL: History of present illness: Patient is a 77-year-old female with history of COPD who presents with a concern of shortness of breath worse tonight patient is well-known to the emergency department here many times for COPD exacerbation she denies fever chills chest pain nausea vomiting or other complaints patient presents by EMS who did give patient a albuterol ipratropium nebulizer en route Review of systems: As per history of present illness and below otherwise all systems reviewed and negative. Past medical history: As per history of present illness and as reviewed below otherwise noncontributory. Surgical history: As per history of present illness and as reviewed below otherwise noncontributory. Social history: No reported history of drug or alcohol abuse. Family history: As per history of present illness and as reviewed below otherwise noncontributory. Physical exam: HEENT: Atraumatic, normocephalic, pupils reactive, negative for conjunctival pallor or scleral icterus, mucous membranes moist, throat clear, neck supple, nontender, trachea midline. Lungs: Coarse bilaterally with scattered and expiratory wheezing diminished, breath sounds equal bilaterally, chest nontender. Heart: S1S2, regular, negative for clicks, rubs, or JVD. Abdomen: Soft, nondistended, nontender. Negative for masses or hepatosplenomegaly. Negative for costovertebral tenderness. Pelvis: Stable nontender. Genitourinary: Deferred. Rectal: Deferred. Extremities: Atraumatic, negative for cords or calf pain. Neurovascular unremarkable. Neuro: Awake, alert, oriented. Cranial nerves II through XII unremarkable. Cerebellum unremarkable. Motor and sensory unremarkable throughout. Exam nonfocal. Diagnostics: CBC CMP troponin PT/INR chest x-ray EKG influenza screen Therapeutics: IV O2 monitor Solu-Medrol 125 mg IV Impression: #1 acute dyspnea #2 COPD with acute exacerbation Definitive disposition and diagnosis as appropriate pending reevaluation and review of above. - Related Data Allergies Allergy/AdvReac Type Severity Reaction Status Date / Time adhesive tape Allergy Blisters Verified 09/03/18 01:54 Penicillins Allergy Anaphylactic Verified 09/03/18 01:54 Shock phenylbutazone Allergy Cannot Verified 09/03/18 01:54 [From Butazolidin] Remember Home Meds: Home Meds Albuterol/Ipratropium [DuoNeb 3.0-0.5 MG/3 ML] 3 ml NEB Q4HRRT PRN neb MDD 4-6 times a day 09/28/17 [Rx] Albuterol [Ventolin HFA] 1 puff PO Q6HR 04/16/18 [History] Aspirin 81 mg PO DAILY #30 tab.chew 04/18/18 [Rx] Budesonide/Formoterol Fumarate [Symbicort 80-4.5 Mcg Inhaler] 2 puff IH BID [History] Past Medical History - Past Health History Medical/Surgical History: Denies Medical/Surgical History HEENT History: Reports: Cataract Other HEENT History: wears glasses, upper and lower dentures Cardiovascular History: Reports: Other (See Below) Other Cardiovascular History: pt states long QT syndrome Respiratory History: Reports: Asthma, COPD Other Respiratory History: at home on o2 @2LPM using at night Gastrointestinal History: Reports: None Genitourinary History: Reports: None, Other (See Below) Other Genitourinary History: growth removed from bladder 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 - Infectious Disease History Infectious Disease History: Reports: Chicken Pox, Measles, Mumps, Shingles - Past Surgical History Head Surgeries/Procedures: Reports: None HEENT Surgical History: Reports: Tonsillectomy Respiratory Surgical History: Reports: None GI Surgical History: Reports: Appendectomy Musculoskeletal Surgical History: Reports: Carpal Tunnel Dermatological Surgical History: Reports: Other (See Below) Social & Family History - Family History Family Medical History: Noncontributory HEENT: Reports: None Cardiac: Reports: Hypertension, Other (See Below) Other Cardiac Family History: long QT syndrome Respiratory: Reports: COPD Other Respiratory Family Hisory: brother OBGYN: Reports: Endocrine/Metabolic: Reports: Diabetes, Type I Other Endocrine/Metabolic Family History: Grandmother Oncologic: Reports: Skin Other Oncologic Family History: brother - Tobacco Use Smoking Status *Q: Former Smoker Used Tobacco, but Quit: Yes Month/Year Tobacco Last Used: 2017 - Caffeine Use Caffeine Use: Reports: Coffee, Soda - Recreational Drug Use Recreational Drug Use: No - Living Situation & Occupation Living situation: Reports: Occupation: Employed ED ROS GENERAL - Review of Systems Review Of Systems: ROS reveals no pertinent complaints other than HPI. ED EXAM, GENERAL - Physical Exam Exam: See Below (dictation) Course - Vital Signs Last Recorded V/S: Last Vital Signs Temp 36.6 C 09/03/18 01:51 Pulse 99 09/03/18 01:51 Resp 28 H 09/03/18 01:51 BP 160/99 H 09/03/18 01:51 Pulse Ox 93 L 09/03/18 01:51 - Orders/Labs/Meds Orders: Active Orders 24 hr Category Date Time Status EKG Documentation Completion [RC] STAT Care 09/03/18 02:02 Active RT Aerosol Therapy [RC] ASDIRECTED Care 09/03/18 03:33 Active Sodium Chloride 0.9% [Saline Flush] Med 09/03/18 02:02 Active 10 ml FLUSH ASDIRECTED PRN Peripheral IV Insertion Adult [OM.PC] Stat Oth 09/03/18 02:02 Ordered Medication Orders Sodium Chloride (Saline Flush) 10 ml FLUSH ASDIRECTED PRN PRN Reason: Keep Vein Open Last Admin: 09/03/18 02:34 Dose: 10 ml Labs: Laboratory Tests 09/03/18 09/03/18 09/03/18 Range/Units 02:12 02:12 02:12 WBC 9.37 (4.0-11.0) K/uL RBC 4.74 (4.30-5.90) M/uL Hgb 14.5 (12.0-16.0) g/dL Hct 42.6 (36.0-46.0) % MCV 89.9 (80.0-98.0) fL MCH 30.6 (27.0-32.0) pg MCHC 34.0 (31.0-37.0) g/dL RDW Std Deviation 43.2 (28.0-62.0) fl RDW Coeff of Nam 13 (11.0-15.0) % Plt Count 208 (150-400) K/uL MPV 9.70 (7.40-12.00) fL Add Manual Diff YES Neutrophils % (Manual) 47 L (48.0-80.0) % Lymphocytes % (Manual) 26 (16.0-40.0) % Monocytes % (Manual) 5 (0.0-15.0) % Eosinophils % (Manual) 22 H (0.0-7.0) % Nucleated RBC % 0.0 /100WBC Absolute Seg Neuts 4.4 (1.4-5.7) Lymphocytes # (Manual) 2.4 (0.6-2.4) Monocytes # (Manual) 0.5 (0.0-0.8) Eosinophils # (Manual) 2.1 H (0.0-0.7) Nucleated RBCs # 0 K/uL INR 0.95 Sodium 144 (136-145) mmol/L Potassium 3.5 (3.5-5.1) mmol/L Chloride 106 (98-107) mmol/L Carbon Dioxide 29.3 (21.0-32.0) mmol/L BUN 8 (7.0-18.0) mg/dL Creatinine 0.8 (0.6-1.0) mg/dL Est Cr Clr Drug Dosing 54.67 mL/min Estimated GFR (MDRD) > 60.0 ml/min Glucose 115 H (74-106) mg/dL Calcium 8.9 (8.5-10.1) mg/dL Total Bilirubin 0.4 (0.2-1.0) mg/dL AST 16 (15-37) IU/L ALT 22 (14-63) IU/L Alkaline Phosphatase 76 (46-116) U/L Troponin I < 0.050 (0.000-0.056) ng/mL Total Protein 6.5 (6.4-8.2) g/dL Albumin 3.6 (3.4-5.0) g/dL Globulin 2.9 (2.6-4.0) g/dL Albumin/Globulin Ratio 1.2 (0.9-1.6) Urine Color Urine Appearance Urine pH (5.0-8.0) Ur Specific [place] (1.001-1.035) Urine Protein (NEGATIVE) mg/dL Urine Glucose (UA) (NEGATIVE) mg/dL Urine Ketones (NEGATIVE) mg/dL Urine Occult Blood (NEGATIVE) Urine Nitrite (NEGATIVE) Urine Bilirubin (NEGATIVE) Urine Urobilinogen (<2.0) EU/dL Ur Leukocyte Esterase (NEGATIVE) Urine RBC (0-2/HPF) Urine WBC (0-5/HPF) Ur Epithelial Cells (NONE-FEW) Urine Bacteria (NEGATIVE) Urine Mucus (NONE-MOD) 09/03/18 Range/Units 02:37 WBC (4.0-11.0) K/uL RBC (4.30-5.90) M/uL Hgb (12.0-16.0) g/dL Hct (36.0-46.0) % MCV (80.0-98.0) fL MCH (27.0-32.0) pg MCHC (31.0-37.0) g/dL RDW Std Deviation (28.0-62.0) fl RDW Coeff of Nam (11.0-15.0) % Plt Count (150-400) K/uL MPV (7.40-12.00) fL Add Manual Diff Neutrophils % (Manual) (48.0-80.0) % Lymphocytes % (Manual) (16.0-40.0) % Monocytes % (Manual) (0.0-15.0) % Eosinophils % (Manual) (0.0-7.0) % Nucleated RBC % /100WBC Absolute Seg Neuts (1.4-5.7) Lymphocytes # (Manual) (0.6-2.4) Monocytes # (Manual) (0.0-0.8) Eosinophils # (Manual) (0.0-0.7) Nucleated RBCs # K/uL INR Sodium (136-145) mmol/L Potassium (3.5-5.1) mmol/L Chloride (98-107) mmol/L Carbon Dioxide (21.0-32.0) mmol/L BUN (7.0-18.0) mg/dL Creatinine (0.6-1.0) mg/dL Est Cr Clr Drug Dosing mL/min Estimated GFR (MDRD) ml/min Glucose (74-106) mg/dL Calcium (8.5-10.1) mg/dL Total Bilirubin (0.2-1.0) mg/dL AST (15-37) IU/L ALT (14-63) IU/L Alkaline Phosphatase (46-116) U/L Troponin I (0.000-0.056) ng/mL Total Protein (6.4-8.2) g/dL Albumin (3.4-5.0) g/dL Globulin (2.6-4.0) g/dL Albumin/Globulin Ratio (0.9-1.6) Urine Color YELLOW Urine Appearance SLT CLOUDY Urine pH 6.0 (5.0-8.0) Ur Specific [place] 1.025 (1.001-1.035) Urine Protein 30 H (NEGATIVE) mg/dL Urine Glucose (UA) NEGATIVE (NEGATIVE) mg/dL Urine Ketones NEGATIVE (NEGATIVE) mg/dL Urine Occult Blood MODERATE H (NEGATIVE) Urine Nitrite NEGATIVE (NEGATIVE) Urine Bilirubin NEGATIVE (NEGATIVE) Urine Urobilinogen 0.2 (<2.0) EU/dL Ur Leukocyte Esterase NEGATIVE (NEGATIVE) Urine RBC 7-10 (0-2/HPF) Urine WBC 0-2 (0-5/HPF) Ur Epithelial Cells FEW (NONE-FEW) Urine Bacteria RARE (NEGATIVE) Urine Mucus MODERATE (NONE-MOD) Meds: Medications Generic Name Dose Route Start Last Admin Trade Name Freq PRN Reason Stop Dose Admin Sodium Chloride 10 ml 09/03/18 02:02 09/03/18 02:34 Saline Flush FLUSH 10 ml ASDIRECTED PRN Administration Keep Vein Open Discontinued Medications Generic Name Dose Route Start Last Admin Trade Name Freq PRN Reason Stop Dose Admin Albuterol/Ipratropium 3 ml 09/03/18 03:33 09/03/18 03:47 Duoneb 3.0-0.5 Mg/3 Ml NEB 09/03/18 03:34 3 ml ONETIME ONE Administration Methylprednisolone Sodium Succinate 125 mg 09/03/18 02:07 09/03/18 02:34 Solu-Medrol IVPUSH 09/03/18 02:08 125 mg ONETIME ONE Administration Departure - Departure Time of Disposition: 04:59 Disposition: Home, Self-Care 01 Condition: Good Clinical Impression: COPD exacerbation - Discharge Information Forms: ED Department Discharge - My Orders Last 24 Hours: My Active Orders 09/03/18 02:02 EKG Documentation Completion [RC] STAT Sodium Chloride 0.9% [Saline Flush] 10 ml FLUSH ASDIRECTED PRN Peripheral IV Insertion Adult [OM.PC] Stat 09/03/18 03:33 RT Aerosol Therapy [RC] ASDIRECTED - Assessment/Plan Last 24 Hours: My Active Orders 09/03/18 02:02 EKG Documentation Completion [RC] STAT Sodium Chloride 0.9% [Saline Flush] 10 ml FLUSH ASDIRECTED PRN Peripheral IV Insertion Adult [OM.PC] Stat 09/03/18 03:33 RT Aerosol Therapy [RC] ASDIRECTED
--- NOTE | 2018-09-03 02:35 | CR ---
INDICATION: Chest pain and shortness of breath COMPARISON: 08/07/2018 FINDINGS: An erect single view of the chest was obtained at 0200 hours. There is no change in blunting of the left costophrenic angle from previous inflammatory disease. There is no change in mild linear density in the left lateral lower lung, probably scarring from previous inflammatory disease. There is no change in mild bilateral apical pleural thickening. A few small calcified granulomata are again seen in the right lower and left upper lung. There are no new areas of infiltrate or effusion. The heart remains normal in size. The mediastinum is normal in appearance. The osseous structures are normal in appearance for the patient`s age. IMPRESSION: No active disease seen in the chest. Stable chronic changes as described above. Dictated by Chandu Do MD @ Sep 03 2018 2:32AM Signed by Dr. Chandu Do @ Sep 03 2018 2:34AM
[2018-09-03 02:41] LABS: CHLORIDE,CL 106 mmol/L (98-107); SODIUM,NA 144 mmol/L (136-145)
[2018-09-03] MEDS ORDERED: Albuterol/Ipratropium 3.0-0.5 MG/3 ML Neb Soln NEB ONE (03:33)
[2018-09-03] MEDS ORDERED: Acetaminophen 325 MG Tab PO PRN (06:12)
[2018-09-03] MEDS ORDERED: Docusate Sodium 100 MG Cap PO PRN (06:12)
[2018-09-03] MEDS ORDERED: Ondansetron 4 MG Tab.DIS PO PRN (06:12)
[2018-09-03] MEDS ORDERED: oxyCODONE 5 MG Tab PO PRN (06:12)
[2018-09-03] MEDS ORDERED: Albuterol/Ipratropium 3.0-0.5 MG/3 ML Neb Soln NEB PRN (06:12)
[2018-09-03] MEDS ORDERED: Temazepam 15 MG Cap PO PRN (06:12)
[2018-09-03] MEDS ORDERED: Azithromycin 500 MG in Sodium Chloride 0.9% 250 ML IV SCH (06:15)
[2018-09-03] MEDS: Enoxaparin 40 MG/0.4 ML Syringe SUBCUT SCH (08:03)
--- NOTE | 2018-09-03 08:59 | PCM.HP ---
<Sana Alan - Last Filed: 09/03/18 08:59> H&P History of Present Illness - General Date of Service: 09/03/18 Admit Problem/Dx: Admission Diagnosis/Problem Admission Diagnosis/Problem COPD, Moderate chronic obstructive pulmonary disease - History of Present Illness Initial Comments - Free Text/Narative: The patient is a 77 year old female with past medical history of COPD and multiple hospitaliziation for COPD exacerbations who presented to the ER with increased shortness of breath starting yesterday. She reports, she was at work and was in a work truck where someone had been smoking and her breathing got worse after that. She tried using her neb treatments but got no relief. She reports she has been using her inhalers as prescribed. She reports associated cough but no fever/chills, nausea/vomiting, chest pain, or abdominal pain. She is on 3L of O2 at home but only at night. In the ER, work up showed no WBC, kidney function within normal limits, negative trop, UA negative for infection, and negative influenza. CXR showed chronic changes but nothing acute. She was given DuoNeb and dose of IV steroids in the ER. - Related Data Allergies/Adverse Reactions: Allergies Allergy/AdvReac Type Severity Reaction Status Date / Time adhesive tape Allergy Blisters Verified 09/03/18 01:54 Penicillins Allergy Anaphylactic Verified 09/03/18 01:54 Shock phenylbutazone Allergy Cannot Verified 09/03/18 01:54 [From Butazolidin] Remember Home Medications: Home Meds Albuterol/Ipratropium [DuoNeb 3.0-0.5 MG/3 ML] 3 ml NEB Q4HRRT PRN neb MDD 4-6 times a day 09/28/17 [Rx] Albuterol [Ventolin HFA] 1 puff PO Q6HR 04/16/18 [History] Aspirin 81 mg PO DAILY #30 tab.chew 04/18/18 [Rx] Budesonide/Formoterol Fumarate [Symbicort 80-4.5 Mcg Inhaler] 2 puff IH BID [History] Past Medical History - Past Health History Medical/Surgical History: Denies Medical/Surgical History HEENT History: Reports: Cataract Other HEENT History: wears glasses, upper and lower dentures Cardiovascular History: Reports: Other (See Below) Other Cardiovascular History: pt states long QT syndrome Respiratory History: Reports: Asthma, COPD Other Respiratory History: at home on o2 @2LPM using at night Gastrointestinal History: Reports: None Genitourinary History: Reports: None, Other (See Below) Other Genitourinary History: growth removed from bladder [employer] History: Reports: , 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 - Infectious Disease History Infectious Disease History: Reports: Chicken Pox, Measles, Mumps, Shingles - Past Surgical History Head Surgeries/Procedures: Reports: None HEENT Surgical History: Reports: Tonsillectomy Respiratory Surgical History: Reports: None GI Surgical History: Reports: Appendectomy Musculoskeletal Surgical History: Reports: Carpal Tunnel Dermatological Surgical History: Reports: Other (See Below) Social & Family History - Family History Family Medical History: Noncontributory HEENT: Reports: None Cardiac: Reports: Hypertension, Other (See Below) Other Cardiac Family History: long QT syndrome Respiratory: Reports: COPD Other Respiratory Family Hisory: brother OBGYN: Reports: Endocrine/Metabolic: Reports: Diabetes, Type I Other Endocrine/Metabolic Family History: Grandmother Oncologic: Reports: Skin Other Oncologic Family History: brother - Tobacco Use Smoking Status *Q: Former Smoker Used Tobacco, but Quit: Yes Month/Year Tobacco Last Used: 2017 - Caffeine Use Caffeine Use: Reports: Coffee, Soda - Recreational Drug Use Recreational Drug Use: No - Living Situation & Occupation Living situation: Reports: Occupation: Employed H&P Review of Systems - Review of Systems: Review Of Systems: See Below General: Reports: No Symptoms HEENT: Reports: No Symptoms Pulmonary: Reports: Shortness of Breath, Cough Cardiovascular: Reports: No Symptoms Gastrointestinal: Reports: No Symptoms Genitourinary: Reports: No Symptoms Musculoskeletal: Reports: No Symptoms Skin: Reports: No Symptoms Psychiatric: Reports: No Symptoms Neurological: Reports: No Symptoms Hematologic/Lymphatic: Reports: No Symptoms Immunologic: Reports: No Symptoms Exam - Exam Exam: See Below - Vital Signs Vital Signs: Last Vital Signs Temp 97.8 F 09/03/18 01:51 Pulse 93 09/03/18 07:13 Resp 20 09/03/18 07:13 BP 138/71 09/03/18 07:13 Pulse Ox 95 09/03/18 08:15 Weight: 57.8 kg - Exam Quality Assessment: Supplemental Oxygen General: Alert, Oriented, Cooperative HEENT: Conjunctiva Clear, EOMI, Mucosa Moist & Mikes, Posterior Pharynx Clear, Pupils Equal, Pupils Reactive Neck: Supple, Trachea Midline Lungs: Normal Respiratory Effort, Rhonchi, Wheezing Cardiovascular: Regular Rate, Regular Rhythm GI/Abdominal Exam: Normal Bowel Sounds, Soft, Non-Tender, No Distention Skin: Warm, Dry Neurological: Cranial Nerves Intact Neuro Extensive - Mental Status: Alert, Oriented x3 Psychiatric: Alert, Normal Affect, Normal Mood - Patient Data Lab Results Last 24 hrs: Laboratory Results - last 24 hr 09/03/18 09/03/18 09/03/18 Range/Units 02:12 02:12 02:12 WBC 9.37 (4.0-11.0) K/uL RBC 4.74 (4.30-5.90) M/uL Hgb 14.5 (12.0-16.0) g/dL Hct 42.6 (36.0-46.0) % MCV 89.9 (80.0-98.0) fL MCH 30.6 (27.0-32.0) pg MCHC 34.0 (31.0-37.0) g/dL RDW Std Deviation 43.2 (28.0-62.0) fl RDW Coeff of Nam 13 (11.0-15.0) % Plt Count 208 (150-400) K/uL MPV 9.70 (7.40-12.00) fL Add Manual Diff YES Neutrophils % (Manual) 47 L (48.0-80.0) % Lymphocytes % (Manual) 26 (16.0-40.0) % Monocytes % (Manual) 5 (0.0-15.0) % Eosinophils % (Manual) 22 H (0.0-7.0) % Nucleated RBC % 0.0 /100WBC Absolute Seg Neuts 4.4 (1.4-5.7) Lymphocytes # (Manual) 2.4 (0.6-2.4) Monocytes # (Manual) 0.5 (0.0-0.8) Eosinophils # (Manual) 2.1 H (0.0-0.7) Nucleated RBCs # 0 K/uL INR 0.95 Sodium 144 (136-145) mmol/L Potassium 3.5 (3.5-5.1) mmol/L Chloride 106 (98-107) mmol/L Carbon Dioxide 29.3 (21.0-32.0) mmol/L BUN 8 (7.0-18.0) mg/dL Creatinine 0.8 (0.6-1.0) mg/dL Est Cr Clr Drug Dosing 54.67 mL/min Estimated GFR (MDRD) > 60.0 ml/min Glucose 115 H (74-106) mg/dL Calcium 8.9 (8.5-10.1) mg/dL Total Bilirubin 0.4 (0.2-1.0) mg/dL AST 16 (15-37) IU/L ALT 22 (14-63) IU/L Alkaline Phosphatase 76 (46-116) U/L Troponin I < 0.050 (0.000-0.056) ng/mL Total Protein 6.5 (6.4-8.2) g/dL Albumin 3.6 (3.4-5.0) g/dL Globulin 2.9 (2.6-4.0) g/dL Albumin/Globulin Ratio 1.2 (0.9-1.6) Urine Color Urine Appearance Urine pH (5.0-8.0) Ur Specific [place] (1.001-1.035) Urine Protein (NEGATIVE) mg/dL Urine Glucose (UA) (NEGATIVE) mg/dL Urine Ketones (NEGATIVE) mg/dL Urine Occult Blood (NEGATIVE) Urine Nitrite (NEGATIVE) Urine Bilirubin (NEGATIVE) Urine Urobilinogen (<2.0) EU/dL Ur Leukocyte Esterase (NEGATIVE) Urine RBC (0-2/HPF) Urine WBC (0-5/HPF) Ur Epithelial Cells (NONE-FEW) Urine Bacteria (NEGATIVE) Urine Mucus (NONE-MOD) 09/03/18 Range/Units 02:37 WBC (4.0-11.0) K/uL RBC (4.30-5.90) M/uL Hgb (12.0-16.0) g/dL Hct (36.0-46.0) % MCV (80.0-98.0) fL MCH (27.0-32.0) pg MCHC (31.0-37.0) g/dL RDW Std Deviation (28.0-62.0) fl RDW Coeff of Nam (11.0-15.0) % Plt Count (150-400) K/uL MPV (7.40-12.00) fL Add Manual Diff Neutrophils % (Manual) (48.0-80.0) % Lymphocytes % (Manual) (16.0-40.0) % Monocytes % (Manual) (0.0-15.0) % Eosinophils % (Manual) (0.0-7.0) % Nucleated RBC % /100WBC Absolute Seg Neuts (1.4-5.7) Lymphocytes # (Manual) (0.6-2.4) Monocytes # (Manual) (0.0-0.8) Eosinophils # (Manual) (0.0-0.7) Nucleated RBCs # K/uL INR Sodium (136-145) mmol/L Potassium (3.5-5.1) mmol/L Chloride (98-107) mmol/L Carbon Dioxide (21.0-32.0) mmol/L BUN (7.0-18.0) mg/dL Creatinine (0.6-1.0) mg/dL Est Cr Clr Drug Dosing mL/min Estimated GFR (MDRD) ml/min Glucose (74-106) mg/dL Calcium (8.5-10.1) mg/dL Total Bilirubin (0.2-1.0) mg/dL AST (15-37) IU/L ALT (14-63) IU/L Alkaline Phosphatase (46-116) U/L Troponin I (0.000-0.056) ng/mL Total Protein (6.4-8.2) g/dL Albumin (3.4-5.0) g/dL Globulin (2.6-4.0) g/dL Albumin/Globulin Ratio (0.9-1.6) Urine Color YELLOW Urine Appearance SLT CLOUDY Urine pH 6.0 (5.0-8.0) Ur Specific [place] 1.025 (1.001-1.035) Urine Protein 30 H (NEGATIVE) mg/dL Urine Glucose (UA) NEGATIVE (NEGATIVE) mg/dL Urine Ketones NEGATIVE (NEGATIVE) mg/dL Urine Occult Blood MODERATE H (NEGATIVE) Urine Nitrite NEGATIVE (NEGATIVE) Urine Bilirubin NEGATIVE (NEGATIVE) Urine Urobilinogen 0.2 (<2.0) EU/dL Ur Leukocyte Esterase NEGATIVE (NEGATIVE) Urine RBC 7-10 (0-2/HPF) Urine WBC 0-2 (0-5/HPF) Ur Epithelial Cells FEW (NONE-FEW) Urine Bacteria RARE (NEGATIVE) Urine Mucus MODERATE (NONE-MOD) Result Diagrams: 09/03/18 02:12 09/03/18 02:12 Dashawn Results Last 24 hrs: Microbiology 09/03/18 02:37 Influenza Type A Antigen Screen - Final Nasopharyngeal Swab NEGATIVE INFLUENZA A VIRUS AG Influenza Type B Antigen Screen - Final NEGATIVE INFLUENZA B VIRUS AG - Problem List (1) COPD exacerbation SNOMED Code(s): 847947781 ICD Code: J44.1 - CHRONIC OBSTRUCTIVE PULMONARY DISEASE W (ACUTE) EXACERBATION Status: Acute Current Visit: Yes (2) Hypoxia SNOMED Code(s): 802793491 ICD Code: R09.02 - HYPOXEMIA Status: Acute Current Visit: No Problem List Initiated/Reviewed/Updated: Yes Orders Last 24hrs: Active Orders 24 hr Category Date Time Status Patient Status [ADT] Stat ADT 09/03/18 05:03 Active Cardiac Monitoring [RC] CONTINUOUS Care 09/03/18 06:12 Active EKG Documentation Completion [RC] STAT Care 09/03/18 02:02 Active Oxygen Therapy [RC] PRN Care 09/03/18 06:12 Active Pulse Oximetry [RC] CONTINUOUS Care 09/03/18 06:12 Active RT Aerosol Therapy [RC] ASDIRECTED Care 09/03/18 06:14 Active Telemetry Monitoring [Cardiac Monitoring] [RC] Q8H Care 09/03/18 06:12 Active Up ad Mara [RC] ASDIRECTED Care 09/03/18 06:12 Active VTE/DVT Education [RC] PER UNIT ROUTINE Care 09/03/18 06:12 Active Vital Signs [RC] Q4H Care 09/03/18 06:12 Active Heart Healthy Diet [DIET] Diet 09/03/18 Breakfast Active Acetaminophen [Tylenol] Med 09/03/18 06:12 Active 650 mg PO Q4H PRN Albuterol/Ipratropium [DuoNeb 3.0-0.5 MG/3 ML] Med 09/03/18 06:12 Active 3 ml NEB Q4HRRT PRN Azithromycin [Zithromax] 500 mg Med 09/03/18 06:15 Active Sodium Chloride 0.9% [Normal Saline] 250 ml IV Q24H Docusate Sodium [Colace] Med 09/03/18 06:12 Active 100 mg PO BID PRN Enoxaparin [Lovenox] Med 09/03/18 07:00 Active 40 mg SUBCUT Q24H Sodium Chloride 0.9% [Saline Flush] Med 09/03/18 02:02 Active 10 ml FLUSH ASDIRECTED PRN Temazepam [Restoril] Med 09/03/18 06:12 Active 15 mg PO BEDTIME PRN methylPREDNISolone Sod Succ [Solu-MEDROL] Med 09/03/18 14:00 Active 120 mg IVPUSH Q8HR oxyCODONE Med 09/03/18 06:12 Active 5 mg PO Q4H PRN Peripheral IV Insertion Adult [OM.PC] Stat Oth 09/03/18 02:02 Ordered Resuscitation Status Routine Resus Stat 09/03/18 06:12 Ordered Medication Orders Acetaminophen (Tylenol) 650 mg PO Q4H PRN PRN Reason: Pain (Mild 1-3)/fever Albuterol/Ipratropium (Duoneb 3.0-0.5 Mg/3 Ml) 3 ml NEB Q4HRRT PRN PRN Reason: Shortness Of Breath/wheezing Last Admin: 09/03/18 08:00 Dose: 3 ml Docusate Sodium (Colace) 100 mg PO BID PRN PRN Reason: Constipation Enoxaparin Sodium (Lovenox) 40 mg SUBCUT Q24H GUS Last Admin: 09/03/18 08:03 Dose: 40 mg Azithromycin 500 mg/ Sodium (Chloride) 250 mls @ 250 mls/hr IV Q24H GUS Methylprednisolone Sodium Succinate (Solu-Medrol) 120 mg IVPUSH Q8HR GUS Oxycodone HCl (Oxycodone) 5 mg PO Q4H PRN PRN Reason: Pain (moderate 4-6) Sodium Chloride (Saline Flush) 10 ml FLUSH ASDIRECTED PRN PRN Reason: Keep Vein Open Last Admin: 09/03/18 02:34 Dose: 10 ml Temazepam (Restoril) 15 mg PO BEDTIME PRN PRN Reason: Sleep Assessment/Plan Comment:: 1. Admit for observation 2. Code status- full 3. Vitals per routine 4. I/Os per routine 5. Diet- heart healthy 6. DVT with lovenox 7. Hypoxia secondary to COPD exacerbation- Will continue on duonebs and IV solumedrol. Will start on Doxycycline. <ShruthiSiva Cantu - Last Filed: 09/03/18 09:11> H&P History of Present Illness - General Admit Problem/Dx: Admission Diagnosis/Problem Admission Diagnosis/Problem COPD, Moderate chronic obstructive pulmonary disease - History of Present Illness Initial Comments - Free Text/Narative: I have examined the patient independently of Sana Alan MD, resident. I have discussed the case with her. I have reviewed and agree with the plan of care as outlined by her. Please see orders. Exam - Vital Signs Vital Signs: Last Vital Signs Temp 36.6 C 09/03/18 01:51 Pulse 93 09/03/18 07:13 Resp 20 09/03/18 07:13 BP 138/71 09/03/18 07:13 Pulse Ox 95 09/03/18 08:15 - Patient Data Lab Results Last 24 hrs: Laboratory Results - last 24 hr 09/03/18 09/03/18 09/03/18 Range/Units 02:12 02:12 02:12 WBC 9.37 (4.0-11.0) K/uL RBC 4.74 (4.30-5.90) M/uL Hgb 14.5 (12.0-16.0) g/dL Hct 42.6 (36.0-46.0) % MCV 89.9 (80.0-98.0) fL MCH 30.6 (27.0-32.0) pg MCHC 34.0 (31.0-37.0) g/dL RDW Std Deviation 43.2 (28.0-62.0) fl RDW Coeff of Nam 13 (11.0-15.0) % Plt Count 208 (150-400) K/uL MPV 9.70 (7.40-12.00) fL Add Manual Diff YES Neutrophils % (Manual) 47 L (48.0-80.0) % Lymphocytes % (Manual) 26 (16.0-40.0) % Monocytes % (Manual) 5 (0.0-15.0) % Eosinophils % (Manual) 22 H (0.0-7.0) % Nucleated RBC % 0.0 /100WBC Absolute Seg Neuts 4.4 (1.4-5.7) Lymphocytes # (Manual) 2.4 (0.6-2.4) Monocytes # (Manual) 0.5 (0.0-0.8) Eosinophils # (Manual) 2.1 H (0.0-0.7) Nucleated RBCs # 0 K/uL INR 0.95 Sodium 144 (136-145) mmol/L Potassium 3.5 (3.5-5.1) mmol/L Chloride 106 (98-107) mmol/L Carbon Dioxide 29.3 (21.0-32.0) mmol/L BUN 8 (7.0-18.0) mg/dL Creatinine 0.8 (0.6-1.0) mg/dL Est Cr Clr Drug Dosing 54.67 mL/min Estimated GFR (MDRD) > 60.0 ml/min Glucose 115 H (74-106) mg/dL Calcium 8.9 (8.5-10.1) mg/dL Total Bilirubin 0.4 (0.2-1.0) mg/dL AST 16 (15-37) IU/L ALT 22 (14-63) IU/L Alkaline Phosphatase 76 (46-116) U/L Troponin I < 0.050 (0.000-0.056) ng/mL Total Protein 6.5 (6.4-8.2) g/dL Albumin 3.6 (3.4-5.0) g/dL Globulin 2.9 (2.6-4.0) g/dL Albumin/Globulin Ratio 1.2 (0.9-1.6) Urine Color Urine Appearance Urine pH (5.0-8.0) Ur Specific [place] (1.001-1.035) Urine Protein (NEGATIVE) mg/dL Urine Glucose (UA) (NEGATIVE) mg/dL Urine Ketones (NEGATIVE) mg/dL Urine Occult Blood (NEGATIVE) Urine Nitrite (NEGATIVE) Urine Bilirubin (NEGATIVE) Urine Urobilinogen (<2.0) EU/dL Ur Leukocyte Esterase (NEGATIVE) Urine RBC (0-2/HPF) Urine WBC (0-5/HPF) Ur Epithelial Cells (NONE-FEW) Urine Bacteria (NEGATIVE) Urine Mucus (NONE-MOD) 09/03/18 Range/Units 02:37 WBC (4.0-11.0) K/uL RBC (4.30-5.90) M/uL Hgb (12.0-16.0) g/dL Hct (36.0-46.0) % MCV (80.0-98.0) fL MCH (27.0-32.0) pg MCHC (31.0-37.0) g/dL RDW Std Deviation (28.0-62.0) fl RDW Coeff of Nam (11.0-15.0) % Plt Count (150-400) K/uL MPV (7.40-12.00) fL Add Manual Diff Neutrophils % (Manual) (48.0-80.0) % Lymphocytes % (Manual) (16.0-40.0) % Monocytes % (Manual) (0.0-15.0) % Eosinophils % (Manual) (0.0-7.0) % Nucleated RBC % /100WBC Absolute Seg Neuts (1.4-5.7) Lymphocytes # (Manual) (0.6-2.4) Monocytes # (Manual) (0.0-0.8) Eosinophils # (Manual) (0.0-0.7) Nucleated RBCs # K/uL INR Sodium (136-145) mmol/L Potassium (3.5-5.1) mmol/L Chloride (98-107) mmol/L Carbon Dioxide (21.0-32.0) mmol/L BUN (7.0-18.0) mg/dL Creatinine (0.6-1.0) mg/dL Est Cr Clr Drug Dosing mL/min Estimated GFR (MDRD) ml/min Glucose (74-106) mg/dL Calcium (8.5-10.1) mg/dL Total Bilirubin (0.2-1.0) mg/dL AST (15-37) IU/L ALT (14-63) IU/L Alkaline Phosphatase (46-116) U/L Troponin I (0.000-0.056) ng/mL Total Protein (6.4-8.2) g/dL Albumin (3.4-5.0) g/dL Globulin (2.6-4.0) g/dL Albumin/Globulin Ratio (0.9-1.6) Urine Color YELLOW Urine Appearance SLT CLOUDY Urine pH 6.0 (5.0-8.0) Ur Specific [place] 1.025 (1.001-1.035) Urine Protein 30 H (NEGATIVE) mg/dL Urine Glucose (UA) NEGATIVE (NEGATIVE) mg/dL Urine Ketones NEGATIVE (NEGATIVE) mg/dL Urine Occult Blood MODERATE H (NEGATIVE) Urine Nitrite NEGATIVE (NEGATIVE) Urine Bilirubin NEGATIVE (NEGATIVE) Urine Urobilinogen 0.2 (<2.0) EU/dL Ur Leukocyte Esterase NEGATIVE (NEGATIVE) Urine RBC 7-10 (0-2/HPF) Urine WBC 0-2 (0-5/HPF) Ur Epithelial Cells FEW (NONE-FEW) Urine Bacteria RARE (NEGATIVE) Urine Mucus MODERATE (NONE-MOD) Result Diagrams: 09/03/18 02:12 09/03/18 02:12 Dashawn Results Last 24 hrs: Microbiology 09/03/18 02:37 Influenza Type A Antigen Screen - Final Nasopharyngeal Swab NEGATIVE INFLUENZA A VIRUS AG Influenza Type B Antigen Screen - Final NEGATIVE INFLUENZA B VIRUS AG Orders Last 24hrs: Active Orders 24 hr Category Date Time Status Patient Status [ADT] Stat ADT 09/03/18 05:03 Active Cardiac Monitoring [RC] CONTINUOUS Care 09/03/18 06:12 Active EKG Documentation Completion [RC] STAT Care 09/03/18 02:02 Active Oxygen Therapy [RC] PRN Care 09/03/18 06:12 Active Pulse Oximetry [RC] CONTINUOUS Care 09/03/18 06:12 Active RT Aerosol Therapy [RC] ASDIRECTED Care 09/03/18 06:14 Active Telemetry Monitoring [Cardiac Monitoring] [RC] Q8H Care 09/03/18 06:12 Active Up ad Mara [RC] ASDIRECTED Care 09/03/18 06:12 Active VTE/DVT Education [RC] PER UNIT ROUTINE Care 09/03/18 06:12 Active Vital Signs [RC] Q4H Care 09/03/18 06:12 Active Heart Healthy Diet [DIET] Diet 09/03/18 Breakfast Active Acetaminophen [Tylenol] Med 09/03/18 06:12 Active 650 mg PO Q4H PRN Albuterol/Ipratropium [DuoNeb 3.0-0.5 MG/3 ML] Med 09/03/18 10:00 Active 3 ml NEB Q4HRRT Docusate Sodium [Colace] Med 09/03/18 06:12 Active 100 mg PO BID PRN Doxycycline [Vibramycin] Med 09/03/18 09:00 Active 100 mg PO Q12HR Enoxaparin [Lovenox] Med 09/03/18 07:00 Active 40 mg SUBCUT Q24H Sodium Chloride 0.9% [Saline Flush] Med 09/03/18 02:02 Active 10 ml FLUSH ASDIRECTED PRN Temazepam [Restoril] Med 09/03/18 06:12 Active 15 mg PO BEDTIME PRN methylPREDNISolone Sod Succ [Solu-MEDROL] Med 09/03/18 14:00 Active 120 mg IVPUSH Q8HR oxyCODONE Med 09/03/18 06:12 Active 5 mg PO Q4H PRN Peripheral IV Insertion Adult [OM.PC] Stat Oth 09/03/18 02:02 Ordered Resuscitation Status Routine Resus Stat 09/03/18 06:12 Ordered Medication Orders Acetaminophen (Tylenol) 650 mg PO Q4H PRN PRN Reason: Pain (Mild 1-3)/fever Albuterol/Ipratropium (Duoneb 3.0-0.5 Mg/3 Ml) 3 ml NEB Q4HRRT GUS Docusate Sodium (Colace) 100 mg PO BID PRN PRN Reason: Constipation Doxycycline Hyclate (Vibramycin) 100 mg PO Q12HR GUS Enoxaparin Sodium (Lovenox) 40 mg SUBCUT Q24H [facility] Last Admin: 09/03/18 08:03 Dose: 40 mg Methylprednisolone Sodium Succinate (Solu-Medrol) 120 mg IVPUSH Q8HR GUS Oxycodone HCl (Oxycodone) 5 mg PO Q4H PRN PRN Reason: Pain (moderate 4-6) Sodium Chloride (Saline Flush) 10 ml FLUSH ASDIRECTED PRN PRN Reason: Keep Vein Open Last Admin: 09/03/18 02:34 Dose: 10 ml Temazepam (Restoril) 15 mg PO BEDTIME PRN PRN Reason: Sleep
[2018-09-03] MEDS: Doxycycline 100 MG Cap PO SCH ×2 (09:34→21:53)
[2018-09-03] MEDS: Albuterol/Ipratropium 3.0-0.5 MG/3 ML Neb Soln NEB SCH ×4 (10:42→21:43)
[2018-09-03] MEDS: methylPREDNISolone Sodium Succinate 125 MG/2 ML SDV IVPUSH SCH ×2 (15:09→21:43)
[2018-09-03] MEDS: Benzonatate 100 MG Cap PO PRN ×2 (17:15→23:07)
[2018-09-04] MEDS: Albuterol/Ipratropium 3.0-0.5 MG/3 ML Neb Soln NEB SCH ×6 (02:41→21:16)
[2018-09-04 05:34] LABS: CHLORIDE,CL 105 mmol/L (98-107); SODIUM,NA 142 mmol/L (136-145)
[2018-09-04] MEDS: methylPREDNISolone Sodium Succinate 125 MG/2 ML SDV IVPUSH SCH ×2 (06:44→18:08)
[2018-09-04] MEDS: Enoxaparin 40 MG/0.4 ML Syringe SUBCUT SCH (06:44)
[2018-09-04] MEDS: Doxycycline 100 MG Cap PO SCH ×2 (08:01→21:37)
[2018-09-04] MEDS: guaiFENesin 600 MG Tab.ER PO SCH ×3 (08:34→21:37)
[2018-09-04] MEDS: Benzonatate 100 MG Cap PO PRN ×2 (09:00→18:08)
[2018-09-04] MEDS ORDERED: methylPREDNISolone Sodium Succinate 125 MG/2 ML SDV IVPUSH SCH (09:30)
--- NOTE | 2018-09-04 09:31 | PCM.DCSUM1 ---
<Sana Alan - Last Filed: 09/05/18 10:49> Discharge Summary - Hospital Course Free Text/Narrative:: Admission Date: 09/03/18 Discharge Date: 09/05/18 Admission Diagnosis: 1. COPD exacerbation Discharge Diagnosis: 1. COPD exacerbation Procedures: None Consults: None Hospital Course: The patient is a 77 year old female with history of COPD with multiple admissions for COPD exacerbations who presented to the ER with increased SOB and cough after being exposed to cigarette smoke. She wears oxygen at night but not usually during the day. In the ER, workup found no white count, troponin negative, influenza negative but she was requiring 2 L of oxygen via nasal cannula. She was admitted for observation. She was treated with duonebs, IV steroids, doxycycline, and Tessalon Perles for cough. Over the course of admission, her breathing improved, she was weaned off oxygen and was satting above 90% on room air but dropped down to 86% with activity. By day of discharge she reported she felt better and wanted to go home. She will go home on portable oxygen prn and with activity as well continue on oxygen at night. Patient was comfortable with this plan Disposition: Home Discharge Condition: vitals stable, tolerating oral diet, ambulating without difficulty, satting well on room air at rest Discharge Instructions: Heart healthy diet as tolerated, activity as tolerated, oxygen therapy at night as per usual, portable oxygen prn and with activity, take medications as prescribed. Symptoms to report to physician include fever/ chills, chest pain, shortness of breath, abdominal pain, nausea/vomiting, erythema, discharge/drainage, or not improving as expected. Discharge Medications: Albuterol/Ipratropium [DuoNeb 3.0-0.5 MG/3 ML] 3 ml NEB Q4HRRT PRN neb MDD 4-6 times a day Albuterol [Ventolin HFA] 1 puff PO Q6HR Aspirin 81 mg PO DAILY #30 tab.chew Budesonide/Formoterol Fumarate [Symbicort 80-4.5 Mcg Inhaler] 2 puff IH BID Benzonatate [Tessalon Perle] 100 mg PO TID Doxycycline [Vibramycin] 100 mg PO Q12HR 4 days #8 predniSONE [Prednisone] 40 mg PO DAILY 5 Days Follow-up: 1. PCP-Tamanna Sanchez on 09/19/18 2. Pulmonology- Dr. Steinberg 11/07/18 Diagnosis: Stroke: No - Discharge Data Discharge Date: 09/05/18 Discharge Disposition: Home, Self-Care 01 Condition: Stable - Discharge Diagnosis/Problem(s) (1) COPD exacerbation SNOMED Code(s): 443498379 ICD Code: J44.1 - CHRONIC OBSTRUCTIVE PULMONARY DISEASE W (ACUTE) EXACERBATION Status: Acute Current Visit: Yes (2) Hypoxia SNOMED Code(s): 276560708 ICD Code: R09.02 - HYPOXEMIA Status: Acute Current Visit: No - Patient Instructions Diet: Heart Healthy Diet Activity: As Tolerated Driving: May Drive Today Showering/Bathing: May Shower Notify Provider of: Fever, Increased Pain, Swelling and Redness, Drainage, Nausea and/or Vomiting Other/Special Instructions: Additional symptoms include chest pain, shortness of breath, or abdominal pain. - Discharge Plan *PRESCRIPTION DRUG MONITORING PROGRAM REVIEWED*: No *COPY OF PRESCRIPTION DRUG MONITORING REPORT IN PATIENT REDDY: No Prescriptions/Med Rec: Doxycycline [Vibramycin] 100 mg PO Q12HR 8 Days #4 cap Benzonatate [Tessalon Perle] 100 mg PO TID 10 Days #30 capsule Doxycycline Hyclate 100 mg PO BID 4 Days #8 tablet predniSONE [Prednisone] 40 mg PO DAILY 5 Days #10 tablet Home Medications: Home Meds Albuterol/Ipratropium [DuoNeb 3.0-0.5 MG/3 ML] 3 ml NEB Q4HRRT PRN neb MDD 4-6 times a day 09/28/17 [Rx] Albuterol [Ventolin HFA] 1 puff PO Q6HR 04/16/18 [History] Aspirin 81 mg PO DAILY #30 tab.chew 04/18/18 [Rx] Budesonide/Formoterol Fumarate [Symbicort 80-4.5 Mcg Inhaler] 2 puff IH BID [History] Benzonatate [Tessalon Perle] 100 mg PO TID 10 Days #30 capsule 09/04/18 [Rx] Doxycycline Hyclate 100 mg PO BID 4 Days #8 tablet 09/04/18 [Rx] Doxycycline [Vibramycin] 100 mg PO Q12HR 8 Days #4 cap 09/04/18 [Rx] predniSONE [Prednisone] 40 mg PO DAILY 5 Days #10 tablet 09/04/18 [Rx] Oxygen Therapy Mode: Nasal Cannula Oxygen Flow Rate (L/min): 1 Maintain SpO2% greater than: 88 (continue to use oxygen at night and then start portable oxygen prn and with activity) Patient Handouts: Chronic Obstructive Pulmonary Disease Exacerbation, Easy-to- Read, Home Oxygen Use, Adult, Doxycycline tablets or capsules, Prednisone tablets, Benzonatate capsules Referrals: [facility] [Outside] Tamanna Sanchez NP [Ordering Only Provider] - 09/19/18 10:15 am (Please Arrive to appointment at 10:00) - Discharge Summary/Plan Comment DC Time >30 min.: No - Patient Data Vitals - Most Recent: Last Vital Signs Temp 98.6 F 09/04/18 07:44 Pulse 87 09/04/18 07:44 Resp 18 09/04/18 07:44 BP 119/88 09/04/18 07:44 Pulse Ox 92 L 09/04/18 07:46 Weight - Most Recent: 59.239 kg I&O - Last 24 hours: Intake & Output 09/03/18 09/04/18 09/04/18 22:59 06:59 14:59 Intake Total 515 500 Output Total 400 900 Balance 115 -400 Lab Results - Last 24 hrs: Laboratory Results - last 24 hr 09/04/18 09/04/18 Range/Units 04:50 04:50 WBC 10.45 (4.0-11.0) K/uL RBC 4.44 (4.30-5.90) M/uL Hgb 13.5 (12.0-16.0) g/dL Hct 39.8 (36.0-46.0) % MCV 89.6 (80.0-98.0) fL MCH 30.4 (27.0-32.0) pg MCHC 33.9 (31.0-37.0) g/dL RDW Std Deviation 42.2 (28.0-62.0) fl RDW Coeff of Nam 13 (11.0-15.0) % Plt Count 201 (150-400) K/uL MPV 10.30 (7.40-12.00) fL Neut % (Auto) 91.7 H (48.0-80.0) % Lymph % (Auto) 6.6 L (16.0-40.0) % [place] % (Auto) 1.7 (0.0-15.0) % Eos % (Auto) 0.0 (0.0-7.0) % Baso % (Auto) 0.0 (0.0-1.5) % Neut # (Auto) 9.6 H (1.4-5.7) K/uL Lymph # (Auto) 0.7 (0.6-2.4) K/uL [place] # (Auto) 0.2 (0.0-0.8) K/uL Eos # (Auto) 0.0 (0.0-0.7) K/uL Baso # (Auto) 0.0 (0.0-0.1) K/uL Nucleated RBC % 0.0 /100WBC Nucleated RBCs # 0 K/uL Sodium 142 (136-145) mmol/L Potassium 3.7 (3.5-5.1) mmol/L Chloride 105 (98-107) mmol/L Carbon Dioxide 29.7 (21.0-32.0) mmol/L BUN 11 (7.0-18.0) mg/dL Creatinine 0.7 (0.6-1.0) mg/dL Est Cr Clr Drug Dosing 62.48 mL/min Estimated GFR (MDRD) > 60.0 ml/min Glucose 173 H (74-106) mg/dL Calcium 8.7 (8.5-10.1) mg/dL Med Orders - Current: Current Medications Acetaminophen (Tylenol) 650 mg PO Q4H PRN PRN Reason: Pain (Mild 1-3)/fever Albuterol/Ipratropium (Duoneb 3.0-0.5 Mg/3 Ml) 3 ml NEB Q4HRRT [facility] Last Admin: 09/04/18 05:32 Dose: 3 ml Benzonatate (Tessalon Perles) 100 mg PO QID PRN PRN Reason: Cough Last Admin: 09/03/18 23:07 Dose: 100 mg Docusate Sodium (Colace) 100 mg PO BID PRN PRN Reason: Constipation Doxycycline Hyclate (Vibramycin) 100 mg PO Q12HR [facility] Last Admin: 09/04/18 08:01 Dose: 100 mg Enoxaparin Sodium (Lovenox) 40 mg SUBCUT Q24H [facility] Last Admin: 09/04/18 06:44 Dose: 40 mg Guaifenesin (Mucinex) 600 mg PO TID [facility] Last Admin: 09/04/18 08:34 Dose: 600 mg Methylprednisolone Sodium Succinate (Solu-Medrol) 120 mg IVPUSH Q12H [facility] Oxycodone HCl (Oxycodone) 5 mg PO Q4H PRN PRN Reason: Pain (moderate 4-6) Sodium Chloride (Saline Flush) 10 ml FLUSH ASDIRECTED PRN PRN Reason: Keep Vein Open Last Admin: 09/03/18 02:34 Dose: 10 ml Temazepam (Restoril) 15 mg PO BEDTIME PRN PRN Reason: Sleep Discontinued Medications Albuterol/Ipratropium (Duoneb 3.0-0.5 Mg/3 Ml) 3 ml NEB ONETIME ONE Stop: 09/03/18 03:34 Last Admin: 09/03/18 03:47 Dose: 3 ml Albuterol/Ipratropium (Duoneb 3.0-0.5 Mg/3 Ml) 3 ml NEB Q4HRRT PRN PRN Reason: Shortness Of Breath/wheezing Last Admin: 09/03/18 08:00 Dose: 3 ml Guaifenesin (Mucinex) 600 mg PO TID [facility] Azithromycin 500 mg/ Sodium (Chloride) 250 mls @ 250 mls/hr IV Q24H [facility] Last Admin: 09/03/18 08:59 Dose: Not Given Methylprednisolone Sodium Succinate (Solu-Medrol) 125 mg IVPUSH ONETIME ONE Stop: 09/03/18 02:08 Last Admin: 09/03/18 02:34 Dose: 125 mg Methylprednisolone Sodium Succinate (Solu-Medrol) 120 mg IVPUSH Q8HR [facility] Last Admin: 09/04/18 06:44 Dose: 120 mg <Siva Hawkins M - Last Filed: 09/05/18 11:08> Discharge Summary - Hospital Course Free Text/Narrative:: I have examined the patient independently of Sana Alan DO, medical records specialist. I have discussed the case with her. I have reviewed and agree with the plan of care as outlined by her. Please see orders. - Patient Data Vitals - Most Recent: Last Vital Signs Temp 36.8 C 09/05/18 04:00 Pulse 82 09/05/18 04:00 Resp 18 09/05/18 04:00 BP 137/72 09/05/18 04:00 Pulse Ox 90 L 09/05/18 04:00 I&O - Last 24 hours: Intake & Output 09/04/18 09/05/18 09/05/18 22:59 06:59 14:59 Intake Total 711 600 Output Total 600 600 Balance 111 0 Lab Results - Last 24 hrs: Laboratory Results - last 24 hr 09/04/18 09/05/18 09/05/18 Range/Units 04:50 04:50 04:50 WBC 12.35 H (4.0-11.0) K/uL RBC 4.47 (4.30-5.90) M/uL Hgb 13.5 (12.0-16.0) g/dL Hct 40.5 (36.0-46.0) % MCV 90.6 (80.0-98.0) fL MCH 30.2 (27.0-32.0) pg MCHC 33.3 (31.0-37.0) g/dL RDW Std Deviation 43.5 (28.0-62.0) fl RDW Coeff of Nma 13 (11.0-15.0) % Plt Count 189 (150-400) K/uL MPV 10.10 (7.40-12.00) fL Neut % (Auto) 93.5 H (48.0-80.0) % Lymph % (Auto) 3.6 L (16.0-40.0) % [place] % (Auto) 2.8 (0.0-15.0) % Eos % (Auto) 0.0 (0.0-7.0) % Baso % (Auto) 0.1 (0.0-1.5) % Neut # (Auto) 11.6 H (1.4-5.7) K/uL Lymph # (Auto) 0.5 L (0.6-2.4) K/uL [place] # (Auto) 0.3 (0.0-0.8) K/uL Eos # (Auto) 0.0 (0.0-0.7) K/uL Baso # (Auto) 0.0 (0.0-0.1) K/uL Nucleated RBC % 0.0 /100WBC Nucleated RBCs # 0 K/uL Sodium 142 (136-145) mmol/L Potassium 3.6 (3.5-5.1) mmol/L Chloride 105 (98-107) mmol/L Carbon Dioxide 29.7 (21.0-32.0) mmol/L BUN 13 (7.0-18.0) mg/dL Creatinine 0.9 (0.6-1.0) mg/dL Est Cr Clr Drug Dosing 48.60 mL/min Estimated GFR (MDRD) > 60.0 ml/min Glucose 155 H (74-106) mg/dL Calcium 8.6 (8.5-10.1) mg/dL Magnesium 2.2 (1.8-2.4) mg/dL Med Orders - Current: Current Medications Acetaminophen (Tylenol) 650 mg PO Q4H PRN PRN Reason: Pain (Mild 1-3)/fever Albuterol/Ipratropium (Duoneb 3.0-0.5 Mg/3 Ml) 3 ml NEB Q4HRRT [facility] Last Admin: 09/05/18 09:52 Dose: 3 ml Benzonatate (Tessalon Perles) 100 mg PO QID PRN PRN Reason: Cough Last Admin: 09/04/18 18:08 Dose: 100 mg Docusate Sodium (Colace) 100 mg PO BID PRN PRN Reason: Constipation Doxycycline Hyclate (Vibramycin) 100 mg PO Q12HR [facility] Last Admin: 09/05/18 08:33 Dose: 100 mg Enoxaparin Sodium (Lovenox) 40 mg SUBCUT Q24H [facility] Last Admin: 09/05/18 06:13 Dose: 40 mg Guaifenesin (Mucinex) 600 mg PO TID [facility] Last Admin: 09/05/18 06:13 Dose: 600 mg Methylprednisolone Sodium Succinate (Solu-Medrol) 125 mg IVPUSH Q12H [facility] Last Admin: 09/05/18 06:13 Dose: 125 mg Oxycodone HCl (Oxycodone) 5 mg PO Q4H PRN PRN Reason: Pain (moderate 4-6) Sodium Chloride (Saline Flush) 10 ml FLUSH ASDIRECTED PRN PRN Reason: Keep Vein Open Last Admin: 09/03/18 02:34 Dose: 10 ml Temazepam (Restoril) 15 mg PO BEDTIME PRN PRN Reason: Sleep Discontinued Medications Albuterol/Ipratropium (Duoneb 3.0-0.5 Mg/3 Ml) 3 ml NEB ONETIME ONE Stop: 09/03/18 03:34 Last Admin: 09/03/18 03:47 Dose: 3 ml Albuterol/Ipratropium (Duoneb 3.0-0.5 Mg/3 Ml) 3 ml NEB Q4HRRT PRN PRN Reason: Shortness Of Breath/wheezing Last Admin: 09/03/18 08:00 Dose: 3 ml Guaifenesin (Mucinex) 600 mg PO TID [facility] Azithromycin 500 mg/ Sodium (Chloride) 250 mls @ 250 mls/hr IV Q24H [facility] Last Admin: 09/03/18 08:59 Dose: Not Given Methylprednisolone Sodium Succinate (Solu-Medrol) 125 mg IVPUSH ONETIME ONE Stop: 09/03/18 02:08 Last Admin: 09/03/18 02:34 Dose: 125 mg Methylprednisolone Sodium Succinate (Solu-Medrol) 120 mg IVPUSH Q8HR [facility] Last Admin: 09/04/18 06:44 Dose: 120 mg Methylprednisolone Sodium Succinate (Solu-Medrol) 120 mg IVPUSH Q12H [facility] Last Admin: 09/04/18 10:48 Dose: Not Given
--- NOTE | 2018-09-04 13:48 | PCM.PN ---
<Sana Alan - Last Filed: 09/04/18 13:44> - General Info Date of Service: 09/04/18 Subjective Update: Patient reports she is doing better and was down to 0.5 L of oxygen this morning. We attempted to wean her off oxygen and she dips down to 86%. She would like to stay another day as she doesn't feel good enough to go home. She has been coughing but denies chest pain, abdominal pain or trouble eating/ drinking. - Review of Systems General: Reports: No Symptoms HEENT: Reports: No Symptoms Pulmonary: Reports: Shortness of Breath, Cough Cardiovascular: Reports: No Symptoms Gastrointestinal: Reports: No Symptoms Genitourinary: Reports: No Symptoms Musculoskeletal: Reports: No Symptoms Skin: Reports: No Symptoms Neurological: Reports: No Symptoms Psychiatric: Reports: No Symptoms - Patient Data Vitals - Most Recent: Last Vital Signs Temp 98.2 F 09/04/18 12:30 Pulse 87 09/04/18 12:30 Resp 20 09/04/18 12:30 BP 133/70 09/04/18 12:30 Pulse Ox 89 L 09/04/18 12:30 Weight - Most Recent: 59.239 kg I&O - Last 24 Hours: Intake & Output 09/03/18 09/04/18 09/04/18 22:59 06:59 14:59 Intake Total 515 500 Output Total 400 900 Balance 115 -400 Lab Results Last 24 Hours: Laboratory Results - last 24 hr 09/04/18 09/04/18 Range/Units 04:50 04:50 WBC 10.45 (4.0-11.0) K/uL RBC 4.44 (4.30-5.90) M/uL Hgb 13.5 (12.0-16.0) g/dL Hct 39.8 (36.0-46.0) % MCV 89.6 (80.0-98.0) fL MCH 30.4 (27.0-32.0) pg MCHC 33.9 (31.0-37.0) g/dL RDW Std Deviation 42.2 (28.0-62.0) fl RDW Coeff of Nam 13 (11.0-15.0) % Plt Count 201 (150-400) K/uL MPV 10.30 (7.40-12.00) fL Neut % (Auto) 91.7 H (48.0-80.0) % Lymph % (Auto) 6.6 L (16.0-40.0) % White % (Auto) 1.7 (0.0-15.0) % Eos % (Auto) 0.0 (0.0-7.0) % Baso % (Auto) 0.0 (0.0-1.5) % Neut # (Auto) 9.6 H (1.4-5.7) K/uL Lymph # (Auto) 0.7 (0.6-2.4) K/uL White # (Auto) 0.2 (0.0-0.8) K/uL Eos # (Auto) 0.0 (0.0-0.7) K/uL Baso # (Auto) 0.0 (0.0-0.1) K/uL Nucleated RBC % 0.0 /100WBC Nucleated RBCs # 0 K/uL Sodium 142 (136-145) mmol/L Potassium 3.7 (3.5-5.1) mmol/L Chloride 105 (98-107) mmol/L Carbon Dioxide 29.7 (21.0-32.0) mmol/L BUN 11 (7.0-18.0) mg/dL Creatinine 0.7 (0.6-1.0) mg/dL Est Cr Clr Drug Dosing 62.48 mL/min Estimated GFR (MDRD) > 60.0 ml/min Glucose 173 H (74-106) mg/dL Calcium 8.7 (8.5-10.1) mg/dL Med Orders - Current: Current Medications Acetaminophen (Tylenol) 650 mg PO Q4H PRN PRN Reason: Pain (Mild 1-3)/fever Albuterol/Ipratropium (Duoneb 3.0-0.5 Mg/3 Ml) 3 ml NEB Q4HRRT [facility] Last Admin: 09/04/18 09:44 Dose: 3 ml Benzonatate (Tessalon Perles) 100 mg PO QID PRN PRN Reason: Cough Last Admin: 09/03/18 23:07 Dose: 100 mg Docusate Sodium (Colace) 100 mg PO BID PRN PRN Reason: Constipation Doxycycline Hyclate (Vibramycin) 100 mg PO Q12HR [facility] Last Admin: 09/04/18 08:01 Dose: 100 mg Enoxaparin Sodium (Lovenox) 40 mg SUBCUT Q24H [facility] Last Admin: 09/04/18 06:44 Dose: 40 mg Guaifenesin (Mucinex) 600 mg PO TID [facility] Last Admin: 09/04/18 08:34 Dose: 600 mg Methylprednisolone Sodium Succinate (Solu-Medrol) 125 mg IVPUSH Q12H [facility] Oxycodone HCl (Oxycodone) 5 mg PO Q4H PRN PRN Reason: Pain (moderate 4-6) Sodium Chloride (Saline Flush) 10 ml FLUSH ASDIRECTED PRN PRN Reason: Keep Vein Open Last Admin: 09/03/18 02:34 Dose: 10 ml Temazepam (Restoril) 15 mg PO BEDTIME PRN PRN Reason: Sleep Discontinued Medications Albuterol/Ipratropium (Duoneb 3.0-0.5 Mg/3 Ml) 3 ml NEB ONETIME ONE Stop: 09/03/18 03:34 Last Admin: 09/03/18 03:47 Dose: 3 ml Albuterol/Ipratropium (Duoneb 3.0-0.5 Mg/3 Ml) 3 ml NEB Q4HRRT PRN PRN Reason: Shortness Of Breath/wheezing Last Admin: 09/03/18 08:00 Dose: 3 ml Guaifenesin (Mucinex) 600 mg PO TID [facility] Azithromycin 500 mg/ Sodium (Chloride) 250 mls @ 250 mls/hr IV Q24H [facility] Last Admin: 09/03/18 08:59 Dose: Not Given Methylprednisolone Sodium Succinate (Solu-Medrol) 125 mg IVPUSH ONETIME ONE Stop: 09/03/18 02:08 Last Admin: 09/03/18 02:34 Dose: 125 mg Methylprednisolone Sodium Succinate (Solu-Medrol) 120 mg IVPUSH Q8HR [facility] Last Admin: 09/04/18 06:44 Dose: 120 mg Methylprednisolone Sodium Succinate (Solu-Medrol) 120 mg IVPUSH Q12H [facility] Last Admin: 09/04/18 10:48 Dose: Not Given - Exam Quality Assessment: Supplemental Oxygen General: Alert, Oriented, Cooperative Lungs: Normal Respiratory Effort, Wheezing Cardiovascular: Regular Rate, Regular Rhythm GI/Abdominal Exam: Normal Bowel Sounds, Soft, Non-Tender, No Distention Extremities: No Pedal Edema Skin: Warm, Dry Neurological: No New Focal Deficit Psy/Mental Status: Alert, Normal Affect, Normal Mood - Problem List & Annotations (1) COPD exacerbation SNOMED Code(s): 353701985 Code(s): J44.1 - CHRONIC OBSTRUCTIVE PULMONARY DISEASE W (ACUTE) EXACERBATION Status: Acute Current Visit: Yes (2) Hypoxia SNOMED Code(s): 951687898 Code(s): R09.02 - HYPOXEMIA Status: Acute Current Visit: No - Problem List Review Problem List Initiated/Reviewed/Updated: Yes - My Orders Last 24 Hours: My Active Orders 09/03/18 16:45 Benzonatate [Tessalon Perles] 100 mg PO QID PRN 09/04/18 19:00 methylPREDNISolone Sod Succ [Solu-MEDROL] 125 mg IVPUSH Q12H 09/04/18 Dinner Regular Diet [DIET] - Plan Plan:: 1. Hypoxia secondary to COPD exacerbation- Will continue on duonebs, IV solumedrol, and doxycycline. Wean oxygen as tolerated. Likely discharge tomorrow. <Siva Hawkins - Last Filed: 09/04/18 13:56> - General Info Subjective Update: Patient will be kept in hospital due to oxygen demands not at baseline. I have examined the patient independently of Sana Alan MD, outside medical sales representative. I have discussed the case with her. I have reviewed and agree with the plan of care as outlined by her. Please see orders. - Patient Data Vitals - Most Recent: Last Vital Signs Temp 36.8 C 09/04/18 12:30 Pulse 87 09/04/18 12:30 Resp 20 09/04/18 12:30 BP 133/70 09/04/18 12:30 Pulse Ox 89 L 09/04/18 12:30 I&O - Last 24 Hours: Intake & Output 09/03/18 09/04/18 09/04/18 22:59 06:59 14:59 Intake Total 515 500 Output Total 400 900 Balance 115 -400 Lab Results Last 24 Hours: Laboratory Results - last 24 hr 09/04/18 09/04/18 Range/Units 04:50 04:50 WBC 10.45 (4.0-11.0) K/uL RBC 4.44 (4.30-5.90) M/uL Hgb 13.5 (12.0-16.0) g/dL Hct 39.8 (36.0-46.0) % MCV 89.6 (80.0-98.0) fL MCH 30.4 (27.0-32.0) pg MCHC 33.9 (31.0-37.0) g/dL RDW Std Deviation 42.2 (28.0-62.0) fl RDW Coeff of Nam 13 (11.0-15.0) % Plt Count 201 (150-400) K/uL MPV 10.30 (7.40-12.00) fL Neut % (Auto) 91.7 H (48.0-80.0) % Lymph % (Auto) 6.6 L (16.0-40.0) % White % (Auto) 1.7 (0.0-15.0) % Eos % (Auto) 0.0 (0.0-7.0) % Baso % (Auto) 0.0 (0.0-1.5) % Neut # (Auto) 9.6 H (1.4-5.7) K/uL Lymph # (Auto) 0.7 (0.6-2.4) K/uL White # (Auto) 0.2 (0.0-0.8) K/uL Eos # (Auto) 0.0 (0.0-0.7) K/uL Baso # (Auto) 0.0 (0.0-0.1) K/uL Nucleated RBC % 0.0 /100WBC Nucleated RBCs # 0 K/uL Sodium 142 (136-145) mmol/L Potassium 3.7 (3.5-5.1) mmol/L Chloride 105 (98-107) mmol/L Carbon Dioxide 29.7 (21.0-32.0) mmol/L BUN 11 (7.0-18.0) mg/dL Creatinine 0.7 (0.6-1.0) mg/dL Est Cr Clr Drug Dosing 62.48 mL/min Estimated GFR (MDRD) > 60.0 ml/min Glucose 173 H (74-106) mg/dL Calcium 8.7 (8.5-10.1) mg/dL Med Orders - Current: Current Medications Acetaminophen (Tylenol) 650 mg PO Q4H PRN PRN Reason: Pain (Mild 1-3)/fever Albuterol/Ipratropium (Duoneb 3.0-0.5 Mg/3 Ml) 3 ml NEB Q4HRRT [facility] Last Admin: 09/04/18 09:44 Dose: 3 ml Benzonatate (Tessalon Perles) 100 mg PO QID PRN PRN Reason: Cough Last Admin: 09/03/18 23:07 Dose: 100 mg Docusate Sodium (Colace) 100 mg PO BID PRN PRN Reason: Constipation Doxycycline Hyclate (Vibramycin) 100 mg PO Q12HR [facility] Last Admin: 09/04/18 08:01 Dose: 100 mg Enoxaparin Sodium (Lovenox) 40 mg SUBCUT Q24H [facility] Last Admin: 09/04/18 06:44 Dose: 40 mg Guaifenesin (Mucinex) 600 mg PO TID [facility] Last Admin: 09/04/18 08:34 Dose: 600 mg Methylprednisolone Sodium Succinate (Solu-Medrol) 125 mg IVPUSH Q12H [facility] Oxycodone HCl (Oxycodone) 5 mg PO Q4H PRN PRN Reason: Pain (moderate 4-6) Sodium Chloride (Saline Flush) 10 ml FLUSH ASDIRECTED PRN PRN Reason: Keep Vein Open Last Admin: 09/03/18 02:34 Dose: 10 ml Temazepam (Restoril) 15 mg PO BEDTIME PRN PRN Reason: Sleep Discontinued Medications Albuterol/Ipratropium (Duoneb 3.0-0.5 Mg/3 Ml) 3 ml NEB ONETIME ONE Stop: 09/03/18 03:34 Last Admin: 09/03/18 03:47 Dose: 3 ml Albuterol/Ipratropium (Duoneb 3.0-0.5 Mg/3 Ml) 3 ml NEB Q4HRRT PRN PRN Reason: Shortness Of Breath/wheezing Last Admin: 09/03/18 08:00 Dose: 3 ml Guaifenesin (Mucinex) 600 mg PO TID [facility] Azithromycin 500 mg/ Sodium (Chloride) 250 mls @ 250 mls/hr IV Q24H [facility] Last Admin: 09/03/18 08:59 Dose: Not Given Methylprednisolone Sodium Succinate (Solu-Medrol) 125 mg IVPUSH ONETIME ONE Stop: 09/03/18 02:08 Last Admin: 09/03/18 02:34 Dose: 125 mg Methylprednisolone Sodium Succinate (Solu-Medrol) 120 mg IVPUSH Q8HR [facility] Last Admin: 09/04/18 06:44 Dose: 120 mg Methylprednisolone Sodium Succinate (Solu-Medrol) 120 mg IVPUSH Q12H [facility] Last Admin: 09/04/18 10:48 Dose: Not Given - My Orders Last 24 Hours: My Active Orders 09/04/18 08:15 guaiFENesin [Mucinex] 600 mg PO TID
[2018-09-04] MEDS ORDERED: guaiFENesin 600 MG Tab.ER PO SCH (14:00)
[2018-09-05] MEDS: Albuterol/Ipratropium 3.0-0.5 MG/3 ML Neb Soln NEB SCH ×4 (02:44→13:52)
[2018-09-05 05:09] LABS: CHLORIDE,CL 105 mmol/L (98-107); SODIUM,NA 142 mmol/L (136-145)
[2018-09-05] MEDS: Enoxaparin 40 MG/0.4 ML Syringe SUBCUT SCH (06:13)
[2018-09-05] MEDS: methylPREDNISolone Sodium Succinate 125 MG/2 ML SDV IVPUSH SCH (06:13)
[2018-09-05] MEDS: guaiFENesin 600 MG Tab.ER PO SCH ×2 (06:13→13:52)
[2018-09-05] MEDS: Doxycycline 100 MG Cap PO SCH (08:33)
[2018-09-05 12:45] VITALS: BP 149/79
[2018-09-05] MEDS: Benzonatate 100 MG Cap PO PRN (12:56)
== END 2018-09-05 15:59 | disposition home or self-care (01) ==
LOC: MW.ED 01:50 → MW.ICU 05:03
PROVIDERS: ADMIT Internal Medicine; ATTEND Internal Medicine
DX: J44.1 Chronic obstructive pulmonary disease with (acute) exacerbation (principal); R09.02 Hypoxemia; Z87.891 Personal history of nicotine dependence; Z79.51 Long term (current) use of inhaled steroids; Z79.82 Long term (current) use of aspirin
CPT/HCPCS: 36415; 71045; 80048; 80053; 81001; 83735; 84484; 85025; 85610; 87804; 93005; 94640; 96374; 99285; A9270; J1650; J2930; 96372; 96376; G0378; J7620-GY

== ENCOUNTER 2018-11-06 07:45 | Emergency (ER) | payer MEDICARE, BC ==
[~2018-11-06 07:45] MED LIST: methylPREDNISolone Sodium Succinate 125 MG/2 ML SDV IVPUSH ONE
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
[2018-11-06 08:33] LABS: CHLORIDE,CL 105 mmol/L (98-107); SODIUM,NA 142 mmol/L (136-145)
--- NOTE | 2018-11-06 08:39 | CR ---
INDICATION: Chest pain. COMPARISON: Chest radiograph September 03, 2018. TECHNIQUE: Portable AP chest. FINDINGS: Normal size cardiac silhouette. Clear lung huggins with no evidence of acute pulmonic infiltrates or CHF. No pneumothorax or pleural effusion. Calcified granulomas right lower lobe and left upper lobe. Fibrocalcific changes left upper lobe. chronic loss of volume left upper chest with superior retraction of the left hilum . IMPRESSION: 1. No acute pathology. 2. No interval change. Dictated by Alvin Joy MD @ Nov 06 2018 8:35AM Signed by Dr. Alvin Joy @ Nov 06 2018 8:37AM
[2018-11-06 09:50] VITALS: BP 116/63
== END 2018-11-06 09:50 | disposition home or self-care (01) ==
LOC: MW.ED 07:45
DX: J44.1 Chronic obstructive pulmonary disease with (acute) exacerbation (principal); Z79.82 Long term (current) use of aspirin; Z79.899 Other long term (current) drug therapy; Z88.0 Allergy status to penicillin; Z88.8 Allergy status to other drugs, medicaments and biological substances; Z91.09 Other allergy status, other than to drugs and biological substances
CPT/HCPCS: 36415; 71045; 80053; 84484; 85025; 93005; 96374; 99285; J2930

== ENCOUNTER 2018-11-24 16:07 | Observation (INO) | payer MEDICARE, BC ==
[2018-11-24 17:27] LABS: CHLORIDE,CL 104 mmol/L (98-107); SODIUM,NA 139 mmol/L (136-145)
[2018-11-24] MEDS ORDERED: Potassium Chloride Riders 40 MEQ in Premix Bag 1 BAG IV ONE (17:39)
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
--- NOTE | 2018-11-24 17:59 | CT ---
INDICATION: Fell and hit her chin on the sidewalk CT HEAD WITHOUT CONTRAST TECHNIQUE: Multiple axial CT images were performed through the head without intravenous contrast administration. COMPARISON: No previous studies are currently available for comparison. FINDINGS: No acute intracranial hemorrhage is identified. No extra-axial collections are evident and there is no mass effect or midline shift. There is mild diffuse age-related brain atrophy. Ventricular size and configuration are within normal limits for the patient`s age. Ayoub-white differentiation is within normal limits. There is patchy hypodensity in the periventricular white matter, a nonspecific finding which most likely reflects chronic small vessel ischemic change. Osseous structures are within normal limits and no fractures are seen, although the posterior skull is not fully included. Included portions of the paranasal sinuses and mastoid air cells are normally aerated. IMPRESSION: 1. No acute intracranial abnormality identified. No fracture is seen. 2. Mild age-related brain atrophy and white matter hypodensity consistent with chronic small vessel ischemic change. BLANCA REBOLLAR MD [facility] Dictated by: Cedrick Rebollar MD @ 11/24/2018 17:56:59 (Electronically Signed)
[2018-11-24] MEDS ORDERED: Sodium Chloride 0.9% 1,000 ML IV SCH ×2 (18:00→20:15)
--- NOTE | 2018-11-24 18:03 | CR ---
INDICATION: Shoulder injury from fall TECHNIQUE: Shoulder radiograph 3 views right COMPARISON: CXR 09/03/2018 FINDINGS: Bone: No acute fractures or aggressive bone lesions are identified. There is a 1.5 cm well-marginated sclerotic lesion overlying the glenoid without interval change. Joint: The glenohumeral is unremarkable. The acromioclavicular joint is unremarkable. Soft tissue: Small stable granulomas are present in the right lung. The visualized hemithorax is unremarkable in appearance. No radiopaque foreign bodies are seen. IMPRESSION: 1. There is a 1.5 cm well-marginated sclerotic lesion overlying the glenoid without interval change. This may represent a giant bone island. Further assessment with bone scan or MRI may be helpful if the patient has a history of primary malignancy. Dictated by Evan Todd MD @ 11/24/2018 6:02:34 PM Dictated by: Evan Todd MD @ 11/24/2018 18:02:36 (Electronically Signed)
--- NOTE | 2018-11-24 18:06 | CT ---
INDICATION: Fell and hit her chin on the sidewalk CT CERVICAL SPINE WITHOUT CONTRAST TECHNIQUE: Multidetector axial CT imaging was performed through the cervical spine, without contrast. Sagittal and coronal reconstructions were generated. FINDINGS: No acute fractures are identified. Multilevel degenerative change is noted in the cervical spine, including degenerative disc disease at C3-4 through C6-7, and scattered mild facet joint degenerative changes. Osseous alignment is within normal limits and no subluxation is seen. Prevertebral soft tissues are unremarkable. Included portions of the lung apices show scarring and emphysematous changes. IMPRESSION: 1. No fracture, subluxation, or other acute finding identified. 2. Cervical spondylosis, as noted above. BLANCA REBOLLAR MD [facility] Dictated by: Cedrick Rebollar MD @ 11/24/2018 18:04:02 (Electronically Signed)
--- NOTE | 2018-11-24 18:08 | CR ---
INDICATION: Fall TECHNIQUE: AP pelvis COMPARISON: None FINDINGS: Bones: Alignment is normal. No fractures or bone lesions. Joint spaces: Unremarkable. Soft tissues: Unremarkable. IMPRESSION: Negative. Dictated by Oj Rodriguez MD @ 11/24/2018 6:05:55 PM Dictated by: Oj Rodriguez MD @ 11/24/2018 18:06:01 (Electronically Signed)
--- NOTE | 2018-11-24 18:10 | CR ---
INDICATION: fall TECHNIQUE: Chest 1 view. COMPARISON: 09/03/18 FINDINGS: Cardiovascular and mediastinum: Heart size and vasculature are normal in caliber and appearance. Mediastinum is within normal limits. Lungs and pleural space: Lungs are clear. No sign of infiltrate. stable calcified granulomas left upper lobe. No sign of pleural effusion. No pneumothorax. Bones and soft tissues: No significant findings. IMPRESSION: No evidence of acute trauma. Dictated by: Oj Rodriguez MD @ 11/24/2018 18:09:23 (Electronically Signed)
[2018-11-24] MEDS ORDERED: Ondansetron 4 MG Tab.DIS PO PRN (18:31)
[2018-11-24] MEDS ORDERED: Ketorolac 30 MG/ML SDV IM PRN (18:31)
[2018-11-24] MEDS ORDERED: Acetaminophen 325 MG Tab PO PRN (18:31)
[2018-11-24] MEDS ORDERED: Albuterol HFA 18 Gm Inhaler INH PRN (18:33)
--- NOTE | 2018-11-24 18:41 | PCM.HP ---
<Vignesh Pillai - Last Filed: 11/24/18 18:42> H&P History of Present Illness - General Date of Service: 11/24/18 Admit Problem/Dx: Admission Diagnosis/Problem Admission Diagnosis/Problem Hypokalemia - History of Present Illness Initial Comments - Free Text/Narative: 77 y/o female with history of COPD presenting to the ER after suffering a fall. She states that she was at work at the [employer] when she tripped on the sidewalk and fell forward on her knees and suffered a scrape on her chin. Denies any headache, change in vision, nausea, vomiting, chest pain, dyspnea, abdominal pain, dysuria, diarrhea. No bleeding from wounds. Xrays performed in the ER were negative for any acute fractures. She was noted to be mildly hypokalemic at 2.9. Denies any palpitations. No presyncopal symptoms. Has been hydrating well. - Related Data Allergies/Adverse Reactions: Allergies Allergy/AdvReac Type Severity Reaction Status Date / Time adhesive tape Allergy Blisters Verified 11/24/18 20:54 Penicillins Allergy neck Verified 11/24/18 20:54 swelling phenylbutazone Allergy Cannot Verified 11/24/18 20:54 [From Butazolidin] Remember Home Medications: Home Meds Albuterol/Ipratropium [DuoNeb 3.0-0.5 MG/3 ML] 3 ml NEB Q4HRRT PRN neb MDD 4-6 times a day 09/28/17 [Rx] Albuterol [Ventolin HFA] 1 puff PO Q6HR PRN 04/16/18 [History] Aspirin 81 mg PO DAILY #30 tab.chew 04/18/18 [Rx] Budesonide [Pulmicort] 0.5 mg IH BID 11/24/18 [History] Past Medical History - Past Health History Medical/Surgical History: Denies Medical/Surgical History HEENT History: Reports: Cataract Other HEENT History: wears glasses, upper and lower dentures Cardiovascular History: Reports: Other (See Below) Other Cardiovascular History: pt states long QT syndrome Respiratory History: Reports: Asthma, COPD Other Respiratory History: at home on o2 @2LPM using at night Gastrointestinal History: Reports: None Genitourinary History: Reports: None, Other (See Below) Other Genitourinary History: growth removed from bladder [employer] History: Reports: , 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 - Infectious Disease History Infectious Disease History: Reports: Chicken Pox, Measles, Mumps, Shingles - Past Surgical History Head Surgeries/Procedures: Reports: None HEENT Surgical History: Reports: Tonsillectomy Respiratory Surgical History: Reports: None GI Surgical History: Reports: Appendectomy Musculoskeletal Surgical History: Reports: Carpal Tunnel Dermatological Surgical History: Reports: Other (See Below) Social & Family History - Family History Family Medical History: Noncontributory HEENT: Reports: None Cardiac: Reports: Hypertension, Other (See Below) Other Cardiac Family History: long QT syndrome Respiratory: Reports: COPD Other Respiratory Family Hisory: brother OBGYN: Reports: Endocrine/Metabolic: Reports: Diabetes, Type I Other Endocrine/Metabolic Family History: Grandmother Oncologic: Reports: Skin Other Oncologic Family History: brother - Tobacco Use Smoking Status *Q: Former Smoker Used Tobacco, but Quit: Yes Month/Year Tobacco Last Used: 06/2017 - Caffeine Use Caffeine Use: Reports: Coffee, Soda - Recreational Drug Use Recreational Drug Use: No - Living Situation & Occupation Living situation: Reports: Occupation: Employed H&P Review of Systems - Review of Systems: Review Of Systems: ROS reveals no pertinent complaints other than HPI. Exam - Exam Exam: See Below - Vital Signs Vital Signs: Last Vital Signs Temp 36.4 C 11/24/18 16:10 Pulse 77 11/24/18 16:10 Resp 16 11/24/18 16:10 BP 148/74 H 11/24/18 16:10 Pulse Ox 96 11/24/18 16:10 Orthostatic Blood Pressure [ 125/65 Standing] Orthostatic Blood Pressure [ 131/64 Sitting] Orthostatic Blood Pressure [ 129/69 Supine] Weight: 61.235 kg - Patient Data Lab Results Last 24 hrs: Laboratory Results - last 24 hr 11/24/18 11/24/18 Range/Units 16:45 16:45 WBC 8.56 (4.0-11.0) K/uL RBC 4.39 (4.30-5.90) M/uL Hgb 13.2 (12.0-16.0) g/dL Hct 39.6 (36.0-46.0) % MCV 90.2 (80.0-98.0) fL MCH 30.1 (27.0-32.0) pg MCHC 33.3 (31.0-37.0) g/dL RDW Std Deviation 42.7 (28.0-62.0) fl RDW Coeff of Nam 13 (11.0-15.0) % Plt Count 192 (150-400) K/uL MPV 10.20 (7.40-12.00) fL Neut % (Auto) 58.6 (48.0-80.0) % Lymph % (Auto) 15.8 L (16.0-40.0) % Carter % (Auto) 5.6 (0.0-15.0) % Eos % (Auto) 19.6 H (0.0-7.0) % Baso % (Auto) 0.4 (0.0-1.5) % Neut # (Auto) 5.0 (1.4-5.7) K/uL Lymph # (Auto) 1.4 (0.6-2.4) K/uL Carter # (Auto) 0.5 (0.0-0.8) K/uL Eos # (Auto) 1.7 H (0.0-0.7) K/uL Baso # (Auto) 0.0 (0.0-0.1) K/uL Nucleated RBC % 0.0 /100WBC Nucleated RBCs # 0 K/uL Sodium 139 (136-145) mmol/L Potassium 2.9 L (3.5-5.1) mmol/L Chloride 104 (98-107) mmol/L Carbon Dioxide 28.3 (21.0-32.0) mmol/L BUN 5 L (7.0-18.0) mg/dL Creatinine 0.7 (0.6-1.0) mg/dL Est Cr Clr Drug Dosing 62.48 mL/min Estimated GFR (MDRD) > 60.0 ml/min Glucose 117 H (74-106) mg/dL Calcium 8.5 (8.5-10.1) mg/dL Total Bilirubin 0.4 (0.2-1.0) mg/dL AST 17 (15-37) IU/L ALT 15 (14-63) IU/L Alkaline Phosphatase 74 (46-116) U/L Troponin I < 0.050 (0.000-0.056) ng/mL Total Protein 6.2 L (6.4-8.2) g/dL Albumin 3.6 (3.4-5.0) g/dL Globulin 2.6 (2.6-4.0) g/dL Albumin/Globulin Ratio 1.4 (0.9-1.6) Result Diagrams: 11/24/18 16:45 11/24/18 16:45 Problem List Initiated/Reviewed/Updated: Yes Orders Last 24hrs: Active Orders 24 hr Category Date Time Status Admission Status [Patient Status] [ADT] Stat ADT 11/24/18 18:21 Active EKG Documentation Completion [RC] STAT Care 11/24/18 16:39 Active Intake and Output [RC] QSHIFT Care 11/24/18 18:32 Ordered Orthostatic Vital Signs [RC] ASDIRECTED Care 11/24/18 16:41 Active Oxygen Therapy [RC] PRN Care 11/24/18 18:31 Ordered Up With Assistance [RC] ASDIRECTED Care 11/24/18 18:31 Ordered VTE/DVT Education [RC] PER UNIT ROUTINE Care 11/24/18 18:31 Ordered Vital Signs [RC] Q4H Care 11/24/18 18:31 Ordered Regular Diet [DIET] Diet 11/24/18 Breakfast Ordered MAGNESIUM [CHEM] Routine Lab 11/24/18 18:37 Ordered UA RFX VICKI AND CULT IF INDIC [URIN] Stat Lab 11/24/18 16:39 Ordered Acetaminophen [Tylenol] Med 11/24/18 18:31 Ordered 650 mg PO Q4H PRN Albuterol [Ventolin HFA] Med 11/24/18 18:33 Ordered 1 puff INH Q6H PRN Aspirin Med 11/25/18 09:00 Ordered 81 mg PO DAILY Budesonide/Formoterol Med 11/24/18 21:00 Ordered 2 puff IH BID Enoxaparin [Lovenox] Med 11/24/18 18:45 Ordered 40 mg SUBCUT Q24H Ketorolac [Toradol] Med 11/24/18 18:31 Ordered 30 mg IM Q6H PRN Ondansetron [Zofran ODT] Med 11/24/18 18:31 Ordered 4 mg PO Q4H PRN Potassium Chloride Riders [KCL 40 MEQ in Water 100 ML] Med 11/24/18 17:39 Active 40 meq Premix Bag 1 bag IV ONETIME Sodium Chloride 0.9% [Normal Saline] 1,000 ml Med 11/24/18 18:00 Active IV ASDIRECTED Resuscitation Status Routine Resus Stat 11/24/18 18:31 Ordered Medication Orders Acetaminophen (Tylenol) 650 mg PO Q4H PRN PRN Reason: Pain (Mild 1-3)/fever Albuterol (Ventolin Hfa) 0 gm INH Q6H PRN PRN Reason: Dyspnea Aspirin (Aspirin) 81 mg PO DAILY [facility] Enoxaparin Sodium (Lovenox) 40 mg SUBCUT Q24H [facility] Potassium Chloride 40 meq/ (Premix) 100 mls @ 25 mls/hr IV ONETIME ONE Stop: 11/24/18 21:38 Sodium Chloride (Normal Saline) 1,000 mls @ 125 mls/hr IV ASDIRECTED GUS Last Admin: 11/24/18 18:25 Dose: 125 mls/hr Ketorolac Tromethamine (Toradol) 30 mg IM Q6H PRN PRN Reason: Pain (moderate 4-6) Non-Formulary Medication (Budesonide/Formoterol) 2 puff IH BID GUS Ondansetron HCl (Zofran Odt) 4 mg PO Q4H PRN PRN Reason: nausea, able to take PO Assessment/Plan Comment:: A: 1. hypokalemia 2. s/p fall 3. PMH COPD P: 1. Hypokalemia- currently getting 40 mEq IV once. Will recheck tomorrow. Checking Mg level. 2. S/p fall- will get PT involved to evaluate patient. 3. PMH COPD- continue home medications. Dispo: likely dc tomorrow. <Siva Hawkins - Last Filed: 11/25/18 12:41> H&P History of Present Illness - General Admit Problem/Dx: Admission Diagnosis/Problem Admission Diagnosis/Problem Hypokalemia I have seen and examined to patient independently of medical claims specialist, Vignesh Palm MD. I have discussed the case for care of this patient with him. I have reviewed and approve of the plan of care as outlined by medical claims specialist. Please see orders. Exam - Vital Signs Vital Signs: Last Vital Signs Temp 36.4 C 11/25/18 08:23 Pulse 77 11/25/18 08:23 Resp 17 11/25/18 08:23 BP 118/66 11/25/18 08:23 Pulse Ox 96 11/25/18 08:23 Orthostatic Blood Pressure [ 125/65 Standing] Orthostatic Blood Pressure [ 131/64 Sitting] Orthostatic Blood Pressure [ 129/69 Supine] - Patient Data Lab Results Last 24 hrs: Laboratory Results - last 24 hr 11/24/18 11/24/18 11/24/18 Range/Units 16:40 16:45 16:45 WBC 8.56 (4.0-11.0) K/uL RBC 4.39 (4.30-5.90) M/uL Hgb 13.2 (12.0-16.0) g/dL Hct 39.6 (36.0-46.0) % MCV 90.2 (80.0-98.0) fL MCH 30.1 (27.0-32.0) pg MCHC 33.3 (31.0-37.0) g/dL RDW Std Deviation 42.7 (28.0-62.0) fl RDW Coeff of Nam 13 (11.0-15.0) % Plt Count 192 (150-400) K/uL MPV 10.20 (7.40-12.00) fL Neut % (Auto) 58.6 (48.0-80.0) % Lymph % (Auto) 15.8 L (16.0-40.0) % Carter % (Auto) 5.6 (0.0-15.0) % Eos % (Auto) 19.6 H (0.0-7.0) % Baso % (Auto) 0.4 (0.0-1.5) % Neut # (Auto) 5.0 (1.4-5.7) K/uL Lymph # (Auto) 1.4 (0.6-2.4) K/uL Carter # (Auto) 0.5 (0.0-0.8) K/uL Eos # (Auto) 1.7 H (0.0-0.7) K/uL Baso # (Auto) 0.0 (0.0-0.1) K/uL Nucleated RBC % 0.0 /100WBC Nucleated RBCs # 0 K/uL Sodium 139 (136-145) mmol/L Potassium 2.9 L (3.5-5.1) mmol/L Chloride 104 (98-107) mmol/L Carbon Dioxide 28.3 (21.0-32.0) mmol/L BUN 5 L (7.0-18.0) mg/dL Creatinine 0.7 (0.6-1.0) mg/dL Est Cr Clr Drug Dosing 62.48 mL/min Estimated GFR (MDRD) > 60.0 ml/min Glucose 117 H (74-106) mg/dL Calcium 8.5 (8.5-10.1) mg/dL Magnesium 2.0 (1.8-2.4) mg/dL Total Bilirubin 0.4 (0.2-1.0) mg/dL AST 17 (15-37) IU/L ALT 15 (14-63) IU/L Alkaline Phosphatase 74 (46-116) U/L Troponin I < 0.050 (0.000-0.056) ng/mL Total Protein 6.2 L (6.4-8.2) g/dL Albumin 3.6 (3.4-5.0) g/dL Globulin 2.6 (2.6-4.0) g/dL Albumin/Globulin Ratio 1.4 (0.9-1.6) Urine Color Urine Appearance Urine pH (5.0-8.0) Ur Specific [place] (1.001-1.035) Urine Protein (NEGATIVE) mg/dL Urine Glucose (UA) (NEGATIVE) mg/dL Urine Ketones (NEGATIVE) mg/dL Urine Occult Blood (NEGATIVE) Urine Nitrite (NEGATIVE) Urine Bilirubin (NEGATIVE) Urine Urobilinogen (<2.0) EU/dL Ur Leukocyte Esterase (NEGATIVE) Urine RBC (0-2/HPF) Urine WBC (0-5/HPF) Ur Epithelial Cells (NONE-FEW) Urine Bacteria (NEGATIVE) 11/24/18 11/25/18 11/25/18 Range/Units 23:45 05:05 05:05 WBC 6.58 (4.0-11.0) K/uL RBC 4.05 L (4.30-5.90) M/uL Hgb 12.2 (12.0-16.0) g/dL Hct 36.9 (36.0-46.0) % MCV 91.1 (80.0-98.0) fL MCH 30.1 (27.0-32.0) pg MCHC 33.1 (31.0-37.0) g/dL RDW Std Deviation 43.3 (28.0-62.0) fl RDW Coeff of Nam 13 (11.0-15.0) % Plt Count 169 (150-400) K/uL MPV 10.70 (7.40-12.00) fL Neut % (Auto) 46.1 L (48.0-80.0) % Lymph % (Auto) 21.0 (16.0-40.0) % Carter % (Auto) 7.6 (0.0-15.0) % Eos % (Auto) 24.8 H (0.0-7.0) % Baso % (Auto) 0.5 (0.0-1.5) % Neut # (Auto) 3.0 (1.4-5.7) K/uL Lymph # (Auto) 1.4 (0.6-2.4) K/uL Carter # (Auto) 0.5 (0.0-0.8) K/uL Eos # (Auto) 1.6 H (0.0-0.7) K/uL Baso # (Auto) 0.0 (0.0-0.1) K/uL Nucleated RBC % 0.0 /100WBC Nucleated RBCs # 0 K/uL Sodium 141 (136-145) mmol/L Potassium 3.6 (3.5-5.1) mmol/L Chloride 108 H (98-107) mmol/L Carbon Dioxide 29.0 (21.0-32.0) mmol/L BUN 6 L (7.0-18.0) mg/dL Creatinine 0.6 (0.6-1.0) mg/dL Est Cr Clr Drug Dosing 72.90 mL/min Estimated GFR (MDRD) > 60.0 ml/min Glucose 97 (74-106) mg/dL Calcium 8.1 L (8.5-10.1) mg/dL Magnesium (1.8-2.4) mg/dL Total Bilirubin (0.2-1.0) mg/dL AST (15-37) IU/L ALT (14-63) IU/L Alkaline Phosphatase (46-116) U/L Troponin I (0.000-0.056) ng/mL Total Protein (6.4-8.2) g/dL Albumin (3.4-5.0) g/dL Globulin (2.6-4.0) g/dL Albumin/Globulin Ratio (0.9-1.6) Urine Color DARK YELLOW Urine Appearance SLT CLOUDY Urine pH 7.0 (5.0-8.0) Ur Specific [place] 1.010 (1.001-1.035) Urine Protein NEGATIVE (NEGATIVE) mg/dL Urine Glucose (UA) NEGATIVE (NEGATIVE) mg/dL Urine Ketones NEGATIVE (NEGATIVE) mg/dL Urine Occult Blood SMALL H (NEGATIVE) Urine Nitrite NEGATIVE (NEGATIVE) Urine Bilirubin NEGATIVE (NEGATIVE) Urine Urobilinogen 1.0 (<2.0) EU/dL Ur Leukocyte Esterase NEGATIVE (NEGATIVE) Urine RBC 2-4 (0-2/HPF) Urine WBC 0-1 (0-5/HPF) Ur Epithelial Cells FEW (NONE-FEW) Urine Bacteria RARE (NEGATIVE) Result Diagrams: 11/25/18 05:05 11/25/18 05:05 Orders Last 24hrs: Active Orders 24 hr Category Date Time Status Admission Status [Patient Status] [ADT] Stat ADT 11/24/18 18:21 Active Discontinue Telemetry Monitoring [Cardiac Monitoring Care 11/25/18 10:41 Active Discontinue] [RC] Click to Edit Intake and Output [RC] QSHIFT Care 11/24/18 18:32 Active Oxygen Therapy [RC] PRN Care 11/24/18 18:31 Active RT Aerosol Therapy [RC] ASDIRECTED Care 11/25/18 07:00 Active RT Aerosol Therapy [RC] ASDIRECTED Care 11/25/18 07:02 Active Ready for Discharge [RC] PER UNIT ROUTINE Care 11/25/18 08:35 Active Telemetry Monitoring [Cardiac Monitoring] [RC] Q8H Care 11/24/18 19:38 Active Up With Assistance [RC] ASDIRECTED Care 11/24/18 18:31 Active VTE/DVT Education [RC] PER UNIT ROUTINE Care 11/24/18 18:31 Active Vital Signs [RC] Q4H Care 11/24/18 18:31 Active Consult to Physical Therapy [PT Evaluation and Cons 11/24/18 18:45 Active Treatment] [CONS] Routine Resuscitation Status Routine Resus Stat 11/24/18 18:31 Ordered
[2018-11-24] MEDS ORDERED: Enoxaparin 40 MG/0.4 ML Syringe SUBCUT SCH (18:45)
[2018-11-24] MEDS: Albuterol/Ipratropium 3.0-0.5 MG/3 ML Neb Soln NEB PRN (20:11)
[2018-11-24] MEDS: Budesonide 0.5 MG/2 ML Neb Susp INH SCH ×2 (20:27→20:55)
[2018-11-24] MEDS ORDERED: Non-Formulary Medication 1 Each (Budesonide/Formoterol 2 PUFF) IH SCH (21:00)
[2018-11-25] MEDS: Albuterol/Ipratropium 3.0-0.5 MG/3 ML Neb Soln NEB PRN ×2 (01:47→06:38)
[2018-11-25 06:05] LABS: CHLORIDE,CL 108 mmol/L (98-107); SODIUM,NA 141 mmol/L (136-145)
[2018-11-25] MEDS: Budesonide 0.5 MG/2 ML Neb Susp INH SCH (06:36)
[2018-11-25] MEDS ORDERED: Albuterol 0.083% 2.5 MG/3 ML Neb Soln NEB PRN (07:01)
[2018-11-25] MEDS ORDERED: Ketorolac 30 MG/ML SDV IVPUSH PRN (07:07)
[2018-11-25] MEDS ORDERED: Potassium Chloride 20 MEQ Tab.ER PO ONE (07:49)
[2018-11-25 08:26] VITALS: BP 118/66
[2018-11-25] MEDS ORDERED: Aspirin 81 MG Tab.Chew PO SCH (09:00)
--- NOTE | 2018-11-25 09:22 | PCM.DCSUM1 ---
Addendum entered and electronically signed by Vignesh Pillai MD 11/25 10:27: Discharge Summary - Discharge Data Discharge Date: 11/25/18 Discharge Disposition: Home, Self-Care 01 Condition: Good - Patient Summary/Data Consults: Consultations 11/24/18 18:45 Consult to Physical Therapy [PT Evaluation and Treatment] [CONS] Routine - Patient Instructions Diet: Regular Diet as Tolerated Activity: As Tolerated Notify Provider of: Fever, Increased Pain, Swelling and Redness, Nausea and/or Vomiting - Discharge Plan *PRESCRIPTION DRUG MONITORING PROGRAM REVIEWED*: Not Applicable *COPY OF PRESCRIPTION DRUG MONITORING REPORT IN PATIENT REDDY: Not Applicable Home Medications: Home Meds Albuterol/Ipratropium [DuoNeb 3.0-0.5 MG/3 ML] 3 ml NEB Q4HRRT PRN neb MDD 4-6 times a day 09/28/17 [Rx] Albuterol [Ventolin HFA] 1 puff PO Q6HR PRN 04/16/18 [History] Aspirin 81 mg PO DAILY #30 tab.chew 04/18/18 [Rx] Budesonide [Pulmicort] 0.5 mg IH BID 11/24/18 [History] Patient Handouts: Fall Prevention in the Home, Adult, [id number], Hypokalemia Referrals: [facility] [Outside] Tamanna Sanchez NP [Ordering Only Provider] - 12/04/18 12:30 pm - Discharge Summary/Plan Comment DC Time >30 min.: No - Patient Data Vitals - Most Recent: Last Vital Signs Temp 36.4 C 11/25/18 08:23 Pulse 77 11/25/18 08:23 Resp 17 11/25/18 08:23 BP 118/66 11/25/18 08:23 Pulse Ox 96 11/25/18 08:23 Orthostatic Blood Pressure [ 125/65 Standing] Orthostatic Blood Pressure [ 131/64 Sitting] Orthostatic Blood Pressure [ 129/69 Supine] Weight - Most Recent: 61.235 kg I&O - Last 24 hours: Intake & Output 11/24/18 11/25/18 11/25/18 22:59 06:59 14:59 Intake Total 1132 Output Total 900 Balance 232 Lab Results - Last 24 hrs: Laboratory Results - last 24 hr 11/24/18 11/24/18 11/24/18 Range/Units 16:40 16:45 16:45 WBC 8.56 (4.0-11.0) K/uL RBC 4.39 (4.30-5.90) M/uL Hgb 13.2 (12.0-16.0) g/dL Hct 39.6 (36.0-46.0) % MCV 90.2 (80.0-98.0) fL MCH 30.1 (27.0-32.0) pg MCHC 33.3 (31.0-37.0) g/dL RDW Std Deviation 42.7 (28.0-62.0) fl RDW Coeff of Nam 13 (11.0-15.0) % Plt Count 192 (150-400) K/uL MPV 10.20 (7.40-12.00) fL Neut % (Auto) 58.6 (48.0-80.0) % Lymph % (Auto) 15.8 L (16.0-40.0) % [place] % (Auto) 5.6 (0.0-15.0) % Eos % (Auto) 19.6 H (0.0-7.0) % Baso % (Auto) 0.4 (0.0-1.5) % Neut # (Auto) 5.0 (1.4-5.7) K/uL Lymph # (Auto) 1.4 (0.6-2.4) K/uL [place] # (Auto) 0.5 (0.0-0.8) K/uL Eos # (Auto) 1.7 H (0.0-0.7) K/uL Baso # (Auto) 0.0 (0.0-0.1) K/uL Nucleated RBC % 0.0 /100WBC Nucleated RBCs # 0 K/uL Sodium 139 (136-145) mmol/L Potassium 2.9 L (3.5-5.1) mmol/L Chloride 104 (98-107) mmol/L Carbon Dioxide 28.3 (21.0-32.0) mmol/L BUN 5 L (7.0-18.0) mg/dL Creatinine 0.7 (0.6-1.0) mg/dL Est Cr Clr Drug Dosing 62.48 mL/min Estimated GFR (MDRD) > 60.0 ml/min Glucose 117 H (74-106) mg/dL Calcium 8.5 (8.5-10.1) mg/dL Magnesium 2.0 (1.8-2.4) mg/dL Total Bilirubin 0.4 (0.2-1.0) mg/dL AST 17 (15-37) IU/L ALT 15 (14-63) IU/L Alkaline Phosphatase 74 (46-116) U/L Troponin I < 0.050 (0.000-0.056) ng/mL Total Protein 6.2 L (6.4-8.2) g/dL Albumin 3.6 (3.4-5.0) g/dL Globulin 2.6 (2.6-4.0) g/dL Albumin/Globulin Ratio 1.4 (0.9-1.6) Urine Color Urine Appearance Urine pH (5.0-8.0) Ur Specific [place] (1.001-1.035) Urine Protein (NEGATIVE) mg/dL Urine Glucose (UA) (NEGATIVE) mg/dL Urine Ketones (NEGATIVE) mg/dL Urine Occult Blood (NEGATIVE) Urine Nitrite (NEGATIVE) Urine Bilirubin (NEGATIVE) Urine Urobilinogen (<2.0) EU/dL Ur Leukocyte Esterase (NEGATIVE) Urine RBC (0-2/HPF) Urine WBC (0-5/HPF) Ur Epithelial Cells (NONE-FEW) Urine Bacteria (NEGATIVE) 11/24/18 11/25/18 11/25/18 Range/Units 23:45 05:05 05:05 WBC 6.58 (4.0-11.0) K/uL RBC 4.05 L (4.30-5.90) M/uL Hgb 12.2 (12.0-16.0) g/dL Hct 36.9 (36.0-46.0) % MCV 91.1 (80.0-98.0) fL MCH 30.1 (27.0-32.0) pg MCHC 33.1 (31.0-37.0) g/dL RDW Std Deviation 43.3 (28.0-62.0) fl RDW Coeff of Nam 13 (11.0-15.0) % Plt Count 169 (150-400) K/uL MPV 10.70 (7.40-12.00) fL Neut % (Auto) 46.1 L (48.0-80.0) % Lymph % (Auto) 21.0 (16.0-40.0) % [place] % (Auto) 7.6 (0.0-15.0) % Eos % (Auto) 24.8 H (0.0-7.0) % Baso % (Auto) 0.5 (0.0-1.5) % Neut # (Auto) 3.0 (1.4-5.7) K/uL Lymph # (Auto) 1.4 (0.6-2.4) K/uL [place] # (Auto) 0.5 (0.0-0.8) K/uL Eos # (Auto) 1.6 H (0.0-0.7) K/uL Baso # (Auto) 0.0 (0.0-0.1) K/uL Nucleated RBC % 0.0 /100WBC Nucleated RBCs # 0 K/uL Sodium 141 (136-145) mmol/L Potassium 3.6 (3.5-5.1) mmol/L Chloride 108 H (98-107) mmol/L Carbon Dioxide 29.0 (21.0-32.0) mmol/L BUN 6 L (7.0-18.0) mg/dL Creatinine 0.6 (0.6-1.0) mg/dL Est Cr Clr Drug Dosing 72.90 mL/min Estimated GFR (MDRD) > 60.0 ml/min Glucose 97 (74-106) mg/dL Calcium 8.1 L (8.5-10.1) mg/dL Magnesium (1.8-2.4) mg/dL Total Bilirubin (0.2-1.0) mg/dL AST (15-37) IU/L ALT (14-63) IU/L Alkaline Phosphatase (46-116) U/L Troponin I (0.000-0.056) ng/mL Total Protein (6.4-8.2) g/dL Albumin (3.4-5.0) g/dL Globulin (2.6-4.0) g/dL Albumin/Globulin Ratio (0.9-1.6) Urine Color DARK YELLOW Urine Appearance SLT CLOUDY Urine pH 7.0 (5.0-8.0) Ur Specific [place] 1.010 (1.001-1.035) Urine Protein NEGATIVE (NEGATIVE) mg/dL Urine Glucose (UA) NEGATIVE (NEGATIVE) mg/dL Urine Ketones NEGATIVE (NEGATIVE) mg/dL Urine Occult Blood SMALL H (NEGATIVE) Urine Nitrite NEGATIVE (NEGATIVE) Urine Bilirubin NEGATIVE (NEGATIVE) Urine Urobilinogen 1.0 (<2.0) EU/dL Ur Leukocyte Esterase NEGATIVE (NEGATIVE) Urine RBC 2-4 (0-2/HPF) Urine WBC 0-1 (0-5/HPF) Ur Epithelial Cells FEW (NONE-FEW) Urine Bacteria RARE (NEGATIVE) Med Orders - Current: Current Medications Acetaminophen (Tylenol) 650 mg PO Q4H PRN PRN Reason: Pain (Mild 1-3)/fever Albuterol (Proventil Neb Soln) 2.5 mg NEB Q2H PRN PRN Reason: Shortness of Breath Albuterol/Ipratropium (Duoneb 3.0-0.5 Mg/3 Ml) 3 ml NEB Q6HRRT [facility] Aspirin (Aspirin) 81 mg PO DAILY [facility] Last Admin: 11/25/18 08:21 Dose: 81 mg Budesonide (Pulmicort) 0.5 mg INH BIDRT [facility] Last Admin: 11/25/18 06:36 Dose: 0.5 mg Enoxaparin Sodium (Lovenox) 40 mg SUBCUT Q24H [facility] Last Admin: 11/24/18 20:08 Dose: 40 mg Sodium Chloride (Normal Saline) 1,000 mls @ 75 mls/hr IV ASDIRECTED [facility] Last Admin: 11/24/18 20:27 Dose: 75 mls/hr Ketorolac Tromethamine (Toradol) 30 mg IVPUSH Q6H PRN PRN Reason: Pain (moderate 4-6) Last Admin: 11/25/18 09:37 Dose: 30 mg Ondansetron HCl (Zofran Odt) 4 mg PO Q4H PRN PRN Reason: nausea, able to take PO Discontinued Medications Albuterol (Ventolin Hfa) 0 gm INH Q6H PRN PRN Reason: Dyspnea Albuterol/Ipratropium (Duoneb 3.0-0.5 Mg/3 Ml) 3 ml NEB Q4HRRT PRN PRN Reason: Wheezing Last Admin: 11/25/18 06:38 Dose: 3 ml Potassium Chloride 40 meq/ (Premix) 100 mls @ 25 mls/hr IV ONETIME ONE Stop: 11/24/18 21:38 Last Admin: 11/24/18 18:38 Dose: 25 mls/hr Sodium Chloride (Normal Saline) 1,000 mls @ 125 mls/hr IV ASDIRECTED [facility] Last Admin: 11/24/18 18:25 Dose: 125 mls/hr Ketorolac Tromethamine (Toradol) 30 mg IM Q6H PRN PRN Reason: Pain (moderate 4-6) Potassium Chloride (Klor-Con M20) 40 meq PO ONETIME ONE Stop: 11/25/18 07:50 Last Admin: 11/25/18 08:21 Dose: 40 meq Original Note: <Vignesh Pillai - Last Filed: 11/25/18 10:26> Discharge Summary - Hospital Course Free Text/Narrative:: 77 y/o female with history of COPD who was admitted after she suffered a fall to the ground and found to be hypokalemic. X-rays did not show any acute fractures. However, xray of right shoulder showed a 1.5 cm sclerotic lesion on the glenoid and a follow-up Bone scan or MRI was recommended as outpatient. Her potassium was repleted. She did well overnight. She was evaluated by PT and did not need any ambulatory devices or assistance. - Discharge Data Discharge Date: 11/25/18 Discharge Disposition: Home, Self-Care 01 Condition: Good - Patient Summary/Data Consults: Consultations 11/24/18 18:45 Consult to Physical Therapy [PT Evaluation and Treatment] [CONS] Routine - Patient Instructions Diet: Regular Diet as Tolerated Activity: As Tolerated Notify Provider of: Fever, Increased Pain, Swelling and Redness, Nausea and/or Vomiting - Discharge Plan *PRESCRIPTION DRUG MONITORING PROGRAM REVIEWED*: Not Applicable *COPY OF PRESCRIPTION DRUG MONITORING REPORT IN PATIENT REDDY: Not Applicable Home Medications: Home Meds Albuterol/Ipratropium [DuoNeb 3.0-0.5 MG/3 ML] 3 ml NEB Q4HRRT PRN neb MDD 4-6 times a day 09/28/17 [Rx] Albuterol [Ventolin HFA] 1 puff PO Q6HR PRN 04/16/18 [History] Aspirin 81 mg PO DAILY #30 tab.chew 04/18/18 [Rx] Budesonide [Pulmicort] 0.5 mg IH BID 11/24/18 [History] Patient Handouts: Fall Prevention in the Home, Adult, [id number], Hypokalemia Referrals: [facility] [Outside] Tamanna Sanchez NP [Ordering Only Provider] - 12/15/18 3:00 pm (Arrive 15 minutes early with ID and insurance cards) - Discharge Summary/Plan Comment DC Time >30 min.: No - Patient Data Vitals - Most Recent: Last Vital Signs Temp 36.4 C 11/25/18 08:23 Pulse 77 11/25/18 08:23 Resp 17 11/25/18 08:23 BP 118/66 11/25/18 08:23 Pulse Ox 96 11/25/18 08:23 Orthostatic Blood Pressure [ 125/65 Standing] Orthostatic Blood Pressure [ 131/64 Sitting] Orthostatic Blood Pressure [ 129/69 Supine] Weight - Most Recent: 61.235 kg I&O - Last 24 hours: Intake & Output 11/24/18 11/25/18 11/25/18 22:59 06:59 14:59 Intake Total 1132 Output Total 900 Balance 232 Lab Results - Last 24 hrs: Laboratory Results - last 24 hr 11/24/18 11/24/18 11/24/18 Range/Units 16:40 16:45 16:45 WBC 8.56 (4.0-11.0) K/uL RBC 4.39 (4.30-5.90) M/uL Hgb 13.2 (12.0-16.0) g/dL Hct 39.6 (36.0-46.0) % MCV 90.2 (80.0-98.0) fL MCH 30.1 (27.0-32.0) pg MCHC 33.3 (31.0-37.0) g/dL RDW Std Deviation 42.7 (28.0-62.0) fl RDW Coeff of Nam 13 (11.0-15.0) % Plt Count 192 (150-400) K/uL MPV 10.20 (7.40-12.00) fL Neut % (Auto) 58.6 (48.0-80.0) % Lymph % (Auto) 15.8 L (16.0-40.0) % [place] % (Auto) 5.6 (0.0-15.0) % Eos % (Auto) 19.6 H (0.0-7.0) % Baso % (Auto) 0.4 (0.0-1.5) % Neut # (Auto) 5.0 (1.4-5.7) K/uL Lymph # (Auto) 1.4 (0.6-2.4) K/uL [place] # (Auto) 0.5 (0.0-0.8) K/uL Eos # (Auto) 1.7 H (0.0-0.7) K/uL Baso # (Auto) 0.0 (0.0-0.1) K/uL Nucleated RBC % 0.0 /100WBC Nucleated RBCs # 0 K/uL Sodium 139 (136-145) mmol/L Potassium 2.9 L (3.5-5.1) mmol/L Chloride 104 (98-107) mmol/L Carbon Dioxide 28.3 (21.0-32.0) mmol/L BUN 5 L (7.0-18.0) mg/dL Creatinine 0.7 (0.6-1.0) mg/dL Est Cr Clr Drug Dosing 62.48 mL/min Estimated GFR (MDRD) > 60.0 ml/min Glucose 117 H (74-106) mg/dL Calcium 8.5 (8.5-10.1) mg/dL Magnesium 2.0 (1.8-2.4) mg/dL Total Bilirubin 0.4 (0.2-1.0) mg/dL AST 17 (15-37) IU/L ALT 15 (14-63) IU/L Alkaline Phosphatase 74 (46-116) U/L Troponin I < 0.050 (0.000-0.056) ng/mL Total Protein 6.2 L (6.4-8.2) g/dL Albumin 3.6 (3.4-5.0) g/dL Globulin 2.6 (2.6-4.0) g/dL Albumin/Globulin Ratio 1.4 (0.9-1.6) Urine Color Urine Appearance Urine pH (5.0-8.0) Ur Specific [place] (1.001-1.035) Urine Protein (NEGATIVE) mg/dL Urine Glucose (UA) (NEGATIVE) mg/dL Urine Ketones (NEGATIVE) mg/dL Urine Occult Blood (NEGATIVE) Urine Nitrite (NEGATIVE) Urine Bilirubin (NEGATIVE) Urine Urobilinogen (<2.0) EU/dL Ur Leukocyte Esterase (NEGATIVE) Urine RBC (0-2/HPF) Urine WBC (0-5/HPF) Ur Epithelial Cells (NONE-FEW) Urine Bacteria (NEGATIVE) 11/24/18 11/25/18 11/25/18 Range/Units 23:45 05:05 05:05 WBC 6.58 (4.0-11.0) K/uL RBC 4.05 L (4.30-5.90) M/uL Hgb 12.2 (12.0-16.0) g/dL Hct 36.9 (36.0-46.0) % MCV 91.1 (80.0-98.0) fL MCH 30.1 (27.0-32.0) pg MCHC 33.1 (31.0-37.0) g/dL RDW Std Deviation 43.3 (28.0-62.0) fl RDW Coeff of Nam 13 (11.0-15.0) % Plt Count 169 (150-400) K/uL MPV 10.70 (7.40-12.00) fL Neut % (Auto) 46.1 L (48.0-80.0) % Lymph % (Auto) 21.0 (16.0-40.0) % [place] % (Auto) 7.6 (0.0-15.0) % Eos % (Auto) 24.8 H (0.0-7.0) % Baso % (Auto) 0.5 (0.0-1.5) % Neut # (Auto) 3.0 (1.4-5.7) K/uL Lymph # (Auto) 1.4 (0.6-2.4) K/uL [place] # (Auto) 0.5 (0.0-0.8) K/uL Eos # (Auto) 1.6 H (0.0-0.7) K/uL Baso # (Auto) 0.0 (0.0-0.1) K/uL Nucleated RBC % 0.0 /100WBC Nucleated RBCs # 0 K/uL Sodium 141 (136-145) mmol/L Potassium 3.6 (3.5-5.1) mmol/L Chloride 108 H (98-107) mmol/L Carbon Dioxide 29.0 (21.0-32.0) mmol/L BUN 6 L (7.0-18.0) mg/dL Creatinine 0.6 (0.6-1.0) mg/dL Est Cr Clr Drug Dosing 72.90 mL/min Estimated GFR (MDRD) > 60.0 ml/min Glucose 97 (74-106) mg/dL Calcium 8.1 L (8.5-10.1) mg/dL Magnesium (1.8-2.4) mg/dL Total Bilirubin (0.2-1.0) mg/dL AST (15-37) IU/L ALT (14-63) IU/L Alkaline Phosphatase (46-116) U/L Troponin I (0.000-0.056) ng/mL Total Protein (6.4-8.2) g/dL Albumin (3.4-5.0) g/dL Globulin (2.6-4.0) g/dL Albumin/Globulin Ratio (0.9-1.6) Urine Color DARK YELLOW Urine Appearance SLT CLOUDY Urine pH 7.0 (5.0-8.0) Ur Specific [place] 1.010 (1.001-1.035) Urine Protein NEGATIVE (NEGATIVE) mg/dL Urine Glucose (UA) NEGATIVE (NEGATIVE) mg/dL Urine Ketones NEGATIVE (NEGATIVE) mg/dL Urine Occult Blood SMALL H (NEGATIVE) Urine Nitrite NEGATIVE (NEGATIVE) Urine Bilirubin NEGATIVE (NEGATIVE) Urine Urobilinogen 1.0 (<2.0) EU/dL Ur Leukocyte Esterase NEGATIVE (NEGATIVE) Urine RBC 2-4 (0-2/HPF) Urine WBC 0-1 (0-5/HPF) Ur Epithelial Cells FEW (NONE-FEW) Urine Bacteria RARE (NEGATIVE) Med Orders - Current: Current Medications Acetaminophen (Tylenol) 650 mg PO Q4H PRN PRN Reason: Pain (Mild 1-3)/fever Albuterol (Proventil Neb Soln) 2.5 mg NEB Q2H PRN PRN Reason: Shortness of Breath Albuterol/Ipratropium (Duoneb 3.0-0.5 Mg/3 Ml) 3 ml NEB Q6HRRT [facility] Aspirin (Aspirin) 81 mg PO DAILY [facility] Last Admin: 11/25/18 08:21 Dose: 81 mg Budesonide (Pulmicort) 0.5 mg INH BIDRT [facility] Last Admin: 11/25/18 06:36 Dose: 0.5 mg Enoxaparin Sodium (Lovenox) 40 mg SUBCUT Q24H [facility] Last Admin: 11/24/18 20:08 Dose: 40 mg Sodium Chloride (Normal Saline) 1,000 mls @ 75 mls/hr IV ASDIRECTED [facility] Last Admin: 11/24/18 20:27 Dose: 75 mls/hr Ketorolac Tromethamine (Toradol) 30 mg IVPUSH Q6H PRN PRN Reason: Pain (moderate 4-6) Ondansetron HCl (Zofran Odt) 4 mg PO Q4H PRN PRN Reason: nausea, able to take PO Discontinued Medications Albuterol (Ventolin Hfa) 0 gm INH Q6H PRN PRN Reason: Dyspnea Albuterol/Ipratropium (Duoneb 3.0-0.5 Mg/3 Ml) 3 ml NEB Q4HRRT PRN PRN Reason: Wheezing Last Admin: 11/25/18 06:38 Dose: 3 ml Potassium Chloride 40 meq/ (Premix) 100 mls @ 25 mls/hr IV ONETIME ONE Stop: 11/24/18 21:38 Last Admin: 11/24/18 18:38 Dose: 25 mls/hr Sodium Chloride (Normal Saline) 1,000 mls @ 125 mls/hr IV ASDIRECTED [facility] Last Admin: 11/24/18 18:25 Dose: 125 mls/hr Ketorolac Tromethamine (Toradol) 30 mg IM Q6H PRN PRN Reason: Pain (moderate 4-6) Potassium Chloride (Klor-Con M20) 40 meq PO ONETIME ONE Stop: 11/25/18 07:50 Last Admin: 11/25/18 08:21 Dose: 40 meq <Siva Hawkins - Last Filed: 11/25/18 12:41> Discharge Summary - Hospital Course HPI Initial Comments: I have seen and examined to patient independently of medical clerical assistant, Vignesh Palm MD. I have discussed the case for care of this patient with him. I have reviewed and approve of the plan of care as outlined by medical clerical assistant. Please see orders. - Patient Summary/Data Consults: Consultations 11/24/18 18:45 Consult to Physical Therapy [PT Evaluation and Treatment] [CONS] Routine - Patient Data Vitals - Most Recent: Last Vital Signs Temp 36.4 C 11/25/18 08:23 Pulse 77 11/25/18 08:23 Resp 17 11/25/18 08:23 BP 118/66 11/25/18 08:23 Pulse Ox 96 11/25/18 08:23 Orthostatic Blood Pressure [ 125/65 Standing] Orthostatic Blood Pressure [ 131/64 Sitting] Orthostatic Blood Pressure [ 129/69 Supine] I&O - Last 24 hours: Intake & Output 11/24/18 11/25/18 11/25/18 22:59 06:59 14:59 Intake Total 1132 300 Output Total 900 900 Balance 232 -600 Lab Results - Last 24 hrs: Laboratory Results - last 24 hr 11/24/18 11/24/18 11/24/18 Range/Units 16:40 16:45 16:45 WBC 8.56 (4.0-11.0) K/uL RBC 4.39 (4.30-5.90) M/uL Hgb 13.2 (12.0-16.0) g/dL Hct 39.6 (36.0-46.0) % MCV 90.2 (80.0-98.0) fL MCH 30.1 (27.0-32.0) pg MCHC 33.3 (31.0-37.0) g/dL RDW Std Deviation 42.7 (28.0-62.0) fl RDW Coeff of Nam 13 (11.0-15.0) % Plt Count 192 (150-400) K/uL MPV 10.20 (7.40-12.00) fL Neut % (Auto) 58.6 (48.0-80.0) % Lymph % (Auto) 15.8 L (16.0-40.0) % [place] % (Auto) 5.6 (0.0-15.0) % Eos % (Auto) 19.6 H (0.0-7.0) % Baso % (Auto) 0.4 (0.0-1.5) % Neut # (Auto) 5.0 (1.4-5.7) K/uL Lymph # (Auto) 1.4 (0.6-2.4) K/uL [place] # (Auto) 0.5 (0.0-0.8) K/uL Eos # (Auto) 1.7 H (0.0-0.7) K/uL Baso # (Auto) 0.0 (0.0-0.1) K/uL Nucleated RBC % 0.0 /100WBC Nucleated RBCs # 0 K/uL Sodium 139 (136-145) mmol/L Potassium 2.9 L (3.5-5.1) mmol/L Chloride 104 (98-107) mmol/L Carbon Dioxide 28.3 (21.0-32.0) mmol/L BUN 5 L (7.0-18.0) mg/dL Creatinine 0.7 (0.6-1.0) mg/dL Est Cr Clr Drug Dosing 62.48 mL/min Estimated GFR (MDRD) > 60.0 ml/min Glucose 117 H (74-106) mg/dL Calcium 8.5 (8.5-10.1) mg/dL Magnesium 2.0 (1.8-2.4) mg/dL Total Bilirubin 0.4 (0.2-1.0) mg/dL AST 17 (15-37) IU/L ALT 15 (14-63) IU/L Alkaline Phosphatase 74 (46-116) U/L Troponin I < 0.050 (0.000-0.056) ng/mL Total Protein 6.2 L (6.4-8.2) g/dL Albumin 3.6 (3.4-5.0) g/dL Globulin 2.6 (2.6-4.0) g/dL Albumin/Globulin Ratio 1.4 (0.9-1.6) Urine Color Urine Appearance Urine pH (5.0-8.0) Ur Specific [place] (1.001-1.035) Urine Protein (NEGATIVE) mg/dL Urine Glucose (UA) (NEGATIVE) mg/dL Urine Ketones (NEGATIVE) mg/dL Urine Occult Blood (NEGATIVE) Urine Nitrite (NEGATIVE) Urine Bilirubin (NEGATIVE) Urine Urobilinogen (<2.0) EU/dL Ur Leukocyte Esterase (NEGATIVE) Urine RBC (0-2/HPF) Urine WBC (0-5/HPF) Ur Epithelial Cells (NONE-FEW) Urine Bacteria (NEGATIVE) 11/24/18 11/25/18 11/25/18 Range/Units 23:45 05:05 05:05 WBC 6.58 (4.0-11.0) K/uL RBC 4.05 L (4.30-5.90) M/uL Hgb 12.2 (12.0-16.0) g/dL Hct 36.9 (36.0-46.0) % MCV 91.1 (80.0-98.0) fL MCH 30.1 (27.0-32.0) pg MCHC 33.1 (31.0-37.0) g/dL RDW Std Deviation 43.3 (28.0-62.0) fl RDW Coeff of Nam 13 (11.0-15.0) % Plt Count 169 (150-400) K/uL MPV 10.70 (7.40-12.00) fL Neut % (Auto) 46.1 L (48.0-80.0) % Lymph % (Auto) 21.0 (16.0-40.0) % [place] % (Auto) 7.6 (0.0-15.0) % Eos % (Auto) 24.8 H (0.0-7.0) % Baso % (Auto) 0.5 (0.0-1.5) % Neut # (Auto) 3.0 (1.4-5.7) K/uL Lymph # (Auto) 1.4 (0.6-2.4) K/uL [place] # (Auto) 0.5 (0.0-0.8) K/uL Eos # (Auto) 1.6 H (0.0-0.7) K/uL Baso # (Auto) 0.0 (0.0-0.1) K/uL Nucleated RBC % 0.0 /100WBC Nucleated RBCs # 0 K/uL Sodium 141 (136-145) mmol/L Potassium 3.6 (3.5-5.1) mmol/L Chloride 108 H (98-107) mmol/L Carbon Dioxide 29.0 (21.0-32.0) mmol/L BUN 6 L (7.0-18.0) mg/dL Creatinine 0.6 (0.6-1.0) mg/dL Est Cr Clr Drug Dosing 72.90 mL/min Estimated GFR (MDRD) > 60.0 ml/min Glucose 97 (74-106) mg/dL Calcium 8.1 L (8.5-10.1) mg/dL Magnesium (1.8-2.4) mg/dL Total Bilirubin (0.2-1.0) mg/dL AST (15-37) IU/L ALT (14-63) IU/L Alkaline Phosphatase (46-116) U/L Troponin I (0.000-0.056) ng/mL Total Protein (6.4-8.2) g/dL Albumin (3.4-5.0) g/dL Globulin (2.6-4.0) g/dL Albumin/Globulin Ratio (0.9-1.6) Urine Color DARK YELLOW Urine Appearance SLT CLOUDY Urine pH 7.0 (5.0-8.0) Ur Specific [place] 1.010 (1.001-1.035) Urine Protein NEGATIVE (NEGATIVE) mg/dL Urine Glucose (UA) NEGATIVE (NEGATIVE) mg/dL Urine Ketones NEGATIVE (NEGATIVE) mg/dL Urine Occult Blood SMALL H (NEGATIVE) Urine Nitrite NEGATIVE (NEGATIVE) Urine Bilirubin NEGATIVE (NEGATIVE) Urine Urobilinogen 1.0 (<2.0) EU/dL Ur Leukocyte Esterase NEGATIVE (NEGATIVE) Urine RBC 2-4 (0-2/HPF) Urine WBC 0-1 (0-5/HPF) Ur Epithelial Cells FEW (NONE-FEW) Urine Bacteria RARE (NEGATIVE) Med Orders - Current: Current Medications Discontinued Medications Acetaminophen (Tylenol) 650 mg PO Q4H PRN PRN Reason: Pain (Mild 1-3)/fever Albuterol (Ventolin Hfa) 0 gm INH Q6H PRN PRN Reason: Dyspnea Albuterol (Proventil Neb Soln) 2.5 mg NEB Q2H PRN PRN Reason: Shortness of Breath Albuterol/Ipratropium (Duoneb 3.0-0.5 Mg/3 Ml) 3 ml NEB Q4HRRT PRN PRN Reason: Wheezing Last Admin: 11/25/18 06:38 Dose: 3 ml Albuterol/Ipratropium (Duoneb 3.0-0.5 Mg/3 Ml) 3 ml NEB Q6HRRT [facility] Aspirin (Aspirin) 81 mg PO DAILY [facility] Last Admin: 11/25/18 08:21 Dose: 81 mg Budesonide (Pulmicort) 0.5 mg INH BIDRT [facility] Last Admin: 11/25/18 06:36 Dose: 0.5 mg Enoxaparin Sodium (Lovenox) 40 mg SUBCUT Q24H [facility] Last Admin: 11/24/18 20:08 Dose: 40 mg Potassium Chloride 40 meq/ (Premix) 100 mls @ 25 mls/hr IV ONETIME ONE Stop: 11/24/18 21:38 Last Admin: 11/24/18 18:38 Dose: 25 mls/hr Sodium Chloride (Normal Saline) 1,000 mls @ 125 mls/hr IV ASDIRECTED [facility] Last Admin: 11/24/18 18:25 Dose: 125 mls/hr Sodium Chloride (Normal Saline) 1,000 mls @ 75 mls/hr IV ASDIRECTED [facility] Last Admin: 11/24/18 20:27 Dose: 75 mls/hr Ketorolac Tromethamine (Toradol) 30 mg IM Q6H PRN PRN Reason: Pain (moderate 4-6) Ketorolac Tromethamine (Toradol) 30 mg IVPUSH Q6H PRN PRN Reason: Pain (moderate 4-6) Last Admin: 11/25/18 09:37 Dose: 30 mg Ondansetron HCl (Zofran Odt) 4 mg PO Q4H PRN PRN Reason: nausea, able to take PO Potassium Chloride (Klor-Con M20) 40 meq PO ONETIME ONE Stop: 11/25/18 07:50 Last Admin: 11/25/18 08:21 Dose: 40 meq
[2018-11-25] MEDS ORDERED: Albuterol/Ipratropium 3.0-0.5 MG/3 ML Neb Soln NEB SCH (12:00)
== END 2018-11-25 10:59 | disposition home or self-care (01) ==
LOC: MW.ED 16:07 → MW.MS 18:22
PROVIDERS: ADMIT Internal Medicine; ATTEND Internal Medicine
DX: E87.6 Hypokalemia (principal); S00.83XA Contusion of other part of head, initial encounter; S49.91XA Unspecified injury of right shoulder and upper arm, initial encounter; J44.9 Chronic obstructive pulmonary disease, unspecified; Z79.82 Long term (current) use of aspirin; Z79.899 Other long term (current) drug therapy; Z88.0 Allergy status to penicillin; Z91.048 Other nonmedicinal substance allergy status; Z88.8 Allergy status to other drugs, medicaments and biological substances; Z87.891 Personal history of nicotine dependence; W18.30XA Fall on same level, unspecified, initial encounter
CPT/HCPCS: 36415; 70450; 71045; 72125; 72170; 73030; 80048; 80053; 81001; 83735; 84484; 85025; 93005; 94640; 96361; 96372; 96374; 96375; 97161; 99285; A4217; A9270; G0378; J1650; J1885; J3480; J7040; J3535-GY; J7620-GY

== ENCOUNTER 2018-12-13 21:24 | Emergency (ER) | payer MEDICARE, BC ==
[2018-12-13] MEDS ORDERED: methylPREDNISolone Sodium Succinate 125 MG/2 ML SDV IM ONE (21:32)
--- NOTE | 2018-12-13 21:36 | EDM.PDOC ---
ED HPI GENERAL MEDICAL PROBLEM - General Chief Complaint: Respiratory Problem Stated Complaint: PT HAS DIFFICULTY BREATHING Time Seen by Provider: 12/13/18 21:25 - History of Present Illness INITIAL COMMENTS - FREE TEXT/NARRATIVE: HISTORY AND PHYSICAL: History of present illness: The patient is a 78-year-old female with a history of COPD who uses oxygen at home as needed and is well known to me and this emergency department for frequent ER visits and admissions for same and he presents via EMS with shortness of breath that has been ongoing all day and has worsened this evening. She has a history of prolonged QT syndrome CHF and an STEMI and was recently admitted here in mid November for a fall due to hypokalemia. The patient has done pulmonary rehabilitation here with our team in the past and was a smoker and has not been smoking for her testimony. She follows with a hop grower at [facility], Dr. Steinberg, and she is not currently on any standing oral prednisone dosing. She says that she was in [place] for a conference and there was a lot of cigarette smoking in the casinos and she felt her starting to flare then but it worsened today. There has been an issue with the air quality here in [facility] due to all the fireworks smoke and she thinks that has contributed to this. She says that she feels like there is phlegm that he cannot get it out. Her cough is not necessarily new but it is just slightly intensified than her usual. She gave herself 2 breathing treatments, albuterol, prior to calling EMS and they also gave her one in route. She says she feels much better already. She has her oxygen at home that she only uses as needed and she did not apply it this evening. She has been eating and drinking normally and has had no fevers. Review of systems: As per history of present illness and below otherwise all systems reviewed and negative. Past medical history: As per history of present illness and as reviewed below otherwise noncontributory. Surgical history: As per history of present illness and as reviewed below otherwise noncontributory. Social history: No reported history of drug or alcohol abuse. Family history: As per history of present illness and as reviewed below otherwise noncontributory. Physical exam: General: Well-developed well-nourished petite female who speaks without breathlessness and has a cough on my evaluation which is somewhat dry with some harsh component to it. She is nontoxic and vital signs are noted by me HEENT: Atraumatic, normocephalic, negative for conjunctival pallor or scleral icterus, mucous membranes moist, throat clear, neck supple, nontender, trachea midline. Lungs: There is expiratory wheezing bilaterally but good air exchange and some coarse breath sounds but no work of breathing stridor, breath sounds equal bilaterally, chest nontender. Heart: S1S2, regular rate and rhythm no overt murmurs Abdomen: Soft, nondistended, nontender. Globular abdomen with slightly hypoactive bowel sounds Negative for masses or hepatosplenomegaly. Negative for costovertebral tenderness. Pelvis: Deferred. Genitourinary: Deferred. Rectal: Deferred. Extremities: Atraumatic, negative for cords or calf pain. Neurovascular unremarkable. No pedal edema Neuro: Awake, alert, oriented. Cranial nerves II through XII unremarkable. Cerebellum unremarkable. Motor and sensory unremarkable throughout. Exam nonfocal. Diagnostics: CBC CMP chest x-ray Therapeutics: Patient like to hold anymore duo nebs as she received 1 and route per EMS, Solu- Medrol IM The patient says that she is feeling better and she is aware of testing results and we will plan for disposition home. I will give her prednisone for the next 5 days and advised her to contact her providers including hop grower on Saturday to have a dialogue about today's events. She has duo nebs at home and does not want anymore at this time and has home oxygen which she will continue to use through the weekend. Her sats are variable anywhere from 91-94% and her lungs are still moving air well with wheezing and coarse breath sounds which is her baseline per my prior exams with her. Impression: COPD exacerbation , acute on chronic Definitive disposition and diagnosis as appropriate pending reevaluation and review of above. - Related Data Allergies Allergy/AdvReac Type Severity Reaction Status Date / Time adhesive tape Allergy Blisters Verified 12/13/18 21:29 Penicillins Allergy neck Verified 12/13/18 21:29 swelling phenylbutazone Allergy Cannot Verified 12/13/18 21: [From Butazolidin] Remember Home Meds: Home Meds Albuterol/Ipratropium [DuoNeb 3.0-0.5 MG/3 ML] 3 ml NEB Q4HRRT PRN neb MDD 4-6 times a day 09/28/17 [Rx] Albuterol [Ventolin HFA] 1 puff PO Q6HR PRN 04/16/18 [History] Aspirin 81 mg PO DAILY #30 tab.chew 04/18/18 [Rx] Budesonide [Pulmicort] 0.5 mg IH BID 11/24/18 [History] Past Medical History - Past Health History Medical/Surgical History: Denies Medical/Surgical History HEENT History: Reports: Cataract Other HEENT History: wears glasses, upper and lower dentures Cardiovascular History: Reports: Other (See Below) Other Cardiovascular History: pt states long QT syndrome Respiratory History: Reports: Asthma, COPD Other Respiratory History: at home on O2 @2LPM using at night Gastrointestinal History: Reports: None Genitourinary History: Reports: Other (See Below) Other Genitourinary History: growth removed from bladder [employer] History: Reports: , Other (See Below) Other [employer]OR History: Vaginal hysterectomy, still has ovaries Musculoskeletal History: Reports: Osteoarthritis Neurological History: Reports: None Psychiatric History: Reports: None Endocrine/Metabolic History: Reports: None Hematologic History: Reports: None Immunologic History: Reports: None Oncologic (Cancer) History: Reports: Basal Cell Carcinoma Dermatologic History: Reports: Other (See Below) Other Dermatologic History: basal cell ca removed from face and scalp. 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 GI Surgical History: Reports: Appendectomy Female Surgical History: Reports: Hysterectomy Musculoskeletal Surgical History: Reports: Carpal Tunnel, Other (See Below) Other Musculoskeletal Surgeries/Procedures:: cyst removed from wrist Oncologic Surgical History: Reports: None Dermatological Surgical History: Reports: Other (See Below) Social & Family History - Family History Family Medical History: Noncontributory HEENT: Reports: None Cardiac: Reports: Hypertension, Other (See Below) Other Cardiac Family History: long QT syndrome Respiratory: Reports: COPD Other Respiratory Family Hisory: brother OBGYN: Reports: Endocrine/Metabolic: Reports: Diabetes, Type I Other Endocrine/Metabolic Family History: Grandmother Oncologic: Reports: Skin Other Oncologic Family History: brother - Tobacco Use Smoking Status *Q: Former Smoker Used Tobacco, but Quit: Yes Month/Year Tobacco Last Used: 1 - Caffeine Use Caffeine Use: Reports: Coffee, Soda - Recreational Drug Use Recreational Drug Use: No - Living Situation & Occupation Living situation: Reports: Occupation: Employed ED ROS GENERAL - Review of Systems Review Of Systems: ROS reveals no pertinent complaints other than HPI. ED EXAM, GENERAL - Physical Exam Exam: See Below (See dictation) Course - Vital Signs Last Recorded V/S: Last Vital Signs Temp 36.9 C 12/13/18 21:24 Pulse 91 12/13/18 21:24 Resp 24 H 12/13/18 21:24 BP 133/76 12/13/18 21:24 Pulse Ox 94 L 12/13/18 21:24 - Orders/Labs/Meds Orders: Active Orders 24 hr Category Date Time Status Oxygen Therapy, ED [RC] ASDIRECTED Care 12/13/18 21:32 Active Pulse Oximetry [RC] ASDIRECTED Care 12/13/18 21:32 Active Labs: Laboratory Tests 12/13/18 12/13/18 Range/Units 21:40 21:40 WBC 7.94 (4.0-11.0) K/uL RBC 4.87 (4.30-5.90) M/uL Hgb 14.8 (12.0-16.0) g/dL Hct 44.8 (36.0-46.0) % MCV 92.0 (80.0-98.0) fL MCH 30.4 (27.0-32.0) pg MCHC 33.0 (31.0-37.0) g/dL RDW Std Deviation 43.6 (28.0-62.0) fl RDW Coeff of Nam 13 (11.0-15.0) % Plt Count 186 (150-400) K/uL MPV 10.10 (7.40-12.00) fL Neut % (Auto) 57.7 (48.0-80.0) % Lymph % (Auto) 12.2 L (16.0-40.0) % [place] % (Auto) 10.8 (0.0-15.0) % Eos % (Auto) 18.5 H (0.0-7.0) % Baso % (Auto) 0.8 (0.0-1.5) % Neut # (Auto) 4.6 (1.4-5.7) K/uL Lymph # (Auto) 1.0 (0.6-2.4) K/uL [place] # (Auto) 0.9 H (0.0-0.8) K/uL Eos # (Auto) 1.5 H (0.0-0.7) K/uL Baso # (Auto) 0.1 (0.0-0.1) K/uL Nucleated RBC % 0.0 /100WBC Nucleated RBCs # 0 K/uL Sodium 141 (136-145) mmol/L Potassium 5.0 (3.5-5.1) mmol/L Chloride 105 (98-107) mmol/L Carbon Dioxide 29.1 (21.0-32.0) mmol/L BUN 6 L (7.0-18.0) mg/dL Creatinine 0.8 (0.6-1.0) mg/dL Est Cr Clr Drug Dosing TNP Estimated GFR (MDRD) > 60.0 ml/min Glucose 112 H (74-106) mg/dL Calcium 9.1 (8.5-10.1) mg/dL Total Bilirubin 0.5 (0.2-1.0) mg/dL AST 15 (15-37) IU/L ALT 15 (14-63) IU/L Alkaline Phosphatase 91 (46-116) U/L Total Protein 6.9 (6.4-8.2) g/dL Albumin 3.9 (3.4-5.0) g/dL Globulin 3.0 (2.6-4.0) g/dL Albumin/Globulin Ratio 1.3 (0.9-1.6) Meds: Medications Discontinued Medications Generic Name Dose Route Start Last Admin Trade Name Freq PRN Reason Stop Dose Admin Methylprednisolone Sodium Succinate 125 mg 12/13/18 21:32 12/13/18 21:42 Solu-Medrol IM 12/13/18 21:33 125 mg ONETIME ONE Administration Departure - Departure Time of Disposition: 22:15 Disposition: Home, Self-Care 01 Condition: Good Clinical Impression: COPD exacerbation - Discharge Information Forms: ED Department Discharge Additional Instructions: The following information is given to patients seen in the emergency department who are being discharged to home. This information is to outline your options for follow-up care. We provide all patients seen in our emergency department with a follow-up referral. The need for follow-up, as well as the timing and circumstances, are variable depending upon the specifics of your emergency department visit. If you don't have a primary care physician on staff, we will provide you with a referral. We always advise you to contact your personal physician following an emergency department visit to inform them of the circumstance of the visit and for follow-up with them and/or the need for any referrals to a consulting specialist. The emergency department will also refer you to a specialist when appropriate. This referral assures that you have the opportunity for followup care with a specialist. All of these measure are taken in an effort to provide you with optimal care, which includes your followup. Under all circumstances we always encourage you to contact your private physician who remains a resource for coordinating your care. When calling for followup care, please make the office aware that this follow-up is from your recent emergency room visit. If for any reason you are refused follow-up, please contact the [facility] emergency department at and ask to speak to the emergency department charge nurse. [address] [place] [address] [facility] Primary care- Internal Medicine and Family [address] [address] Continue to hydrate and avoid being outside due to the air quality issues and use her nebulizer machine and home oxygen as we discussed an as needed. Please fill the prescription for the prednisone you have been given tonight and start taking it midday tomorrow. Please connect with her providers in the clinics on Saturday to discuss further care and evaluation and return to ER as needed and as discussed - My Orders Last 24 Hours: My Active Orders 12/13/18 21:32 Oxygen Therapy, ED [RC] ASDIRECTED Pulse Oximetry [RC] ASDIRECTED - Assessment/Plan Last 24 Hours: My Active Orders 12/13/18 21:32 Oxygen Therapy, ED [RC] ASDIRECTED Pulse Oximetry [RC] ASDIRECTED
--- NOTE | 2018-12-13 22:01 | CR ---
TECHNIQUE: Portable AP chest. INDICATION: Shortness of breath. COMPARISON: 11/24/2018. FINDINGS: Slight left pleural thickening or fluid, less apparent than on the prior exam. Tiny benign calcified granulomas in both lungs. Postop change at the left lung apex. No focal consolidation. No pneumothorax. Normal heart size and pulmonary vascularity. IMPRESSION: No acute chest findings. Dictated by Rico Dupree MD @ 12/13/2018 9:59:21 PM Dictated by: Rico Dupree MD @ 12/13/2018 21:59:26 (Electronically Signed)
[2018-12-13 22:04] LABS: CHLORIDE,CL 105 mmol/L (98-107); SODIUM,NA 141 mmol/L (136-145)
[2018-12-13 22:18] VITALS: BP 110/66
== END 2018-12-13 22:20 | disposition home or self-care (01) ==
LOC: MW.ED 21:24
DX: J44.1 Chronic obstructive pulmonary disease with (acute) exacerbation (principal); Z88.0 Allergy status to penicillin; Z88.8 Allergy status to other drugs, medicaments and biological substances; Z91.048 Other nonmedicinal substance allergy status; Z79.82 Long term (current) use of aspirin; Z79.899 Other long term (current) drug therapy; Z87.891 Personal history of nicotine dependence
CPT/HCPCS: 36415; 71045; 80053; 85025; 96372; 99285; J2930

== ENCOUNTER 2020-08-30 15:20 | Emergency (ER) | payer OTHER, MEDICARE, BC ==
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
[2020-08-30 17:13] VITALS: BP 142/78; PULSE 79
== END 2020-08-30 17:12 | disposition home or self-care (01) ==
LOC: MW.ED 15:20
DX: M54.2 Cervicalgia (principal); M54.6 Pain in thoracic spine; J44.9 Chronic obstructive pulmonary disease, unspecified; Z88.0 Allergy status to penicillin; Z88.8 Allergy status to other drugs, medicaments and biological substances; Z79.82 Long term (current) use of aspirin; Z79.899 Other long term (current) drug therapy; V43.53XA Car driver injured in collision with pick-up truck in traffic accident, initial encounter
CPT/HCPCS: 70450; 70450-26; 72125; 72125-26; 72128; 72128-26; 72131; 72131-26; 99284-25

== ENCOUNTER 2020-12-03 01:28 | Emergency (ER) | payer MEDICARE, BC ==
[2020-12-03] MEDS ORDERED: methylPREDNISolone Sodium Succinate 125 MG/2 ML SDV IVPUSH ONE (01:31)
[2020-12-03] MEDS ORDERED: Sodium Chloride 0.9% 10 ML Syringe FLUSH PRN (01:31)
[2020-12-03] MEDS ORDERED: Sodium Chloride 0.9% 2.5 ML Syringe FLUSH PRN (01:31)
--- NOTE | 2020-12-03 01:34 | EDM.PDOC ---
ED HPI GENERAL MEDICAL PROBLEM - General Stated Complaint: SHORTNESS OF BREATH Time Seen by Provider: 12/03/20 01:31 - History of Present Illness INITIAL COMMENTS - FREE TEXT/NARRATIVE: History of present illness: [] Patient is here for shortness of breath. She was in extreme shortness of breath tripoding and having trouble breathing when EMS arrived. She is improved slightly with 2 breathing treatments. The patient has gradually increasing shortness of breath and diminished oxygen saturation on her monitor at home over the past week. She just got back last week from [place] where she visited family. She drove herself actually. She has not had an exacerbation requiring emergency department visit for 3 years. At that time she was admitted for about 2 nights she says and went home on steroids. Review of systems: As per history of present illness and below otherwise all systems reviewed and negative. Past medical history: As per history of present illness and as reviewed below otherwise noncontributory. Surgical history: As per history of present illness and as reviewed below otherwise noncontributory. Social history: No reported history of drug or alcohol abuse. Family history: As per history of present illness and as reviewed below otherwise noncontributory. Physical exam: Constitutional - well developed, well-nourished and in no acute distress HEENT - normocephalic, no evidence of trauma - external nose and mouth normal - no mass in neck and no JVD - mucosae moist EYES - full EOM, PERRL, no icterus - no evidence of inflammation, injection, or drainage Respiratory -moderate respiratory distress, equal bilateral expansion, lungs diminished to auscultation with wheezes throughout. Cardiovascular - Regular Rhythm with S1 and S2 appreciated and no murmur, gallop or rub. GI - abdomen soft without distension or organomegaly - normal bowel sounds - no guard or rebound Musculoskeletal no gross deformity of long bones or joints - no tenderness, swelling or edema Neurologic - Alert and oriented times four - CN II-XII grossly intact - motor sensory and coordination symmetrically normal Psychiatric - appropriate mood and affect with normal thought content Hematologic - No petechiae or purpura - mucosa appropriate color and sclera not pale - normal nail bed color and refill Integument - no rash or evidence of trauma - normal turgor Diagnostics: [] Therapeutics: [] Impression: [] Plan: [] Definitive disposition and diagnosis as appropriate pending reevaluation and review of above. - Related Data Allergies Allergy/AdvReac Type Severity Reaction Status Date / Time adhesive tape Allergy Blisters Verified 12/03/20 01:39 Penicillins Allergy neck Verified 12/03/20 01:39 swelling phenylbutazone Allergy Cannot Verified 12/03/20 01:39 [From Butazolidin] Remember Home Meds: Home Meds Albuterol/Ipratropium [DuoNeb 3.0-0.5 MG/3 ML] 3 ml NEB Q4HRRT PRN neb MDD 4-6 times a day 09/28/17 [Rx] Albuterol [Ventolin HFA] 1 puff PO Q6HR PRN 04/16/18 [History] Aspirin 81 mg PO DAILY #30 tab.chew 04/18/18 [Rx] Budesonide [Pulmicort] 0.5 mg IH BID 11/24/18 [History] predniSONE [Prednisone] 40 mg PO DAILY #14 tablet 12/03/20 [Rx] Past Medical History - Past Health History Medical/Surgical History: Denies Medical/Surgical History HEENT History: Reports: Cataract Other HEENT History: wears glasses, upper and lower dentures Cardiovascular History: Reports: Other (See Below) Other Cardiovascular History: pt states long QT syndrome Respiratory History: Reports: Asthma, COPD Other Respiratory History: at home on o2 @2LPM using at night Gastrointestinal History: Reports: None Genitourinary History: Reports: Other (See Below) Other Genitourinary History: growth removed from bladder COMPUTER SCIENCE INTERN History: Reports: , Other (See Below) Other COMPUTER SCIENCE INTERN History: Vaginal hysterectomy, still has ovaries Musculoskeletal History: Reports: Osteoarthritis Neurological History: Reports: None Psychiatric History: Reports: None Endocrine/Metabolic History: Reports: None Hematologic History: Reports: None Immunologic History: Reports: None Oncologic (Cancer) History: Reports: Basal Cell Carcinoma Dermatologic History: Reports: Other (See Below) Other Dermatologic History: basal cell ca removed from face and scalp. 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 GI Surgical History: Reports: Appendectomy Female Surgical History: Reports: Hysterectomy Other Female Surgeries/Procedures: Bladder surgery for growth Endocrine Surgical History: Reports: None Neurological Surgical History: Reports: None Musculoskeletal Surgical History: Reports: Carpal Tunnel, Other (See Below) Other Musculoskeletal Surgeries/Procedures:: cyst removed from wrist Oncologic Surgical History: Reports: None Dermatological Surgical History: Reports: Other (See Below) Social & Family History - Family History Family Medical History: No Pertinent Family History HEENT: Reports: None Cardiac: Reports: Hypertension, Other (See Below) Other Cardiac Family History: long QT syndrome Respiratory: Reports: COPD Other Respiratory Family Hisory: brother OBGYN: Reports: Endocrine/Metabolic: Reports: Diabetes, Type I Other Endocrine/Metabolic Family History: Grandmother Oncologic: Reports: Skin Other Oncologic Family History: brother - Caffeine Use Caffeine Use: Reports: Coffee, Soda - Living Situation & Occupation Living situation: Reports: Occupation: Employed ED ROS GENERAL - Review of Systems Review Of Systems: Comprehensive ROS is negative, except as noted in HPI. 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 Compared to the prior EKG no change impression no acute injury Course - Vital Signs Text/Narrative:: 3:03 AM ambulates without any shortness of breath. Last Recorded V/S: Last Vital Signs Temp 36.4 C 12/03/20 01:37 Pulse 88 12/03/20 01:37 Resp 26 H 12/03/20 01:37 BP 115/55 L 12/03/20 01:37 Pulse Ox 894 H 12/03/20 01:37 - Orders/Labs/Meds Orders: Active Orders 24 hr Category Date Time Status CORONAVIRUS COVID-19 CHARLY [MOLEC] Stat Lab 12/03/20 01:32 Ordered Sodium Chloride 0.9% [Saline Flush] Med 12/03/20 01:31 Active 10 ml FLUSH ASDIRECTED PRN Sodium Chloride 0.9% [Saline Flush] Med 12/03/20 01:31 Active 2.5 ml FLUSH ASDIRECTED PRN Saline Lock Insert [OM.PC] Stat Oth 12/03/20 01:31 Ordered Medication Orders Sodium Chloride (Sodium Chloride 0.9% 10 Ml Syringe) 10 ml FLUSH ASDIRECTED PRN PRN Reason: Keep Vein Open Sodium Chloride (Sodium Chloride 0.9% 2.5 Ml Syringe) 2.5 ml FLUSH ASDIRECTED PRN PRN Reason: Keep Vein Open Labs: Laboratory Tests 12/03/20 12/03/20 Range/Units 01:35 01:35 WBC 10.69 (4.0-11.0) K/uL RBC 4.25 L (4.30-5.90) M/uL Hgb 13.3 (12.0-16.0) g/dL Hct 38.9 (36.0-46.0) % MCV 91.5 (80.0-98.0) fL MCH 31.3 (27.0-32.0) pg MCHC 34.2 (31.0-37.0) g/dL RDW Std Deviation 42.1 (28.0-62.0) fl RDW Coeff of Nam 13 (11.0-15.0) % Plt Count 241 (150-400) K/uL MPV 9.80 (7.40-12.00) fL Neut % (Auto) 76.7 (48.0-80.0) % Lymph % (Auto) 10.2 L (16.0-40.0) % Vermilion % (Auto) 10.9 (0.0-15.0) % Eos % (Auto) 2.0 (0.0-7.0) % Baso % (Auto) 0.2 (0.0-1.5) % Neut # (Auto) 8.2 H (1.4-5.7) K/uL Lymph # (Auto) 1.1 (0.6-2.4) K/uL Vermilion # (Auto) 1.2 H (0.0-0.8) K/uL Eos # (Auto) 0.2 (0.0-0.7) K/uL Baso # (Auto) 0.0 (0.0-0.1) K/uL Sodium 137 (136-145) mmol/L Potassium 3.6 (3.5-5.1) mmol/L Chloride 100 (98-107) mmol/L Carbon Dioxide 29.1 (21.0-32.0) mmol/L BUN 8 (7.0-18.0) mg/dL Creatinine 0.9 (0.6-1.0) mg/dL Est Cr Clr Drug Dosing TNP Estimated GFR (MDRD) > 60.0 ml/min Glucose 141 H (74-106) mg/dL Calcium 8.7 (8.5-10.1) mg/dL Total Bilirubin 0.6 (0.2-1.0) mg/dL AST 19 (15-37) IU/L ALT 9 L (14-63) IU/L Alkaline Phosphatase 83 (46-116) U/L Total Protein 6.9 (6.4-8.2) g/dL Albumin 3.0 L (3.4-5.0) g/dL Globulin 3.9 (2.6-4.0) g/dL Albumin/Globulin Ratio 0.8 L (0.9-1.6) Meds: Medications Generic Name Dose Route Start Last Admin Trade Name Freq PRN Reason Stop Dose Admin Sodium Chloride 10 ml 12/03/20 01:31 Sodium Chloride 0.9% 10 Ml Syringe FLUSH ASDIRECTED PRN Keep Vein Open Sodium Chloride 2.5 ml 12/03/20 01:31 Sodium Chloride 0.9% 2.5 Ml Syringe FLUSH ASDIRECTED PRN Keep Vein Open Discontinued Medications Generic Name Dose Route Start Last Admin Trade Name Freq PRN Reason Stop Dose Admin Methylprednisolone Sodium Succinate 125 mg 12/03/20 01:31 12/03/20 02:05 Methylprednisolone Sodium Succinate 125 Mg/2 Ml Sdv IVPUSH 12/03/20 01:32 125 mg ONETIME ONE Administration Departure - Departure Time of Disposition: 03:03 Disposition: Home, Self-Care 01 Condition: Good Clinical Impression: COPD exacerbation - Discharge Information Prescriptions: predniSONE [Prednisone] 40 mg PO DAILY #14 tablet Additional Instructions: Drink plenty of fluids. Use your inhaler and nebulizer as needed. Contact your doctor especially if you get a fever or more shortness of breath. Return if necessary. [facility] - [facility] [address] [place] [address] [facility] [address] [place] [id number] The following information is given to patients seen in the emergency department who are being discharged to home. This information is to outline your options for follow-up care. We provide all patients seen in our emergency department with a follow-up referral. The need for follow-up, as well as the timing and circumstances, are variable depending upon the specifics of your emergency department visit. If you don't have a primary care physician on staff, we will provide you with a referral. We always advise you to contact your personal physician following an emergency department visit to inform them of the circumstance of the visit and for follow-up with them and/or the need for any referrals to a consulting specialist. The emergency department will also refer you to a specialist when appropriate. This referral assures that you have the opportunity for follow-up care with a specialist. All of these measure are taken in an effort to provide you with optimal care, which includes your follow-up. Under all circumstances we always encourage you to contact your private physician who remains a resource for coordinating your care. When calling for follow-up care, please make the office aware that this follow-up is from your recent emergency room visit. If for any reason you are refused follow-up, please contact the [facility] Emergency Department at and asked to speak to the emergency department charge nurse. Sepsis Event Note (ED) - Focused Exam Vital Signs: Vital Signs Temp Pulse Resp BP Pulse Ox 12/03/20 01:37 36.4 C 88 26 H 115/55 L 894 H - My Orders Last 24 Hours: My Active Orders 12/03/20 01:31 Sodium Chloride 0.9% [Saline Flush] 10 ml FLUSH ASDIRECTED PRN Sodium Chloride 0.9% [Saline Flush] 2.5 ml FLUSH ASDIRECTED PRN Saline Lock Insert [OM.PC] Stat 12/03/20 01:32 CORONAVIRUS COVID-19 CHARLY [MOLEC] Stat - Assessment/Plan Last 24 Hours: My Active Orders 12/03/20 01:31 Sodium Chloride 0.9% [Saline Flush] 10 ml FLUSH ASDIRECTED PRN Sodium Chloride 0.9% [Saline Flush] 2.5 ml FLUSH ASDIRECTED PRN Saline Lock Insert [OM.PC] Stat 12/03/20 01:32 CORONAVIRUS COVID-19 CHARLY [MOLEC] Stat
--- NOTE | 2020-12-03 01:53 | CR ---
INDICATION: Shortness of breath TECHNIQUE: Chest radiograph 1 view COMPARISON: 12/13/2018 FINDINGS: Mediastinum: The mediastinum is normal in appearance. The heart silhouette is normal in size and morphology. Lung: Multiple bilateral pulmonary granulomas are noted. Mild pleural parenchymal scarring is seen in the left lung base with tenting of the diaphragm. A pulmonary staple line is seen in the left apex. No pneumothorax is identified. Bone and Soft tissue: Unremarkable for age. IMPRESSION: 1. No acute cardiopulmonary disease is seen. Dictated by Evan Todd MD @ 12/03/2020 1:53:13 AM Dictated by: Evan Todd MD @ 12/03/2020 01:53:18 (Electronically Signed)
[2020-12-03 01:57] LABS: BLOOD UREA NITROGEN,BUN 8 mg/dL (7.0-18.0); CARBON DIOXIDE,CO2 29.1 mmol/L (21.0-32.0); CHLORIDE,CL 100 mmol/L (98-107); GLUCOSE RANDOM 141 mg/dL (74-106); POTASSIUM,K 3.6 mmol/L (3.5-5.1); SODIUM,NA 137 mmol/L (136-145)
[2020-12-03 03:27] VITALS: BP 114/70; PULSE 90
== END 2020-12-03 03:28 | disposition home or self-care (01) ==
LOC: MW.ED 01:28
DX: J44.1 Chronic obstructive pulmonary disease with (acute) exacerbation (principal); M19.90 Unspecified osteoarthritis, unspecified site; J44.9 Chronic obstructive pulmonary disease, unspecified; Z91.048 Other nonmedicinal substance allergy status; Z88.0 Allergy status to penicillin; Z88.8 Allergy status to other drugs, medicaments and biological substances; Z79.82 Long term (current) use of aspirin; Z99.81 Dependence on supplemental oxygen
CPT/HCPCS: 36415; 71045; 80053; 85025; 96374; 99285; J2930; 99284

== ENCOUNTER 2021-02-07 15:09 | Inpatient (IN) | payer MEDICARE, BC ==
[2021-02-07] MEDS ORDERED: Albuterol/Ipratropium 3.0-0.5 MG/3 ML Neb Soln ONE (15:15)
[2021-02-07] MEDS ORDERED: Albuterol/Ipratropium 3.0-0.5 MG/3 ML Neb Soln NEB ONE ×3 (15:22→17:26)
--- NOTE | 2021-02-07 15:36 | CR ---
INDICATION: Short of breath. TECHNIQUE: Chest single-view portable. IMPRESSION: Overlying chemist food leads. Tiny punctate calcifications right lung base these are likely due to granulomatous disease, similar punctate calcifications in the left upper lobe. Vascular pattern normal. Heart size normal. Pleural thickening at the left lung base with scarring. No consolidation or pneumothorax. Radiodense focus possibly loose body at the right shoulder superimposed over the glenoid. Dictated by Dylan Acevedo MD @ 02/07/2021 3:34:[address] Dylan Acevedo @ Feb 07 2021 3:34PM
[2021-02-07 16:07] LABS: BLOOD UREA NITROGEN,BUN 5 mg/dL (7.0-18.0); CARBON DIOXIDE,CO2 32.4 mmol/L (21.0-32.0); CHLORIDE,CL 101 mmol/L (98-107); GLUCOSE RANDOM 109 mg/dL (74-106); POTASSIUM,K 3.7 mmol/L (3.5-5.1); SODIUM,NA 140 mmol/L (136-145)
[2021-02-07] MEDS ORDERED: methylPREDNISolone Sodium Succinate 40 MG/1 ML SDV IVPUSH ONE (17:31)
[2021-02-07] MEDS ORDERED: Doxycycline 100 MG in Sodium Chloride 0.9% 100 ML IV SCH (17:45)
[2021-02-07] MEDS: Doxycycline 100 MG in Sodium Chloride 0.9% 100 ML IV SCH (18:49)
[2021-02-07] MEDS ORDERED: Acetaminophen 325 MG Tab PO PRN (19:16)
[2021-02-07] MEDS ORDERED: Ondansetron 4 MG/2 ML SDV IVPUSH PRN (19:17)
--- NOTE | 2021-02-07 19:30 | EDM.PDOC ---
ED HPI GENERAL MEDICAL PROBLEM - General Chief Complaint: Respiratory Problem Stated Complaint: SOB Time Seen by Provider: 02/07/21 15:20 - History of Present Illness INITIAL COMMENTS - FREE TEXT/NARRATIVE: CHIEF COMPLAINT(S): Shortness of breath HISTORY OF PRESENT ILLNESS: This is a 80-year-old woman with a past medical history of COPD on home oxygen at nighttime only, history of CHF and prolonged QT syndrome who comes to the emergency department with a chief complaint of shortness of breath. The patient states that this morning she got up and she was short of breath. She states that she checked her oxygen level and it was 73% on room air. She states that she put some oxygen on and had a DuoNeb treatment. She states that the treatment did help however she started to continue feeling shortness of breath so she decided to come to the emergency department. She states that she has had increased sputum production. She denies any recent travel, recent surgery or prior history of DVT or PE. She denies any chest pain. She states that she has had a Covid vaccines and denies any Covid exposures. She denies any lower extremity edema. She denies any fevers or chills. REVIEW OF SYSTEMS: Constitutional: Denies fever, chills. Eyes: Denies eye pain Ears, Nose, Mouth, & Throat: Denies earache Cardiovascular: Denies chest pain Respiratory: Positive for shortness of breath and cough. Gastrointestinal: Denies Nausea, vomiting, diarrhea, hematochezia. Genitourinary: Denies hematuria Skin:Denies a rash MSK: Denies joint pain Neurological: Denies blurred vision Psychiatric: Denies depression PAST MEDICAL HISTORY: As per history of present illness and as reviewed below otherwise noncontributory. SURGICAL HISTORY: As per history of present illness and as reviewed below otherwise noncontributory. SOCIAL HISTORY: As per history of present illness and as reviewed below otherwise noncontributory. FAMILY HISTORY: As per history of present illness and as reviewed below otherwise noncontributory. EXAMINATION OF ORGAN SYSTEMS/BODY AREAS: Constitutional: Blood pressure was 136/78, heart rate 80, respiratory rate 25 with an oxygen saturation of 81% on room air. Temperature 36.3. On 5 L nasal cannula the patient's oxygen saturation was 94%. General: Elderly woman who is tachypneic and in mild distress Psychiatric: Appropriate mood and affect. Eyes: No scleral icterus or conjunctival erythema ENMT: Moist mucous membranes. No pharyngeal erythema Cardiovascular: Regular, rate, and rhythm. No gallops, murmurs, or rubs. Bilateral upper extremity pulses symmetric and intact. No peripheral edema. No JVD. Respiratory: Patient is speaking in 3-4 word sentences. There is prolonged expiratory phase with inspiratory and expiratory wheezing. Sounds are equal bilaterally. Gastrointestinal: Soft, non-tender, non-distended. Normoactive bowel sounds Genitourinary: No suprapubic tenderness Musculoskeletal: Normal range of motion. Skin: No lesions or abrasions. Neurological: Alert, GCS 15 MEDICAL DECISION MAKING AND COURSE IN THE ED WITH INTERPRETATION/REVIEW OF DIAGNOSTIC STUDIES: This is a 80-year-old woman with a history of COPD who comes to the emergency department with hypoxia and bilateral expiratory and inspiratory wheezing who is tachypneic. At this time we did place the patient on supplemental oxygenation given that her oxygen with good waveform was 81% on pulse oximeter waveform. Her oxygen saturation did improve. Cardiac monitoring at this time did reveal sinus rhythm. Given her history of COPD this is likely COPD exacerbation however given her age we will obtain a cardiac work-up. We will provide the patient with DuoNeb treatment and Solu-Medrol and reevaluate. EKG was obtained which did not reveal any acute signs of ischemia. Laboratory: CBC is unremarkable. INR is normal. CMP reveals metabolic alkalosis with a bicarbonate of 32.4 and hyperglycemia at 109 otherwise unremarkable. Troponin is negative. Covid is negative. The radiological images were viewed by myself along with reading the report from the radiologist. Chest x-ray does not reveal any acute cardiopulmonary process. On reevaluation the patient's oxygenation continues to remain stable however she still had wheezing. Therefore we provided the patient with an additional DuoNeb treatment. We will reevaluate. On reevaluation she still had wheezing therefore we provided her with an additional dose of DuoNeb treatment. We will start the patient on doxycycline for COPD exacerbation. She was amenable to this plan. I did discuss admission at this time with her and she was amenable to this plan. I contacted our hospitalist who accepted the patient for admission. DISPOSITION: Patient was admitted to the hospital in stable condition CONDITION: Fair PROCEDURES: Cardiac monitoring interpretation, pulse oximetry interpretation FINAL IMPRESSION(S)/DIAGNOSES: Acute hypoxic respiratory failure requiring supplemental oxygenation secondary to acute COPD exacerbation 2. Acute COPD exacerbation Critical Care Procedure Note Authorized and performed by: Jim Corral M.D. Critical Care Time: 35 minutes Due to a high probability of clinically significant, life threatening deterioration, the patient required my highest level of preparedness to intervene emergently and I personally spent this critical care time directly and personally managing the patient. This critical care time included obtaining a history, examining the patient, pulse oximetry; ordering and review of studies; arranging urgent treatment with development of a management plan; evaluation of a patients reponse to treatment; frequent assessment; and discussions with other providers. This critical care time was performed to assess and manage the high probability of imminent, life threatening deterioration that could result in multiorgan failure. It was exclusive of separate billable procedures and treating other patients. Please see MDM section and rest of the note for further information on patient assessment and treatment. Please see MDM section and rest of the note for further information on patient assessment and treatment. Jim Corral M.D. - Related Data Allergies Allergy/AdvReac Type Severity Reaction Status Date / Time adhesive tape Allergy Blisters Verified 02/07/21 18:54 Penicillins Allergy neck Verified 02/07/21 18:54 swelling phenylbutazone Allergy Cannot Verified 02/07/21 18:54 [From Butazolidin] Remember Home Meds: Home Meds Albuterol/Ipratropium [DuoNeb 3.0-0.5 MG/3 ML] 3 ml NEB Q4HRRT PRN neb MDD 4-6 times a day 09/28/17 [Rx] Albuterol [Ventolin HFA] 1 puff PO Q6HR PRN 04/16/18 [History] Aspirin 81 mg PO DAILY #30 tab.chew 04/18/18 [Rx] Budesonide [Pulmicort] 0.5 mg IH BID 11/24/18 [History] Past Medical History - Past Health History Medical/Surgical History: Denies Medical/Surgical History HEENT History: Reports: Cataract Other HEENT History: wears glasses, upper and lower dentures Cardiovascular History: Reports: Other (See Below) Other Cardiovascular History: pt states long QT syndrome Respiratory History: Reports: Asthma, COPD Other Respiratory History: at home on o2 @2LPM using at night Gastrointestinal History: Reports: None Genitourinary History: Reports: Other (See Below) Other Genitourinary History: growth removed from bladder HYDRAULIC SPINNER History: Reports: , Other (See Below) Other HYDRAULIC SPINNER History: Vaginal hysterectomy, still has ovaries Musculoskeletal History: Reports: Osteoarthritis Neurological History: Reports: None Psychiatric History: Reports: None Endocrine/Metabolic History: Reports: None Hematologic History: Reports: None Immunologic History: Reports: None Oncologic (Cancer) History: Reports: Basal Cell Carcinoma Dermatologic History: Reports: Other (See Below) Other Dermatologic History: basal cell ca removed from face and scalp. 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 GI Surgical History: Reports: Appendectomy Female Surgical History: Reports: Hysterectomy Other Female Surgeries/Procedures: Bladder surgery for growth Endocrine Surgical History: Reports: None Neurological Surgical History: Reports: None Musculoskeletal Surgical History: Reports: Carpal Tunnel, Other (See Below) Other Musculoskeletal Surgeries/Procedures:: cyst removed from wrist Oncologic Surgical History: Reports: None Dermatological Surgical History: Reports: Other (See Below) Social & Family History - Family History Family Medical History: No Pertinent Family History HEENT: Reports: None Cardiac: Reports: Hypertension, Other (See Below) Other Cardiac Family History: long QT syndrome Respiratory: Reports: COPD Other Respiratory Family Hisory: brother OBGYN: Reports: Endocrine/Metabolic: Reports: Diabetes, Type I Other Endocrine/Metabolic Family History: Grandmother Oncologic: Reports: Skin Other Oncologic Family History: brother - Tobacco Use Tobacco Use Status *Q: Former Tobacco User Used Tobacco, but Quit: No - Caffeine Use Caffeine Use: Reports: Coffee, Soda - Recreational Drug Use Recreational Drug Use: No - Living Situation & Occupation Living situation: Reports: Occupation: Employed ED ROS GENERAL - Review of Systems Review Of Systems: See Below ED EXAM, GENERAL - Physical Exam Exam: See Below Course - Vital Signs Last Recorded V/S: Last Vital Signs Temp 36.8 C 02/07/21 18:56 Pulse 80 02/07/21 18:56 Resp 28 H 02/07/21 18:56 BP 150/71 H 02/07/21 18:56 Pulse Ox 96 02/07/21 18:56 - Orders/Labs/Meds Orders: Active Orders 24 hr Category Date Time Status RT Aerosol Therapy [RC] ASDIRECTED Care 02/07/21 15:23 Active RT Aerosol Therapy [RC] ASDIRECTED Care 02/07/21 16:04 Active RT Aerosol Therapy [RC] ASDIRECTED Care 02/07/21 17:26 Active Medication Orders Acetaminophen (Acetaminophen 325 Mg Tab) 650 mg PO Q4H PRN PRN Reason: Pain/Fever Albuterol/Ipratropium (Albuterol/Ipratropium 3.0-0.5 Mg/3 Ml Neb Soln) 3 ml NEB Q4HRRT PRN PRN Reason: Shortness of Breath Guaifenesin/Dextromethorphan (Guaifenesin/Dextromethorphan 100-10 Mg/5 Ml Soln 10 Ml Cup) 10 ml PO Q4H PRN PRN Reason: Cough Doxycycline Hyclate 100 mg/ (Sodium Chloride) 100 mls @ 100 mls/hr IV Q12H GUS Last Admin: 02/07/21 18:49 Dose: 100 mls/hr Documented by: SEMICHR Lactated Ringer's (Ringers, Lactated) 1,000 mls @ 100 mls/hr IV ASDIRECTED [facility] Methylprednisolone Sodium Succinate (Methylprednisolone Sodium Succinate 40 Mg/1 Ml Sdv) 40 mg IVPUSH Q8H GUS Ondansetron HCl (Ondansetron 4 Mg/2 Ml Sdv) 4 mg IVPUSH Q4H PRN PRN Reason: Nausea/Vomiting Labs: Laboratory Tests 02/07/21 02/07/21 02/07/21 Range/Units 13:10 13:10 13:10 WBC 9.63 (4.0-11.0) K/uL RBC 4.56 (4.30-5.90) M/uL Hgb 14.3 (12.0-16.0) g/dL Hct 42.8 (36.0-46.0) % MCV 93.9 (80.0-98.0) fL MCH 31.4 (27.0-32.0) pg MCHC 33.4 (31.0-37.0) g/dL RDW Std Deviation 49.5 (28.0-62.0) fl RDW Coeff of Nam 15 (11.0-15.0) % Plt Count 212 (150-400) K/uL MPV 10.10 (7.40-12.00) fL Neut % (Auto) 76.0 (48.0-80.0) % Lymph % (Auto) 9.7 L (16.0-40.0) % [place] % (Auto) 7.5 (0.0-15.0) % Eos % (Auto) 6.5 (0.0-7.0) % Baso % (Auto) 0.3 (0.0-1.5) % Neut # (Auto) 7.3 H (1.4-5.7) K/uL Lymph # (Auto) 0.9 (0.6-2.4) K/uL [place] # (Auto) 0.7 (0.0-0.8) K/uL Eos # (Auto) 0.6 (0.0-0.7) K/uL Baso # (Auto) 0.0 (0.0-0.1) K/uL Nucleated RBC % 0.0 /100WBC Nucleated RBCs # 0 K/uL INR 0.98 Sodium 140 (136-145) mmol/L Potassium 3.7 (3.5-5.1) mmol/L Chloride 101 (98-107) mmol/L Carbon Dioxide 32.4 H (21.0-32.0) mmol/L BUN 5 L (7.0-18.0) mg/dL Creatinine 0.8 (0.6-1.0) mg/dL Est Cr Clr Drug Dosing 47.72 mL/min Estimated GFR (MDRD) > 60.0 ml/min Glucose 109 H (74-106) mg/dL Lactic Acid (0.4-2.0) mmol/L Calcium 8.9 (8.5-10.1) mg/dL Magnesium 2.2 (1.8-2.4) mg/dL Total Bilirubin 0.7 (0.2-1.0) mg/dL AST 20 (15-37) IU/L ALT 27 (14-63) IU/L Alkaline Phosphatase 96 (46-116) U/L Troponin I < 0.050 (0.000-0.056) ng/mL Total Protein 7.0 (6.4-8.2) g/dL Albumin 4.0 (3.4-5.0) g/dL Globulin 3.0 (2.6-4.0) g/dL Albumin/Globulin Ratio 1.3 (0.9-1.6) SARS-CoV-2 RNA (CHARLY) (NEGATIVE) 02/07/21 02/07/21 Range/Units 13:10 15:36 WBC (4.0-11.0) K/uL RBC (4.30-5.90) M/uL Hgb (12.0-16.0) g/dL Hct (36.0-46.0) % MCV (80.0-98.0) fL MCH (27.0-32.0) pg MCHC (31.0-37.0) g/dL RDW Std Deviation (28.0-62.0) fl RDW Coeff of Nam (11.0-15.0) % Plt Count (150-400) K/uL MPV (7.40-12.00) fL Neut % (Auto) (48.0-80.0) % Lymph % (Auto) (16.0-40.0) % [place] % (Auto) (0.0-15.0) % Eos % (Auto) (0.0-7.0) % Baso % (Auto) (0.0-1.5) % Neut # (Auto) (1.4-5.7) K/uL Lymph # (Auto) (0.6-2.4) K/uL [place] # (Auto) (0.0-0.8) K/uL Eos # (Auto) (0.0-0.7) K/uL Baso # (Auto) (0.0-0.1) K/uL Nucleated RBC % /100WBC Nucleated RBCs # K/uL INR Sodium (136-145) mmol/L Potassium (3.5-5.1) mmol/L Chloride (98-107) mmol/L Carbon Dioxide (21.0-32.0) mmol/L BUN (7.0-18.0) mg/dL Creatinine (0.6-1.0) mg/dL Est Cr Clr Drug Dosing mL/min Estimated GFR (MDRD) ml/min Glucose (74-106) mg/dL Lactic Acid 1.7 (0.4-2.0) mmol/L Calcium (8.5-10.1) mg/dL Magnesium (1.8-2.4) mg/dL Total Bilirubin (0.2-1.0) mg/dL AST (15-37) IU/L ALT (14-63) IU/L Alkaline Phosphatase (46-116) U/L Troponin I (0.000-0.056) ng/mL Total Protein (6.4-8.2) g/dL Albumin (3.4-5.0) g/dL Globulin (2.6-4.0) g/dL Albumin/Globulin Ratio (0.9-1.6) SARS-CoV-2 RNA (CHARLY) NEGATIVE (NEGATIVE) Meds: Medications Generic Name Dose Route Start Last Admin Trade Name Freq PRN Reason Stop Dose Admin Acetaminophen 650 mg 02/07/21 19:16 Acetaminophen 325 Mg Tab PO Q4H PRN Pain/Fever Albuterol/Ipratropium 3 ml 02/07/21 19:14 Albuterol/Ipratropium 3.0-0.5 Mg/3 Ml Neb Soln NEB Q4HRRT PRN Shortness of Breath Guaifenesin/Dextromethorphan 10 ml 02/07/21 19:19 Guaifenesin/Dextromethorphan 100-10 Mg/5 Ml Soln 10 Ml Cup PO Q4H PRN Cough Doxycycline Hyclate 100 mg/ 100 mls @ 100 mls/hr 02/07/21 18:15 02/07/21 18:49 Sodium Chloride IV 100 mls/hr Q12H UGS Administration Lactated Ringer's 1,000 mls @ 100 mls/hr 02/07/21 19:30 Ringers, Lactated IV ASDIRECTED GUS Methylprednisolone Sodium Succinate 40 mg 02/08/21 02:00 Methylprednisolone Sodium Succinate 40 Mg/1 Ml Sdv IVPUSH Q8H GUS Ondansetron HCl 4 mg 02/07/21 19:17 Ondansetron 4 Mg/2 Ml Sdv IVPUSH Q4H PRN Nausea/Vomiting Discontinued Medications Generic Name Dose Route Start Last Admin Trade Name Freq PRN Reason Stop Dose Admin Albuterol/Ipratropium Confirm 02/07/21 15:15 02/07/21 15:23 Albuterol/Ipratropium 3.0-0.5 Mg/3 Ml Neb Soln Administered 02/07/21 15:16 Not Given Dose 3 ml .ROUTE .STK-MED ONE Albuterol/Ipratropium 3 ml 02/07/21 15:22 02/07/21 15:23 Albuterol/Ipratropium 3.0-0.5 Mg/3 Ml Neb Soln NEB 02/07/21 15:23 3 ml ONETIME ONE Administration Albuterol/Ipratropium 3 ml 02/07/21 16:03 02/07/21 16:12 Albuterol/Ipratropium 3.0-0.5 Mg/3 Ml Neb Soln NEB 02/07/21 16:04 3 ml ONETIME ONE Administration Albuterol/Ipratropium 3 ml 02/07/21 17:26 02/07/21 18:49 Albuterol/Ipratropium 3.0-0.5 Mg/3 Ml Neb Soln NEB 02/07/21 17:27 3 ml ONETIME ONE Administration Methylprednisolone Sodium Succinate 40 mg 02/07/21 17:31 02/07/21 18:11 Methylprednisolone Sodium Succinate 40 Mg/1 Ml Sdv IVPUSH 02/07/21 17:32 40 mg ONETIME ONE Administration Departure - Departure Time of Disposition: 17:29 Disposition: Admitted As Inpatient 68 Condition: Fair Clinical Impression: COPD exacerbation - Discharge Information Sepsis Event Note (ED) - Evaluation Sepsis Screening Result: Possible Sepsis Risk - Focused Exam Vital Signs: Vital Signs Temp Pulse Resp BP Pulse Ox 02/07/21 17:13 84 19 142/72 H 90 L 02/07/21 16:15 81 15 147/68 H 89 L 02/07/21 15:16 36.3 C 80 25 H 136/78 81 L - My Orders Last 24 Hours: My Active Orders 02/07/21 15:23 RT Aerosol Therapy [RC] ASDIRECTED 02/07/21 16:04 RT Aerosol Therapy [RC] ASDIRECTED 02/07/21 17:26 RT Aerosol Therapy [RC] ASDIRECTED - Assessment/Plan Last 24 Hours: My Active Orders 02/07/21 15:23 RT Aerosol Therapy [RC] ASDIRECTED 02/07/21 16:04 RT Aerosol Therapy [RC] ASDIRECTED 02/07/21 17:26 RT Aerosol Therapy [RC] ASDIRECTED
--- NOTE | 2021-02-07 19:51 | PCM.EKG ---
#1 Interpretation EKG Date: 02/07/21 Time: 15:11 Rhythm: NSR Rate (Beats/Min): 84 [place]: RAD-Right [place] Deviation P-Wave: Present QRS: RBBB (&LAFB) ST-T: Normal QT: Normal Comparison: No Change (12/03/20) EKG Interpretation Comments: Sinus with RBBB and LAFB
--- NOTE | 2021-02-07 20:55 | PCM.HP.2 ---
H&P History of Present Illness - General Date of Service: 02/07/21 Admit Problem/Dx: Admission Diagnosis/Problem Admission Diagnosis/Problem Hypoxia - History of Present Illness Initial Comments - Free Text/Narative: This is a 80-year-old woman with a past medical history of Asthma, COPD on home oxygen at nighttime only, history of CHF and prolonged QT syndrome who came into the ER with complaints of increased shortness of breath for last 2 days. The patient states that this morning she got up and she was short of breath. Patient states that she has been feeling increasingly short of breath at home and checked her oxygen and it was 73% on room air, she immediately put her home oxygen on and used her DuoNeb treatment with mild improvement so she decided to come to the emergency department. Patient has increasing cough as well as sputum production, she denies any recent travel, recent surgery or prior history of DVT or PE. She denies any chest pain. She states that she has had a Covid vaccines and denies any Covid exposures. She denies any lower extremity edema. She denies any fevers or chills. Patient states she takes bedside with her duo nebs at home and she is is not supposed to take Advir due to her long QT syndrome. In the ER patient was found to be 81% on room air, she was started on oxygen which improved her oxygen saturations to mid 90s.EKG was obtained which did not reveal any acute signs of ischemia. Laboratory: CBC is unremarkable. INR is normal. CMP reveals metabolic al kalosis with a bicarbonate of 32.4 and hyperglycemia at 109 otherwise unremarkable. Troponin is negative. Covid is negative. Chest x-ray does not reveal any acute cardiopulmonary process. Patient received IV steroids as well as several DuoNeb treatments and upon reevaluation patient continued to wheeze also her breathing had significantly improved. Patient was admitted to the hospital for further management - Related Data Allergies/Adverse Reactions: Allergies Allergy/AdvReac Type Severity Reaction Status Date / Time adhesive tape Allergy Blisters Verified 02/07/21 18:54 Penicillins Allergy neck Verified 02/07/21 18:54 swelling phenylbutazone Allergy Cannot Verified 02/07/21 18:54 [From Butazolidin] Remember Home Medications: Home Meds Albuterol/Ipratropium [DuoNeb 3.0-0.5 MG/3 ML] 3 ml NEB Q4HRRT PRN neb MDD 4-6 times a day 09/28/17 [Rx] Albuterol [Ventolin HFA] 1 puff PO Q6HR PRN 04/16/18 [History] Aspirin 81 mg PO DAILY #30 tab.chew 04/18/18 [Rx] Budesonide [Pulmicort] 0.5 mg IH BID 11/24/18 [History] Past Medical History - Past Health History Medical/Surgical History: Denies Medical/Surgical History HEENT History: Reports: Cataract Other HEENT History: wears glasses, upper and lower dentures Cardiovascular History: Reports: Other (See Below) Other Cardiovascular History: pt states long QT syndrome Respiratory History: Reports: Asthma, COPD Other Respiratory History: at home on o2 @2LPM using at night , pt. states blebs removed from lungs Gastrointestinal History: Reports: None Genitourinary History: Reports: Other (See Below) Other Genitourinary History: growth removed from bladder ORTHOTIST/PROSTHETIST History: Reports: , 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 GI Surgical History: Reports: Appendectomy Female Surgical History: Reports: Hysterectomy Other Female Surgeries/Procedures: Bladder surgery for growth Endocrine Surgical History: Reports: None Neurological Surgical History: Reports: None Musculoskeletal Surgical History: Reports: Carpal Tunnel, Other (See Below) Other Musculoskeletal Surgeries/Procedures:: cyst removed from wrist Oncologic Surgical History: Reports: None Dermatological Surgical History: Reports: Other (See Below) Social & Family History - Family History Family Medical History: No Pertinent Family History HEENT: Reports: None Cardiac: Reports: Hypertension, Other (See Below) Other Cardiac Family History: long QT syndrome Respiratory: Reports: COPD Other Respiratory Family Hisory: brother OBGYN: Reports: Endocrine/Metabolic: Reports: Diabetes, Type I Other Endocrine/Metabolic Family History: Grandmother Oncologic: Reports: Breast, Lung, Skin Other Oncologic Family History: brother - skin, breast- mother, dad- lung cancer - Tobacco Use Tobacco Use Status *Q: Former Tobacco User Used Tobacco, but Quit: Yes Month/Year Tobacco Last Used: January 24, 2021 - Caffeine Use Caffeine Use: Reports: Coffee, Soda - Recreational Drug Use Recreational Drug Use: No - Living Situation & Occupation Living situation: Reports: Occupation: Employed H&P Review of Systems - Review of Systems: Review Of Systems: See Below General: Reports: Malaise, Weakness. Denies: Fever, Chills HEENT: Denies: Contact Lenses, Dysphasia Pulmonary: Reports: Shortness of Breath, Wheezing, Cough, Sputum Cardiovascular: Reports: Dyspnea on Exertion. Denies: Chest Pain, Palpitations Gastrointestinal: Denies: Abdominal Pain, Anorexia Genitourinary: Denies: Dysuria, Frequency, Burning Musculoskeletal: Denies: Neck Pain, Shoulder Pain, Arm Pain Skin: Denies: Cyanosis, Mottled Psychiatric: Denies: Confusion, Depression, Mood Lability Neurological: Denies: Confusion, Dizziness, Headache Exam - Exam Exam: See Below - Vital Signs Vital Signs: Last Vital Signs Temp 36.8 C 02/07/21 18:56 Pulse 80 02/07/21 18:56 Resp 28 H 02/07/21 18:56 BP 150/71 H 02/07/21 18:56 Pulse Ox 96 02/07/21 18:56 Weight: 50.349 kg - Exam Quality Assessment: Supplemental Oxygen General: Alert, Oriented Neck: Supple Lungs: Normal Respiratory Effort, Decreased Breath Sounds, Wheezing Cardiovascular: Regular Rate, Regular Rhythm, Normal S1, Normal S2 GI/Abdominal Exam: Normal Bowel Sounds, Soft, Non-Tender Extremities: Normal Inspection, Normal Range of Motion - Patient Data Lab Results Last 24 hrs: Laboratory Results - last 24 hr 02/07/21 02/07/21 02/07/21 Range/Units 13:10 13:10 13:10 WBC 9.63 (4.0-11.0) K/uL RBC 4.56 (4.30-5.90) M/uL Hgb 14.3 (12.0-16.0) g/dL Hct 42.8 (36.0-46.0) % MCV 93.9 (80.0-98.0) fL MCH 31.4 (27.0-32.0) pg MCHC 33.4 (31.0-37.0) g/dL RDW Std Deviation 49.5 (28.0-62.0) fl RDW Coeff of Nam 15 (11.0-15.0) % Plt Count 212 (150-400) K/uL MPV 10.10 (7.40-12.00) fL Neut % (Auto) 76.0 (48.0-80.0) % Lymph % (Auto) 9.7 L (16.0-40.0) % Taney % (Auto) 7.5 (0.0-15.0) % Eos % (Auto) 6.5 (0.0-7.0) % Baso % (Auto) 0.3 (0.0-1.5) % Neut # (Auto) 7.3 H (1.4-5.7) K/uL Lymph # (Auto) 0.9 (0.6-2.4) K/uL Taney # (Auto) 0.7 (0.0-0.8) K/uL Eos # (Auto) 0.6 (0.0-0.7) K/uL Baso # (Auto) 0.0 (0.0-0.1) K/uL Nucleated RBC % 0.0 /100WBC Nucleated RBCs # 0 K/uL INR 0.98 Sodium 140 (136-145) mmol/L Potassium 3.7 (3.5-5.1) mmol/L Chloride 101 (98-107) mmol/L Carbon Dioxide 32.4 H (21.0-32.0) mmol/L BUN 5 L (7.0-18.0) mg/dL Creatinine 0.8 (0.6-1.0) mg/dL Est Cr Clr Drug Dosing 47.72 mL/min Estimated GFR (MDRD) > 60.0 ml/min Glucose 109 H (74-106) mg/dL Lactic Acid (0.4-2.0) mmol/L Calcium 8.9 (8.5-10.1) mg/dL Magnesium 2.2 (1.8-2.4) mg/dL Total Bilirubin 0.7 (0.2-1.0) mg/dL AST 20 (15-37) IU/L ALT 27 (14-63) IU/L Alkaline Phosphatase 96 (46-116) U/L Troponin I < 0.050 (0.000-0.056) ng/mL Total Protein 7.0 (6.4-8.2) g/dL Albumin 4.0 (3.4-5.0) g/dL Globulin 3.0 (2.6-4.0) g/dL Albumin/Globulin Ratio 1.3 (0.9-1.6) SARS-CoV-2 RNA (CHARLY) (NEGATIVE) 02/07/21 02/07/21 Range/Units 13:10 15:36 WBC (4.0-11.0) K/uL RBC (4.30-5.90) M/uL Hgb (12.0-16.0) g/dL Hct (36.0-46.0) % MCV (80.0-98.0) fL MCH (27.0-32.0) pg MCHC (31.0-37.0) g/dL RDW Std Deviation (28.0-62.0) fl RDW Coeff of Nam (11.0-15.0) % Plt Count (150-400) K/uL MPV (7.40-12.00) fL Neut % (Auto) (48.0-80.0) % Lymph % (Auto) (16.0-40.0) % Taney % (Auto) (0.0-15.0) % Eos % (Auto) (0.0-7.0) % Baso % (Auto) (0.0-1.5) % Neut # (Auto) (1.4-5.7) K/uL Lymph # (Auto) (0.6-2.4) K/uL Taney # (Auto) (0.0-0.8) K/uL Eos # (Auto) (0.0-0.7) K/uL Baso # (Auto) (0.0-0.1) K/uL Nucleated RBC % /100WBC Nucleated RBCs # K/uL INR Sodium (136-145) mmol/L Potassium (3.5-5.1) mmol/L Chloride (98-107) mmol/L Carbon Dioxide (21.0-32.0) mmol/L BUN (7.0-18.0) mg/dL Creatinine (0.6-1.0) mg/dL Est Cr Clr Drug Dosing mL/min Estimated GFR (MDRD) ml/min Glucose (74-106) mg/dL Lactic Acid 1.7 (0.4-2.0) mmol/L Calcium (8.5-10.1) mg/dL Magnesium (1.8-2.4) mg/dL Total Bilirubin (0.2-1.0) mg/dL AST (15-37) IU/L ALT (14-63) IU/L Alkaline Phosphatase (46-116) U/L Troponin I (0.000-0.056) ng/mL Total Protein (6.4-8.2) g/dL Albumin (3.4-5.0) g/dL Globulin (2.6-4.0) g/dL Albumin/Globulin Ratio (0.9-1.6) SARS-CoV-2 RNA (CHARLY) NEGATIVE (NEGATIVE) Result Diagrams: 02/07/21 13:10 02/07/21 13:10 Sepsis Event Note - Evaluation Sepsis Screening Result: Possible Sepsis Risk - Focused Exam Vital Signs: Vital Signs Temp Pulse Resp BP Pulse Ox 02/07/21 18:56 36.8 C 80 28 H 150/71 H 96 02/07/21 18:05 79 14 138/90 95 02/07/21 17:13 84 19 142/72 H 90 L 02/07/21 16:15 81 15 147/68 H 89 L 02/07/21 15:16 36.3 C 80 25 H 136/78 81 L - Problem List (1) COPD exacerbation SNOMED Code(s): 800614968 ICD Code: J44.1 - CHRONIC OBSTRUCTIVE PULMONARY DISEASE W (ACUTE) EXACERBATION Status: Acute Current Visit: Yes (2) History of CHF (congestive heart failure) SNOMED Code(s): 831048533 ICD Code: Z86.79 - PERSONAL HISTORY OF OTHER DISEASES OF THE CIRCULATORY SYSTEM Status: Acute Current Visit: No (3) Oxygen dependent SNOMED Code(s): 907360103465 ICD Code: Z99.81 - DEPENDENCE ON SUPPLEMENTAL OXYGEN Status: Chronic Current Visit: No (4) Prolonged QT syndrome SNOMED Code(s): 5460036 ICD Code: I45.81 - LONG QT SYNDROME Status: Chronic Current Visit: No (5) Asthma SNOMED Code(s): 872425714 ICD Code: J45.909 - UNSPECIFIED ASTHMA, UNCOMPLICATED Status: Acute Current Visit: Yes Problem List Initiated/Reviewed/Updated: Yes Orders Last 24hrs: Active Orders 24 hr Category Date Time Status Patient Status [ADT] Stat ADT 02/07/21 17:29 Active Antiembolic Devices [RC] PER UNIT ROUTINE Care 02/07/21 19:11 Active Oxygen Therapy [RC] ASDIRECTED Care 02/07/21 19:22 Active RT Aerosol Therapy [RC] ASDIRECTED Care 02/07/21 15:23 Active RT Aerosol Therapy [RC] ASDIRECTED Care 02/07/21 16:04 Active RT Aerosol Therapy [RC] ASDIRECTED Care 02/07/21 17:26 Active RT Aerosol Therapy [RC] ASDIRECTED Care 02/07/21 19:16 Active RT Incentive Spirometry [RC] Q2HWA Care 02/07/21 19:22 Active Vital Signs [RC] Q4H Care 02/07/21 19:10 Active Cardiac [Heart Healthy Diet] [DIET] Diet 02/08/21 Breakfast Active Acetaminophen [TylenoL] Med 02/07/21 19:16 Active 650 mg PO Q4H PRN Albuterol/Ipratropium [DuoNeb 3.0-0.5 MG/3 ML] Med 02/07/21 19:14 Active 3 ml NEB Q4HRRT PRN Dextromethorphan/guaiFENesin [Robitussin DM] Med 02/07/21 19:19 Active 10 ml PO Q4H PRN Doxycycline [Vibramycin] 100 mg Med 02/07/21 18:15 Active Sodium Chloride 0.9% [Normal Saline] 100 ml IV Q12H Lactated Ringers [Ringers, Lactated] 1,000 ml Med 02/07/21 19:30 Active IV ASDIRECTED Ondansetron [Zofran] Med 02/07/21 19:17 Active 4 mg IVPUSH Q4H PRN methylPREDNISolone Sod Succ [Solu-MEDROL] Med 02/08/21 02:00 Active 40 mg IVPUSH Q8H SCD [Sequential Compression Device] [OM.PC] Routine Oth 02/07/21 19:10 Ordered Medication Orders Acetaminophen (Acetaminophen 325 Mg Tab) 650 mg PO Q4H PRN PRN Reason: Pain/Fever Albuterol/Ipratropium (Albuterol/Ipratropium 3.0-0.5 Mg/3 Ml Neb Soln) 3 ml NEB Q4HRRT PRN PRN Reason: Shortness of Breath Guaifenesin/Dextromethorphan (Guaifenesin/Dextromethorphan 100-10 Mg/5 Ml Soln 10 Ml Cup) 10 ml PO Q4H PRN PRN Reason: Cough Doxycycline Hyclate 100 mg/ (Sodium Chloride) 100 mls @ 100 mls/hr IV Q12H GUS Last Admin: 02/07/21 18:49 Dose: 100 mls/hr Documented by: SEMICHR Lactated Ringer's (Ringers, Lactated) 1,000 mls @ 100 mls/hr IV ASDIRECTED GUS Methylprednisolone Sodium Succinate (Methylprednisolone Sodium Succinate 40 Mg/1 Ml Sdv) 40 mg IVPUSH Q8H GUS Ondansetron HCl (Ondansetron 4 Mg/2 Ml Sdv) 4 mg IVPUSH Q4H PRN PRN Reason: Nausea/Vomiting Assessment/Plan Comment:: 80-year-old female admitted for acute on chronic hypoxic respiratory failure secondary to COPD exacerbation We will start patient on IV steroids, scheduled duo nebs Encourage incentive spirometry Zofran as needed for nausea vomiting IV fluids at 100 cc/h overnight, will DC in the morning SCDs for DVT prophylaxis Cardiac diet Ambulate as tolerated
[2021-02-07] MEDS: Albuterol/Ipratropium 3.0-0.5 MG/3 ML Neb Soln NEB PRN (22:20)
[2021-02-07] MEDS: Lactated Ringers 1,000 ML IV SCH (22:35)
[2021-02-08] MEDS: methylPREDNISolone Sodium Succinate 40 MG/1 ML SDV IVPUSH SCH ×3 (02:08→18:10)
[2021-02-08] MEDS: Albuterol/Ipratropium 3.0-0.5 MG/3 ML Neb Soln NEB PRN (04:32)
[2021-02-08 06:02] LABS: BLOOD UREA NITROGEN,BUN 10 mg/dL (7.0-18.0); CARBON DIOXIDE,CO2 30.1 mmol/L (21.0-32.0); CHLORIDE,CL 102 mmol/L (98-107); GLUCOSE RANDOM 152 mg/dL (74-106); POTASSIUM,K 3.9 mmol/L (3.5-5.1); SODIUM,NA 139 mmol/L (136-145)
[2021-02-08] MEDS: Doxycycline 100 MG in Sodium Chloride 0.9% 100 ML IV SCH ×2 (06:31→18:10)
[2021-02-08] MEDS ORDERED: Albuterol 0.083% 2.5 MG/3 ML Neb Soln NEB PRN (09:29)
[2021-02-08] MEDS: Albuterol/Ipratropium 3.0-0.5 MG/3 ML Neb Soln ONE ×2 (09:45→10:52)
[2021-02-08] MEDS: Albuterol/Ipratropium 3.0-0.5 MG/3 ML Neb Soln NEB SCH ×4 (09:56→21:01)
--- NOTE | 2021-02-08 11:22 | PCM.PN ---
- General Info Date of Service: 02/08/21 Admission Dx/Problem (Free Text): Admission Diagnosis/Problem Admission Diagnosis/Problem acute on chronic hypoxic respiratory failure, COPD exacerbation Subjective Update: Reports feeling short of breath and wheezy this morning recently requested breathing treatment. Denies any chest pain continues to have cough with clear to yellow phlegm. Denies any abdominal pain. Feels slightly proved from yesterday but continues to have worsened shortness of breath from baseline. No new concerns this morning besides getting breathing treatments scheduled. Functional Status: Reports: Pain Controlled, Tolerating Diet, Ambulating, Urinating - Review of Systems General: Reports: Fatigue HEENT: Reports: No Symptoms. Denies: Headaches, Sore Throat, Visual Changes Pulmonary: Reports: Shortness of Breath, Cough, Wheezing Cardiovascular: Denies: Chest Pain Gastrointestinal: Reports: No Symptoms. Denies: Abdominal Pain, Nausea, Vomiting Genitourinary: Reports: No Symptoms. Denies: Dysuria, Frequency Musculoskeletal: Reports: No Symptoms. Denies: Neck Pain Skin: Reports: No Symptoms Neurological: Reports: No Symptoms Psychiatric: Reports: No Symptoms - Patient Data Vitals - Most Recent: Last Vital Signs Temp 97.8 F 02/08/21 07:58 Pulse 76 02/08/21 07:58 Resp 18 02/08/21 07:58 BP 135/77 02/08/21 07:58 Pulse Ox 95 02/08/21 07:58 Weight - Most Recent: 50.349 kg I&O - Last 24 Hours: Intake & Output 02/07/21 02/08/21 02/08/21 22:59 06:59 14:59 Output Total 250 Balance -250 Lab Results Last 24 Hours: Laboratory Results - last 24 hr 02/07/21 02/07/21 02/07/21 Range/Units 13:10 13:10 13:10 WBC 9.63 (4.0-11.0) K/uL RBC 4.56 (4.30-5.90) M/uL Hgb 14.3 (12.0-16.0) g/dL Hct 42.8 (36.0-46.0) % MCV 93.9 (80.0-98.0) fL MCH 31.4 (27.0-32.0) pg MCHC 33.4 (31.0-37.0) g/dL RDW Std Deviation 49.5 (28.0-62.0) fl RDW Coeff of Nam 15 (11.0-15.0) % Plt Count 212 (150-400) K/uL MPV 10.10 (7.40-12.00) fL Neut % (Auto) 76.0 (48.0-80.0) % Lymph % (Auto) 9.7 L (16.0-40.0) % [place] % (Auto) 7.5 (0.0-15.0) % Eos % (Auto) 6.5 (0.0-7.0) % Baso % (Auto) 0.3 (0.0-1.5) % Neut # (Auto) 7.3 H (1.4-5.7) K/uL Lymph # (Auto) 0.9 (0.6-2.4) K/uL [place] # (Auto) 0.7 (0.0-0.8) K/uL Eos # (Auto) 0.6 (0.0-0.7) K/uL Baso # (Auto) 0.0 (0.0-0.1) K/uL Nucleated RBC % 0.0 /100WBC Nucleated RBCs # 0 K/uL INR 0.98 Sodium 140 (136-145) mmol/L Potassium 3.7 (3.5-5.1) mmol/L Chloride 101 (98-107) mmol/L Carbon Dioxide 32.4 H (21.0-32.0) mmol/L BUN 5 L (7.0-18.0) mg/dL Creatinine 0.8 (0.6-1.0) mg/dL Est Cr Clr Drug Dosing 47.72 mL/min Estimated GFR (MDRD) > 60.0 ml/min Glucose 109 H (74-106) mg/dL Lactic Acid (0.4-2.0) mmol/L Calcium 8.9 (8.5-10.1) mg/dL Magnesium 2.2 (1.8-2.4) mg/dL Total Bilirubin 0.7 (0.2-1.0) mg/dL AST 20 (15-37) IU/L ALT 27 (14-63) IU/L Alkaline Phosphatase 96 (46-116) U/L Troponin I < 0.050 (0.000-0.056) ng/mL Total Protein 7.0 (6.4-8.2) g/dL Albumin 4.0 (3.4-5.0) g/dL Globulin 3.0 (2.6-4.0) g/dL Albumin/Globulin Ratio 1.3 (0.9-1.6) SARS-CoV-2 RNA (CHARLY) (NEGATIVE) 02/07/21 02/07/21 02/08/21 Range/Units 13:10 15:36 05:20 WBC 6.35 (4.0-11.0) K/uL RBC 4.24 L (4.30-5.90) M/uL Hgb 13.1 (12.0-16.0) g/dL Hct 39.5 (36.0-46.0) % MCV 93.2 (80.0-98.0) fL MCH 30.9 (27.0-32.0) pg MCHC 33.2 (31.0-37.0) g/dL RDW Std Deviation 48.1 (28.0-62.0) fl RDW Coeff of Nam 14 (11.0-15.0) % Plt Count 192 (150-400) K/uL MPV 10.10 (7.40-12.00) fL Neut % (Auto) 94.8 H (48.0-80.0) % Lymph % (Auto) 4.4 L (16.0-40.0) % [place] % (Auto) 0.6 (0.0-15.0) % Eos % (Auto) 0.0 (0.0-7.0) % Baso % (Auto) 0.2 (0.0-1.5) % Neut # (Auto) 6.0 H (1.4-5.7) K/uL Lymph # (Auto) 0.3 L (0.6-2.4) K/uL [place] # (Auto) 0.0 (0.0-0.8) K/uL Eos # (Auto) 0.0 (0.0-0.7) K/uL Baso # (Auto) 0.0 (0.0-0.1) K/uL Nucleated RBC % 1.1 /100WBC Nucleated RBCs # 0 K/uL INR Sodium (136-145) mmol/L Potassium (3.5-5.1) mmol/L Chloride (98-107) mmol/L Carbon Dioxide (21.0-32.0) mmol/L BUN (7.0-18.0) mg/dL Creatinine (0.6-1.0) mg/dL Est Cr Clr Drug Dosing mL/min Estimated GFR (MDRD) ml/min Glucose (74-106) mg/dL Lactic Acid 1.7 (0.4-2.0) mmol/L Calcium (8.5-10.1) mg/dL Magnesium (1.8-2.4) mg/dL Total Bilirubin (0.2-1.0) mg/dL AST (15-37) IU/L ALT (14-63) IU/L Alkaline Phosphatase (46-116) U/L Troponin I (0.000-0.056) ng/mL Total Protein (6.4-8.2) g/dL Albumin (3.4-5.0) g/dL Globulin (2.6-4.0) g/dL Albumin/Globulin Ratio (0.9-1.6) SARS-CoV-2 RNA (CHARLY) NEGATIVE (NEGATIVE) 02/08/21 Range/Units 05:20 WBC (4.0-11.0) K/uL RBC (4.30-5.90) M/uL Hgb (12.0-16.0) g/dL Hct (36.0-46.0) % MCV (80.0-98.0) fL MCH (27.0-32.0) pg MCHC (31.0-37.0) g/dL RDW Std Deviation (28.0-62.0) fl RDW Coeff of Nam (11.0-15.0) % Plt Count (150-400) K/uL MPV (7.40-12.00) fL Neut % (Auto) (48.0-80.0) % Lymph % (Auto) (16.0-40.0) % [place] % (Auto) (0.0-15.0) % Eos % (Auto) (0.0-7.0) % Baso % (Auto) (0.0-1.5) % Neut # (Auto) (1.4-5.7) K/uL Lymph # (Auto) (0.6-2.4) K/uL [place] # (Auto) (0.0-0.8) K/uL Eos # (Auto) (0.0-0.7) K/uL Baso # (Auto) (0.0-0.1) K/uL Nucleated RBC % /100WBC Nucleated RBCs # K/uL INR Sodium 139 (136-145) mmol/L Potassium 3.9 (3.5-5.1) mmol/L Chloride 102 (98-107) mmol/L Carbon Dioxide 30.1 (21.0-32.0) mmol/L BUN 10 (7.0-18.0) mg/dL Creatinine 0.8 (0.6-1.0) mg/dL Est Cr Clr Drug Dosing 46.06 mL/min Estimated GFR (MDRD) > 60.0 ml/min Glucose 152 H (74-106) mg/dL Lactic Acid (0.4-2.0) mmol/L Calcium 8.7 (8.5-10.1) mg/dL Magnesium (1.8-2.4) mg/dL Total Bilirubin (0.2-1.0) mg/dL AST (15-37) IU/L ALT (14-63) IU/L Alkaline Phosphatase (46-116) U/L Troponin I (0.000-0.056) ng/mL Total Protein (6.4-8.2) g/dL Albumin (3.4-5.0) g/dL Globulin (2.6-4.0) g/dL Albumin/Globulin Ratio (0.9-1.6) SARS-CoV-2 RNA (CHARLY) (NEGATIVE) Med Orders - Current: Current Medications Acetaminophen (Acetaminophen 325 Mg Tab) 650 mg PO Q4H PRN PRN Reason: Pain/Fever Albuterol (Albuterol 0.083% 2.5 Mg/3 Ml Neb Soln) 2.5 mg NEB Q2H PRN PRN Reason: Shortness Of Breath/wheezing Albuterol/Ipratropium (Albuterol/Ipratropium 3.0-0.5 Mg/3 Ml Neb Soln) 3 ml NEB Q4HRRT GUS Last Admin: 02/08/21 09:56 Dose: 3 ml Documented by: Guaifenesin/Dextromethorphan (Guaifenesin/Dextromethorphan 100-10 Mg/5 Ml Soln 10 Ml Cup) 10 ml PO Q4H PRN PRN Reason: Cough Doxycycline Hyclate 100 mg/ (Sodium Chloride) 100 mls @ 100 mls/hr IV Q12H [facility] Last Admin: 02/08/21 06:31 Dose: 100 mls/hr Documented by: Lactated Ringer's (Ringers, Lactated) 1,000 mls @ 100 mls/hr IV ASDIRECTED [facility] Last Admin: 02/07/21 22:35 Dose: 100 mls/hr Documented by: Methylprednisolone Sodium Succinate (Methylprednisolone Sodium Succinate 40 Mg/1 Ml Sdv) 40 mg IVPUSH Q8H [facility] Last Admin: 02/08/21 09:45 Dose: 40 mg Documented by: Ondansetron HCl (Ondansetron 4 Mg/2 Ml Sdv) 4 mg IVPUSH Q4H PRN PRN Reason: Nausea/Vomiting Discontinued Medications Albuterol/Ipratropium (Albuterol/Ipratropium 3.0-0.5 Mg/3 Ml Neb Soln) Confirm Administered Dose 3 ml .ROUTE .STK-MED ONE Stop: 02/07/21 15:16 Last Admin: 02/07/21 15:23 Dose: Not Given Documented by: Albuterol/Ipratropium (Albuterol/Ipratropium 3.0-0.5 Mg/3 Ml Neb Soln) 3 ml NEB ONETIME ONE Stop: 02/07/21 15:23 Last Admin: 02/07/21 15:23 Dose: 3 ml Documented by: Albuterol/Ipratropium (Albuterol/Ipratropium 3.0-0.5 Mg/3 Ml Neb Soln) 3 ml NEB ONETIME ONE Stop: 02/07/21 16:04 Last Admin: 02/07/21 16:12 Dose: 3 ml Documented by: Albuterol/Ipratropium (Albuterol/Ipratropium 3.0-0.5 Mg/3 Ml Neb Soln) 3 ml NEB ONETIME ONE Stop: 02/07/21 17:27 Last Admin: 02/07/21 18:49 Dose: 3 ml Documented by: Albuterol/Ipratropium (Albuterol/Ipratropium 3.0-0.5 Mg/3 Ml Neb Soln) 3 ml NEB Q4HRRT PRN PRN Reason: Shortness of Breath Last Admin: 02/08/21 04:32 Dose: 3 ml Documented by: Albuterol/Ipratropium (Albuterol/Ipratropium 3.0-0.5 Mg/3 Ml Neb Soln) Confirm Administered Dose 3 ml .ROUTE .STK-MED ONE Stop: 02/08/21 09:38 Last Admin: 02/08/21 10:52 Dose: Not Given Documented by: Methylprednisolone Sodium Succinate (Methylprednisolone Sodium Succinate 40 Mg/1 Ml Sdv) 40 mg IVPUSH ONETIME ONE Stop: 02/07/21 17:32 Last Admin: 02/07/21 18:11 Dose: 40 mg Documented by: - Exam Quality Assessment: Supplemental Oxygen (2 L nasal cannula), DVT Prophylaxis General: Alert, Oriented, Cooperative, No Acute Distress Lungs: Decreased Breath Sounds, Wheezing. No: Normal Respiratory Effort (Dyspnea) Cardiovascular: Regular Rate, Regular Rhythm GI/Abdominal Exam: Normal Bowel Sounds, Soft, Non-Tender Extremities: Normal Inspection, Normal Range of Motion, Non-Tender, No Pedal Edema Wound/Incisions: Healing Well Neurological: No New Focal Deficit Psy/Mental Status: Alert, Normal Affect, Normal Mood - Patient Data Lab Results Last 24 hrs: Laboratory Results - last 24 hr 02/07/21 02/07/21 02/07/21 Range/Units 13:10 13:10 13:10 WBC 9.63 (4.0-11.0) K/uL RBC 4.56 (4.30-5.90) M/uL Hgb 14.3 (12.0-16.0) g/dL Hct 42.8 (36.0-46.0) % MCV 93.9 (80.0-98.0) fL MCH 31.4 (27.0-32.0) pg MCHC 33.4 (31.0-37.0) g/dL RDW Std Deviation 49.5 (28.0-62.0) fl RDW Coeff of Nam 15 (11.0-15.0) % Plt Count 212 (150-400) K/uL MPV 10.10 (7.40-12.00) fL Neut % (Auto) 76.0 (48.0-80.0) % Lymph % (Auto) 9.7 L (16.0-40.0) % [place] % (Auto) 7.5 (0.0-15.0) % Eos % (Auto) 6.5 (0.0-7.0) % Baso % (Auto) 0.3 (0.0-1.5) % Neut # (Auto) 7.3 H (1.4-5.7) K/uL Lymph # (Auto) 0.9 (0.6-2.4) K/uL [place] # (Auto) 0.7 (0.0-0.8) K/uL Eos # (Auto) 0.6 (0.0-0.7) K/uL Baso # (Auto) 0.0 (0.0-0.1) K/uL Nucleated RBC % 0.0 /100WBC Nucleated RBCs # 0 K/uL INR 0.98 Sodium 140 (136-145) mmol/L Potassium 3.7 (3.5-5.1) mmol/L Chloride 101 (98-107) mmol/L Carbon Dioxide 32.4 H (21.0-32.0) mmol/L BUN 5 L (7.0-18.0) mg/dL Creatinine 0.8 (0.6-1.0) mg/dL Est Cr Clr Drug Dosing 47.72 mL/min Estimated GFR (MDRD) > 60.0 ml/min Glucose 109 H (74-106) mg/dL Lactic Acid (0.4-2.0) mmol/L Calcium 8.9 (8.5-10.1) mg/dL Magnesium 2.2 (1.8-2.4) mg/dL Total Bilirubin 0.7 (0.2-1.0) mg/dL AST 20 (15-37) IU/L ALT 27 (14-63) IU/L Alkaline Phosphatase 96 (46-116) U/L Troponin I < 0.050 (0.000-0.056) ng/mL Total Protein 7.0 (6.4-8.2) g/dL Albumin 4.0 (3.4-5.0) g/dL Globulin 3.0 (2.6-4.0) g/dL Albumin/Globulin Ratio 1.3 (0.9-1.6) SARS-CoV-2 RNA (CHARLY) (NEGATIVE) 02/07/21 02/07/21 02/08/21 Range/Units 13:10 15:36 05:20 WBC 6.35 (4.0-11.0) K/uL RBC 4.24 L (4.30-5.90) M/uL Hgb 13.1 (12.0-16.0) g/dL Hct 39.5 (36.0-46.0) % MCV 93.2 (80.0-98.0) fL MCH 30.9 (27.0-32.0) pg MCHC 33.2 (31.0-37.0) g/dL RDW Std Deviation 48.1 (28.0-62.0) fl RDW Coeff of Nam 14 (11.0-15.0) % Plt Count 192 (150-400) K/uL MPV 10.10 (7.40-12.00) fL Neut % (Auto) 94.8 H (48.0-80.0) % Lymph % (Auto) 4.4 L (16.0-40.0) % [place] % (Auto) 0.6 (0.0-15.0) % Eos % (Auto) 0.0 (0.0-7.0) % Baso % (Auto) 0.2 (0.0-1.5) % Neut # (Auto) 6.0 H (1.4-5.7) K/uL Lymph # (Auto) 0.3 L (0.6-2.4) K/uL [place] # (Auto) 0.0 (0.0-0.8) K/uL Eos # (Auto) 0.0 (0.0-0.7) K/uL Baso # (Auto) 0.0 (0.0-0.1) K/uL Nucleated RBC % 1.1 /100WBC Nucleated RBCs # 0 K/uL INR Sodium (136-145) mmol/L Potassium (3.5-5.1) mmol/L Chloride (98-107) mmol/L Carbon Dioxide (21.0-32.0) mmol/L BUN (7.0-18.0) mg/dL Creatinine (0.6-1.0) mg/dL Est Cr Clr Drug Dosing mL/min Estimated GFR (MDRD) ml/min Glucose (74-106) mg/dL Lactic Acid 1.7 (0.4-2.0) mmol/L Calcium (8.5-10.1) mg/dL Magnesium (1.8-2.4) mg/dL Total Bilirubin (0.2-1.0) mg/dL AST (15-37) IU/L ALT (14-63) IU/L Alkaline Phosphatase (46-116) U/L Troponin I (0.000-0.056) ng/mL Total Protein (6.4-8.2) g/dL Albumin (3.4-5.0) g/dL Globulin (2.6-4.0) g/dL Albumin/Globulin Ratio (0.9-1.6) SARS-CoV-2 RNA (CHARLY) NEGATIVE (NEGATIVE) 02/08/21 Range/Units 05:20 WBC (4.0-11.0) K/uL RBC (4.30-5.90) M/uL Hgb (12.0-16.0) g/dL Hct (36.0-46.0) % MCV (80.0-98.0) fL MCH (27.0-32.0) pg MCHC (31.0-37.0) g/dL RDW Std Deviation (28.0-62.0) fl RDW Coeff of Nam (11.0-15.0) % Plt Count (150-400) K/uL MPV (7.40-12.00) fL Neut % (Auto) (48.0-80.0) % Lymph % (Auto) (16.0-40.0) % [place] % (Auto) (0.0-15.0) % Eos % (Auto) (0.0-7.0) % Baso % (Auto) (0.0-1.5) % Neut # (Auto) (1.4-5.7) K/uL Lymph # (Auto) (0.6-2.4) K/uL [place] # (Auto) (0.0-0.8) K/uL Eos # (Auto) (0.0-0.7) K/uL Baso # (Auto) (0.0-0.1) K/uL Nucleated RBC % /100WBC Nucleated RBCs # K/uL INR Sodium 139 (136-145) mmol/L Potassium 3.9 (3.5-5.1) mmol/L Chloride 102 (98-107) mmol/L Carbon Dioxide 30.1 (21.0-32.0) mmol/L BUN 10 (7.0-18.0) mg/dL Creatinine 0.8 (0.6-1.0) mg/dL Est Cr Clr Drug Dosing 46.06 mL/min Estimated GFR (MDRD) > 60.0 ml/min Glucose 152 H (74-106) mg/dL Lactic Acid (0.4-2.0) mmol/L Calcium 8.7 (8.5-10.1) mg/dL Magnesium (1.8-2.4) mg/dL Total Bilirubin (0.2-1.0) mg/dL AST (15-37) IU/L ALT (14-63) IU/L Alkaline Phosphatase (46-116) U/L Troponin I (0.000-0.056) ng/mL Total Protein (6.4-8.2) g/dL Albumin (3.4-5.0) g/dL Globulin (2.6-4.0) g/dL Albumin/Globulin Ratio (0.9-1.6) SARS-CoV-2 RNA (CHARLY) (NEGATIVE) Result Diagrams: 02/08/21 05:20 02/08/21 05:20 Sepsis Event Note - Evaluation Sepsis Screening Result: No Definite Risk - Focused Exam Vital Signs: Vital Signs Temp Pulse Resp BP Pulse Ox 02/08/21 07:58 97.8 F 76 18 135/77 95 02/08/21 04:25 97.8 F 74 18 120/62 96 02/07/21 23:55 97.3 F 74 18 120/51 L 95 - Problem List & Annotations (1) Acute and chronic respiratory failure with hypoxia SNOMED Code(s): 74067741, 636116636 Code(s): J96.21 - ACUTE AND CHRONIC RESPIRATORY FAILURE WITH HYPOXIA Status: Acute Current Visit: Yes (2) COPD exacerbation SNOMED Code(s): 541174207 Code(s): J44.1 - CHRONIC OBSTRUCTIVE PULMONARY DISEASE W (ACUTE) EXACERBATION Status: Acute Current Visit: Yes (3) Prolonged QT syndrome SNOMED Code(s): 1283126 Code(s): I45.81 - LONG QT SYNDROME Status: Chronic Current Visit: No - Problem List Review Problem List Initiated/Reviewed/Updated: Yes - My Orders Last 24 Hours: My Active Orders 02/08/21 09:29 Albuterol [Proventil Neb Soln] 2.5 mg NEB Q2H PRN 02/08/21 10:00 Albuterol/Ipratropium [DuoNeb 3.0-0.5 MG/3 ML] 3 ml NEB Q4HRRT - Plan Plan:: 80-year-old female admitted for acute on chronic hypoxic respiratory failure secondary to COPD exacerbation 1. Acute on chronic hypoxic respiratory failure/COPD exacerbation -Oxygen to keep sats greater than 88% wean as possible -Continue Solu-Medrol 40 mg IV every 8 hrs -Scheduled DuoNebs every 4 with albuterol nebs as needed every 2 -Continue home budesonide -Continue doxy 100 mg twice daily -Encourage pulmonary toileting including incentive spirometry use VTE prophylaxis: SCDs GI prophylaxis Protonix CODE STATUS: Full code Dispo 1 to 2 days pending improvement
[2021-02-08] MEDS: Lactated Ringers 1,000 ML IV SCH (11:56)
[2021-02-08] MEDS: guaiFENesin/Dextromethorphan 100-10 MG/5 ML Soln 10 ML Cup PO PRN ×2 (11:56→20:56)
[2021-02-08] MEDS: Budesonide 0.5 MG/2 ML Neb Susp INH SCH ×2 (13:50→20:57)
[2021-02-09] MEDS: Albuterol/Ipratropium 3.0-0.5 MG/3 ML Neb Soln NEB SCH ×6 (01:46→22:17)
[2021-02-09] MEDS: methylPREDNISolone Sodium Succinate 40 MG/1 ML SDV IVPUSH SCH ×3 (01:46→19:56)
[2021-02-09 06:41] LABS: BLOOD UREA NITROGEN,BUN 10 mg/dL (7.0-18.0); CARBON DIOXIDE,CO2 30.5 mmol/L (21.0-32.0); CHLORIDE,CL 104 mmol/L (98-107); GLUCOSE RANDOM 143 mg/dL (74-106); POTASSIUM,K 3.7 mmol/L (3.5-5.1); SODIUM,NA 140 mmol/L (136-145)
[2021-02-09] MEDS: Doxycycline 100 MG in Sodium Chloride 0.9% 100 ML IV SCH ×2 (06:41→18:33)
[2021-02-09] MEDS: Aspirin 81 MG Tab.Chew PO SCH (08:21)
[2021-02-09] MEDS: guaiFENesin/Dextromethorphan 100-10 MG/5 ML Soln 10 ML Cup PO PRN ×2 (08:21→22:17)
[2021-02-09] MEDS: Budesonide 0.5 MG/2 ML Neb Susp INH SCH ×2 (08:40→20:02)
--- NOTE | 2021-02-09 14:45 | PCM.PN ---
- General Info Date of Service: 02/09/21 Admission Dx/Problem (Free Text): Admission Diagnosis/Problem Admission Diagnosis/Problem acute on chronic hypoxic respiratory failure, COPD exacerbation Subjective Update: Patient feels a little better today but continues to have some wheezing and cough, still requiring 2 L of oxygen at rest Functional Status: Reports: Tolerating Diet, Ambulating, Urinating - Review of Systems General: Reports: Weakness. Denies: Fever, Fatigue, Malaise, Chills Pulmonary: Reports: Shortness of Breath, Cough, Sputum. Denies: Pleuritic Chest Pain Cardiovascular: Reports: Dyspnea on Exertion. Denies: Chest Pain, Palpitations Gastrointestinal: Denies: Abdominal Pain, Constipation, Decreased Appetite Genitourinary: Denies: Dysuria, Frequency, Burning, Pain Musculoskeletal: Denies: Neck Pain, Shoulder Pain, Arm Pain Skin: Denies: Cyanosis, Jaundice, Mottled Neurological: Denies: Confusion, Dizziness, Headache - Patient Data Vitals - Most Recent: Last Vital Signs Temp 37.0 C 02/09/21 08:00 Pulse 87 02/09/21 08:00 Resp 18 02/09/21 08:00 BP 131/91 H 02/09/21 08:00 Pulse Ox 94 L 02/09/21 08:00 Weight - Most Recent: 50.349 kg I&O - Last 24 Hours: Intake & Output 02/08/21 02/09/21 02/09/21 22:59 06:59 14:59 Output Total 900 Balance -900 Lab Results Last 24 Hours: Laboratory Results - last 24 hr 02/09/21 02/09/21 Range/Units 05:45 05:45 WBC 10.82 (4.0-11.0) K/uL RBC 3.86 L (4.30-5.90) M/uL Hgb 12.0 (12.0-16.0) g/dL Hct 35.9 L (36.0-46.0) % MCV 93.0 (80.0-98.0) fL MCH 31.1 (27.0-32.0) pg MCHC 33.4 (31.0-37.0) g/dL RDW Std Deviation 47.7 (28.0-62.0) fl RDW Coeff of Nam 14 (11.0-15.0) % Plt Count 191 (150-400) K/uL MPV 10.00 (7.40-12.00) fL Neut % (Auto) 93.4 H (48.0-80.0) % Lymph % (Auto) 4.3 L (16.0-40.0) % [place] % (Auto) 2.2 (0.0-15.0) % Eos % (Auto) 0.0 (0.0-7.0) % Baso % (Auto) 0.1 (0.0-1.5) % Neut # (Auto) 10.1 H (1.4-5.7) K/uL Lymph # (Auto) 0.5 L (0.6-2.4) K/uL [place] # (Auto) 0.2 (0.0-0.8) K/uL Eos # (Auto) 0.0 (0.0-0.7) K/uL Baso # (Auto) 0.0 (0.0-0.1) K/uL Nucleated RBC % 0.0 /100WBC Nucleated RBCs # 0 K/uL Sodium 140 (136-145) mmol/L Potassium 3.7 (3.5-5.1) mmol/L Chloride 104 (98-107) mmol/L Carbon Dioxide 30.5 (21.0-32.0) mmol/L BUN 10 (7.0-18.0) mg/dL Creatinine 0.8 (0.6-1.0) mg/dL Est Cr Clr Drug Dosing 46.06 mL/min Estimated GFR (MDRD) > 60.0 ml/min Glucose 143 H (74-106) mg/dL Calcium 8.7 (8.5-10.1) mg/dL Med Orders - Current: Current Medications Acetaminophen (Acetaminophen 325 Mg Tab) 650 mg PO Q4H PRN PRN Reason: Pain/Fever Albuterol (Albuterol 0.083% 2.5 Mg/3 Ml Neb Soln) 2.5 mg NEB Q2H PRN PRN Reason: Shortness Of Breath/wheezing Albuterol/Ipratropium (Albuterol/Ipratropium 3.0-0.5 Mg/3 Ml Neb Soln) 3 ml NEB Q4HRRT GUS Last Admin: 02/09/21 14:07 Dose: 3 ml Documented by: Aspirin (Aspirin 81 Mg Tab.Chew) 81 mg PO DAILY [facility] Last Admin: 02/09/21 08:21 Dose: 81 mg Documented by: Budesonide (Budesonide 0.5 Mg/2 Ml Neb Susp) 0.5 mg INH BID [facility] Last Admin: 02/09/21 08:40 Dose: 0.5 mg Documented by: Guaifenesin/Dextromethorphan (Guaifenesin/Dextromethorphan 100-10 Mg/5 Ml Soln 10 Ml Cup) 10 ml PO Q4H PRN PRN Reason: Cough Last Admin: 02/09/21 08:21 Dose: 10 ml Documented by: Doxycycline Hyclate 100 mg/ (Sodium Chloride) 100 mls @ 100 mls/hr IV Q12H [facility] Last Admin: 02/09/21 06:41 Dose: 100 mls/hr Documented by: Methylprednisolone Sodium Succinate (Methylprednisolone Sodium Succinate 40 Mg/1 Ml Sdv) 40 mg IVPUSH Q8H [facility] Last Admin: 02/09/21 09:20 Dose: 40 mg Documented by: Ondansetron HCl (Ondansetron 4 Mg/2 Ml Sdv) 4 mg IVPUSH Q4H PRN PRN Reason: Nausea/Vomiting Discontinued Medications Albuterol/Ipratropium (Albuterol/Ipratropium 3.0-0.5 Mg/3 Ml Neb Soln) Confirm Administered Dose 3 ml .ROUTE .STK-MED ONE Stop: 02/07/21 15:16 Last Admin: 02/07/21 15:23 Dose: Not Given Documented by: Albuterol/Ipratropium (Albuterol/Ipratropium 3.0-0.5 Mg/3 Ml Neb Soln) 3 ml NEB ONETIME ONE Stop: 02/07/21 15:23 Last Admin: 02/07/21 15:23 Dose: 3 ml Documented by: Albuterol/Ipratropium (Albuterol/Ipratropium 3.0-0.5 Mg/3 Ml Neb Soln) 3 ml NEB ONETIME ONE Stop: 02/07/21 16:04 Last Admin: 02/07/21 16:12 Dose: 3 ml Documented by: Albuterol/Ipratropium (Albuterol/Ipratropium 3.0-0.5 Mg/3 Ml Neb Soln) 3 ml NEB ONETIME ONE Stop: 02/07/21 17:27 Last Admin: 02/07/21 18:49 Dose: 3 ml Documented by: Albuterol/Ipratropium (Albuterol/Ipratropium 3.0-0.5 Mg/3 Ml Neb Soln) 3 ml NEB Q4HRRT PRN PRN Reason: Shortness of Breath Last Admin: 02/08/21 04:32 Dose: 3 ml Documented by: Albuterol/Ipratropium (Albuterol/Ipratropium 3.0-0.5 Mg/3 Ml Neb Soln) Confirm Administered Dose 3 ml .ROUTE .STK-MED ONE Stop: 02/08/21 09:38 Last Admin: 02/08/21 10:52 Dose: Not Given Documented by: Lactated Ringer's (Ringers, Lactated) 1,000 mls @ 100 mls/hr IV ASDIRECTED GUS Last Admin: 02/08/21 11:56 Dose: 100 mls/hr Documented by: Methylprednisolone Sodium Succinate (Methylprednisolone Sodium Succinate 40 Mg/1 Ml Sdv) 40 mg IVPUSH ONETIME ONE Stop: 02/07/21 17:32 Last Admin: 02/07/21 18:11 Dose: 40 mg Documented by: - Exam Quality Assessment: Supplemental Oxygen General: Alert, Oriented Neck: Supple Lungs: Normal Respiratory Effort, Wheezing Cardiovascular: Regular Rate, Regular Rhythm GI/Abdominal Exam: Normal Bowel Sounds, Soft, Non-Tender - Patient Data Lab Results Last 24 hrs: Laboratory Results - last 24 hr 02/09/21 02/09/21 Range/Units 05:45 05:45 WBC 10.82 (4.0-11.0) K/uL RBC 3.86 L (4.30-5.90) M/uL Hgb 12.0 (12.0-16.0) g/dL Hct 35.9 L (36.0-46.0) % MCV 93.0 (80.0-98.0) fL MCH 31.1 (27.0-32.0) pg MCHC 33.4 (31.0-37.0) g/dL RDW Std Deviation 47.7 (28.0-62.0) fl RDW Coeff of Nam 14 (11.0-15.0) % Plt Count 191 (150-400) K/uL MPV 10.00 (7.40-12.00) fL Neut % (Auto) 93.4 H (48.0-80.0) % Lymph % (Auto) 4.3 L (16.0-40.0) % [place] % (Auto) 2.2 (0.0-15.0) % Eos % (Auto) 0.0 (0.0-7.0) % Baso % (Auto) 0.1 (0.0-1.5) % Neut # (Auto) 10.1 H (1.4-5.7) K/uL Lymph # (Auto) 0.5 L (0.6-2.4) K/uL [place] # (Auto) 0.2 (0.0-0.8) K/uL Eos # (Auto) 0.0 (0.0-0.7) K/uL Baso # (Auto) 0.0 (0.0-0.1) K/uL Nucleated RBC % 0.0 /100WBC Nucleated RBCs # 0 K/uL Sodium 140 (136-145) mmol/L Potassium 3.7 (3.5-5.1) mmol/L Chloride 104 (98-107) mmol/L Carbon Dioxide 30.5 (21.0-32.0) mmol/L BUN 10 (7.0-18.0) mg/dL Creatinine 0.8 (0.6-1.0) mg/dL Est Cr Clr Drug Dosing 46.06 mL/min Estimated GFR (MDRD) > 60.0 ml/min Glucose 143 H (74-106) mg/dL Calcium 8.7 (8.5-10.1) mg/dL Result Diagrams: 02/09/21 05:45 02/09/21 05:45 Sepsis Event Note - Evaluation Sepsis Screening Result: No Definite Risk - Focused Exam Vital Signs: Vital Signs Temp Temp Pulse Resp BP Pulse Ox 02/09/21 08:00 37.0 C 87 18 131/91 H 94 L 02/09/21 04:40 37.1 C 72 14 122/59 L 95 - Problem List & Annotations (1) COPD exacerbation SNOMED Code(s): 120740333 Code(s): J44.1 - CHRONIC OBSTRUCTIVE PULMONARY DISEASE W (ACUTE) EXACERBATION Status: Acute Current Visit: Yes (2) History of CHF (congestive heart failure) SNOMED Code(s): 246561198 Code(s): Z86.79 - PERSONAL HISTORY OF OTHER DISEASES OF THE CIRCULATORY SYSTEM Status: Acute Current Visit: No (3) Oxygen dependent SNOMED Code(s): 667010113395 Code(s): Z99.81 - DEPENDENCE ON SUPPLEMENTAL OXYGEN Status: Chronic Cur rent Visit: No (4) Prolonged QT syndrome SNOMED Code(s): 5728434 Code(s): I45.81 - LONG QT SYNDROME Status: Chronic Current Visit: No (5) Asthma SNOMED Code(s): 622027304 Code(s): J45.909 - UNSPECIFIED ASTHMA, UNCOMPLICATED Status: Acute Current Visit: Yes - Problem List Review Problem List Initiated/Reviewed/Updated: Yes - My Orders Last 24 Hours: My Active Orders 02/09/21 10:43 Patient Status [ADT] Routine - Plan Plan:: 80-year-old female admitted for acute on chronic hypoxic respiratory failure secondary to COPD exacerbation 1. Acute on chronic hypoxic respiratory failure/COPD exacerbation -Oxygen to keep sats greater than 88% wean as possible -Continue Solu-Medrol 40 mg IV every 8 hrs -Scheduled DuoNebs every 4 with albuterol nebs as needed every 2 -Continue home budesonide -Continue doxy 100 mg twice daily -Encourage pulmonary toileting including incentive spirometry use VTE prophylaxis: SCDs GI prophylaxis Protonix CODE STATUS: Full code Dispo 1 to 2 days pending improvement
[2021-02-10] MEDS: Albuterol/Ipratropium 3.0-0.5 MG/3 ML Neb Soln NEB SCH ×5 (02:17→23:53)
[2021-02-10] MEDS: Doxycycline 100 MG in Sodium Chloride 0.9% 100 ML IV SCH (05:15)
[2021-02-10 06:02] LABS: BLOOD UREA NITROGEN,BUN 15 mg/dL (7.0-18.0); CARBON DIOXIDE,CO2 29.7 mmol/L (21.0-32.0); CHLORIDE,CL 103 mmol/L (98-107); GLUCOSE RANDOM 129 mg/dL (74-106); POTASSIUM,K 3.6 mmol/L (3.5-5.1); SODIUM,NA 140 mmol/L (136-145)
--- NOTE | 2021-02-10 08:00 | PCM.PN ---
- General Info Date of Service: 02/10/21 Admission Dx/Problem (Free Text): Admission Diagnosis/Problem Admission Diagnosis/Problem acute on chronic hypoxic respiratory failure, COPD exacerbation Subjective Update: Feeling better today. Continues to have mild shortness of breath. Still requiring 1 to 1-1/2 L nasal cannula. Lung sounds improving. Patient continues to have cough that is productive denies any chest pain. No abdominal pain is eating and drinking well. We did have discussion that she likely may need alf continuous oxygen or that this may take her an extended period of time to improve from 2 to already chronic lung disease. Functional Status: Reports: Pain Controlled, Tolerating Diet, Ambulating, Urinating - Review of Systems General: Reports: Fatigue HEENT: Reports: No Symptoms. Denies: Headaches, Sore Throat Pulmonary: Reports: Shortness of Breath, Cough, Sputum, Wheezing Cardiovascular: Reports: Dyspnea on Exertion (Steadily improving daily). Denies: Chest Pain Gastrointestinal: Reports: No Symptoms. Denies: Abdominal Pain, Nausea, Vomiting Genitourinary: Reports: No Symptoms. Denies: Dysuria, Frequency Musculoskeletal: Reports: No Symptoms Skin: Reports: No Symptoms Neurological: Reports: No Symptoms Psychiatric: Reports: No Symptoms - Patient Data Vitals - Most Recent: Last Vital Signs Temp 98.2 F 02/10/21 07:00 Pulse 76 02/10/21 07:00 Resp 16 02/10/21 07:00 BP 124/68 02/10/21 07:00 Pulse Ox 95 02/10/21 07:00 Weight - Most Recent: 50.349 kg I&O - Last 24 Hours: Intake & Output 02/09/21 02/10/21 02/10/21 22:59 06:59 14:59 Intake Total 780 Output Total 300 Balance 480 Lab Results Last 24 Hours: Laboratory Results - last 24 hr 02/10/21 02/10/21 Range/Units 05:25 05:25 WBC 12.78 H (4.0-11.0) K/uL RBC 4.01 L (4.30-5.90) M/uL Hgb 12.4 (12.0-16.0) g/dL Hct 37.4 (36.0-46.0) % MCV 93.3 (80.0-98.0) fL MCH 30.9 (27.0-32.0) pg MCHC 33.2 (31.0-37.0) g/dL RDW Std Deviation 49.2 (28.0-62.0) fl RDW Coeff of Nam 14 (11.0-15.0) % Plt Count 219 (150-400) K/uL MPV 9.90 (7.40-12.00) fL Neut % (Auto) 91.6 H (48.0-80.0) % Lymph % (Auto) 4.7 L (16.0-40.0) % [place] % (Auto) 3.6 (0.0-15.0) % Eos % (Auto) 0.0 (0.0-7.0) % Baso % (Auto) 0.1 (0.0-1.5) % Neut # (Auto) 11.7 H (1.4-5.7) K/uL Lymph # (Auto) 0.6 (0.6-2.4) K/uL [place] # (Auto) 0.5 (0.0-0.8) K/uL Eos # (Auto) 0.0 (0.0-0.7) K/uL Baso # (Auto) 0.0 (0.0-0.1) K/uL Nucleated RBC % 0.0 /100WBC Nucleated RBCs # 0 K/uL Sodium 140 (136-145) mmol/L Potassium 3.6 (3.5-5.1) mmol/L Chloride 103 (98-107) mmol/L Carbon Dioxide 29.7 (21.0-32.0) mmol/L BUN 15 (7.0-18.0) mg/dL Creatinine 0.9 (0.6-1.0) mg/dL Est Cr Clr Drug Dosing 40.95 mL/min Estimated GFR (MDRD) > 60.0 ml/min Glucose 129 H (74-106) mg/dL Calcium 8.8 (8.5-10.1) mg/dL Med Orders - Current: Current Medications Acetaminophen (Acetaminophen 325 Mg Tab) 650 mg PO Q4H PRN PRN Reason: Pain/Fever Albuterol (Albuterol 0.083% 2.5 Mg/3 Ml Neb Soln) 2.5 mg NEB Q2H PRN PRN Reason: Shortness Of Breath/wheezing Albuterol/Ipratropium (Albuterol/Ipratropium 3.0-0.5 Mg/3 Ml Neb Soln) 3 ml NEB Q4HRRT [facility] Last Admin: 02/10/21 05:15 Dose: 3 ml Documented by: Aspirin (Aspirin 81 Mg Tab.Chew) 81 mg PO DAILY [facility] Last Admin: 02/09/21 08:21 Dose: 81 mg Documented by: Budesonide (Budesonide 0.5 Mg/2 Ml Neb Susp) 0.5 mg INH BID [facility] Last Admin: 02/09/21 20:02 Dose: 0.5 mg Documented by: Guaifenesin/Dextromethorphan (Guaifenesin/Dextromethorphan 100-10 Mg/5 Ml Soln 10 Ml Cup) 10 ml PO Q4H PRN PRN Reason: Cough Last Admin: 02/09/21 22:17 Dose: 10 ml Documented by: Doxycycline Hyclate 100 mg/ (Sodium Chloride) 100 mls @ 100 mls/hr IV Q12H [facility] Last Admin: 02/10/21 05:15 Dose: 100 mls/hr Documented by: Methylprednisolone Sodium Succinate (Methylprednisolone Sodium Succinate 40 Mg/1 Ml Sdv) 40 mg IVPUSH Q12H [facility] Last Admin: 02/09/21 19:56 Dose: 40 mg Documented by: Ondansetron HCl (Ondansetron 4 Mg/2 Ml Sdv) 4 mg IVPUSH Q4H PRN PRN Reason: Nausea/Vomiting Discontinued Medications Albuterol/Ipratropium (Albuterol/Ipratropium 3.0-0.5 Mg/3 Ml Neb Soln) Confirm Administered Dose 3 ml .ROUTE .STK-MED ONE Stop: 02/07/21 15:16 Last Admin: 02/07/21 15:23 Dose: Not Given Documented by: Albuterol/Ipratropium (Albuterol/Ipratropium 3.0-0.5 Mg/3 Ml Neb Soln) 3 ml NEB ONETIME ONE Stop: 02/07/21 15:23 Last Admin: 02/07/21 15:23 Dose: 3 ml Documented by: Albuterol/Ipratropium (Albuterol/Ipratropium 3.0-0.5 Mg/3 Ml Neb Soln) 3 ml NEB ONETIME ONE Stop: 02/07/21 16:04 Last Admin: 02/07/21 16:12 Dose: 3 ml Documented by: Albuterol/Ipratropium (Albuterol/Ipratropium 3.0-0.5 Mg/3 Ml Neb Soln) 3 ml NEB ONETIME ONE Stop: 02/07/21 17:27 Last Admin: 02/07/21 18:49 Dose: 3 ml Documented by: Albuterol/Ipratropium (Albuterol/Ipratropium 3.0-0.5 Mg/3 Ml Neb Soln) 3 ml NEB Q4HRRT PRN PRN Reason: Shortness of Breath Last Admin: 02/08/21 04:32 Dose: 3 ml Documented by: Albuterol/Ipratropium (Albuterol/Ipratropium 3.0-0.5 Mg/3 Ml Neb Soln) Confirm Administered Dose 3 ml .ROUTE .STK-MED ONE Stop: 02/08/21 09:38 Last Admin: 02/08/21 10:52 Dose: Not Given Documented by: Lactated Ringer's (Ringers, Lactated) 1,000 mls @ 100 mls/hr IV ASDIRECTED [facility] Last Admin: 02/08/21 11:56 Dose: 100 mls/hr Documented by: Methylprednisolone Sodium Succinate (Methylprednisolone Sodium Succinate 40 Mg/1 Ml Sdv) 40 mg IVPUSH ONETIME ONE Stop: 02/07/21 17:32 Last Admin: 02/07/21 18:11 Dose: 40 mg Documented by: Methylprednisolone Sodium Succinate (Methylprednisolone Sodium Succinate 40 Mg/1 Ml Sdv) 40 mg IVPUSH Q8H [facility] Last Admin: 02/09/21 09:20 Dose: 40 mg Documented by: - Exam Quality Assessment: Supplemental Oxygen (1 L), DVT Prophylaxis General: Alert, Oriented, Cooperative, No Acute Distress Lungs: Rhonchi, Wheezing. No: Normal Respiratory Effort (Slight dyspnea with speech and exertion noted) Cardiovascular: Regular Rate, Regular Rhythm, No Murmurs GI/Abdominal Exam: Normal Bowel Sounds, Soft, Non-Tender Back Exam: Normal Inspection, Full Range of Motion Extremities: Normal Inspection, Normal Range of Motion, Non-Tender, No Pedal Edema Neurological: No New Focal Deficit Psy/Mental Status: Alert, Normal Affect, Normal Mood - Patient Data Lab Results Last 24 hrs: Laboratory Results - last 24 hr 02/10/21 02/10/21 Range/Units 05:25 05:25 WBC 12.78 H (4.0-11.0) K/uL RBC 4.01 L (4.30-5.90) M/uL Hgb 12.4 (12.0-16.0) g/dL Hct 37.4 (36.0-46.0) % MCV 93.3 (80.0-98.0) fL MCH 30.9 (27.0-32.0) pg MCHC 33.2 (31.0-37.0) g/dL RDW Std Deviation 49.2 (28.0-62.0) fl RDW Coeff of Nam 14 (11.0-15.0) % Plt Count 219 (150-400) K/uL MPV 9.90 (7.40-12.00) fL Neut % (Auto) 91.6 H (48.0-80.0) % Lymph % (Auto) 4.7 L (16.0-40.0) % [place] % (Auto) 3.6 (0.0-15.0) % Eos % (Auto) 0.0 (0.0-7.0) % Baso % (Auto) 0.1 (0.0-1.5) % Neut # (Auto) 11.7 H (1.4-5.7) K/uL Lymph # (Auto) 0.6 (0.6-2.4) K/uL [place] # (Auto) 0.5 (0.0-0.8) K/uL Eos # (Auto) 0.0 (0.0-0.7) K/uL Baso # (Auto) 0.0 (0.0-0.1) K/uL Nucleated RBC % 0.0 /100WBC Nucleated RBCs # 0 K/uL Sodium 140 (136-145) mmol/L Potassium 3.6 (3.5-5.1) mmol/L Chloride 103 (98-107) mmol/L Carbon Dioxide 29.7 (21.0-32.0) mmol/L BUN 15 (7.0-18.0) mg/dL Creatinine 0.9 (0.6-1.0) mg/dL Est Cr Clr Drug Dosing 40.95 mL/min Estimated GFR (MDRD) > 60.0 ml/min Glucose 129 H (74-106) mg/dL Calcium 8.8 (8.5-10.1) mg/dL Result Diagrams: 02/10/21 05:25 02/10/21 05:25 Sepsis Event Note - Evaluation Sepsis Screening Result: No Definite Risk - Focused Exam Vital Signs: Vital Signs Temp Pulse Resp BP Pulse Ox 02/10/21 07:00 98.2 F 76 16 124/68 95 02/10/21 04:00 98.6 F 72 18 135/70 98 02/10/21 00:00 97.4 F 78 22 H 130/60 96 02/09/21 20:00 96.8 F L 81 20 156/68 H 96 - Problem List & Annotations (1) Acute and chronic respiratory failure with hypoxia SNOMED Code(s): 40968463, 433262655 Code(s): J96.21 - ACUTE AND CHRONIC RESPIRATORY FAILURE WITH HYPOXIA Status: Acute Current Visit: Yes (2) COPD exacerbation SNOMED Code(s): 401624976 Code(s): J44.1 - CHRONIC OBSTRUCTIVE PULMONARY DISEASE W (ACUTE) EXACERBATION Status: Acute Current Visit: Yes (3) Prolonged QT syndrome SNOMED Code(s): 6596295 Code(s): I45.81 - LONG QT SYNDROME Status: Chronic Current Visit: No - Problem List Review Problem List Initiated/Reviewed/Updated: Yes - My Orders Last 24 Hours: My Active Orders 02/09/21 09:00 Aspirin 81 mg PO DAILY - Plan Plan:: 80-year-old female admitted for acute on chronic hypoxic respiratory failure secondary to COPD exacerbation 1. Acute on chronic hypoxic respiratory failure/COPD exacerbation -Oxygen to keep sats greater than 88% wean as possible -Continue Solu-Medrol 40 mg IV every every 12 we will switch to daily tomorrow -Scheduled DuoNebs every 4 with albuterol nebs as needed every 2 -Continue home budesonide -Continue doxy 100 mg twice daily change to p.o. -Encourage pulmonary toileting including incentive spirometry use VTE prophylaxis: SCDs GI prophylaxis Protonix CODE STATUS: Full code Dispo likely home in a.m. May need continuous oxygen.
[2021-02-10] MEDS: methylPREDNISolone Sodium Succinate 40 MG/1 ML SDV IVPUSH SCH ×2 (08:16→21:57)
[2021-02-10] MEDS: Aspirin 81 MG Tab.Chew PO SCH (08:16)
[2021-02-10] MEDS ORDERED: Aspirin 81 MG Tab.Chew ONE (08:32)
[2021-02-10] MEDS: guaiFENesin/Dextromethorphan 100-10 MG/5 ML Soln 10 ML Cup PO PRN ×2 (09:22→22:10)
[2021-02-10] MEDS: Budesonide 0.5 MG/2 ML Neb Susp INH SCH ×2 (09:22→21:57)
[2021-02-10] MEDS: Doxycycline 100 MG Cap PO SCH (21:57)
[2021-02-11] MEDS: Albuterol/Ipratropium 3.0-0.5 MG/3 ML Neb Soln NEB SCH ×7 (02:42→23:32)
[2021-02-11 07:38] LABS: BLOOD UREA NITROGEN,BUN 13 mg/dL (7.0-18.0); CARBON DIOXIDE,CO2 32.7 mmol/L (21.0-32.0); CHLORIDE,CL 102 mmol/L (98-107); GLUCOSE RANDOM 117 mg/dL (74-106); POTASSIUM,K 3.5 mmol/L (3.5-5.1); SODIUM,NA 139 mmol/L (136-145)
[2021-02-11] MEDS: predniSONE 20 MG Tab PO SCH (08:44)
[2021-02-11] MEDS: Budesonide 0.5 MG/2 ML Neb Susp INH SCH ×2 (08:44→20:44)
[2021-02-11] MEDS: Doxycycline 100 MG Cap PO SCH ×2 (08:44→20:43)
[2021-02-11] MEDS: Aspirin 81 MG Tab.Chew PO SCH (08:44)
--- NOTE | 2021-02-11 13:11 | PCM.PN ---
- General Info Date of Service: 02/11/21 Admission Dx/Problem (Free Text): Admission Diagnosis/Problem Admission Diagnosis/Problem acute on chronic hypoxic respiratory failure, COPD exacerbation Subjective Update: Feeling better today. Currently having the coughing spell, was weaned off the oxygen saturating 91 but during the coughing spell patient dips to to 84% and it takes a while for her to come back up. Patient continues to have wheezing but has significantly improved. Possibly will need another day before discharge Functional Status: Reports: Tolerating Diet, Ambulating, Urinating - Review of Systems General: Reports: Fatigue, Malaise. Denies: Fever, Weakness Pulmonary: Reports: Shortness of Breath, Cough, Sputum. Denies: Pleuritic Chest Pain Cardiovascular: Denies: Dyspnea on Exertion, Orthopnea, PND Gastrointestinal: Denies: Abdominal Pain, Constipation Genitourinary: Denies: Dysuria, Frequency, Burning Musculoskeletal: Denies: Neck Pain, Shoulder Pain, Arm Pain Skin: Denies: Cyanosis, Jaundice, Mottled - Patient Data Vitals - Most Recent: Last Vital Signs Temp 36.2 C 02/11/21 12:00 Pulse 77 02/11/21 12:00 Resp 22 H 02/11/21 12:00 BP 137/60 02/11/21 12:00 Pulse Ox 92 L 02/11/21 12:00 Weight - Most Recent: 50.349 kg I&O - Last 24 Hours: Intake & Output 02/10/21 02/11/21 02/11/21 22:59 06:59 14:59 Intake Total 700 400 Output Total 200 500 Balance 500 -100 Lab Results Last 24 Hours: Laboratory Results - last 24 hr 02/11/21 02/11/21 Range/Units 06:41 06:41 WBC 10.06 (4.0-11.0) K/uL RBC 4.25 L (4.30-5.90) M/uL Hgb 13.1 (12.0-16.0) g/dL Hct 39.5 (36.0-46.0) % MCV 92.9 (80.0-98.0) fL MCH 30.8 (27.0-32.0) pg MCHC 33.2 (31.0-37.0) g/dL RDW Std Deviation 48.8 (28.0-62.0) fl RDW Coeff of Nam 14 (11.0-15.0) % Plt Count 203 (150-400) K/uL MPV 10.10 (7.40-12.00) fL Neut % (Auto) 89.8 H (48.0-80.0) % Lymph % (Auto) 6.1 L (16.0-40.0) % [place] % (Auto) 4.1 (0.0-15.0) % Eos % (Auto) 0.0 (0.0-7.0) % Baso % (Auto) 0.0 (0.0-1.5) % Neut # (Auto) 9.0 H (1.4-5.7) K/uL Lymph # (Auto) 0.6 (0.6-2.4) K/uL [place] # (Auto) 0.4 (0.0-0.8) K/uL Eos # (Auto) 0.0 (0.0-0.7) K/uL Baso # (Auto) 0.0 (0.0-0.1) K/uL Nucleated RBC % 0.0 /100WBC Nucleated RBCs # 0 K/uL Sodium 139 (136-145) mmol/L Potassium 3.5 (3.5-5.1) mmol/L Chloride 102 (98-107) mmol/L Carbon Dioxide 32.7 H (21.0-32.0) mmol/L BUN 13 (7.0-18.0) mg/dL Creatinine 0.8 (0.6-1.0) mg/dL Est Cr Clr Drug Dosing 46.06 mL/min Estimated GFR (MDRD) > 60.0 ml/min Glucose 117 H (74-106) mg/dL Calcium 8.6 (8.5-10.1) mg/dL Med Orders - Current: Current Medications Acetaminophen (Acetaminophen 325 Mg Tab) 650 mg PO Q4H PRN PRN Reason: Pain/Fever Albuterol (Albuterol 0.083% 2.5 Mg/3 Ml Neb Soln) 2.5 mg NEB Q2H PRN PRN Reason: Shortness Of Breath/wheezing Last Admin: 02/11/21 12:01 Dose: 2.5 mg Documented by: Albuterol/Ipratropium (Albuterol/Ipratropium 3.0-0.5 Mg/3 Ml Neb Soln) 3 ml NEB Q4HRRT [facility] Last Admin: 02/11/21 09:52 Dose: 3 ml Documented by: Aspirin (Aspirin 81 Mg Tab.Chew) 81 mg PO DAILY [facility] Last Admin: 02/11/21 08:44 Dose: 81 mg Documented by: Budesonide (Budesonide 0.5 Mg/2 Ml Neb Susp) 0.5 mg INH BID [facility] Last Admin: 02/11/21 08:44 Dose: 0.5 mg Documented by: Doxycycline Hyclate (Doxycycline 100 Mg Cap) 100 mg PO BID [facility] Last Admin: 02/11/21 08:44 Dose: 100 mg Documented by: Guaifenesin/Dextromethorphan (Guaifenesin/Dextromethorphan 100-10 Mg/5 Ml Soln 10 Ml Cup) 10 ml PO Q4H PRN PRN Reason: Cough Last Admin: 02/10/21 22:10 Dose: 10 ml Documented by: Ondansetron HCl (Ondansetron 4 Mg/2 Ml Sdv) 4 mg IVPUSH Q4H PRN PRN Reason: Nausea/Vomiting Prednisone (Prednisone 20 Mg Tab) 40 mg PO WITHBREAKFAST [facility] Last Admin: 02/11/21 08:44 Dose: 40 mg Documented by: Discontinued Medications Albuterol/Ipratropium (Albuterol/Ipratropium 3.0-0.5 Mg/3 Ml Neb Soln) Confirm Administered Dose 3 ml .ROUTE .STK-MED ONE Stop: 02/07/21 15:16 Last Admin: 02/07/21 15:23 Dose: Not Given Documented by: Albuterol/Ipratropium (Albuterol/Ipratropium 3.0-0.5 Mg/3 Ml Neb Soln) 3 ml NEB ONETIME ONE Stop: 02/07/21 15:23 Last Admin: 02/07/21 15:23 Dose: 3 ml Documented by: Albuterol/Ipratropium (Albuterol/Ipratropium 3.0-0.5 Mg/3 Ml Neb Soln) 3 ml NEB ONETIME ONE Stop: 02/07/21 16:04 Last Admin: 02/07/21 16:12 Dose: 3 ml Documented by: Albuterol/Ipratropium (Albuterol/Ipratropium 3.0-0.5 Mg/3 Ml Neb Soln) 3 ml NEB ONETIME ONE Stop: 02/07/21 17:27 Last Admin: 02/07/21 18:49 Dose: 3 ml Documented by: Albuterol/Ipratropium (Albuterol/Ipratropium 3.0-0.5 Mg/3 Ml Neb Soln) 3 ml NEB Q4HRRT PRN PRN Reason: Shortness of Breath Last Admin: 02/08/21 04:32 Dose: 3 ml Documented by: Albuterol/Ipratropium (Albuterol/Ipratropium 3.0-0.5 Mg/3 Ml Neb Soln) Confirm Administered Dose 3 ml .ROUTE .STK-MED ONE Stop: 02/08/21 09:38 Last Admin: 02/08/21 10:52 Dose: Not Given Documented by: Aspirin (Aspirin 81 Mg Tab.Chew) Confirm Administered Dose 81 mg .ROUTE .STK-MED ONE Stop: 02/10/21 08:33 Last Admin: 02/10/21 09:01 Dose: Not Given Documented by: Doxycycline Hyclate 100 mg/ (Sodium Chloride) 100 mls @ 100 mls/hr IV Q12H [facility] Last Admin: 02/10/21 05:15 Dose: 100 mls/hr Documented by: Lactated Ringer's (Ringers, Lactated) 1,000 mls @ 100 mls/hr IV ASDIRECTED [facility] Last Admin: 02/08/21 11:56 Dose: 100 mls/hr Documented by: Methylprednisolone Sodium Succinate (Methylprednisolone Sodium Succinate 40 Mg/1 Ml Sdv) 40 mg IVPUSH ONETIME ONE Stop: 02/07/21 17:32 Last Admin: 02/07/21 18:11 Dose: 40 mg Documented by: Methylprednisolone Sodium Succinate (Methylprednisolone Sodium Succinate 40 Mg/1 Ml Sdv) 40 mg IVPUSH Q8H [facility] Last Admin: 02/09/21 09:20 Dose: 40 mg Documented by: Methylprednisolone Sodium Succinate (Methylprednisolone Sodium Succinate 40 Mg/1 Ml Sdv) 40 mg IVPUSH Q12H [facility] Stop: 02/10/21 22:00 Last Admin: 02/10/21 21:57 Dose: 40 mg Documented by: - Exam Quality Assessment: Supplemental Oxygen General: Alert, Oriented Lungs: Normal Respiratory Effort, Decreased Breath Sounds, Rales, Wheezing Cardiovascular: Regular Rate, Regular Rhythm GI/Abdominal Exam: Normal Bowel Sounds, Soft, Non-Tender - Patient Data Lab Results Last 24 hrs: Laboratory Results - last 24 hr 02/11/21 02/11/21 Range/Units 06:41 06:41 WBC 10.06 (4.0-11.0) K/uL RBC 4.25 L (4.30-5.90) M/uL Hgb 13.1 (12.0-16.0) g/dL Hct 39.5 (36.0-46.0) % MCV 92.9 (80.0-98.0) fL MCH 30.8 (27.0-32.0) pg MCHC 33.2 (31.0-37.0) g/dL RDW Std Deviation 48.8 (28.0-62.0) fl RDW Coeff of Nam 14 (11.0-15.0) % Plt Count 203 (150-400) K/uL MPV 10.10 (7.40-12.00) fL Neut % (Auto) 89.8 H (48.0-80.0) % Lymph % (Auto) 6.1 L (16.0-40.0) % [place] % (Auto) 4.1 (0.0-15.0) % Eos % (Auto) 0.0 (0.0-7.0) % Baso % (Auto) 0.0 (0.0-1.5) % Neut # (Auto) 9.0 H (1.4-5.7) K/uL Lymph # (Auto) 0.6 (0.6-2.4) K/uL [place] # (Auto) 0.4 (0.0-0.8) K/uL Eos # (Auto) 0.0 (0.0-0.7) K/uL Baso # (Auto) 0.0 (0.0-0.1) K/uL Nucleated RBC % 0.0 /100WBC Nucleated RBCs # 0 K/uL Sodium 139 (136-145) mmol/L Potassium 3.5 (3.5-5.1) mmol/L Chloride 102 (98-107) mmol/L Carbon Dioxide 32.7 H (21.0-32.0) mmol/L BUN 13 (7.0-18.0) mg/dL Creatinine 0.8 (0.6-1.0) mg/dL Est Cr Clr Drug Dosing 46.06 mL/min Estimated GFR (MDRD) > 60.0 ml/min Glucose 117 H (74-106) mg/dL Calcium 8.6 (8.5-10.1) mg/dL Result Diagrams: 02/11/21 06:41 02/11/21 06:41 Sepsis Event Note - Evaluation Sepsis Screening Result: Possible Sepsis Risk - Focused Exam Vital Signs: Vital Signs Temp Pulse Resp BP Pulse Ox 02/11/21 12:00 36.2 C 77 22 H 137/60 92 L 02/11/21 10:53 18 91 L 02/11/21 08:00 36.2 C 81 22 H 146/81 H 91 L 02/11/21 04:00 36.8 C 73 20 114/49 L 95 - Problem List & Annotations (1) COPD exacerbation SNOMED Code(s): 295268942 Code(s): J44.1 - CHRONIC OBSTRUCTIVE PULMONARY DISEASE W (ACUTE) EXACERBATION Status: Acute Current Visit: Yes (2) History of CHF (congestive heart failure) SNOMED Code(s): 533200831 Code(s): Z86.79 - PERSONAL HISTORY OF OTHER DISEASES OF THE CIRCULATORY SY STEM Status: Acute Current Visit: No (3) Oxygen dependent SNOMED Code(s): 065060049779 Code(s): Z99.81 - DEPENDENCE ON SUPPLEMENTAL OXYGEN Status: Chronic Current Visit: No (4) Prolonged QT syndrome SNOMED Code(s): 2585940 Code(s): I45.81 - LONG QT SYNDROME Status: Chronic Current Visit: No (5) Asthma SNOMED Code(s): 443687483 Code(s): J45.909 - UNSPECIFIED ASTHMA, UNCOMPLICATED Status: Acute Current Visit: Yes - Problem List Review Problem List Initiated/Reviewed/Updated: Yes - Plan Plan:: 80-year-old female admitted for acute on chronic hypoxic respiratory failure secondary to COPD exacerbation 1. Acute on chronic hypoxic respiratory failure/COPD exacerbation -Oxygen to keep sats greater than 88% wean as possible -Continue Solu-Medrol 40 mg IV every every 12 h -Scheduled DuoNebs every 4 with albuterol nebs as needed every 2 -Continue home budesonide -Continue doxy 100 mg twice daily change to p.o. -Encourage pulmonary toileting including incentive spirometry use -Guaifenesin for cough VTE prophylaxis: SCDs GI prophylaxis Protonix CODE STATUS: Full code Dispo likely home in a.m. May need continuous oxygen.
[2021-02-11] MEDS: guaiFENesin/Dextromethorphan 100-10 MG/5 ML Soln 10 ML Cup PO SCH ×3 (13:40→20:43)
[2021-02-12] MEDS: guaiFENesin/Dextromethorphan 100-10 MG/5 ML Soln 10 ML Cup PO SCH ×4 (02:20→18:14)
[2021-02-12] MEDS: Albuterol/Ipratropium 3.0-0.5 MG/3 ML Neb Soln NEB SCH ×5 (02:20→17:43)
[2021-02-12 08:05] LABS: BLOOD UREA NITROGEN,BUN 13 mg/dL (7.0-18.0); CHLORIDE,CL 102 mmol/L (98-107); GLUCOSE RANDOM 79 mg/dL (74-106); POTASSIUM,K 2.8 mmol/L (3.5-5.1); SODIUM,NA 141 mmol/L (136-145)
[2021-02-12] MEDS: Aspirin 81 MG Tab.Chew PO SCH (08:16)
[2021-02-12] MEDS: predniSONE 20 MG Tab PO SCH (08:16)
[2021-02-12] MEDS: Doxycycline 100 MG Cap PO SCH (08:17)
[2021-02-12] MEDS: Budesonide 0.5 MG/2 ML Neb Susp INH SCH (08:17)
[2021-02-12] MEDS ORDERED: Potassium Chloride 20 MEQ Tab.ER PO ONE (10:16)
[2021-02-12] MEDS ORDERED: Sodium Chloride 0.9% with KCl 1,000 ML IV SCH (10:30)
[2021-02-12] MEDS ORDERED: Potassium Chloride 10% 20 MEQ/15 ML Soln 30 ML UD Cup PO ONE (10:45)
[2021-02-12] MEDS ORDERED: Heparin Sodium 5,000 Units/ML Vial SUBCUT SCH (12:00)
[2021-02-12 15:46] LABS: BLOOD UREA NITROGEN,BUN 13 mg/dL (7.0-18.0); CARBON DIOXIDE,CO2 30.6 mmol/L (21.0-32.0); CHLORIDE,CL 103 mmol/L (98-107); GLUCOSE RANDOM 131 mg/dL (74-106); POTASSIUM,K 4.5 mmol/L (3.5-5.1); SODIUM,NA 140 mmol/L (136-145)
--- NOTE | 2021-02-12 16:24 | PCM.DCSUM1 ---
Discharge Summary - Discharge Data Discharge Date: 02/12/21 Discharge Disposition: Home, Self-Care 01 Condition: Good - Referral to Home Health Primary Care Physician: PCP None - Patient Summary/Data Hospital Course: 80-year-old woman with a past medical history of Asthma, COPD on home oxygen at nighttime only, history of CHF and prolonged QT syndrome who came into the ER with complaints of increased shortness of breath for last 2 days. In the ER patient was found to be 81% on room air, she was started on oxygen which improved her oxygen saturations to mid 90s.EKG was obtained which did not reveal any acute signs of ischemia.Laboratory: CBC is unremarkable. INR is normal. CMP reveals metabolic alkalosis with a bicarbonate of 32.4 and hyperglycemia at 109 otherwise unremarkable. Troponin is negative. Covid is negative. Chest x-ray does not reveal any acute cardiopulmonary process. Pateint was treated with solumedrol, doxycycline and duonebs with improvement in her sym ptoms. She is feeling better today and is requesting discharge. She was discharged home to have follow up with her PCP. - Discharge Plan Prescriptions/Med Rec: predniSONE 40 mg PO WITHBREAKFAST #6 tablet Doxycycline [Vibramycin] 100 mg PO BID #6 cap Home Medications: Home Meds Albuterol/Ipratropium [DuoNeb 3.0-0.5 MG/3 ML] 3 ml NEB Q4HRRT PRN neb MDD 4-6 times a day 09/28/17 [Rx] Albuterol [Ventolin HFA] 1 puff PO Q6HR PRN 04/16/18 [History] Aspirin 81 mg PO DAILY #30 tab.chew 04/18/18 [Rx] Budesonide [Pulmicort] 0.5 mg IH BID 11/24/18 [History] Doxycycline [Vibramycin] 100 mg PO BID #6 cap 02/12/21 [Rx] predniSONE 40 mg PO WITHBREAKFAST #6 tablet 02/12/21 [Rx] Forms: ED Department Discharge Referrals: Tamanna Sanchez NP [Ordering Only Provider] - 02/14/21 10:15 am - Discharge Summary/Plan Comment DC Time >30 min.: No Total # of Minutes for Discharge Time: 25 - Patient Data Vitals - Most Recent: Last Vital Signs Temp 36.4 C 02/12/21 12:00 Pulse 78 02/12/21 12:00 Resp 18 02/12/21 12:00 BP 145/80 H 02/12/21 12:00 Pulse Ox 94 L 02/12/21 12:00 Weight - Most Recent: 50.349 kg I&O - Last 24 hours: Intake & Output 02/12/21 02/12/21 02/12/21 06:59 14:59 22:59 Intake Total 500 Output Total 650 Balance -150 Lab Results - Last 24 hrs: Laboratory Results - last 24 hr 02/12/21 02/12/21 02/12/21 Range/Units 06:14 06:14 15:19 WBC 9.44 (4.0-11.0) K/uL RBC 4.03 L (4.30-5.90) M/uL Hgb 12.3 (12.0-16.0) g/dL Hct 37.4 (36.0-46.0) % MCV 92.8 (80.0-98.0) fL MCH 30.5 (27.0-32.0) pg MCHC 32.9 (31.0-37.0) g/dL RDW Std Deviation 48.8 (28.0-62.0) fl RDW Coeff of Nam 14 (11.0-15.0) % Plt Count 199 (150-400) K/uL MPV 10.10 (7.40-12.00) fL Neut % (Auto) 70.7 (48.0-80.0) % Lymph % (Auto) 19.3 (16.0-40.0) % Hitchcock % (Auto) 9.6 (0.0-15.0) % Eos % (Auto) 0.3 (0.0-7.0) % Baso % (Auto) 0.1 (0.0-1.5) % Neut # (Auto) 6.7 H (1.4-5.7) K/uL Lymph # (Auto) 1.8 (0.6-2.4) K/uL Hitchcock # (Auto) 0.9 H (0.0-0.8) K/uL Eos # (Auto) 0.0 (0.0-0.7) K/uL Baso # (Auto) 0.0 (0.0-0.1) K/uL Nucleated RBC % 0.0 /100WBC Nucleated RBCs # 0 K/uL Sodium 141 140 (136-145) mmol/L Potassium 2.8 L 4.5 (3.5-5.1) mmol/L Chloride 102 103 (98-107) mmol/L Carbon Dioxide 32.0 30.6 (21.0-32.0) mmol/L BUN 13 13 (7.0-18.0) mg/dL Creatinine 0.7 0.8 (0.6-1.0) mg/dL Est Cr Clr Drug Dosing 52.65 46.06 mL/min Estimated GFR (MDRD) > 60.0 > 60.0 ml/min Glucose 79 131 H (74-106) mg/dL Calcium 8.5 8.4 L (8.5-10.1) mg/dL Phosphorus 3.1 (2.6-4.7) mg/dL Magnesium 2.1 (1.8-2.4) mg/dL Med Orders - Current: Current Medications Acetaminophen (Acetaminophen 325 Mg Tab) 650 mg PO Q4H PRN PRN Reason: Pain/Fever Albuterol (Albuterol 0.083% 2.5 Mg/3 Ml Neb Soln) 2.5 mg NEB Q2H PRN PRN Reason: Shortness Of Breath/wheezing Last Admin: 02/11/21 12:01 Dose: 2.5 mg Documented by: Albuterol/Ipratropium (Albuterol/Ipratropium 3.0-0.5 Mg/3 Ml Neb Soln) 3 ml NEB Q4HRRT [facility] Last Admin: 02/12/21 14:03 Dose: 3 ml Documented by: Aspirin (Aspirin 81 Mg Tab.Chew) 81 mg PO DAILY [facility] Last Admin: 02/12/21 08:16 Dose: 81 mg Documented by: Budesonide (Budesonide 0.5 Mg/2 Ml Neb Susp) 0.5 mg INH BID [facility] Last Admin: 02/12/21 08:17 Dose: 0.5 mg Documented by: Doxycycline Hyclate (Doxycycline 100 Mg Cap) 100 mg PO BID [facility] Last Admin: 02/12/21 08:17 Dose: 100 mg Documented by: Guaifenesin/Dextromethorphan (Guaifenesin/Dextromethorphan 100-10 Mg/5 Ml Soln 10 Ml Cup) 10 ml PO Q4H [facility] Last Admin: 02/12/21 11:02 Dose: Not Given Documented by: Heparin Sodium (Porcine) (Heparin Sodium 5,000 Units/Ml Vial) 5,000 units SUBCUT Q12H [facility] Last Admin: 02/12/21 12:43 Dose: 5,000 units Documented by: Potassium Chloride/Sodium Chloride (Normal Saline With 40 Meq Kcl) 1,000 mls @ 150 mls/hr IV ASDIRECTED [facility] Last Admin: 02/12/21 11:23 Dose: 150 mls/hr Documented by: Ondansetron HCl (Ondansetron 4 Mg/2 Ml Sdv) 4 mg IVPUSH Q4H PRN PRN Reason: Nausea/Vomiting Prednisone (Prednisone 20 Mg Tab) 40 mg PO WITHBREAKFAST [facility] Last Admin: 02/12/21 08:16 Dose: 40 mg Documented by: Discontinued Medications Albuterol/Ipratropium (Albuterol/Ipratropium 3.0-0.5 Mg/3 Ml Neb Soln) Confirm Administered Dose 3 ml .ROUTE .STK-MED ONE Stop: 02/07/21 15:16 Last Admin: 02/07/21 15:23 Dose: Not Given Documented by: Albuterol/Ipratropium (Albuterol/Ipratropium 3.0-0.5 Mg/3 Ml Neb Soln) 3 ml NEB ONETIME ONE Stop: 02/07/21 15:23 Last Admin: 02/07/21 15:23 Dose: 3 ml Documented by: Albuterol/Ipratropium (Albuterol/Ipratropium 3.0-0.5 Mg/3 Ml Neb Soln) 3 ml NEB ONETIME ONE Stop: 02/07/21 16:04 Last Admin: 02/07/21 16:12 Dose: 3 ml Documented by: Albuterol/Ipratropium (Albuterol/Ipratropium 3.0-0.5 Mg/3 Ml Neb Soln) 3 ml NEB ONETIME ONE Stop: 02/07/21 17:27 Last Admin: 02/07/21 18:49 Dose: 3 ml Documented by: Albuterol/Ipratropium (Albuterol/Ipratropium 3.0-0.5 Mg/3 Ml Neb Soln) 3 ml NEB Q4HRRT PRN PRN Reason: Shortness of Breath Last Admin: 02/08/21 04:32 Dose: 3 ml Documented by: Albuterol/Ipratropium (Albuterol/Ipratropium 3.0-0.5 Mg/3 Ml Neb Soln) Confirm Administered Dose 3 ml .ROUTE .STK-MED ONE Stop: 02/08/21 09:38 Last Admin: 02/08/21 10:52 Dose: Not Given Documented by: Aspirin (Aspirin 81 Mg Tab.Chew) Confirm Administered Dose 81 mg .ROUTE .STK-MED ONE Stop: 02/10/21 08:33 Last Admin: 02/10/21 09:01 Dose: Not Given Documented by: Guaifenesin/Dextromethorphan (Guaifenesin/Dextromethorphan 100-10 Mg/5 Ml Soln 10 Ml Cup) 10 ml PO Q4H PRN PRN Reason: Cough Last Admin: 02/10/21 22:10 Dose: 10 ml Documented by: Doxycycline Hyclate 100 mg/ (Sodium Chloride) 100 mls @ 100 mls/hr IV Q12H [facility] Last Admin: 02/10/21 05:15 Dose: 100 mls/hr Documented by: Lactated Ringer's (Ringers, Lactated) 1,000 mls @ 100 mls/hr IV ASDIRECTED [facility] Last Admin: 02/08/21 11:56 Dose: 100 mls/hr Documented by: Methylprednisolone Sodium Succinate (Methylprednisolone Sodium Succinate 40 Mg/1 Ml Sdv) 40 mg IVPUSH ONETIME ONE Stop: 02/07/21 17:32 Last Admin: 02/07/21 18:11 Dose: 40 mg Documented by: Methylprednisolone Sodium Succinate (Methylprednisolone Sodium Succinate 40 Mg/1 Ml Sdv) 40 mg IVPUSH Q8H [facility] Last Admin: 02/09/21 09:20 Dose: 40 mg Documented by: Methylprednisolone Sodium Succinate (Methylprednisolone Sodium Succinate 40 Mg/1 Ml Sdv) 40 mg IVPUSH Q12H [facility] Stop: 02/10/21 22:00 Last Admin: 02/10/21 21:57 Dose: 40 mg Documented by: Potassium Chloride (Potassium Chloride 10% 20 Meq/15 Ml Soln 30 Ml Ud Cup) 40 meq PO ONETIME ONE Stop: 02/12/21 10:46 Last Admin: 02/12/21 11:02 Dose: 40 meq Documented by:
[2021-02-12] MEDS ORDERED: Doxycycline 100 MG Cap PO SCH (18:00)
[2021-02-12 19:24] VITALS: BP 129/54; PULSE 76
== END 2021-02-12 18:15 | disposition home or self-care (01) | DRG 189 ==
LOC: MW.ED 15:09 → MW.MS 17:29 → OBSVTOIN 02-09 12:39
PROVIDERS: ADMIT Student in an Organized Health Care Education/Training Program; ATTEND Student in an Organized Health Care Education/Training Program
DX: J96.21 Acute and chronic respiratory failure with hypoxia (principal); J44.1 Chronic obstructive pulmonary disease with (acute) exacerbation; E87.3 Alkalosis; I45.81 Long QT syndrome; I50.9 Heart failure, unspecified; H54.7 Unspecified visual loss; M19.90 Unspecified osteoarthritis, unspecified site; R73.9 Hyperglycemia, unspecified; Z87.891 Personal history of nicotine dependence; Z20.822 Contact with and (suspected) exposure to COVID-19; Z90.89 Acquired absence of other organs; Z98.49 Cataract extraction status, unspecified eye; Z90.710 Acquired absence of both cervix and uterus; Z79.51 Long term (current) use of inhaled steroids; Z90.49 Acquired absence of other specified parts of digestive tract; Z99.81 Dependence on supplemental oxygen; Z85.828 Personal history of other malignant neoplasm of skin; Z79.82 Long term (current) use of aspirin; Z88.0 Allergy status to penicillin; Z91.048 Other nonmedicinal substance allergy status; Z88.8 Allergy status to other drugs, medicaments and biological substances; Z98.890 Other specified postprocedural states; Z79.899 Other long term (current) drug therapy
CPT/HCPCS: 36415 ×3; 71045; 80048 ×2; 80053; 83605; 83735; 84484; 85025 ×3; 85610; 93005; 94640 ×6; 96374; 99285; A9270 ×4; J2920 ×6; J3490 ×4; J7120 ×2; U0002; 84100; 96365; 96375; 96376; G0378; J1644; J3480; J7620-GY

== ENCOUNTER 2021-11-24 09:45 | Emergency (ER) | payer MEDICARE, BC ==
[2021-11-24] MEDS ORDERED: Ketorolac 30 MG/ML SDV IVPUSH ONE (10:09)
[2021-11-24] MEDS ORDERED: Dexamethasone 10 MG/ML SDV IVPUSH ONE (10:09)
[2021-11-24] MEDS ORDERED: Cyclobenzaprine 10 MG Tab PO ONE (10:10)
[2021-11-24 11:29] VITALS: BP 137/54; PULSE 66
== END 2021-11-24 11:40 | disposition home or self-care (01) ==
LOC: MW.ED 09:45
DX: M54.31 Sciatica, right side (principal); I11.0 Hypertensive heart disease with heart failure; I50.9 Heart failure, unspecified; J44.9 Chronic obstructive pulmonary disease, unspecified; Z91.048 Other nonmedicinal substance allergy status; Z88.0 Allergy status to penicillin; Z88.8 Allergy status to other drugs, medicaments and biological substances; Z79.82 Long term (current) use of aspirin
CPT/HCPCS: 73502; 96374; 96375; 99283; A9270; J1100; J1885; 97110-GP; 97112-GP

== ENCOUNTER 2022-03-23 07:16 | Inpatient (IN) | payer MEDICARE, BC ==
[2022-03-23] MEDS ORDERED: Albuterol/Ipratropium 3.0-0.5 MG/3 ML Neb Soln NEB STA (07:27)
[2022-03-23 09:24] LABS: CORONAVIRUS COVID-19 NAA NEGATIVE (NEGATIVE); INFLUENZA A NAA NEGATIVE (NEGATIVE); INFLUENZA B NAA NEGATIVE (NEGATIVE)
[2022-03-23] MEDS ORDERED: predniSONE 20 MG Tab PO ONE (09:52)
[2022-03-23] MEDS ORDERED: Albuterol/Ipratropium 3.0-0.5 MG/3 ML Neb Soln NEB ONE (10:27)
[2022-03-23] MEDS ORDERED: Azithromycin 500 MG in Sodium Chloride 0.9% 250 ML IV ONE (11:39)
[2022-03-23] MEDS ORDERED: methylPREDNISolone Sodium Succinate 40 MG/1 ML SDV IVPUSH ONE ×2 (13:20→21:05)
[2022-03-23] MEDS ORDERED: Heparin Sodium 5,000 Units/ML Vial SUBCUT ONE (13:30)
[2022-03-23] MEDS ORDERED: Doxycycline 100 MG Cap PO ONE ×2 (13:50→21:05)
[2022-03-23] MEDS ORDERED: Albuterol/Ipratropium 3.0-0.5 MG/3 ML Neb Soln ONE (13:57)
[2022-03-23] MEDS ORDERED: Budesonide 0.5 MG/2 ML Neb Susp ONE (13:58)
[2022-03-23] MEDS ORDERED: Budesonide 0.5 MG/2 ML Neb Susp INH ONE ×2 (14:00→21:05)
[2022-03-23] MEDS ORDERED: Albuterol/Ipratropium 3.0-0.5 MG/3 ML Neb Soln INH ONE ×3 (14:00→21:05)
[2022-03-23 20:10] VITALS: BP 129/61; PULSE 83
[2022-03-24] MEDS ORDERED: Heparin Sodium 5,000 Units/ML Vial SUBCUT ONE ×2 (01:05→13:00)
[2022-03-24] MEDS ORDERED: Albuterol/Ipratropium 3.0-0.5 MG/3 ML Neb Soln INH ONE ×6 (01:05→21:00)
[2022-03-24] MEDS ORDERED: Budesonide 0.5 MG/2 ML Neb Susp INH ONE ×2 (08:20→21:00)
[2022-03-24] MEDS ORDERED: Doxycycline 100 MG Cap PO ONE ×2 (08:30→21:00)
[2022-03-24] MEDS ORDERED: methylPREDNISolone Sodium Succinate 40 MG/1 ML SDV IVPUSH ONE ×3 (08:45→21:00)
[2022-03-25] MEDS ORDERED: Albuterol/Ipratropium 3.0-0.5 MG/3 ML Neb Soln INH ONE ×2 (01:00→04:00)
[2022-03-25] MEDS ORDERED: methylPREDNISolone Sodium Succinate 40 MG/1 ML SDV IVPUSH ONE ×3 (04:40→21:00)
[2022-03-25] MEDS ORDERED: Doxycycline 100 MG Cap PO ONE (09:00)
[2022-03-25] MEDS ORDERED: Budesonide 0.5 MG/2 ML Neb Susp INH ONE (09:00)
[2022-03-25] MEDS ORDERED: Heparin Sodium 5,000 Units/ML Vial SUBCUT ONE (09:00)
== END 2022-03-25 12:00 | disposition home or self-care (01) | DRG 191 ==
LOC: MW.ED 07:16 → MW.ZCENSUS 11:34 → MW.ED 12:01
PROVIDERS: ADMIT Student in an Organized Health Care Education/Training Program; ATTEND Student in an Organized Health Care Education/Training Program
DX: J44.1 Chronic obstructive pulmonary disease with (acute) exacerbation (principal); J96.11 Chronic respiratory failure with hypoxia; M19.90 Unspecified osteoarthritis, unspecified site; Z79.82 Long term (current) use of aspirin; Z91.09 Other allergy status, other than to drugs and biological substances; Z99.81 Dependence on supplemental oxygen; Z79.51 Long term (current) use of inhaled steroids; Z79.899 Other long term (current) drug therapy; Z88.0 Allergy status to penicillin; Z79.52 Long term (current) use of systemic steroids; Z90.710 Acquired absence of both cervix and uterus; Z90.49 Acquired absence of other specified parts of digestive tract; Z88.8 Allergy status to other drugs, medicaments and biological substances; Z20.822 Contact with and (suspected) exposure to COVID-19
CPT/HCPCS: 0240U; 71045; 99285; 93005; 93010; 99283; A9270-GY; J1644; J2920; J7620-GY

== ENCOUNTER 2023-07-04 01:37 | Emergency (ER) | payer MEDICARE, OTHER ==
[2023-07-04] MEDS ORDERED: Sodium Chloride 0.9% 2.5 ML Syringe FLUSH PRN (01:44)
[2023-07-04] MEDS ORDERED: Sodium Chloride 0.9% 500 ML IV ONE (01:44)
[2023-07-04] MEDS ORDERED: Sodium Chloride 0.9% 10 ML Syringe FLUSH PRN (01:44)
[2023-07-04 02:10] LABS: BASOPHILS ABSOLUTE AUTO 0.06 K/uL (0.00-0.20); BASOPHILS PERCENT AUTO 0.5 % (0.0-1.0); EOSINOPHILS ABSOLUTE AUTO 0.38 K/uL (0.00-0.45); EOSINOPHILS PERCENT AUTO 3.2 % (0.0-6.0); HEMATOCRIT 39.2 % (37.0-47.0); HEMOGLOBIN 13.8 g/dL (12.0-16.0); IMMATURE GRAN ABSOLUTE AUTO 0.04 K/uL (0.00-0.05); IMMATURE GRAN PERCENT AUTO 0.3 % (0.0-0.4); LYMPHOCYTES ABSOLUTE AUTO 1.13 K/uL (1.00-4.80); LYMPHOCYTES PERCENT AUTO 9.5 % (24.0-44.0); MEAN CORPUSCULAR HEMOGLOBIN 32.9 pg (28.0-32.0); MEAN CORPUSCULAR HGB CONC 35.2 g/dL (32.0-36.0); MEAN CORPUSCULAR VOLUME 93.3 fL (83.0-99.0); MEAN PLATELET VOLUME 10.9 fL (9.4-12.3); MONOCYTES ABSOLUTE AUTO 0.73 K/uL (0.00-0.80); MONOCYTES PERCENT AUTO 6.2 % (0.0-8.0); NEUTROPHILS PERCENT AUTO 80.3 % (41.0-71.0); PLATELET COUNT,PLT 149 K/uL (150-400); WHITE BLOOD CELL COUNT,WBC 11.84 K/uL (3.9-11.3)
[2023-07-04 02:23] LABS: A/G RATIO 1.2 (0.9-1.6); ALBUMIN 3.5 g/dL (3.4-5.0); BILIRUBIN TOTAL 0.7 mg/dL (0.2-1.0); CREATININE 0.8 mg/dL (0.6-1.0); EST CRCL DRUG DOSING (CG) 45.38 mL/min; POTASSIUM,K 3.8 mmol/L (3.5-5.1); PROTEIN TOTAL,TP 6.5 g/dL (6.4-8.2)
[2023-07-04] MEDS ORDERED: Iopamidol 755 MG/ML 500 ML Multipack Bottle IVPUSH STA (02:41)
[2023-07-04 02:59] LABS: APPEARANCE,URINE CLOUDY; BILIRUBIN,URINE NEGATIVE (NEGATIVE); COLOR,URINE RED; GLUCOSE,URINE NEGATIVE (NEGATIVE); KETONES,URINE 15 mg/dL (NEGATIVE); LEUKOCYTE ESTERASE,URINE SMALL (NEGATIVE); NITRITE,URINE POSITIVE (NEGATIVE); PROTEIN,URINE 100 mg/dL (NEGATIVE)
[2023-07-04 03:01] LABS: OCCULT BLOOD,URINE LARGE (NEGATIVE)
[2023-07-04 03:05] LABS: EPITHELIAL CELLS,URINE FEW (NONE-FEW); RBC,URINE TOO NUMEROUS TO CT (0-2/HPF); WBC,URINE TO NUMEROUS TO COUNT (0-5/HPF)
[2023-07-04 03:06] LABS: BACTERIA,URINE MANY (NEGATIVE)
[2023-07-04] MEDS ORDERED: Acetaminophen 500 MG Tab PO ONE (03:13)
[2023-07-04] MEDS ORDERED: Albuterol/Ipratropium 3.0-0.5 MG/3 ML Neb Soln NEB ONE (03:21)
[2023-07-04] MEDS ORDERED: Cefdinir 300 MG Cap PO ONE (03:37)
[2023-07-04 05:03] VITALS: BP 109/52; PULSE 70
== END 2023-07-04 05:00 | disposition home or self-care (01) ==
LOC: MW.ED 01:37
DX: N30.01 Acute cystitis with hematuria (principal); Z88.0 Allergy status to penicillin; Z91.048 Other nonmedicinal substance allergy status; Z88.8 Allergy status to other drugs, medicaments and biological substances; Z79.899 Other long term (current) drug therapy; Z90.49 Acquired absence of other specified parts of digestive tract
CPT/HCPCS: 36415; 74177; 80053; 81001; 83690; 84484; 85025; 93005; 96360; 99285; A9270; J3490; J7040; Q9967; 93010; 99284; J7620-GY

== ENCOUNTER 2023-07-18 18:50 | Emergency (ER) | payer MEDICARE, OTHER ==
[2023-07-18] MEDS: Sodium Chloride 0.9% 2.5 ML Syringe FLUSH PRN ×2 (19:12→19:28)
[2023-07-18] MEDS: Sodium Chloride 0.9% 10 ML Syringe FLUSH PRN ×2 (19:12→19:28)
[2023-07-18] MEDS ORDERED: Iopamidol 755 MG/ML 500 ML Multipack Bottle IVPUSH ONE (19:30)
[2023-07-18] MEDS: Albuterol/Ipratropium 3.0-0.5 MG/3 ML Neb Soln NEB ONE (19:43)
[2023-07-18] MEDS: Sodium Chloride 0.9% 500 ML IV SCH ×3 (19:43→22:01)
[2023-07-18 20:00] LABS: CORONAVIRUS COVID-19 NAA NEGATIVE (NEGATIVE); INFLUENZA A NAA NEGATIVE (NEGATIVE); INFLUENZA B NAA NEGATIVE (NEGATIVE); RESPIRATORY SYNCYTIAL VIR NAA NEGATIVE (NEGATIVE)
[2023-07-18 20:11] LABS: HEMATOCRIT 37.3 % (37.0-47.0); HEMOGLOBIN 13.2 g/dL (12.0-16.0); MEAN CORPUSCULAR HEMOGLOBIN 32.6 pg (28.0-32.0); MEAN CORPUSCULAR HGB CONC 35.4 g/dL (32.0-36.0); MEAN CORPUSCULAR VOLUME 92.1 fL (83.0-99.0); MEAN PLATELET VOLUME 11.3 fL (9.4-12.3); PLATELET COUNT,PLT 123 K/uL (150-400); RED BLOOD CELL COUNT 4.05 M/uL (4.10-5.30); WHITE BLOOD CELL COUNT,WBC 19.04 K/uL (3.9-11.3)
[2023-07-18 20:36] LABS: ALBUMIN 2.8 g/dL (3.4-5.0); BILIRUBIN TOTAL 0.9 mg/dL (0.2-1.0); CALCIUM 8.5 mg/dL (8.5-10.1); CARBON DIOXIDE,CO2 26.1 mmol/L (21.0-32.0); CREATININE 4.4 mg/dL (0.6-1.0); EST CRCL DRUG DOSING (CG) 8.18 mL/min; POTASSIUM,K 3.7 mmol/L (3.5-5.1); PROTEIN TOTAL,TP 5.6 g/dL (6.4-8.2)
[2023-07-18 20:38] LABS: MAGNESIUM 1.8 mg/dL (1.8-2.4)
[2023-07-18 21:27] LABS: BAND ABSOLUTE MAN 3.05; BAND PERCENT MAN 16 %; LYMPHOCYTES ABSOLUTE MAN 0.38 K/uL (1.00-4.80); LYMPHOCYTES PERCENT MAN 2 % (24-44); SEG NEUTROPHILS ABSOLUTE MAN 15.04 K/uL (1.80-7.70); SEG NEUTROPHILS PERCENT MAN 79 % (41-71)
[2023-07-18 21:28] LABS: BLAST ABSOLUTE MAN 0.19; BLASTS PERCENT MAN 1 %; MONOCYTES ABSOLUTE MAN 0.38 K/uL (0.00-0.80); MONOCYTES PERCENT MAN 2 % (0-8)
[2023-07-18] MEDS: Levofloxacin/Dextrose 5%-Water 750 MG in Premix Bag 1 BAG IV ONE (21:29)
[2023-07-18] MEDS: Sodium Chloride 0.9% 1,000 ML IV ONE (22:01)
[2023-07-18 22:05] LABS: APPEARANCE,URINE SLT CLOUDY; BILIRUBIN,URINE NEGATIVE (NEGATIVE); COLOR,URINE YELLOW; GLUCOSE,URINE NEGATIVE (NEGATIVE); KETONES,URINE NEGATIVE (NEGATIVE); LEUKOCYTE ESTERASE,URINE SMALL (NEGATIVE); NITRITE,URINE NEGATIVE (NEGATIVE); OCCULT BLOOD,URINE LARGE (NEGATIVE); PROTEIN,URINE 100 mg/dL (NEGATIVE); UROBILINOGEN,URINE 0.2 EU/dL (<2.0)
[2023-07-18 22:30] LABS: EPITHELIAL CELLS,URINE FEW (NONE-FEW); RBC,URINE 0-5 (0-2/HPF); WBC,URINE 15-30 (0-5/HPF)
[2023-07-18 22:31] LABS: BACTERIA,URINE 3+ (NEGATIVE)
[2023-07-19] MEDS: Acetaminophen 325 MG Tab PO ONE (01:15)
[2023-07-19] MEDS: Albuterol/Ipratropium 3.0-0.5 MG/3 ML Neb Soln NEB ONE (01:23)
[2023-07-19 01:30] LABS: CALCIUM 7.8 mg/dL (8.5-10.1); CARBON DIOXIDE,CO2 17.8 mmol/L (21.0-32.0); CREATININE 4.1 mg/dL (0.6-1.0); EST CRCL DRUG DOSING (CG) 8.78 mL/min; POTASSIUM,K 3.5 mmol/L (3.5-5.1)
[2023-07-19] MEDS: Norepinephrine Bit/D5W Premix 250 ML IV SCH (03:06)
[2023-07-19] MEDS: Sodium Chloride 0.9% 500 ML IV SCH (03:09)
[2023-07-19 06:20] LABS: BASE EXCESS ARTERIAL -6.8 (-2.0-3.0); BICARBONATE,ARTERIAL 17 mEq/L (22-26); PCO2 ARTERIAL 30 mmHG (35-45); PO2 ARTERIAL 87 mmHG (80-105)
[2023-07-19 06:42] VITALS: BP 93/61; PULSE 90
== END 2023-07-19 06:39 ==
LOC: MW.ED 18:50
DX: A41.9 Sepsis, unspecified organism (principal); R65.20 Severe sepsis without septic shock; N19 Unspecified kidney failure; N12 Tubulo-interstitial nephritis, not specified as acute or chronic; I50.9 Heart failure, unspecified; J44.9 Chronic obstructive pulmonary disease, unspecified; Z87.891 Personal history of nicotine dependence; Z79.82 Long term (current) use of aspirin; Z79.899 Other long term (current) drug therapy; Z91.048 Other nonmedicinal substance allergy status; Z88.0 Allergy status to penicillin; Z88.1 Allergy status to other antibiotic agents
CPT/HCPCS: 0241U; 36415; 36600; 71045; 71250; 74176; 80048; 80053; 81001; 82803; 83605; 83690; 83735; 83880; 84484; 85025; 85379; 87040; 87077; 87086; 87088; 87154; 87186; 96365; 96366; 96367; 96368; 99285; A9270; J1956; J3370; J3490; J7030; J7040; J7050; 99291; 99292; J7620-GY

== ENCOUNTER 2024-03-15 16:59 | Emergency (ER) | payer MEDICARE, OTHER ==
[2024-03-15] MEDS: Sodium Chloride 0.9% 1,000 ML IV ONE ×2 (17:48→17:52)
[2024-03-15 17:58] LABS: BILIRUBIN,URINE NEGATIVE (NEGATIVE); COLOR,URINE YELLOW; GLUCOSE,URINE NEGATIVE (NEGATIVE); KETONES,URINE NEGATIVE (NEGATIVE); LEUKOCYTE ESTERASE,URINE MODERATE (NEGATIVE); NITRITE,URINE POSITIVE (NEGATIVE); OCCULT BLOOD,URINE LARGE (NEGATIVE); PROTEIN,URINE 30 mg/dL (NEGATIVE); UROBILINOGEN,URINE 0.2 EU/dL (<2.0)
[2024-03-15 18:08] LABS: BASOPHILS ABSOLUTE AUTO 0.05 K/uL (0.00-0.20); BASOPHILS PERCENT AUTO 0.6 % (0.0-1.0); EOSINOPHILS ABSOLUTE AUTO 0.41 K/uL (0.00-0.45); EOSINOPHILS PERCENT AUTO 5.1 % (0.0-6.0); HEMATOCRIT 37.9 % (37.0-47.0); HEMOGLOBIN 12.7 g/dL (12.0-16.0); IMMATURE GRAN ABSOLUTE AUTO 0.03 K/uL (0.00-0.05); IMMATURE GRAN PERCENT AUTO 0.4 % (0.0-0.4); LYMPHOCYTES ABSOLUTE AUTO 1.28 K/uL (1.00-4.80); MEAN CORPUSCULAR HEMOGLOBIN 29.7 pg (28.0-32.0); MEAN CORPUSCULAR HGB CONC 33.5 g/dL (32.0-36.0); MEAN CORPUSCULAR VOLUME 88.8 fL (83.0-99.0); MONOCYTES ABSOLUTE AUTO 0.35 K/uL (0.00-0.80); MONOCYTES PERCENT AUTO 4.4 % (0.0-8.0); NEUTROPHILS ABSOLUTE AUTO 5.86 K/uL (1.80-7.70); NEUTROPHILS PERCENT AUTO 73.5 % (41.0-71.0); PLATELET COUNT,PLT 222 K/uL (150-400); RED BLOOD CELL COUNT 4.27 M/uL (4.10-5.30); WHITE BLOOD CELL COUNT,WBC 7.98 K/uL (3.9-11.3)
[2024-03-15 18:09] LABS: APPEARANCE,URINE SLT CLOUDY
[2024-03-15 18:10] LABS: BACTERIA,URINE MANY (NEGATIVE); EPITHELIAL CELLS,URINE MODERATE (NONE-FEW)
[2024-03-15 18:35] LABS: CORONAVIRUS COVID-19 NAA POSITIVE (NEGATIVE); INFLUENZA A NAA NEGATIVE (NEGATIVE); INFLUENZA B NAA NEGATIVE (NEGATIVE); RESPIRATORY SYNCYTIAL VIR NAA NEGATIVE (NEGATIVE)
[2024-03-15 18:36] LABS: ALBUMIN 3.4 g/dL (3.4-5.0); BILIRUBIN TOTAL 0.4 mg/dL (0.2-1.0); CALCIUM 9.1 mg/dL (8.5-10.1); CARBON DIOXIDE,CO2 24.5 mmol/L (21.0-32.0); CREATININE 1.4 mg/dL (0.6-1.0); EST CRCL DRUG DOSING (CG) 25.12 mL/min; LACTIC ACID 2.5 mmol/L (0.4-2.0); POTASSIUM,K 4.1 mmol/L (3.5-5.1); PROTEIN TOTAL,TP 6.7 g/dL (6.4-8.2)
[2024-03-15] MEDS: Levofloxacin/Dextrose 5%-Water 500 MG in Premix Bag 1 BAG IV ONE (19:10)
[2024-03-15] MEDS: Albuterol/Ipratropium 3.0-0.5 MG/3 ML Neb Soln NEB ONE (19:53)
[2024-03-15] MEDS: Sodium Chloride 0.9% 500 ML IV SCH (19:57)
[2024-03-15] MEDS: Aspirin 81 MG Tab.Chew PO ONE (20:55)
[2024-03-15 21:15] VITALS: PULSE 82
[2024-03-15] MEDS: Enoxaparin 60 MG/0.6 ML Syringe SUBCUT ONE (21:31)
[2024-03-15 21:42] LABS: INR 1.02 (0.86-1.11); PTT,PARTIAL THROMBOPLSTIN TIME 28.1 SEC (23.9-30.7)
[2024-03-15 22:55] VITALS: BP 120/66
== END 2024-03-15 22:30 ==
LOC: MW.ED 16:59
DX: U07.1 COVID-19 (principal); I21.4 Non-ST elevation (NSTEMI) myocardial infarction; N39.0 Urinary tract infection, site not specified; E87.20 Acidosis, unspecified; I10 Essential (primary) hypertension; J44.9 Chronic obstructive pulmonary disease, unspecified; Z79.899 Other long term (current) drug therapy; Z79.82 Long term (current) use of aspirin; Z88.0 Allergy status to penicillin; Z88.8 Allergy status to other drugs, medicaments and biological substances; Z91.048 Other nonmedicinal substance allergy status; Z75.8 Other problems related to medical facilities and other health care
CPT/HCPCS: 0241U; 36415; 71046; 80053; 81001; 83605; 83880; 84484; 85025; 85610; 85730; 87040; 87086; 87088; 87186; 93005; 96361; 96365; 96372; 99285; A9270; J1650; J1956; J7030; J7040; J7620-GY